=== PATIENT | female | born 1970 ===

== ENCOUNTER 2020-03-12 23:53 | Emergency (ER) | payer MEDICARE, MEDICAID, SELFPAY ==
[2020-03-13 00:13] VITALS: BP 133/71; PULSE 77; RESP 16; TEMP 36.1; O2SAT 98; BMI 31.8
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
[2020-03-13] MEDS: Ibuprofen 600 MG TABLET PO (02:06)
== END 2020-03-13 02:10 | disposition home or self-care (01) ==
LOC: HO.ED 03-13 02:02
PROVIDERS: Emergency Provider Internal Medicine
DX: Z04.1 Encounter for examination and observation following transport accident (principal); M25.562 Pain in left knee; M25.561 Pain in right knee
CPT/HCPCS: 99283

== ENCOUNTER 2020-12-23 09:35 | Outpatient (REF) | payer MEDICARE, MEDICAID, SELFPAY | END 2020-12-23 09:36 | disposition home or self-care (01) | LOC: HO.LAB 09:35 | PROVIDERS: Visit Provider Internal Medicine | DX: Z13.89 Encounter for screening for other disorder (principal) ==

== ENCOUNTER 2021-09-12 08:26 | Emergency (ER) | payer MEDICARE, MEDICAID, SELFPAY ==
[2021-09-12 08:31] VITALS: PULSE 55; RESP 17; TEMP 36.6; O2SAT 98; BMI 34.0
--- NOTE | 2021-09-12 09:06 | ED.GENADULT ---
HPI - General Adult General Chief complaint: Extremity Injury, Lower Stated complaint: cant walk pain in legs Time Seen by Provider: 09/12/21 09:05 Source: patient Mode of arrival: ambulatory Limitations: no limitations History of Present Illness HPI narrative: Patient is a 51 year old female presenting to the emergency department today with bilateral leg pain. Patient states that she is bilateral leg pain that radiates down her back. Patient states that she has flares of this on and off and has not been evaluated for it. Patient denies any dizziness, lightheadedness, abdominal pain, nausea, vomiting, fever, chills, blurry vision, double vision, loss of vision, chest pain, difficulty breathing, shortness of breath, night sweats, pain with urination, increased urinary frequency, increased urinary urgency, blood in her urine or stool, syncope or a near syncopal episode, recent trauma or falls, bowel incontinence, bladder incontinence, bowel retention, bladder retention, or any other complaints at this time. Onset (ago): week(s) (1) Location: left, right and lower extremity Severity: mild Severity scale (1-10): 2 Quality: sharp Pain Consistency: intermittent Relieving factors: none Exacerbating factors: none Associated symptoms: denies other symptoms Treatments prior to arrival: none Related Data Previous Rx's Medication Instructions Recorded ibuprofen 600 mg tablet 600 mg PO Q6H PRN pain #20 tabs 03/13/20 cyclobenzaprine 10 mg tablet 10 mg PO TID PRN muscle spasm 7 09/12/21 days #21 tabs Allergies Allergy/AdvReac Type Severity Reaction Status Date / Time Sulfa (Sulfonamide Allergy Severe SWELLING Unverified 12/07/19 16:19 Antibiotics) acetaminophen [Percocet] Allergy Unknown vomiting Verified 02/13/19 00:00 oxycodone [Percocet] Allergy Unknown vomiting Verified 02/13/19 00:00 lisinopril AdvReac Unknown Verified 02/13/19 00:00 Pt states she is allergic to Allergy Unknown Uncoded 02/13/19 00:00 P From PERCOCET AdvReac Intermediate VOMITING Uncoded 12/07/19 16:19 baldo inhibitors AdvReac Unknown Uncoded 02/13/19 00:00 Review of Systems Constitutional: Constitutional: Reports no additional constitutional complaints, Denies chills, Denies fever(s) and Denies night sweats Eyes: Eyes: Reports no additional eye complaints, Denies blurry vision, Denies change in vision, Denies diplopia, Denies eye discharge, Denies loss of vision and Denies eye pain ENT: Denies dizziness Cardiovascular: Cardiovascular: Reports no additional cardiovascular complaints, Denies chest pain, Denies lightheadedness, Denies Loss of Consciousness and Denies dyspnea Respiratory: Respiratory: Reports no additional respiratory complaints and Denies dyspnea Gastrointestinal: Gastrointestinal: Reports no additional gastrointestinal complaints, Denies abdominal pain, Denies melena, Denies hematochezia, Denies change in bowel habits and Denies change in stool character Genitourinary: Genitourinary: Denies hematuria, Denies urinary frequency, Denies dysuria, Denies urinary incontinence, Denies urinary hesitancy and Denies urinary urgency Musculoskeletal: Musculoskeletal: Reports no additional musculoskeletal complaints, Denies numbness and Denies tingling Comments: bilateral leg pain Neurologic: Denies dizziness, Denies loss of vision, Denies numbness and Denies tingling Psychiatric: Psychiatric: Reports no additional psychiatric complaints Endocrine: Endocrine: Reports no additional endocrine complaints Hematologic/Lymphatic: Hematologic/Lymphatic: Reports no additional hematologic/lymphatic complaints Allergic/Immunologic: Allergic/Immunologic: Reports no additional allergic/immunologic complaints PMFSH Past Medical History Attestation statement: The following information was validated with the patient. Source: old records reviewed Medical History Anemia Asthma Brain tumor Hypertension Social History Social History Advance Directives: No Advance Directives Information Provided: Yes Physical Exam ED Vital Signs: Vital Signs - 24 hr 09/12/21 08:31 Temperature 98 F Pulse Rate 55 Respiratory Rate 17 Pulse Oximetry 98 Oxygen Delivery Method Room Air BMI result Body Mass Index 34.0 Const General: cooperative, no acute distress, alert and awake Nutritional Appearance: well nourished Orientation/consciousness: patient oriented x3 Limitations: no limitations HENMT Head: Yes normal to inspection and Yes atraumatic Ears: hearing grossly normal bilaterally and external ears normal General nose exam: Normal external nose present, no nasal discharge noted and no epistaxis Face and sinus: Yes normal facial exam, No abrasion and No laceration Mouth: Normal oral and palatal mucosa present, no drooling and no muffled voice Eyes General: appearance normal, both eyes and all related structures Periorbital: periorbital findings normal Eyelids: Yes eyelids normal Conjunctivae: conjunctivae normal Pupils: Equal, round and reactive pupils present EOM: EOMs intact bilaterally Neck Neck: Yes normal visual inspection, Yes full ROM and Yes no lymphadenopathy Chest Chest palpation & inspection: normal inspection of the chest Resp Effort & Inspection: normal respiratory effort and able to speak in complete sentences Auscultation: clear to auscultation bilaterally Cardio Rate: regular rate Rhythm: regular rhythm GI Inspection: Yes normal to inspection Neuro General: patient oriented x3 and moves all extremities Cranial nerves: Yes Equal, round and reactive pupils present Cognition (Neuro): normal cognition Motor exam (neuro): 5/5 motor strength present throughout Sensory Exam: Normal double simultaneous stimulation for sensation Coordination: [id number] test normal Extrem General: Yes normal to inspection, Yes full ROM and Yes capillary refill normal Psych Appearance: grossly normal Mental Status: mental status grossly normal Affect: normal affect Attitude: cooperative Thought process: Normal thought process present Thought content: Normal thought content present Insight: Good insight present (Psych) Medical Decision Making MDM Narrative Medical decision making narrative: Patient is a 51 year old female presenting to the emergency department today with bilateral leg pain. Patient's physical exam was unremarkable. I explained my physical exam findings to the patient. I answered all questions asked by the patient. Patient received PO Flexeril which she stated helped her pain significantly. I stressed the importance of the patient taking her medication as prescribed. I stressed the importance of the patient following up with her primary care provider. I stressed the importance of the patient returning to the emergency department immediately if her symptoms were to worsen or if she were to develop any dizziness, shortness of breath, difficulty breathing, chest pain, blurry vision, loss of vision, nausea, vomiting, abdominal pain, fever, chills, back pain, or any other complaints. Patient verbalized agreement and understanding with this treatment plan and discharge. Differential Diagnosis Differential Diagnosis: sciatica Medical Records Medical records reviewed: Yes I reviewed the patient's medical records. Discharge Plan Discharge Clinical Impression: Sciatica Patient Disposition: Home, Self-Care Instructions: Sciatica (ED) Additional Instructions: Follow up with your primary care provider and an orthopedic provider. Return to the emergency department immediately if your symptoms worsen or if you develop any dizziness, shortness of breath, difficulty breathing, chest pain, blurry vision, loss of vision, nausea, vomiting, abdominal pain, fever, chills, back pain, or any other complaints. Prescriptions: New cyclobenzaprine 10 mg tablet 10 mg PO TID PRN (Reason: muscle spasm) 7 Days Qty: 21 0RF No Action ibuprofen 600 mg tablet 600 mg PO Q6H PRN (Reason: pain) Qty: 20 0RF Referrals: [facility] – [place] [facility] [Provider Group] Gilberto Gaines III, MD [Primary Care Provider] - Interventions: ED Discharge Assessment Last Done: 09/12/21 09:31 Discharge Date/Time: 09/12/21 09:32 Print Language: Icelandic
[2021-09-12] MEDS: Cyclobenzaprine HCl 5 MG TABLET PO (09:28)
== END 2021-09-12 09:32 | disposition home or self-care (01) ==
PROVIDERS: Emergency Provider Emergency Medicine Emergency Medical Services; PCP Internal Medicine
DX: M54.41 Lumbago with sciatica, right side (principal); M54.42 Lumbago with sciatica, left side
CPT/HCPCS: 99283

== ENCOUNTER 2022-02-10 07:24 | Emergency (ER) | payer MEDICARE, MEDICAID, SELFPAY ==
--- NOTE | ~2022-02-10 | US_ITS ---
EXAMINATION: US ABDOMEN COMPLETE CLINICAL INFORMATION: Left flank pain. COMPARISON: 01/16/2016 abdominal ultrasound. TECHNIQUE: Real-time imaging of the abdominal viscera. FINDINGS: PANCREAS: Visualized portions unremarkable. ABDOMINAL AORTA: Visualized portions unremarkable. INFERIOR VENA CAVA: Visualized portions unremarkable. LIVER: Diffuse increased echotexture without focal abnormality. GALLBLADDER: Unremarkable. COMMON BILE DUCT: Normal in caliber measuring 0.6 cm in diameter. RIGHT KIDNEY: 10.7 cm. Interpolar anechoic cyst measures 2.0 cm. Interpolar calculus measures 0.3 cm. No hydronephrosis. Color Doppler showed no abnormal vascular flow. LEFT KIDNEY: 10.2 cm. 2 lower pole calculi measure 0.3 cm. No hydronephrosis. SPLEEN: 9.6 cm. Unremarkable. FREE FLUID: None. US/US abdomen complete IMPRESSION: 1. Hepatic steatosis. 2. Interpolar right renal cyst demonstrates benign features, not requiring follow-up. Nonobstructing intrarenal calculi bilaterally.
[2022-02-10 07:30] VITALS: BP 154/70; PULSE 55; RESP 16; TEMP 36.9; O2SAT 100; BMI 35.2
[2022-02-10 07:48] VITALS: BP 144/76; PULSE 52; RESP 20; TEMP 36.7; O2SAT 97
--- NOTE | 2022-02-10 07:49 | PC.NURSE ---
PT reports frequent, burning urination. Denies N/V. Urine collected and sent to lab.
[2022-02-10 07:56] LABS: Appearance Urine Cloudy; Color Urine Yellow; Glucose Urine UA Negative (Negative); Leukocyte Esterase Urine Large (3+) (Negative); Nitrite Urine Negative (Negative); PH 6.5 (5.0-9.0); UMIC TRIGGER UACC YES; Urine Blood Large (3+) (Negative); Urine Ketones Negative (Negative); Urine Protein 30 (1+) mg/dL (Neg-Trace)
[2022-02-10 08:02] LABS: Bacteria Urine Trace (None Seen); Hyaline Casts Urine 0-2 /LPF (0-2); RBC Urine >20 /HPF (0-2); UACC Culture Trigger YES; WBC Urine >50 /HPF (0-5)
[2022-02-10] MEDS: 0.9 % Sodium Chloride 1,000 ML 999 ML IV ×2 (08:11→09:08)
[2022-02-10 08:16] LABS: MANUAL DIFF FLAG NO
[2022-02-10 08:18] LABS: Basophils Percent Auto 1.2 % (0-2); Eosinophils Absolute Auto 0.4 X10*3/uL (0.0-0.4); Eosinophils Percent Auto 11.7 % (0-4); Hematocrit 33.7 % (37.0-47.0); Hemoglobin 10.6 g/dl (12.0-16.0); Imm Gran Abs Auto 0.01 X10*3/uL (0.00-0.03); Imm Gran Pct Auto 0.3 % (0.0-0.4); Lymphocytes Absolute Auto 0.8 X10*3/uL (1.2-4.9); Lymphocytes Percent Auto 24.9 % (20-40); Mean Corpuscular HGB Conc 31.5 g/dl (31.0-35.0); Mean Corpuscular Hemoglobin 27.3 pg (27.0-33.0); Mean Corpuscular Volume 86.9 fL (80.0-98.0); Mean Platelet Volume 10.6 fL (9.4-12.3); Monocytes Absolute Auto 0.3 X10*3/uL (0.1-1.2); Monocytes Percent Auto 9.3 % (2-11); Neutrophils Absolute Auto 1.8 x10*3/uL (2.0-8.3); Neutrophils Percent Auto 52.6 % (45-73); Platelet Count 304 X10*3/uL (160-400); Red Blood Count 3.88 X10*6/uL (4.20-5.50); Red Cell Distribution Width 12.9 % (11.0-16.0); White Blood Count 3.3 X10*3/uL (4.8-10.8)
--- NOTE | 2022-02-10 08:27 | ED.FEMALEGU ---
HPI - Female Genitourinary General Chief complaint: Urogenital-Female Stated complaint: Pain when urinating/Back pain Time Seen by Provider: 02/10/22 07:52 Source: patient and family Mode of arrival: ambulatory Limitations: no limitations History of Present Illness HPI Narrative: 52-year-old female came in for evaluation of right flank pain. Right flank pain started since yesterday, pain is associated with dysuria, frequency urination, no blood in the urine, no fever, no chills, no nausea, no vomiting, no diarrhea. Sexually active with 1 partner no risk for STDs. No vaginal discharge or abnormal bleeding. Related Data Previous Rx's Medication Instructions Recorded ibuprofen 600 mg tablet 600 mg PO Q6H PRN pain #20 tabs 03/13/20 cyclobenzaprine 10 mg tablet 10 mg PO TID PRN muscle spasm 7 09/12/21 days #21 tabs levofloxacin 750 mg tablet 750 mg PO DAILY #10 tabs 02/10/22 phenazopyridine 200 mg tablet 200 mg PO TID 6 doses #6 tabs 02/10/22 (Pyridium) Allergies Allergy/AdvReac Type Severity Reaction Status Date / Time Sulfa (Sulfonamide Allergy Severe SWELLING Unverified 12/07/19 16:19 Antibiotics) acetaminophen [Percocet] Allergy Unknown vomiting Verified 02/13/19 00:00 oxycodone [Percocet] Allergy Unknown vomiting Verified 02/13/19 00:00 lisinopril AdvReac Unknown Verified 02/13/19 00:00 Pt states she is allergic to Allergy Unknown Uncoded 02/13/19 00:00 P From PERCOCET AdvReac Intermediate VOMITING Uncoded 12/07/19 16:19 baldo inhibitors AdvReac Unknown Uncoded 02/13/19 00:00 Review of Systems Review of Systems: All other systems are reviewed and are negative Constitutional: Reports as per HPI and Reports no additional constitutional complaints Eyes: Reports as per HPI and Reports no additional eye complaints Reports system reviewed and no additional complaints, except as documented Cardiovascular: Reports as per HPI and Reports no additional cardiovascular complaints Respiratory: Reports as per HPI and Reports no additional respiratory complaints Gastrointestinal: Reports as per HPI and Reports no additional gastrointestinal complaints Genitourinary: Reports no additional female genitourinary complaints Musculoskeletal: Reports no additional musculoskeletal complaints Skin/Breast: Reports system reviewed and no additional complaints, except as docu Psychiatric: Reports no additional psychiatric complaints Endocrine: Reports no additional endocrine complaints Hematologic/Lymphatic: Reports no additional hematologic/lymphatic complaints Allergic/Immunologic: Reports no additional allergic/immunologic complaints Reports system reviewed and no additional complaints, except as documented and Reports Abnormal speech present [facility] Past Medical History Medical History Anemia Asthma Brain tumor Hypertension Social History Social History Advance Directives: No Advance Directives Information Provided: Yes Physical Exam Vital Signs: Vital Signs: Last Vital Signs Temp 98.1 F 02/10/22 07:48 Pulse 52 02/10/22 07:48 Resp 20 02/10/22 07:48 BP 144/76 H 02/10/22 07:48 Pulse Ox 97 02/10/22 07:48 O2 Del Method 02/10/22 07:48 BMI result Body Mass Index 35.2 Vital signs have been reviewed as appeared to be correct. Blood pressure normal. Heart rate normal. Respiration rate normal. Temperature normal. Oxygen saturation normal. Appearance: Alert. Oriented X3. No acute distress. Head: Normal external exam. Normocephalic. Atraumatic. No Waters signs noted. No raccoon eyes noted Eyes: PERRLA. EOMI. Conjunctiva and sclera normal. Eyelids normal. ENT: TM's Normal. Pharynx normal. Uvula midline. Moist mucous membranes. No trismus noted. No drooling noted. No muffled voice noted. Neck: Normal inspection. Neck supple. FROM. No adenopathy. Thyroid Normal. No meningeal signs. No neck mass noted. CVS: Normal heart rate and rhythm. Heart sound normal. No murmurs noted. Pulses normal throughout. Respiratory: No respiratory distress. Painless inspiration. Breath sounds normal. No wheezes/rales/rhonchi noted. Chest nontender. No accessory muscle usage noted or decreased air movement noted. Abdomen: Soft and nontender. Bowel sounds normal in all 4 quadrants. No distention noted. No organomegaly noted. No visible injury noted. Back: R CVA tenderness. Full range of motion noted. Skin: Skin warm and dry. Normal skin color. Normal skin turgor. No rashes/lesions/lacerations noted. Extremities: No lower extremity edema. Extremities exhibit normal range of motion. Extremities nontender. Neuro: Oriented X 3. Cranial nerve exam: II-XII are grossly intact No motor deficit. No sensory deficit. Reflexes normal. Course Course Course Narrative: 52-year-old female with urinary symptoms and right flank pain likely secondary to pyelonephritis, patient received IV hydration and ceftriaxone patient already reported some improvements will discharge the patient on levofloxacin/Pyridium and encouraged to drink p.o. hydration. Medications Administered Discontinued Medications Generic Name Dose Route Start Last Admin Trade Name Freq PRN Reason Stop Dose Admin Sodium Chloride 1,000 mls @ 999 mls/hr 02/10/22 07:59 02/10/22 10:00 Ns IV 02/10/22 08:59 Infused .Q1H1M ONE Infusion Sodium Chloride 1,000 mls @ 999 mls/hr 02/10/22 08:26 02/10/22 09:08 Ns IV 02/10/22 09:26 999 mls/hr .Q1H1M ONE Administration Ceftriaxone Sodium 1 gm/ 50 mls @ 100 mls/hr 02/10/22 08:26 02/10/22 10:05 Sodium Chloride IV 02/10/22 08:55 Infused ONCE ONE Infusion MDM - Female Genitourinary Medical Records Attestation: I reviewed the patient's medical records. Lab Data Attestation: I reviewed the patient's lab results. Result diagrams: 02/10/22 08:11 02/10/22 08:11 Labs: Lab Results 02/10/22 02/10/22 02/10/22 Range/Units 07:45 08:11 08:11 WBC 3.3 L (4.8-10.8) X10*3/uL RBC 3.88 L (4.20-5.50) X10*6/uL Hgb 10.6 L (12.0-16.0) g/dl Hct 33.7 L (37.0-47.0) % MCV 86.9 (80.0-98.0) fL MCH 27.3 (27.0-33.0) pg MCHC 31.5 (31.0-35.0) g/dl RDW 12.9 (11.0-16.0) % Plt Count 304 (160-400) X10*3/uL MPV 10.6 (9.4-12.3) fL Immature Gran % (Auto) 0.3 (0.0-0.4) % Neut % (Auto) 52.6 (45-73) % Lymph % (Auto) 24.9 (20-40) % [place] % (Auto) 9.3 (2-11) % Eos % (Auto) 11.7 H (0-4) % Baso % (Auto) 1.2 (0-2) % Lymph # (Auto) 0.8 L (1.2-4.9) X10*3/uL [place] # (Auto) 0.3 (0.1-1.2) X10*3/uL Eos # (Auto) 0.4 (0.0-0.4) X10*3/uL Baso # (Auto) 0.0 (0.0-0.2) X10*3/uL Abs Immat Gran (auto) 0.01 (0.00-0.03) X10*3/uL Absolute Neuts (auto) 1.8 L (2.0-8.3) x10*3/uL Absolute Nucleated RBC 0.000 (0.0-0.012) X10*3/uL Nucleated RBC % (auto) 0.0 (0.0-0.2) /100WBC Sodium 140 (135-145) mmol/L Potassium 4.2 (3.3-5.1) mmol/L Chloride 106 (96-108) mmol/L Carbon Dioxide 27 (22-29) mmol/L Anion Gap 11 L (12-20) BUN 21 H (9-16) mg/dL Creatinine 0.82 (0.5-1.4) mg/dL Estim Creat Clear Calc 85.5 Estimated GFR > 60 Random Glucose 104 (60-115) mg/dL Lactic Acid (0.5-2.0) mmol/L Calcium 9.7 (8.4-10.2) mg/dL Total Bilirubin 0.5 (0.0-1.0) mg/dL Direct Bilirubin < 0.2 (0.0-0.5) mg/dL AST 18 (5-31) U/L ALT 13 (0-31) U/L Alkaline Phosphatase 97 (39-117) U/L Total Protein 6.8 (6.5-8.0) g/dL Albumin 4.2 (3.5-5.0) g/dL Lipase 14 (8-78) U/L Urine Color Yellow Urine Appearance Cloudy Urine pH 6.5 (5.0-9.0) Ur Specific [place] 1.020 (1.005-1.025) Urine Protein 30 (1+) H (Neg-Trace) mg/dL Urine Glucose (UA) Negative (Negative) mg/dL Urine Ketones Negative (Negative) mg/dL Urine Blood Large (3+) H (Negative) Urine Nitrite Negative (Negative) Ur Leukocyte Esterase Large (3+) H (Negative) Urine RBC >20 H (0-2) /HPF Urine WBC >50 H (0-5) /HPF Ur Squamous Epith Cells 3-5 (0-2) /HPF Urine Bacteria Trace (None Seen) Hyaline Casts 0-2 (0-2) /LPF 02/10/22 Range/Units 09:09 WBC (4.8-10.8) X10*3/uL RBC (4.20-5.50) X10*6/uL Hgb (12.0-16.0) g/dl Hct (37.0-47.0) % MCV (80.0-98.0) fL MCH (27.0-33.0) pg MCHC (31.0-35.0) g/dl RDW (11.0-16.0) % Plt Count (160-400) X10*3/uL MPV (9.4-12.3) fL Immature Gran % (Auto) (0.0-0.4) % Neut % (Auto) (45-73) % Lymph % (Auto) (20-40) % [place] % (Auto) (2-11) % Eos % (Auto) (0-4) % Baso % (Auto) (0-2) % Lymph # (Auto) (1.2-4.9) X10*3/uL [place] # (Auto) (0.1-1.2) X10*3/uL Eos # (Auto) (0.0-0.4) X10*3/uL Baso # (Auto) (0.0-0.2) X10*3/uL Abs Immat Gran (auto) (0.00-0.03) X10*3/uL Absolute Neuts (auto) (2.0-8.3) x10*3/uL Absolute Nucleated RBC (0.0-0.012) X10*3/uL Nucleated RBC % (auto) (0.0-0.2) /100WBC Sodium (135-145) mmol/L Potassium (3.3-5.1) mmol/L Chloride (96-108) mmol/L Carbon Dioxide (22-29) mmol/L Anion Gap (12-20) BUN (9-16) mg/dL Creatinine (0.5-1.4) mg/dL Estim Creat Clear Calc Estimated GFR Random Glucose (60-115) mg/dL Lactic Acid 0.8 (0.5-2.0) mmol/L Calcium (8.4-10.2) mg/dL Total Bilirubin (0.0-1.0) mg/dL Direct Bilirubin (0.0-0.5) mg/dL AST (5-31) U/L ALT (0-31) U/L Alkaline Phosphatase (39-117) U/L Total Protein (6.5-8.0) g/dL Albumin (3.5-5.0) g/dL Lipase (8-78) U/L Urine Color Urine Appearance Urine pH (5.0-9.0) Ur Specific [place] (1.005-1.025) Urine Protein (Neg-Trace) mg/dL Urine Glucose (UA) (Negative) mg/dL Urine Ketones (Negative) mg/dL Urine Blood (Negative) Urine Nitrite (Negative) Ur Leukocyte Esterase (Negative) Urine RBC (0-2) /HPF Urine WBC (0-5) /HPF Ur Squamous Epith Cells (0-2) /HPF Urine Bacteria (None Seen) Hyaline Casts (0-2) /LPF Imaging Data Abdominal ultrasound: Attestation: I personally reviewed and interpreted this imaging study as follows: Radiologist's impression: 1. Hepatic steatosis. 2. Interpolar right renal cyst demonstrates benign features, not requiring follow-up. Nonobstructing intrarenal calculi bilaterally. Discharge Plan Discharge Clinical Impression: Urinary tract infection, Pyelonephritis Patient Disposition: Home, Self-Care Instructions: Kidney Infection (ED) Prescriptions: New levofloxacin 750 mg tablet 750 mg PO DAILY Qty: 10 0RF phenazopyridine [Pyridium] 200 mg tablet 200 mg PO TID Qty: 6 0RF No Action ibuprofen 600 mg tablet 600 mg PO Q6H PRN (Reason: pain) Qty: 20 0RF cyclobenzaprine 10 mg tablet 10 mg PO TID PRN (Reason: muscle spasm) 7 Days Qty: 21 0RF Referrals: Gilberto Gaines III, MD [Primary Care Provider] -
[2022-02-10 08:53] LABS: Alanine Aminotransferase 13 U/L (0-31); Albumin Level 4.2 g/dL (3.5-5.0); Alkaline Phosphatase 97 U/L (39-117); Anion Gap 11 (12-20); Aspartate Amino Transferase 18 U/L (5-31); Bilirubin Direct < 0.2 mg/dL (0.0-0.5); Bilirubin Total 0.5 mg/dL (0.0-1.0); Blood Urea Nitrogen 21 mg/dL (9-16); Calcium 9.7 mg/dL (8.4-10.2); Carbon Dioxide 27 mmol/L (22-29); Chloride 106 mmol/L (96-108); Creatinine Clr Calc Pharmacy 85.5; Estimated Glomerular Filt Rate > 60; Glucose Random 104 mg/dL (60-115); Lipase 14 U/L (8-78); Potassium 4.2 mmol/L (3.3-5.1); Sodium 140 mmol/L (135-145); Total Protein 6.8 g/dL (6.5-8.0)
[2022-02-10] MEDS: cefTRIAXone sodium 1 GM in 0.9 % Sodium Chloride 50 ML IV (09:08)
[2022-02-10 09:29] LABS: Lactic Acid 0.8 mmol/L (0.5-2.0)
[2022-02-10 10:26] VITALS: BP 159/64; PULSE 51; RESP 16; TEMP 36.7; O2SAT 99
== END 2022-02-10 11:16 | disposition home or self-care (01) ==
PROVIDERS: Emergency Provider Emergency Medicine; PCP Internal Medicine
DX: N39.0 Urinary tract infection, site not specified (principal); R30.0 Dysuria; N12 Tubulo-interstitial nephritis, not specified as acute or chronic; M54.50 Low back pain, unspecified; R35.0 Frequency of micturition; Z79.899 Other long term (current) drug therapy
CPT/HCPCS: 36415; 76700; 80048; 80076; 81001; 81003; 83605; 83690; 85025; 87040; 87086; 87088; 87186; 96361; 96374; 99284; J0696

== ENCOUNTER → 2022-03-27 10:42 | Outpatient (BNVA) | payer MEDICARE, MEDICAID, SELFPAY | PROVIDERS: PCP Internal Medicine; Visit Provider Physician Assistant Surgical | DX: E66.9 Obesity, unspecified (principal); Z90.3 Acquired absence of stomach [part of]; Z68.34 Body mass index [BMI] 34.0-34.9, adult | CPT/HCPCS: 99212 ==

== ENCOUNTER 2022-04-27 08:26 | Outpatient (REF) | payer MEDICARE, MEDICAID, SELFPAY ==
[2022-04-27 08:40] LABS: MANUAL DIFF FLAG NO
[2022-04-27 09:30] LABS: Basophils Absolute Auto 0.1 X10*3/uL (0.0-0.2); Basophils Percent Auto 1.3 % (0-2); Eosinophils Absolute Auto 0.4 X10*3/uL (0.0-0.4); Eosinophils Percent Auto 11.1 % (0-4); Hematocrit 35.9 % (37.0-47.0); Hemoglobin 11.1 g/dl (12.0-16.0); Lymphocytes Percent Auto 26.3 % (20-40); Mean Corpuscular HGB Conc 30.9 g/dl (31.0-35.0); Mean Corpuscular Hemoglobin 26.6 pg (27.0-33.0); Mean Corpuscular Volume 86.1 fL (80.0-98.0); Mean Platelet Volume 10.9 fL (9.4-12.3); Monocytes Absolute Auto 0.3 X10*3/uL (0.1-1.2); Monocytes Percent Auto 7.4 % (2-11); Neutrophils Percent Auto 53.9 % (45-73); Platelet Count 304 X10*3/uL (160-400); Red Blood Count 4.17 X10*6/uL (4.20-5.50); Red Cell Distribution Width 13.2 % (11.0-16.0); White Blood Count 3.8 X10*3/uL (4.8-10.8)
[2022-04-27 09:36] LABS: Estimated Average Glucose 100 mg/dL; Hemoglobin A1c % 5.1 %
[2022-04-27 10:02] LABS: Alanine Aminotransferase 17 U/L (0-31); Albumin Level 4.5 g/dL (3.5-5.0); Alkaline Phosphatase 120 U/L (39-117); Anion Gap 14 (12-20); Aspartate Amino Transferase 17 U/L (5-31); Bilirubin Total 0.6 mg/dL (0.0-1.0); Blood Urea Nitrogen 16 mg/dL (9-16); C Reactive Protein 0.63 mg/dL (< or = 0.50); Calcium 9.8 mg/dL (8.4-10.2); Carbon Dioxide 27 mmol/L (22-29); Chloride 105 mmol/L (96-108); Cholesterol 226 mg/dL; Estimated Glomerular Filt Rate > 60; Glucose Random 105 mg/dL (60-115); HDL Cholesterol 47 mg/dL; Iron 55 mcg/dL (30-160); LDL Cholesterol Calculated 159 mg/dl; Percent Iron Saturation 18 % (15-50); Potassium 4.4 mmol/L (3.3-5.1); Sodium 142 mmol/L (135-145); Total Iron Binding Capacity 306 mcg/dL (228-428); Triglycerides 101 mg/dL; Unsaturated Iron Binding 251 ug/dL
[2022-04-27 10:33] LABS: Ferritin 48 ng/mL (10-250); Insulin 16 uU/mL (2-29); TSH reflex Free T4 2.36 uIU/mL (0.32-4.0); Vitamin B12 318 pg/mL (200-900); Vitamin D 25-OH Total 15.9 ng/mL (>30)
[2022-04-28 15:08] LABS: PTHI 83 pg/mL (16-77)
[2022-04-30 16:58] LABS: Zinc 66 mcg/dL (60-130)
[2022-04-30 23:19] LABS: Vitamin A 44 mcg/dL (38-98)
[2022-05-03 05:38] LABS: Vitamin B1 10 nmol/L (8-30)
== END 2022-04-27 08:27 | disposition home or self-care (01) ==
LOC: HO.LAB 08:26
PROVIDERS: PCP Internal Medicine; Visit Provider Physician Assistant Surgical
DX: K91.2 Postsurgical malabsorption, not elsewhere classified (principal); Z90.3 Acquired absence of stomach [part of]
CPT/HCPCS: 36415; 80053; 80061; 82306; 82607; 82728; 82746; 83036; 83525; 83540; 83970; 84425; 84443; 84590; 84630; 85025; 86140

== ENCOUNTER 2022-05-14 11:45 | Emergency (ER) | payer MEDICARE, MEDICAID, SELFPAY ==
--- NOTE | ~2022-05-14 | US_ITS ---
EXAMINATION: US ABDOMEN LIMITED CLINICAL INFORMATION: Right upper quadrant pain with abnormal LFTs. COMPARISON: Ultrasound 02/10/2022, CT abdomen pelvis 06/22/2018 TECHNIQUE: Real-time imaging of the right upper quadrant abdominal viscera. FINDINGS: PANCREAS: The pancreas appears unremarkable, without masses or ductal dilatation, with the exception of the tail which is obscured by bowel gas. LIVER: The liver is normal in size. The liver contour is normal. Parenchymal echogenicity is normal. No focal hepatic lesion. There is no intrahepatic biliary duct dilatation seen. GALLBLADDER: The gallbladder is physiologically distended without evidence of stones, sludge, polyps, wall thickening or pericholecystic fluid. COMMON BILE DUCT: The common bile duct is dilated at 0.8 cm in diameter. On the prior ultrasound as well as CT scan this measured 0.6 cm. RIGHT KIDNEY: A benign 1.9 cm Bosniak class I renal cyst is present which needs no additional imaging or follow-up. No hydronephrosis. No renal calculi or focal parenchymal lesions. The kidney measures 10.0 cm in maximum dimension. FREE FLUID: None. US/US abdomen limited IMPRESSION: There is mild dilatation of common bile duct at 8 mm compared with 6 mm seen previously. No gallstones or any other abnormality seen.
--- NOTE | 2022-05-14 13:06 | ED_ITS ---
HPI - General Adult General Chief complaint: Recheck/Abnormal Lab/Rx <Louise Quiñonez CNP - Last Filed: 05/14/22 13:09> Stated complaint: sent by Dr. néstor li, in pain. <Louise Quiñonez CNP - Last Filed: 05/14/22 13:09> Time Seen by Provider: 05/14/22 18:09 <Louise Quiñonez CNP - Last Filed: 05/14/22 13:09> Source: patient <PATRICIA Xiao - Last Filed: 05/14/22 18:26> Mode of arrival: ambulatory <PATRICIA Xiao - Last Filed: 05/14/22 18:26> Limitations: no limitations <PATRICIA Xiao - Last Filed: 05/14/22 18:26> History of Present Illness HPI narrative: 52-year-old female history of obesity presents with intermittent right upper quadrant pain for a while she had an episode of sharp pain today which has since resolved. Patient tells me that she had abnormal laboratory studies by [facility], they were concerned that she had an enlarged liver, they told her she might have cirrhosis or hepatitis C. Patient got scared and they advised her to come in to the emergency department for further intervention. They did not provide her with a list of abnormal labs. She tells me that she has been having intermittent pain to right upper quadrant for a while now however today she did have a sharp pain associated with nausea, pain subsided patient feels well eating and drinking without difficulty. Denies fevers, chills, chest pain, shortness of breath, changes in skin color, headache, vision changes, dizziness, weakness, diarrhea, changes in urination. <PATRICIA Serra - Last Filed: 05/14/22 18:26> Related Data Home medications: Previous Rx's Medication Instructions Recorded ibuprofen 600 mg tablet 600 mg PO Q6H PRN pain #20 tabs 03/13/20 cyclobenzaprine 10 mg tablet 10 mg PO TID PRN muscle spasm 7 09/12/21 days #21 tabs levofloxacin 750 mg tablet 750 mg PO DAILY #10 tabs 02/10/22 phenazopyridine 200 mg tablet 200 mg PO TID 6 doses #6 tabs 02/10/22 (Pyridium) cholecalciferol (vitamin D3) 125 125 mcg PO DAILY #90 caps 05/04/22 mcg (5,000 unit) capsule <Louise Quiñonez CNP - Last Filed: 05/14/22 13:09> Allergies/adverse reactions: Allergies Allergy/AdvReac Type Severity Reaction Status Date / Time Sulfa (Sulfonamide Allergy Severe SWELLING Verified 03/27/22 10:53 Antibiotics) acetaminophen [Percocet] Allergy Unknown vomiting Verified 03/27/22 10:53 oxycodone [Percocet] Allergy Unknown vomiting Verified 03/27/22 10:53 lisinopril AdvReac Unknown Unknown Verified 03/27/22 10:53 Pt states she is allergic to Allergy Unknown Nausea Uncoded 03/27/22 10:53 P From PERCOCET AdvReac Intermediate VOMITING Uncoded 12/07/19 16:19 baldo inhibitors AdvReac Unknown unknown Uncoded 03/27/22 10:53 <Louise Quiñonez CNP - Last Filed: 05/14/22 13:09> Review of Systems Review of Systems: Constitutional : No Weight loss, No Fever, No Chills, No Fatigue, No Malaise ENT/Mouth : No sore throat, No Rhinorrhea Eyes: No Eye Pain, No Swelling, No Redness Cardiovascular : No Chest Pain, No SOB, No Dyspnea on Exertion, No Orthopnea, No Edema, No Palpitations Respiratory : No Cough, No Sputum, No Wheezing Gastrointestinal : No Nausea, No Vomiting, No Diarrhea, No Constipation, No abdominal Pain, No Hematochezia, No Melena Genitourinary : No Dysuria, No Urinary Frequency, No Hematuria, Musculoskeletal : No joint pain, No Myalgias, No Joint Swelling Skin : No Skin Lesions, No rash Neuro : No Weakness, No Numbness, No Dizziness, No Headache Psych : No Anxiety/Panic, No Depression All other systems reviewed and are negative <PATRICIA Xiao Last Fi led: 05/14/22 18:26> Yes all other systems are reviewed and are negative <PATRICIA Xiao Last Filed: 05/14/22 18:26> [facility], LAT[facility] Past Medical History Attestation statement: The following information was validated with the patient. <PATRICIA Xiao - Last Filed: 05/14/22 18:26> Source: old records reviewed and nursing notes reviewed <PATRICIA Xiao - Last Filed: 05/14/22 18:26> Medical History: Medical History Anemia Asthma Brain tumor Hypertension <Louise Quiñonez CNP - Last Filed: 05/14/22 13:09> Surgical History: Surgical History Hx of hysterectomy Hx of tonsillectomy <Louies Quiñonez CNP - Last Filed: 05/14/22 13:09> Social History Social History: Social History Alcohol intake: never Patient Tobacco Use Status: Never used Tobacco Advance Directives: No <Louise Quiñonez CNP - Last Filed: 05/14/22 13:09> Physical Exam ED Vital Signs: Vital Signs - 24 hr 05/14/22 13:07 Temperature 98 F Pulse Rate 63 Respiratory Rate 16 Blood Pressure 151/82 H Pulse Oximetry 99 Oxygen Delivery Method Room Air BMI result Body Mass Index 33.8 <Louise Quiñonez CNP - Last Filed: 05/14/22 13:09> Vital Signs - 24 hr 05/14/22 13:07 Temperature 98 F Pulse Rate 63 Respiratory Rate 16 Blood Pressure 151/82 H Pulse Oximetry 99 Oxygen Delivery Method Room Air BMI result Body Mass Index 33.8 Vital signs stable <PATRICIA Xiao - Last Filed: 05/14/22 18:26> Appearance: Alert.? Oriented X3.? No acute distress.? Head: Normocephalic, atraumatic, no step-offs or deformities Eyes: Pupils equal, round and reactive to light.? ENT: Pharynx normal.? Neck: Normal inspection.? Neck supple.? CVS: Normal heart rate and rhythm.? Pulses normal.? Respiratory: No respiratory distress.? Breath sounds normal.? Abdomen: Soft and nontender.? Negative Mosher's, Rovsing, obturator, psoas, McBurney's point. Normoactive bowel sounds. Skin: Skin warm and dry.? Normal skin color.? Normal skin turgor.? Extremities: No lower extremity edema.? No calf ttp. 5/5 strength to bilateral upper and lower extremities Neuro: Oriented X 3.? No motor deficit.? No sensory deficit. CN 2-12 intact <PATRICIA Xiao - Last Filed: 05/14/22 18:26> Course Course Course Narrative: This is an RME: Additional HPI, ROS, PE not included below will be deferred to primary provider. Patient is a 52-year-old female who presents to emergency department by advisement from her primary care doctor, she reports that she had labs obtained through [place], inflammation of liver , c/o RUQ ABD pain x 2 days, nausea without vomiting. Denies history of similar issues in the past. PE: RUQ tenderness upon exam Plan: labs, urinalysis, RUQ US <Louise Quiñonez CNP - Last Filed: 05/14/22 13:09> Reevaluation(s) Reevaluation #1: CBC appears to be within normal limits. Chemistry with no acute finding requiring intervention. Normal transaminases, alk phos and bilirubin. There is mild dilation of common bile duct to 8 mm compared with 6 mm seen previously. No gallstones or any other abnormalities. I do not suspect acute cholecystitis. Patient will be discharged home with GI follow-up. Advised to return with new or worsening symptoms. Educated patient on diagnosis and treatment plan, answered all question, patient verbalizes understanding. At this time patient will be discharged home, advised to return with new or worsening symptoms. Educated on worrisome signs and symptoms and when to return. At this time I feel comfortable discharge home. <PATRICIA Xiao - Last Filed: 05/14/22 18:26> Time: 18:25 <PATRICIA Xiao - Last Filed: 05/14/22 18:26> Medical Decision Making Medical Decision Making MDM Narrative: 1819 52-year-old female presents for evaluation of abnormal labs per [facility] [place]. They told her she had a fatty liver. Has been having intermittent abdominal pain for a while however had 1 episode of sharp abdominal pain to right upper quadrant today. History and physical examination likely musculoskeletal in nature. I do not suspect acute cholecystitis, cholangitis, pancreatitis, appendicitis, diverticulitis. Patient well appearing, nontoxic stable vital signs. Plan at this time basic labs, ultrasound, urine. <PATRICIA Xiao - Last Filed: 05/14/22 18:26> Differential Diagnosis Differential Diagnoses: The differential diagnosis associated with the presentation includes <PATRICIA Xiao - Last Filed: 05/14/22 18:26> History and physical examination likely musculoskeletal in nature. I do not suspect acute cholecystitis, cholangitis, pancreatitis, appendicitis, diverticulitis. Patient well appearing, nontoxic stable vital signs. <PATRICIA Xiao - Last Filed: 05/14/22 18:26> Admission/Observation Consideration of admission/observation: Escalation of care including admission/observation considered <PATRICIA Xiao - Last Filed: 05/14/22 18:26> Lab Data MDM Lab Attestation statement: I reviewed the patient's lab results. <PATRICIA Xiao - Last Filed: 05/14/22 18:26> Result Diagrams: 05/14/22 13:15 05/14/22 13:15 <Louise Quiñonez CNP - Last Filed: 05/14/22 13:09> Labs: Lab Results 05/14/22 05/14/22 Range/Units 13:15 13:15 WBC 5.1 (4.8-10.8) X10*3/uL RBC 4.20 (4.20-5.50) X10*6/uL Hgb 11.3 L (12.0-16.0) g/dl Hct 35.8 L (37.0-47.0) % MCV 85.2 (80.0-98.0) fL MCH 26.9 L (27.0-33.0) pg MCHC 31.6 (31.0-35.0) g/dl RDW 13.0 (11.0-16.0) % Plt Count 334 (160-400) X10*3/uL MPV 10.2 (9.4-12.3) fL Immature Gran % (Auto) 0.4 (0.0-0.4) % Neut % (Auto) 53.8 (45-73) % Lymph % (Auto) 27.0 (20-40) % [place] % (Auto) 7.3 (2-11) % Eos % (Auto) 10.7 H (0-4) % Baso % (Auto) 0.8 (0-2) % Lymph # (Auto) 1.4 (1.2-4.9) X10*3/uL [place] # (Auto) 0.4 (0.1-1.2) X10*3/uL Eos # (Auto) 0.5 H (0.0-0.4) X10*3/uL Baso # (Auto) 0.0 (0.0-0.2) X10*3/uL Abs Immat Gran (auto) 0.02 (0.00-0.03) X10*3/uL Absolute Neuts (auto) 2.7 (2.0-8.3) x10*3/uL Absolute Nucleated RBC 0.000 (0.0-0.012) X10*3/uL Nucleated RBC % (auto) 0.0 (0.0-0.2) /100WBC Sodium 143 (135-145) mmol/L Potassium 4.0 (3.3-5.1) mmol/L Chloride 107 (96-108) mmol/L Carbon Dioxide 29 (22-29) mmol/L Anion Gap 11 L (12-20) BUN 18 H (9-16) mg/dL Creatinine 0.87 (0.5-1.4) mg/dL Estim Creat Clear Calc 78.9 Estimated GFR > 60 Random Glucose 113 (60-115) mg/dL Calcium 9.7 (8.4-10.2) mg/dL Total Bilirubin 0.5 (0.0-1.0) mg/dL AST 22 (5-31) U/L ALT 19 (0-31) U/L Alkaline Phosphatase 115 (39-117) U/L Total Protein 7.2 (6.5-8.0) g/dL Albumin 4.4 (3.5-5.0) g/dL Lipase 15 (8-78) U/L <Louise Quiñonez, RUBEN - Last Filed: 05/14/22 13:09> Lab Results 05/14/22 05/14/22 Range/Units 13:15 13:15 WBC 5.1 (4.8-10.8) X10*3/uL RBC 4.20 (4.20-5.50) X10*6/uL Hgb 11.3 L (12.0-16.0) g/dl Hct 35.8 L (37.0-47.0) % MCV 85.2 (80.0-98.0) fL MCH 26.9 L (27.0-33.0) pg MCHC 31.6 (31.0-35.0) g/dl RDW 13.0 (11.0-16.0) % Plt Count 334 (160-400) X10*3/uL MPV 10.2 (9.4-12.3) fL Immature Gran % (Auto) 0.4 (0.0-0.4) % Neut % (Auto) 53.8 (45-73) % Lymph % (Auto) 27.0 (20-40) % Cla[place]orne % (Auto) 7.3 (2-11) % Eos % (Auto) 10.7 H (0-4) % Baso % (Auto) 0.8 (0-2) % Lymph # (Auto) 1.4 (1.2-4.9) X10*3/uL [place] # (Auto) 0.4 (0.1-1.2) X10*3/uL Eos # (Auto) 0.5 H (0.0-0.4) X10*3/uL Baso # (Auto) 0.0 (0.0-0.2) X10*3/uL Abs Immat Gran (auto) 0.02 (0.00-0.03) X10*3/uL Absolute Neuts (auto) 2.7 (2.0-8.3) x10*3/uL Absolute Nucleated RBC 0.000 (0.0-0.012) X10*3/uL Nucleated RBC % (auto) 0.0 (0.0-0.2) /100WBC Sodium 143 (135-145) mmol/L Potassium 4.0 (3.3-5.1) mmol/L Chloride 107 (96-108) mmol/L Carbon Dioxide 29 (22-29) mmol/L Anion Gap 11 L (12-20) BUN 18 H (9-16) mg/dL Creatinine 0.87 (0.5-1.4) mg/dL Estim Creat Clear Calc 78.9 Estimated GFR > 60 Random Glucose 113 (60-115) mg/dL Calcium 9.7 (8.4-10.2) mg/dL Total Bilirubin 0.5 (0.0-1.0) mg/dL AST 22 (5-31) U/L ALT 19 (0-31) U/L Alkaline Phosphatase 115 (39-117) U/L Total Protein 7.2 (6.5-8.0) g/dL Albumin 4.4 (3.5-5.0) g/dL Lipase 15 (8-78) U/L <PATRICIA Xiao - Last Filed: 05/14/22 18:26> Independent Interpretation I performed an independent interpretation of an: Ultrasound ( US/US abdomen limited IMPRESSION: There is mild dilatation of common bile duct at 8 mm compared with 6 mm seen previously. No gallstones or any other abnormality seen. ) <PATRICIA Xiao - Last Filed: 05/14/22 18:26> Radiology Impression Discussion of test interpretation with radiology: I have reviewed the radiologist's reading. <PATRICIA Xiao - Last Filed: 05/14/22 18:26> Core Measures AMI core measures followed: Yes <PATRICIA Xiao - Last Filed: 05/14/22 18:26> Measure exclusions: not indicated <PATRICIA Xiao - Last Filed: 05/14/22 18:26> Discharge Plan Discharge Clinical Impression: Intermittent right upper quadrant abdominal pain <Louise Quiñonez CNP - Last Filed: 05/14/22 13:09> Patient Disposition: Home, Self-Care <Louise Quiñonez CNP - Last Filed: 05/14/22 13:09> Instructions: Abdominal Pain (ED) <Louise Quiñonez CNP - Last Filed: 05/14/22 13:09> Additional Instructions: Take your medications as prescribed. If you were prescribed antibiotics today, it is important that you take your medication to their entirety, do not skip any doses, do not finish them early. Follow-up with your primary care provider this week. Follow-up with gastroenterology. Return to the emergency department with new or worsening symptoms. Such as fevers, chills, chest pain, shortness of breath, nausea, vomiting, dizziness, headache, vision changes, lethargy In case of emergency call 911 US/US abdomen limited IMPRESSION: There is mild dilatation of common bile duct at 8 mm compared with 6 mm seen previously. No gallstones or any other abnormality seen. ? <Louise Quiñonez CNP - Last Filed: 05/14/22 13:09> Prescriptions: No Action cholecalciferol (vitamin D3) 125 mcg (5,000 unit) capsule 125 mcg PO DAILY Qty: 90 3RF ibuprofen 600 mg tablet 600 mg PO Q6H PRN (Reason: pain) Qty: 20 0RF levofloxacin 750 mg tablet 750 mg PO DAILY Qty: 10 0RF phenazopyridine [Pyridium] 200 mg tablet 200 mg PO TID Qty: 6 0RF cyclobenzaprine 10 mg tablet 10 mg PO TID PRN (Reason: muscle spasm) 7 Days Qty: 21 0RF <Louise Quiñonez CNP - Last Filed: 05/14/22 13:09> Referrals: [facility] [Provider Group] - 1 week Gilberto Gaines III, MD [Primary Care Provider] - 2 days <Louise Quiñonez CNP - Last Filed: 05/14/22 13:09> Stand Alone Forms: Work/School Release <Louise Quiñonez CNP - Last Filed: 05/14/22 13:09> Interventions: ED Discharge Assessment Last Done: 05/14/22 18:23 <Louise Quiñonez CNP - Last Filed: 05/14/22 13:09>
[2022-05-14 13:07] VITALS: BP 151/82; PULSE 63; RESP 16; TEMP 36.6; O2SAT 99; BMI 33.8
[2022-05-14 13:21] LABS: MANUAL DIFF FLAG NO
[2022-05-14 13:24] LABS: Basophils Percent Auto 0.8 % (0-2); Eosinophils Absolute Auto 0.5 X10*3/uL (0.0-0.4); Eosinophils Percent Auto 10.7 % (0-4); Hematocrit 35.8 % (37.0-47.0); Hemoglobin 11.3 g/dl (12.0-16.0); Imm Gran Abs Auto 0.02 X10*3/uL (0.00-0.03); Imm Gran Pct Auto 0.4 % (0.0-0.4); Lymphocytes Absolute Auto 1.4 X10*3/uL (1.2-4.9); Mean Corpuscular HGB Conc 31.6 g/dl (31.0-35.0); Mean Corpuscular Hemoglobin 26.9 pg (27.0-33.0); Mean Corpuscular Volume 85.2 fL (80.0-98.0); Mean Platelet Volume 10.2 fL (9.4-12.3); Monocytes Absolute Auto 0.4 X10*3/uL (0.1-1.2); Monocytes Percent Auto 7.3 % (2-11); Neutrophils Absolute Auto 2.7 x10*3/uL (2.0-8.3); Neutrophils Percent Auto 53.8 % (45-73); Platelet Count 334 X10*3/uL (160-400); White Blood Count 5.1 X10*3/uL (4.8-10.8)
[2022-05-14 13:44] LABS: Alanine Aminotransferase 19 U/L (0-31); Albumin Level 4.4 g/dL (3.5-5.0); Alkaline Phosphatase 115 U/L (39-117); Anion Gap 11 (12-20); Aspartate Amino Transferase 22 U/L (5-31); Bilirubin Total 0.5 mg/dL (0.0-1.0); Blood Urea Nitrogen 18 mg/dL (9-16); Calcium 9.7 mg/dL (8.4-10.2); Carbon Dioxide 29 mmol/L (22-29); Chloride 107 mmol/L (96-108); Creatinine Clr Calc Pharmacy 78.9; Estimated Glomerular Filt Rate > 60; Glucose Random 113 mg/dL (60-115); Lipase 15 U/L (8-78); Sodium 143 mmol/L (135-145); Total Protein 7.2 g/dL (6.5-8.0)
--- NOTE | 2022-05-14 18:15 | PC.NURSE ---
Patient primarily Czech speaking can communicate and understand Ukrainian reports RLQ abd pain and elevated liver enzymes. Patient denies blood in urine or stool, no recent trauma. AOx 4 ABD soft non tender no guarding noted. Provider at bedside awaiting orders will CTM
== END 2022-05-14 18:28 | disposition home or self-care (01) ==
PROVIDERS: Nurse Practitioner Family; Emergency Provider Emergency Medicine Emergency Medical Services; PCP Internal Medicine
DX: R10.11 Right upper quadrant pain (principal); I10 Essential (primary) hypertension; Z79.899 Other long term (current) drug therapy
CPT/HCPCS: 36415; 76705; 80053; 83690; 85025; 99282; 99284

== ENCOUNTER → 2022-05-15 10:17 | Outpatient (BNVA) | payer MEDICARE, MEDICAID, SELFPAY | PROVIDERS: PCP Internal Medicine; Referring Provider Internal Medicine; Visit Provider Physician Assistant Surgical | DX: E66.9 Obesity, unspecified (principal); Z68.34 Body mass index [BMI] 34.0-34.9, adult; Z98.84 Bariatric surgery status; Z90.3 Acquired absence of stomach [part of] | CPT/HCPCS: 99212 ==

== ENCOUNTER → 2022-06-04 08:18 | Outpatient (BNVA) | payer MEDICARE, MEDICAID, SELFPAY | PROVIDERS: PCP Internal Medicine; Visit Provider Nurse Practitioner Family | DX: R51.9 Headache, unspecified (principal); D35.2 Benign neoplasm of pituitary gland; G47.9 Sleep disorder, unspecified | CPT/HCPCS: 99202 ==

== ENCOUNTER 2022-09-04 17:02 | Emergency (ER) | payer MEDICARE, MEDICAID, SELFPAY ==
--- NOTE | ~2022-09-04 | XR_ITS ---
EXAMINATION: XR CHEST CLINICAL INFORMATION: Chest pain. COMPARISON: 08/06/2017 chest radiographs TECHNIQUE: 2 views of the chest were obtained. FINDINGS: No significant abnormality is noted involving the heart, lungs, mediastinum, bony thorax or soft tissues. XR/XR chest 2V IMPRESSION: No acute cardiopulmonary process.
--- NOTE | 2022-09-04 17:14 | ECG_ITS ---
Test Reason : CHHEST PAIN Blood Pressure : / mmHG Vent. Rate : 083 BPM Atrial Rate : 083 BPM P-R Int : 156 ms QRS Dur : 088 ms QT Int : 382 ms P-R-T Axes : 053 002 034 degrees QTc Int : 448 ms Normal sinus rhythm Minimal voltage criteria for LVH, may be normal variant ( R in aVL ) Inferior infarct , age undetermined Cannot rule out Anterior infarct , age undetermined Abnormal ECG When compared with ECG of 13-FEB-2019 13:05, Vent. rate has increased BY 32 BPM Referred By: Marybel Crews Electronically Signed By:KERA DE LOS SANTOS MD
--- NOTE | 2022-09-04 17:15 | ED.CHESTPAIN ---
HPI - Chest Pain General Chief Complaint: General Medical Stated Complaint: Fatigue/Chest pressure Time Seen by Provider: 09/04/22 18:18 Source: patient and RN notes reviewed Mode of arrival: ambulatory Limitations: no limitations History of Present Illness HPI narrative: This is a 52-year-old female, with a past medical history of pituitary tumor, presenting to the emergency department for evaluation of diffuse body aches, nausea, epigastric pain, subjective fevers and headache since this morning. She also admits to having some dysuria and urinary frequency over the last 2 days. She states that she has some chest tightness which has been constant since this morning, but reports that this is extremely mild and believes that it is just her body aches that are causing her to have some chest tightness. She endorses a ?scratchy throat?. She denies any changes in her vision, ear pain, difficulty swallowing, palpitations, shortness of breath, cough. She also admits to having some nausea, denies any vomiting, diarrhea, or constipation. No other complaints or concerns at this time. MD complaint: chest pain Onset (ago): hour(s) Timing of current episode: constant Prior episodes: No Pain radiation: none Severity: mild Quality: tightness Relieving factors: nothing Exacerbating factors: nothing Associated symptoms: nausea Treatment prior to arrival: none Risk Factors Coronary artery disease risk factors: none Thoracic aortic dissection risk factors: none Related Data On Oral Contraceptives: No Home Medications Medication Instructions Recorded Confirmed amlodipine 10 mg tablet 10 mg PO DAILY 06/04/22 06/04/22 cyanocobalamin (vitamin B-12) 500 500 mcg PO DAILY 06/04/22 06/04/22 mcg tablet (Vitamin B-12) ergocalciferol (vitamin D2) 1,250 1,250 mcg PO QWEEK 06/04/22 06/04/22 mcg (50,000 unit) capsule ferrous sulfate 325 mg (65 mg 325 mg PO BID 06/04/22 06/04/22 iron) tablet methotrexate sodium 2.5 mg tablet 15 mg PO QWEEK 06/04/22 06/04/22 spironolactone 25 mg tablet 25 mg PO DAILY 06/04/22 06/04/22 Previous Rx's Medication Instructions Recorded cholecalciferol (vitamin D3) 125 125 mcg PO DAILY #90 caps 05/04/22 mcg (5,000 unit) capsule baclofen 10 mg tablet 10 mg PO BEDTIME PRN muscle spasm 06/04/22 30 days #30 tabs magnesium oxide 400 mg (241.3 mg 400 mg PO BEDTIME 30 days #30 tabs 06/04/22 magnesium) tablet riboflavin (vitamin B2) 400 mg 400 mg PO DAILY 30 days #30 tabs 06/04/22 tablet sumatriptan succinate 100 mg tablet 50 - 100 mg PO .COMPLEX PRN 06/04/22 migraine headache 30 days #12 tabs cefuroxime axetil 250 mg tablet 250 mg PO BID #10 tabs 09/04/22 ondansetron 4 mg disintegrating 4 mg PO Q8-12H PRN nausea and 09/04/22 tablet vomiting #10 tabs Allergies Allergy/AdvReac Type Severity Reaction Status Date / Time Sulfa (Sulfonamide Allergy Severe SWELLING Verified 06/04/22 08:34 Antibiotics) acetaminophen [Percocet] Allergy Unknown vomiting Verified 06/04/22 08:34 morphine Allergy Unknown Unknown Verified 06/04/22 08:34 oxycodone [Percocet] Allergy Unknown vomiting Verified 06/04/22 08:34 lisinopril AdvReac Unknown Unknown Verified 06/04/22 08:34 Pt states she is allergic to Allergy Unknown Nausea Uncoded 06/04/22 08:34 P From PERCOCET AdvReac Intermediate VOMITING Uncoded 06/04/22 08:34 baldo inhibitors AdvReac Unknown unknown Uncoded 06/04/22 08:34 Review of Systems Review of Systems: Constitutional: No Weight loss, No Fever, No Chills, No Night Sweats, No Fatigue, +Malaise ENT/Mouth: No Hearing loss, No Ear Pain, No Nasal Congestion, No Sinus Pain, No Hoarseness, No sore throat, No Rhinorrhea, No Swallowing Difficulty Eyes: No Eye Pain, No Swelling, No Redness, No Foreign Body, No Discharge, No Vision Changes Cardiovascular: + Chest Pain, No SOB, No Dyspnea on Exertion, No Orthopnea, No Edema, No Palpitations Respiratory: No Cough, No Sputum, No Wheezing, No Smoke Exposure, No Dyspnea Gastrointestinal: No Nausea, No Vomiting, No Diarrhea, No Constipation, No Abdominal pain, No Hematochezia, No Melena Genitourinary: No irregular bleeding, No Dysuria, No Urinary Frequency, No Hematuria, No Urinary Incontinence/retention, No Urgency, No Flank Pain, No Urinary Flow Changes, No Hesitancy Musculoskeletal: No joint pain, No Myalgias, No Joint Swelling Skin: No Skin Lesions, No rash Neuro: No Weakness, No Numbness, No Paresthesias, No Loss of Consciousness, No Dizziness, + Headache Psych: No Anxiety/Panic, No Depression, No SI/HI/AH/VH, No Social Issues, Heme/Lymph: No Bruising, No Bleeding,No Lymphadenopathy Endocrine: No Polyuria, No Polydipsia, No Temperature Intolerance Yes all other systems are reviewed and are negative Constitutional: Constitutional: Reports as per HPI [facility] Past Medical History Medical History Anemia Asthma Brain tumor Hypertension Osteoporosis Surgical History History of sleeve gastrectomy Hx of hysterectomy Hx of tonsillectomy Family History Family History Mother Hypertension Asthma CAD (coronary artery disease) Osteoporosis Father Hypertension CAD (coronary artery disease) Sister Hypertension Lupus Brother Hypertension Maternal Grandmother Breast cancer Paternal Grandmother Breast cancer Social History Social History Alcohol intake: never Patient Tobacco Use Status: Never used Tobacco Advance Directives: No Advance Directives Information Provided: No Physical Exam Vital Signs: Vital Signs: Last Vital Signs Temp 97.9 F 09/04/22 17:16 Pulse 96 09/04/22 17:16 Resp 18 09/04/22 17:16 BP 166/97 H 09/04/22 17:16 Pulse Ox 96 09/04/22 17:16 O2 Del Method Room Air 09/04/22 17:16 BMI result Body Mass Index 34.7 Const: General: cooperative, comfortable and no acute distress Orientation/consciousness: patient oriented x3 Limitations: no limitations HEENT: Head: Yes normal to inspection, Yes normocephalic and Yes atraumatic Ears: hearing grossly normal bilaterally and TM's normal bilaterally General nose exam: Normal external nose present Face and sinus: Yes normal facial exam and Yes sinuses nontender Mouth: Normal oral and palatal mucosa present, oropharynx normal and moist mucous membranes Teeth and gingiva: dentition normal Throat: Yes posterior oropharynx normal Eyes: General: appearance normal, both eyes and all related structures Eyelids: Yes eyelids normal Conjunctivae: conjunctivae normal Sclerae: sclerae normal Pupils: Equal, round and reactive pupils present EOM: EOMs intact bilaterally Neck: Neck: Yes normal visual inspection, Yes full ROM and Yes no lymphadenopathy Lymphatic: no lymphadenopathy noted Chest: Chest palpation & inspection: normal inspection of the chest Resp: Effort & Inspection: normal respiratory effort and able to speak in complete sentences Auscultation: clear to auscultation bilaterally, no crackles, no rales, no rhonchi and no wheezes Cardio: Rate: regular rate Rhythm: regular rhythm Heart sounds: S1 normal heart sound present and S2 normal heart sound present GI: Other: Abdomen is soft, with mild tenderness in the epigastrium. Negative Mosher sign. Normoactive bowel sounds. Inspection: Yes normal to inspection Skin: General skin exam: no rashes or lesions noted Trauma: no lacerations or abrasions Wounds: no wounds Neuro: General: patient oriented x3 and moves all extremities Cranial nerves: Yes Equal, round and reactive pupils present Extrem: General: Yes normal to inspection Right upper extremity: normal to inspection Left upper extremity: normal to inspection Right lower extremity: normal to inspection Left lower extremity: normal to inspection Course Course Course Narrative: This is a rapid medical exam. deferred additional HPI, ROS, PE to primary provider. 52 yo female with history of pituitary tumor here with headache, chest pain, body aches, fever max temp 100F since 2am. Will check labs, EKG, CXR, viral testing. BP mildly hypertensive otherwise normal Reevaluation(s) Reevaluation #1: Patient feeling slightly better after being medicated with Zofran. Patient tested negative for COVID, RSV, flu. Lab work is reassuring, no leukocytosis, negative troponin. Patient has had ongoing chest tightness since this morning at 2:00AM, does not warrant repeat. Urine shows small leuk esterases, however does not appear to be a great sample. Patient reports that she has significant dysuria given symptoms, slightly suspicious urine I will treat with an antibiotic. Patient also requesting nausea medication. Advised patient that patient's symptoms likely due to a virus, educated to get plenty of rest and drink plenty of fluids. Given red flag warning signs of when to return. Patient understands and agrees with plan. Patient stable for discharge. Time: 20:12 Medications Administered Discontinued Medications Generic Name Dose Route Start Last Admin Trade Name Suha PRN Reason Stop Dose Admin Ondansetron HCl 4 mg 09/04/22 18:43 09/04/22 18:46 Ondansetron Odt 4 Mg Tab.Franca LUONG 09/04/22 18:44 4 mg ONCE ONE Administration Medical Decision Making Medical Decision Making [facility] Narrative: 52-year-old female presenting to the emergency department for evaluation of acute onset of body aches, nausea, headaches and subjective fever since 2:00 a.m. this morning. On examination, patient is mildly hypertensive at 166/97 otherwise all other vital signs within normal limits. Chest x-ray was ordered no acute findings. Viral swabs collected. Patient also reporting some urinary urgency. Plan: Labs, EKG, UA, chest x-ray Differential Diagnosis Differential Diagnoses: The differential diagnosis associated with the presentation includes Viral syndrome, pneumonia, upper respiratory infection, sinusitis, ACS-less likely Admission/Observation Consideration of admission/observation: Escalation of care including admission/observation considered Lab Data [facility] Lab Attestation statement: I reviewed the patient's lab results. 09/04/22 17:30 09/04/22 17:30 Labs: Lab Results 09/04/22 09/04/22 09/04/22 Range/Units 17:30 17:30 17:30 WBC 5.1 (4.8-10.8) X10*3/uL RBC 4.34 (4.20-5.50) X10*6/uL Hgb 11.7 L (12.0-16.0) g/dl Hct 36.8 L (37.0-47.0) % MCV 84.8 (80.0-98.0) fL MCH 27.0 (27.0-33.0) pg MCHC 31.8 (31.0-35.0) g/dl RDW 13.2 (11.0-16.0) % Plt Count 302 (160-400) X10*3/uL MPV 10.5 (9.4-12.3) fL Immature Gran % (Auto) 0.4 (0.0-0.4) % Neut % (Auto) 74.3 H (45-73) % Lymph % (Auto) 15.4 L (20-40) % [place] % (Auto) 8.9 (2-11) % Eos % (Auto) 0.4 (0-4) % Baso % (Auto) 0.6 (0-2) % Lymph # (Auto) 0.8 L (1.2-4.9) X10*3/uL [place] # (Auto) 0.5 (0.1-1.2) X10*3/uL Eos # (Auto) 0.0 (0.0-0.4) X10*3/uL Baso # (Auto) 0.0 (0.0-0.2) X10*3/uL Abs Immat Gran (auto) 0.02 (0.00-0.03) X10*3/uL Absolute Neuts (auto) 3.8 (2.0-8.3) x10*3/uL Absolute Nucleated RBC 0.000 (0.0-0.012) X10*3/uL Nucleated RBC % (auto) 0.0 (0.0-0.2) /100WBC Sodium 139 (135-145) mmol/L Potassium 3.5 (3.3-5.1) mmol/L Chloride 103 (96-108) mmol/L Carbon Dioxide 24 (22-29) mmol/L Anion Gap 16 (12-20) BUN 14 (9-16) mg/dL Creatinine 0.96 (0.5-1.4) mg/dL Estim Creat Clear Calc 72.5 Estimated GFR > 60 Random Glucose 123 H (60-115) mg/dL Calcium 10.2 (8.4-10.2) mg/dL Total Bilirubin 0.9 (0.0-1.0) mg/dL Direct Bilirubin 0.3 (0.0-0.5) mg/dL AST 17 (5-31) U/L ALT 13 (0-31) U/L Alkaline Phosphatase 113 (39-117) U/L Troponin I High Sens < 2.7 (<3.5-17.0) ng/L Total Protein 8.0 (6.5-8.0) g/dL Albumin 4.6 (3.5-5.0) g/dL Urine Color Urine Appearance Urine pH (5.0-9.0) Ur Specific [place] (1.005-1.025) Urine Protein (Neg-Trace) mg/dL Urine Glucose (UA) (Negative) mg/dL Urine Ketones (Negative) mg/dL Urine Blood (Negative) Urine Nitrite (Negative) Ur Leukocyte Esterase (Negative) Urine RBC (0-2) /HPF Urine WBC (0-5) /HPF Ur Squamous Epith Cells (0-2) /HPF Urine Bacteria (None Seen) Hyaline Casts (0-2) /LPF Influenza Type A (PCR) (Negative) Influenza Type B (PCR) (Negative) RSV RNA Qual (PCR) (Negative) SARS-CoV-2 RNA (RT-PCR) (Negative) 09/04/22 09/04/22 Range/Units 17:30 18:52 WBC (4.8-10.8) X10*3/uL RBC (4.20-5.50) X10*6/uL Hgb (12.0-16.0) g/dl Hct (37.0-47.0) % MCV (80.0-98.0) fL MCH (27.0-33.0) pg MCHC (31.0-35.0) g/dl RDW (11.0-16.0) % Plt Count (160-400) X10*3/uL MPV (9.4-12.3) fL Immature Gran % (Auto) (0.0-0.4) % Neut % (Auto) (45-73) % Lymph % (Auto) (20-40) % [place] % (Auto) (2-11) % Eos % (Auto) (0-4) % Baso % (Auto) (0-2) % Lymph # (Auto) (1.2-4.9) X10*3/uL [place] # (Auto) (0.1-1.2) X10*3/uL Eos # (Auto) (0.0-0.4) X10*3/uL Baso # (Auto) (0.0-0.2) X10*3/uL Abs Immat Gran (auto) (0.00-0.03) X10*3/uL Absolute Neuts (auto) (2.0-8.3) x10*3/uL Absolute Nucleated RBC (0.0-0.012) X10*3/uL Nucleated RBC % (auto) (0.0-0.2) /100WBC Sodium (135-145) mmol/L Potassium (3.3-5.1) mmol/L Chloride (96-108) mmol/L Carbon Dioxide (22-29) mmol/L Anion Gap (12-20) BUN (9-16) mg/dL Creatinine (0.5-1.4) mg/dL Estim Creat Clear Calc Estimated GFR Random Glucose (60-115) mg/dL Calcium (8.4-10.2) mg/dL Total Bilirubin (0.0-1.0) mg/dL Direct Bilirubin (0.0-0.5) mg/dL AST (5-31) U/L ALT (0-31) U/L Alkaline Phosphatase (39-117) U/L Troponin I High Sens (<3.5-17.0) ng/L Total Protein (6.5-8.0) g/dL Albumin (3.5-5.0) g/dL Urine Color Dark Yellow Urine Appearance Cloudy Urine pH 5.5 (5.0-9.0) Ur Specific [place] 1.025 (1.005-1.025) Urine Protein 100 (2+) H (Neg-Trace) mg/dL Urine Glucose (UA) Negative (Negative) mg/dL Urine Ketones Trace (Negative) mg/dL Urine Blood Negative (Negative) Urine Nitrite Negative (Negative) Ur Leukocyte Esterase Small (1+) H (Negative) Urine RBC 0-2 (0-2) /HPF Urine WBC 11-20 H (0-5) /HPF Ur Squamous Epith Cells 6-10 (0-2) /HPF Urine Bacteria Trace (None Seen) Hyaline Casts 11-20 (0-2) /LPF Influenza Type A (PCR) NEGATIVE (Negative) Influenza Type B (PCR) NEGATIVE (Negative) RSV RNA Qual (PCR) NEGATIVE (Negative) SARS-CoV-2 RNA (RT-PCR) NEGATIVE (Negative) Independent Interpretation I performed an independent interpretation of an: Rhythm Strip and Plain X-Ray Interpretation: EKG normal sinus rhythm with a ventricular rate of 83 beats per minute, RI interval 156, QTC 448, no ST elevation or depression. Chest x-ray no acute consolidation seen, I agree with the radiology report. Radiology Impression Discussion of test interpretation with radiology: I have reviewed the radiologist's reading. Radiologist Impression: EXAMINATION: XR CHEST CLINICAL INFORMATION: Chest pain. COMPARISON: 08/06/2017 chest radiographs TECHNIQUE: 2 views of the chest were obtained. FINDINGS: No significant abnormality is noted involving the heart, lungs, mediastinum, bony thorax or soft tissues. XR/XR chest 2V IMPRESSION: No acute cardiopulmonary process. Dictated By: Jaime Toro MD Independent Historian Clinical information obtained from an independent historian. History obtained from or confirmed by: Spouse External Record Review External record reviewed: Inpatient record, Office record, Outpatient record, Prior outpatient labs, Prior outpatient radiology, Primary care record and Outside ED record Discharge Plan Discharge Clinical Impression: Acute viral syndrome, Urinary tract infection Patient Disposition: Home, Self-Care Instructions: Urinary Tract Infection in Women (ED), Viral Syndrome (ED) Additional Instructions: You tested negative for COVID, influenza, and RSV today. Your chest x-ray did not show a pneumonia. Her symptoms are likely due to a virus. Your urine was slightly suspicious for urinary tract infection given you having symptoms I will treat with an antibiotic. Please complete the full course even if your feeling better. Drink plenty of fluids and get plenty of rest. If any new or worsening symptoms occur, including chest pain, shortness and breath, abdominal pain unable to tolerate liquids or foods please return for re-evaluation. Prescriptions: New cefuroxime axetil 250 mg tablet 250 mg PO BID Qty: 10 0RF ondansetron 4 mg tablet,disintegrating 4 mg PO Q8-12H PRN (Reason: nausea and vomiting) Qty: 10 0RF No Action cholecalciferol (vitamin D3) 125 mcg (5,000 unit) capsule 125 mcg PO DAILY Qty: 90 3RF ergocalciferol (vitamin D2) 1,250 mcg (50,000 unit) capsule 1,250 mcg PO QWEEK spironolactone 25 mg tablet 25 mg PO DAILY cyanocobalamin (vitamin B-12) [Vitamin B-12] 500 mcg tablet 500 mcg PO DAILY amlodipine 10 mg tablet 10 mg PO DAILY methotrexate sodium 2.5 mg tablet 15 mg PO QWEEK ferrous sulfate 325 mg (65 mg iron) tablet 325 mg PO BID sumatriptan succinate 100 mg tablet 50 - 100 mg PO .COMPLEX PRN (Reason: migraine headache) 30 Days Qty: 12 6RF Rx Instructions: 50 - 100 mg orally at onset of headache, may repeat in 2 hrs PRN; max 2 tabs per day or 4 tabs/week (may take with Ibuprofen) riboflavin (vitamin B2) 400 mg tablet 400 mg PO DAILY 30 Days Qty: 30 6RF magnesium oxide 400 mg (241.3 mg magnesium) tablet 400 mg PO BEDTIME 30 Days Qty: 30 6RF Rx Instructions: may hold for loose stools baclofen 10 mg tablet 10 mg PO BEDTIME PRN (Reason: muscle spasm) 30 Days Qty: 30 3RF
[2022-09-04 17:16] VITALS: BP 166/97; PULSE 96; RESP 18; TEMP 36.6; O2SAT 96; BMI 34.7
[2022-09-04 17:36] LABS: MANUAL DIFF FLAG NO
[2022-09-04 17:47] LABS: Basophils Percent Auto 0.6 % (0-2); Eosinophils Percent Auto 0.4 % (0-4); Hematocrit 36.8 % (37.0-47.0); Hemoglobin 11.7 g/dl (12.0-16.0); Imm Gran Abs Auto 0.02 X10*3/uL (0.00-0.03); Imm Gran Pct Auto 0.4 % (0.0-0.4); Lymphocytes Absolute Auto 0.8 X10*3/uL (1.2-4.9); Lymphocytes Percent Auto 15.4 % (20-40); Mean Corpuscular HGB Conc 31.8 g/dl (31.0-35.0); Mean Corpuscular Volume 84.8 fL (80.0-98.0); Mean Platelet Volume 10.5 fL (9.4-12.3); Monocytes Absolute Auto 0.5 X10*3/uL (0.1-1.2); Monocytes Percent Auto 8.9 % (2-11); Neutrophils Absolute Auto 3.8 x10*3/uL (2.0-8.3); Neutrophils Percent Auto 74.3 % (45-73); Platelet Count 302 X10*3/uL (160-400); Red Blood Count 4.34 X10*6/uL (4.20-5.50); Red Cell Distribution Width 13.2 % (11.0-16.0); White Blood Count 5.1 X10*3/uL (4.8-10.8)
[2022-09-04 17:54] LABS: Alanine Aminotransferase 13 U/L (0-31); Albumin Level 4.6 g/dL (3.5-5.0); Alkaline Phosphatase 113 U/L (39-117); Anion Gap 16 (12-20); Aspartate Amino Transferase 17 U/L (5-31); Bilirubin Direct 0.3 mg/dL (0.0-0.5); Bilirubin Total 0.9 mg/dL (0.0-1.0); Blood Urea Nitrogen 14 mg/dL (9-16); Calcium 10.2 mg/dL (8.4-10.2); Carbon Dioxide 24 mmol/L (22-29); Chloride 103 mmol/L (96-108); Creatinine Clr Calc Pharmacy 72.5; Estimated Glomerular Filt Rate > 60; Glucose Random 123 mg/dL (60-115); Potassium 3.5 mmol/L (3.3-5.1); Sodium 139 mmol/L (135-145)
[2022-09-04 18:08] LABS: Troponin-I High Sensitivity < 2.7 ng/L (<3.5-17.0)
[2022-09-04 18:39] LABS: Influenza A PCR NEGATIVE (Negative); Influenza B PCR NEGATIVE (Negative); Resp Syncy Virus RNA Qual PCR NEGATIVE (Negative); SARS COV2 PCR INHOUSE NEGATIVE (Negative)
[2022-09-04] MEDS: Ondansetron ODT 4 MG TAB.RAPDIS TRANSLINGU (18:46)
[2022-09-04 18:59] LABS: Appearance Urine Cloudy; Color Urine Dark Yellow; Glucose Urine UA Negative (Negative); Leukocyte Esterase Urine Small (1+) (Negative); Nitrite Urine Negative (Negative); PH 5.5 (5.0-9.0); Specific Gravity - Urine 1.025 (1.005-1.025); UMIC TRIGGER UACC YES; Urine Blood Negative (Negative); Urine Ketones Trace mg/dL (Negative); Urine Protein 100 (2+) mg/dL (Neg-Trace)
[2022-09-04 19:07] LABS: Bacteria Urine Trace (None Seen); RBC Urine 0-2 /HPF (0-2); UACC Culture Trigger YES
[2022-09-04 20:32] VITALS: BP 149/79; PULSE 57; RESP 16; TEMP 37.1; O2SAT 95
--- NOTE | 2022-09-04 20:36 | PC.NURSE ---
this rn assumed care of pt @ 1900. pt at bedside. pt calm and cooperative. pt ambulatory at discharge. vss. skin pwd. pt provided with discharge packet. pt verbalized understanding of discharge plan
== END 2022-09-04 20:38 | disposition home or self-care (01) ==
PROVIDERS: Nurse Practitioner Family; Physician Assistant Medical; Emergency Provider Student in an Organized Health Care Education/Training Program; PCP Internal Medicine
DX: B34.9 Viral infection, unspecified (principal); R07.89 Other chest pain; N39.0 Urinary tract infection, site not specified; Z20.822 Contact with and (suspected) exposure to COVID-19; Z20.828 Contact with and (suspected) exposure to other viral communicable diseases; Z79.899 Other long term (current) drug therapy
CPT/HCPCS: 0241U; 71046; 80048; 80076; 81001; 81003; 84484; 85025; 87086; 93005; 99283; 99284

== ENCOUNTER 2023-01-21 09:22 | Outpatient (AMB) | payer MEDICARE, MEDICAID, SELFPAY ==
--- NOTE | 2023-01-21 09:31 | MHC.OFFVISWM ---
Intake VS Expanded 01/21/23 09:37 BP 174/82 H Blood Pressure Location Rt radial Blood Pressure Position Sitting Pulse 55 Pulse Source Pulse Oximeter Temp 97.3 F Temperature Source Temporal Artery Scan Pulse Oximetry 100 Oxygen Delivery Method Room Air Height 5 ft 3 in Weight 195 lb BMI 34.5 Body Fat % 35.9 Body Fat Mass 69.8 Fat Free Mass 125.0 Visceral Fat Rating 9.0 Body Water % 45.6 Body Water Mass 88.8 Muscle Mass/Score 118.6 Basal Metabolic Rate/Score 1,695 Intake Visit Reasons: (OV) PO LSG 06/03/16 Allergies Sulfa (Sulfonamide Antibiotics) Allergy (Severe, Verified 01/21/23 09:35) SWELLING acetaminophen [Percocet] Allergy (Unknown, Verified 01/21/23 09:35) vomiting morphine Allergy (Unknown, Verified 01/21/23 09:35) Unknown oxycodone [Percocet] Allergy (Unknown, Verified 01/21/23 09:35) vomiting lisinopril Adverse Reaction (Unknown, Verified 01/21/23 09:35) Unknown Pt states she is allergic to P Allergy (Unknown, Uncoded 06/04/22 08:34) Nausea From PERCOCET Adverse Reaction (Intermediate, Uncoded 06/04/22 08:34) VOMITING baldo inhibitors Adverse Reaction (Unknown, Uncoded 06/04/22 08:34) unknown Medication List - Last Reconciled 01/21/23 by PATRICIA Posada amlodipine 10 mg PO DAILY cholecalciferol (vitamin D3) 125 mcg PO DAILY cyanocobalamin (vitamin B-12) (Vitamin B-12) 500 mcg PO DAILY ergocalciferol (vitamin D2) 1,250 mcg PO QWEEK ferrous sulfate 325 mg PO BID magnesium oxide 400 mg PO BEDTIME 30 days ondansetron 4 mg PO Q8-12H PRN riboflavin (vitamin B2) 400 mg PO DAILY 30 days spironolactone 25 mg PO DAILY sumatriptan succinate 50 - 100 mg orally at onset of headache, may repeat in 2 hrs PRN; max 2 tabs per day or 4 tabs/week (may take with Ibuprofen) 30 days HPI HPI Comments History of Present Illness Details This?is a?52?yo female who is s/p LSG 06/03/2016. Presents for 6 year 7 month post op visit. Weight at last visit on 05/15/2022 was 192.6 pounds with a BMI of 34.1, weight today is 195 pounds, representing a 2.4 pound weight gain with a BMI today of 34.5.? No complaints of nausea, emesis, abdominal pain or reflux, or constipation. Pt did not take blood pressure meds this morning. Had a stress echo recently which was abnormal, showed a prior infarct- was sent to [facility] in [place] but does not want to go there, wants to go here. Has been having some chest pain. Present meal plan includes: 9am Premier shake then coffee (stop sugar) or mix together, or cafe latte flavored shake 12pm finnish yogurt +/- fruit 4pm dinner 4oz protein, 2-4oz veg, can have up to 2oz carb if had only 2oz veg 7pm if wants coffee have with half shake, or protein bar, or another yogurt All meals last 20 - 30 minutes and does not drink and eat at the same time. Exercise routine includes: hasn't been exercising [facility] Medical History Anemia Asthma Brain tumor Hypertension Osteoporosis Surgical History History of sleeve gastrectomy Hx of hysterectomy Hx of tonsillectomy Family History Mother Hypertension Asthma CAD (coronary artery disease) Osteoporosis Father Hypertension CAD (coronary artery disease) Sister Hypertension Lupus Brother Hypertension Maternal Grandmother Breast cancer Paternal Grandmother Breast cancer Social History Alcohol intake: never Patient Tobacco Use Status: Never used Tobacco Physical Exam Vital Signs: Last Vital Signs Temp 97.3 F 01/21/23 09:37 Pulse 55 01/21/23 09:37 BP 174/82 H 01/21/23 09:37 Pulse Ox 100 01/21/23 09:37 Oxygen Delivery Method Room Air 01/21/23 09:37 BMI result Body Mass Index 34.5 Assessment & Plan Assessment & Plan (1) Obesity: Code(s): E66.9 - Obesity, unspecified (2) Status post sleeve gastrectomy: Code(s): Z90.3 - Acquired absence of stomach [part of] Plan breakfast- Celebrate Rebuimarilyn danielleke (20g) with 8oz 1% milk Lunch- [place] yogurt with some berries, or protein bar Dinner- 6 forks protein, 6 forks veg, can have a few forks of healthy carb like rice if she wants. Encouraged resuming exercise, will place referral to cardiology per pt request. Reviewed recent labs- mild anemia, continue iron supplement. Will be due for vitamin labs in spring. RTC in May for annual. Texted plan to pt and encouraged her to reach out between appts with any questions. Patient is obese and is not considered stable at this time. I spent a total of 30 minutes reviewing/updating records, examining the patient and counseling the patient on weight management as detailed above. Orders: Referrals Cardiology Referral R93.1 - Abnormal findings on diagnostic imaging of heart and coronary circulation Medications: Refilled ondansetron 4 mg PO Q8-12H PRN 20 tabs 1RF nausea and vomiting Coding Level of Care Code Est Pt Level 4 (36994) Diagnoses Obesity E66.9 Status post sleeve gastrectomy Z90.3
[2023-01-21 09:37] VITALS: BP 174/82; PULSE 55; TEMP 36.3; O2SAT 100; BMI 34.5
== END 2023-01-21 10:14 | disposition home or self-care (01) ==
PROVIDERS: PCP Internal Medicine; Visit Provider Physician Assistant Surgical
DX: E66.9 Obesity, unspecified (principal); Z68.34 Body mass index [BMI] 34.0-34.9, adult; Z90.3 Acquired absence of stomach [part of]; Z98.84 Bariatric surgery status
CPT/HCPCS: 99214

== ENCOUNTER → 2023-01-21 09:22 | Outpatient (BNVA) | payer MEDICARE, MEDICAID, SELFPAY | PROVIDERS: PCP Internal Medicine; Visit Provider Physician Assistant Surgical | DX: E66.9 Obesity, unspecified (principal); Z90.3 Acquired absence of stomach [part of]; Z68.34 Body mass index [BMI] 34.0-34.9, adult | CPT/HCPCS: 99212 ==

== ENCOUNTER 2023-01-29 09:25 | Outpatient (AMB) | payer MEDICARE, MEDICAID, SELFPAY ==
--- NOTE | 2023-01-29 09:27 | A.OFFVIS_ITS ---
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 Accompanied by: Self / Same As Patient Allergies Sulfa (Sulfonamide Antibiotics) Allergy (Severe, Verified 01/29/23 09:30) SWELLING acetaminophen [Percocet] Allergy (Unknown, Verified 01/29/23:30) vomiting morphine Allergy (Unknown, Verified 01/29/23:30) Unknown oxycodone [Percocet] Allergy (Unknown, Verified 01/29/23:30) vomiting lisinopril Adverse Reaction (Unknown, Verified 01/29/23) Unknown Pt states she is allergic to P Allergy (Unknown, Uncoded 01/29/23:30) Nausea From PERCOCET Adverse Reaction (Intermediate, Uncoded 01/29/23:30) VOMITING baldo inhibitors Adverse Reaction (Unknown, Uncoded 01/29/23:30) unknown Medication List - Last Reconciled 01/29/23 by Santos Pruett MD amlodipine 10 mg PO DAILY cholecalciferol (vitamin D3) 125 mcg PO DAILY cyanocobalamin (vitamin B-12) (Vitamin B-12) 500 mcg PO DAILY ergocalciferol (vitamin D2) 1,250 mcg PO QWEEK ferrous sulfate 325 mg PO BID magnesium oxide 400 mg PO BEDTIME 30 days ondansetron 4 mg PO Q8-12H PRN riboflavin (vitamin B2) 400 mg PO DAILY 30 days sumatriptan succinate 50 - 100 mg orally at onset of headache, may repeat in 2 hrs PRN; max 2 tabs per day or 4 tabs/week (may take with Ibuprofen) HPI HPI Comments History of Present Illness Details Courtney is here for consultation regarding a recent abnormal stress echocardiogram. She is a patient of [facility] but would like to switch. She has a history of hypertension, obesity status post gastric bypass surgery, asthma and inflammatory arthritis. It seems that she has been reporting chest pains which led to a dobutamine stress echocardiogram showing inferior findings. Patient states she gets sensation of squeezing the chest randomly. Can happen with or without exertion. Can happen when she is just sitting and doing nothing. However, there is no history of any prior coronary disease or myocardial infarction or cardiomyopathy. She seems to have poorly controlled hypertension. [facility] Medical History Anemia Asthma Brain tumor Hypertension Osteoporosis Surgical History History of sleeve gastrectomy Hx of hysterectomy Hx of tonsillectomy Family History Mother Hypertension Asthma CAD (coronary artery disease) Osteoporosis Father Hypertension CAD (coronary artery disease) Sister Hypertension Lupus Brother Hypertension Maternal Grandmother Breast cancer Paternal Grandmother Breast cancer Social History Alcohol intake: never Patient Tobacco Use Status: Never used Tobacco Review of Systems Const All systems reviewed & are unremarkable except as noted in HPI and below Reports as per HPI and Reports no additional complaints Eyes Reports as per HPI and Denies no additional complaints ENT Denies no additional complaints and Reports as per HPI Card Reports as per HPI, Reports no additional complaints, Denies acrocyanosis, Denies chest pain, Denies leg edema, Denies lightheadedness, Denies palpitations and Denies dyspnea Resp Reports as per HPI, Denies no additional complaints and Denies dyspnea GI Reports as per HPI and Denies no additional complaints Reports as per HPI Musc Reports no additional complaints and Reports as per HPI Skin/Breast Reports system reviewed and no additional complaints, except as documented Neuro Reports no additional complaints and Reports as per HPI Psych Reports no additional complaints and Reports as per HPI Endo Reports no additional complaints, Reports as per HPI and Denies palpitations Saúl/Lymph Reports no additional complaints and Reports as per HPI Aller/Immun Reports no additional complaints and Reports as per HPI Physical Exam Vital Signs: Last Vital Signs Pulse 60 01/29/23 09:28 BP 160/84 H 01/29/23 09:28 BMI result Body Mass Index 35.1 Const General: comfortable and no acute distress Orientation/consciousness: patient oriented x3 HEENT Other: Unremarkable Head: Yes normal to inspection Neck Neck: Yes normal visual inspection Chest Chest palpation & inspection: normal inspection of the chest Resp Auscultation: clear to auscultation bilaterally Cardio Palpation: normal PMI Heart sounds: S1 normal heart sound present, S2 normal heart sound present, no gallops, no murmurs and no rubs GI Palpation (GI): Soft to palpation Back/Spine/Pelvis Other: unremarkable Skin General skin exam: no rashes or lesions noted Neuro General: patient oriented x3 Extrem General: Yes normal to inspection Psych Mental Status: mental status grossly normal Assessment & Plan Assessment & Plan (1) Atherosclerotic cardiovascular disease: Code(s): I25.10 - Atherosclerotic heart disease of [place] coronary artery without angina pectoris (2) Abnormal stress test: Code(s): R94.39 - Abnormal result of other cardiovascular function study (3) Uncontrolled hypertension: Code(s): I10 - Essential (primary) hypertension Plan Dobutamine stress echo from [facility] was reviewed. In the resting part, there was apparently basal inferoseptal/inferior hypokinesis. In the stress portion, there was persistent hypokinesis and felt to be infarct. Based on her many risk factors, she is certainly at risk for obstructive CAD. Considering the fact she also has some intermittent squeezing chest pains, will arrange a diagnostic catheterization. Start low-dose aspirin, beta-blockers and long-acting nitrates. Sublingual nitroglycerin as needed. Avoid sumatriptan. For hypertension, listed to be on amlodipine 10 mg, losartan 100 mg and spironolactone 20 mg in prior cardiology notes but she is only on amlodipine in our list. Addition of above medication- beta blockers and nitrates should help. Further changes in due course. We will get a full transthoracic echocardiogram to evaluate baseline cardiac function in better detail, as the study we have is only a stress echocardiogram. 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 Orders: Orders CA echo transthoracic complete Today I25.10 - Atherosclerotic heart disease of [place] coronary artery without angina pectoris Complete Blood Count no Diff Today I25.10 - Atherosclerotic heart disease of [place] coronary artery without angina pectoris Cardiac Cath LT Diagnostic Today I25.10 - Atherosclerotic heart disease of [place] coronary artery without angina pectoris Basic Metabolic Panel Today I25.10 - Atherosclerotic heart disease of [place] coronary artery without angina pectoris Prothrombin Time INR Today I25.10 - Atherosclerotic heart disease of [place] coronary artery without angina pectoris Medications: New aspirin (Enteric Coated Aspirin) 81 mg PO DAILY 90 tabs 3RF I25.10 - Atherosclerotic heart disease of [place] coronary artery without angina pectoris carvedilol (Coreg) must administer with a meal/food 3.125 mg PO BID 90 days 180 tabs 3RF I25.10 - Atherosclerotic heart disease of [place] coronary artery without angina pectoris nitroglycerin do not exceed 3 doses per episode 0.4 mg sublingual Q5M PRN 30 tabs 5RF chest pain R07.2 - Precordial pain isosorbide mononitrate ER 30 mg PO DAILY 90 tabs 3RF I25.10 - Atherosclerotic heart disease of [place] coronary artery without angina pectoris Changed From sumatriptan succinate (0.5 - 1 x 100 mg) 50 - 100 mg orally at onset of headache, may repeat in 2 hrs PRN; max 2 tabs per day or 4 tabs/week (may take with Ibuprofen) 30 days 12 tabs 6RF migraine headache To sumatriptan succinate 50 - 100 mg orally at onset of headache, may repeat in 2 hrs PRN; max 2 tabs per day or 4 tabs/week (may take with Ibuprofen) migraine headache Coding Level of Care Code New Pt Level 4 (36591) Diagnoses Atherosclerotic cardiovascular disease I25.10 Abnormal stress test R94.39 Uncontrolled hypertension I10
[2023-01-29 09:28] VITALS: BP 160/84; PULSE 60; BMI 35.1
== END 2023-01-29 10:33 | disposition home or self-care (01) ==
PROVIDERS: PCP Internal Medicine; Visit Provider Internal Medicine
DX: I25.10 Atherosclerotic heart disease of native coronary artery without angina pectoris (principal); R94.39 Abnormal result of other cardiovascular function study; I10 Essential (primary) hypertension
CPT/HCPCS: 93306; 99204

== ENCOUNTER → 2023-01-29 09:25 | Outpatient (BNVA) | payer MEDICARE, MEDICAID, SELFPAY | PROVIDERS: PCP Internal Medicine; Visit Provider Internal Medicine ==

== ENCOUNTER → 2023-01-29 14:43 | Outpatient (REF) | payer MEDICARE, MEDICAID, SELFPAY ==
--- NOTE | 2023-01-29 14:46 | CA_ITS ---
Transthoracic Echocardiogram Patient (Last, First, Middle): Courtney Nice, Gender: Female Date of : 1970 Age: 52 Procedure Date: 01/29/2023 Procedure Type: Transthoracic Echocardiogram Location: OP Height: 160.02 cm Weight: 88.91 kg BSA: 1.92 m2 Heart Rate: bpm BP: 150 / 90 mmHg Qa Analyst: TO Referring MD: Santos Pruett MD Civil Defense Director: Hakeem Partida MD Symptoms: I25.10 - Atherosclerotic heart disease of [place] coronary artery without... Study Quality: Adequate w contrast ECG Rhythm: Sinus Conclusions: - 1. Normal LV ejection fraction 65-70% with mild LVH with impaired relaxation filling pattern 2. Cardiac valvular Dopplers within normal limits 3. Mildly dilated ascending aorta 3.7 cm 4. No pericardial effusion Findings Procedure Information Contrast agent, definity, is being given per protocol without apparent complications. Left Ventricle Normal left ventricular size and systolic function. There is mildly increased left ventricular wall thickness. The visually estimated ejection fraction is between 65-70%. Spectral Doppler is indicative of an impaired relaxation filling pattern. E/E prime ratio is between 8 and 15 consistent with indeterminate filling pressures. Wall Motion Rest Echo Findings The basal inferior and basal inferoseptal segments are hypokinetic. All other scored wall segments showed normal motion. Right Ventricle Normal right ventricular cavity size and systolic function. Atria The left atrium is mildly dilated. There is no evidence of interatrial shunt. The right atrium is normal in size. Aortic Valve Normal aortic valve structure and function. There is no aortic valve stenosis. There is no aortic valve regurgitation. Mitral Valve There is mild anterior and posterior mitral leaflet thickening. There is trace mitral valve regurgitation. There is no mitral valve stenosis. Pulmonic Valve The pulmonic valve is likely normal. There is trace to mild pulmonic valve regurgitation. Tricuspid Valve Normal tricuspid valve structure. Tricuspid regurgitation envelope is inadequate for calculation of right ventricular systolic pressure. Normal right atrial pressure. Great Vessels The pulmonary artery was not well visualized. There is mild dilatation of the ascending aorta measuring 3.70 cm. Venous The inferior vena cava is normal in size and collapses greater than 50% with inspiration. Pericardium/Pleural There is no evidence of pericardial effusion. Measurements 2D Linear Measurements IVSd: 1.37 0.6-0.9/0.6-1.0 cm LVIDd: 4.76 3.9-5.3/4.2-5.9 cm LVIDd Index: 2.48 2.4-3.2/2.2-3.1 cm/m2 LVIDs: 2.91 2.0-3.6 cm LVPWd: 0.86 0.7-1.1 cm LA Diam: 3.30 2.7-3.8/3.0-4.0 cm LAIDs Index: 1.72 1.5-2.3 cm/m2 LV Mass: 242.27 67-162/88-224 g LV Mass Index: 126.18 43-95/49-115 g/m2 LVOT Diam: 2.00 3.0+(-)1.3 cm 2D Systolic Function EF 4C: 65.50 >55% EF 2C: 66.50 >55% EF BiP: 66.60 >55% Mitral Valve MV Pk E: 0.71 MV PK A: 0.62 MV Decel Time: 243.00 E/A: 1.10 E'Lateral: 8.38 E'Medial: 5.77 E/E' Med: 12.30 E/E' Lat: 8.40 PHT: 71.00 MVA PHT: 3.10 Decel [place]: 2.90 Aortic Valve AoV Pk Mat: 1.62 AoV Mn Mat: 1.15 AoV VTI: 0.42 AoV Pk Grad: 10.00 Aov Mn Grad: 6.00 TERRI Cont.VTI: 2.13 LVOT LVOT Pk Mat: 1.04 LVOT Mn Mat: 0.67 LVOT VTI: 0.28 LVOT Pk Grad: 4.00 LVOT Mn Grad: 2.00 LVOT Diam: 2.00 LVOT Area: 3.14 Diastolic Function MV Pk E: 0.71 MV Pk A: 0.62 E/A: 1.10 E'Medial: 5.77 E/E' Med: 12.30 E' Laterial: 8.38 E/E' Lat: 8.40 Right Ventricle TAPSE (mm): 23.50 TVS' Mat: 10.40 Great Vessels Aorta Sinus of Valsalva: 3.42 2.0-3.[address] [place]: 2.75 1.7-3.4 cm Ao Asc: 3.70 2.1-3.4 cm Updated in Other Vendor System with Status of Final Hakeem Partida MD electronically signed on 01/29/2023 5:14:23 PM with status of Final
== END ==
LOC: HO.CARD 14:43
PROVIDERS: PCP Internal Medicine; Visit Provider Internal Medicine
DX: I25.10 Atherosclerotic heart disease of native coronary artery without angina pectoris (principal)
CPT/HCPCS: 93306; 99202; Q9957

== ENCOUNTER 2023-02-10 09:43 | Outpatient (REF) | payer MEDICARE, MEDICAID, SELFPAY ==
[2023-02-10 10:33] LABS: INTERNATIONAL NORM RATIO 0.9 (0.9-1.1); Prothrombin Time 11.5 SEC (11.1-13.3)
[2023-02-10 10:36] LABS: Hematocrit 36.4 % (37.0-47.0); Hemoglobin 11.4 g/dl (12.0-16.0); Mean Corpuscular HGB Conc 31.3 g/dl (31.0-35.0); Mean Corpuscular Volume 86.1 fL (80.0-98.0); Mean Platelet Volume 10.7 fL (9.4-12.3); Platelet Count 365 X10*3/uL (160-400); Red Blood Count 4.23 X10*6/uL (4.20-5.50); Red Cell Distribution Width 12.8 % (11.0-16.0); White Blood Count 3.4 X10*3/uL (4.8-10.8)
[2023-02-10 11:12] LABS: Anion Gap 12 (12-20); Blood Urea Nitrogen 14 mg/dL (9-16); Calcium 9.8 mg/dL (8.4-10.2); Carbon Dioxide 29 mmol/L (22-29); Chloride 106 mmol/L (96-108); Estimated Glomerular Filt Rate > 60; Glucose Random 91 mg/dL (60-115); Potassium 4.3 mmol/L (3.3-5.1); Sodium 143 mmol/L (135-145)
== END 2023-02-10 09:44 | disposition home or self-care (01) ==
LOC: HO.LAB 09:43
PROVIDERS: PCP Internal Medicine; Visit Provider Internal Medicine
DX: I25.10 Atherosclerotic heart disease of native coronary artery without angina pectoris (principal)
CPT/HCPCS: 36415; 80048; 85027; 85610

== ENCOUNTER → 2023-03-09 23:59 | Outpatient (BNV) | payer MEDICARE, MEDICAID, SELFPAY | PROVIDERS: PCP Internal Medicine; Visit Provider Internal Medicine Cardiovascular Disease | DX: I20.89 Other forms of angina pectoris (principal); R93.1 Abnormal findings on diagnostic imaging of heart and coronary circulation; R07.9 Chest pain, unspecified | CPT/HCPCS: 93458; 99152 ==

== ENCOUNTER 2023-03-30 14:15 | Outpatient (AMB) | payer MEDICARE, MEDICAID, SELFPAY ==
[2023-03-30 14:22] VITALS: BP 134/80; PULSE 97; BMI 34.4
--- NOTE | 2023-03-30 14:22 | A.OFFVIS_ITS ---
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 Accompanied by: Family/Other Allergies Sulfa (Sulfonamide Antibiotics) Allergy (Severe, Verified 03/30/23 14:23) SWELLING acetaminophen [Percocet] Allergy (Unknown, Verified 03/30/23 14:23) vomiting morphine Allergy (Unknown, Verified 03/30/23 14:23) Unknown oxycodone [Percocet] Allergy (Unknown, Verified 03/30/23 14:23) vomiting lisinopril Adverse Reaction (Unknown, Verified 03/30/23 14:23) Unknown Pt states she is allergic to P Allergy (Unknown, Uncoded 03/30/23 14:23) Nausea From PERCOCET Adverse Reaction (Intermediate, Uncoded 03/30/23 14:23) VOMITING baldo inhibitors Adverse Reaction (Unknown, Uncoded 03/30/23 14:23) unknown Medication List - Last Reconciled 03/30/23 by Santos Pruett MD amlodipine 10 mg PO DAILY aspirin (Enteric Coated Aspirin) 81 mg PO DAILY carvedilol (Coreg) 3.125 mg PO BID 90 days cholecalciferol (vitamin D3) 125 mcg PO DAILY cyanocobalamin (vitamin B-12) (Vitamin B-12) 500 mcg PO DAILY ergocalciferol (vitamin D2) 1,250 mcg PO QWEEK ferrous sulfate 325 mg PO BID isosorbide mononitrate ER 30 mg PO DAILY magnesium oxide 400 mg PO BEDTIME 30 days nitroglycerin 0.4 mg sublingual Q5M PRN ondansetron 4 mg PO Q8-12H PRN riboflavin (vitamin B2) 400 mg PO DAILY 30 days sumatriptan succinate 50 - 100 mg orally at onset of headache, may repeat in 2 hrs PRN; max 2 tabs per day or 4 tabs/week (may take with Ibuprofen) HPI HPI Comments History of Present Illness Details Courtney returns for follow-up. Recently seen in consultation regarding abnormal stress echocardiogram. She is a patient of [facility] but would like to switch. She has a history of hypertension, obesity status post gastric bypass surgery, asthma and inflammatory arthritis. It seems that she has been reporting chest pains which led to a dobutamine stress echo cardiogram showing inferior findings. Patient states she gets sensation of squeezing the chest randomly. Can happen with or without exertion. Can happen when she is just sitting and doing nothing. However, there is no history of any prior coronary disease or myocardial infarction or cardiomyopathy. She seems to have poorly controlled hypertension. Since last seen, she underwent a diagnostic catheterization but no interventions performed. In the last few weeks, she states she has not had any chest pain or in fact any new cardiac symptoms. [facility] Medical History Anemia Asthma Brain tumor Hypertension Osteoporosis Surgical History History of sleeve gastrectomy Hx of hysterectomy Hx of tonsillectomy Family History Mother Hypertension Asthma CAD (coronary artery disease) Osteoporosis Father Hypertension CAD (coronary artery disease) Sister Hypertension Lupus Brother Hypertension Maternal Grandmother Breast cancer Paternal Grandmother Breast cancer Social History Alcohol intake: never Patient Tobacco Use Status: Never used Tobacco Review of Systems Const Denies weakness ENT Denies dizziness Card Denies chest pain, Denies chest pain with activity, Denies syncope, Denies rapid heart rate, Denies pedal edema, Denies edema, Denies leg edema, Denies lightheadedness, Denies palpitations, Denies dyspnea, Denies dyspnea on exertion and Denies orthopnea Resp Denies cough, Denies dyspnea and Denies dyspnea on exertion GI Denies hematochezia and Denies change in stool character Musc Denies abnormal gait, Denies muscle cramps, Denies muscle weakness, Denies numbness, Denies radiating pain into limb and Denies tingling Neuro Denies abnormal gait, Denies dizziness, Denies syncope, Denies numbness, Denies tingling and Denies weakness Endo Denies palpitations Physical Exam Vital Signs: Last Vital Signs Pulse 97 03/30/23 14:22 BP 134/80 03/30/23 14:22 BMI result Body Mass Index 34.4 Const General: comfortable and no acute distress Orientation/consciousness: patient oriented x3 HEENT Other: Unremarkable Head: Yes normal to inspection Neck Neck: Yes normal visual inspection Chest Chest palpation & inspection: normal inspection of the chest Resp Auscultation: clear to auscultation bilaterally Cardio Palpation: normal PMI Heart sounds: S1 normal heart sound present, S2 normal heart sound present, no gallops, Murmur heart sound present systolic II/ and at the right sternal border and no rubs GI Palpation (GI): Soft to palpation Back/Spine/Pelvis Other: unremarkable Skin General skin exam: no rashes or lesions noted Neuro General: patient oriented x3 Extrem General: Yes normal to inspection Psych Mental Status: mental status grossly normal Assessment & Plan Assessment & Plan (1) Atherosclerotic cardiovascular disease: Code(s): I25.10 - Atherosclerotic heart disease of [place] coronary artery without angina pectoris (2) Uncontrolled hypertension: Code(s): I10 - Essential (primary) hypertension Plan Cardiac studies reviewed. Dobutamine stress echo from [facility] was reviewed. In the resting part, there was apparently basal inferoseptal/inferior hypokinesis. In the stress portion, there was persistent hypokinesis and felt to be infarct. Echocardiogram at [place] shows normal LVEF at 65-70%. Basal inferior/basal inferoseptal hypokinesis. Otherwise unremarkable. In the cardiac catheterization, ostial OM1-small diameter vessel with 50% stenosis; mild diffuse disease in the AV groove circumflex but again small vessel. Minimal irregularities in RCA. Left main LAD normal. Overall, she has got [id number] CAD. Could have had a prior nontransmural infarct in the inferior wall leading to wall motion abnormalities. Aggressive risk factor modification. If able to lose weight, that will help a lot. Blood pressure seems to have improved since last time. Listed to be on amlodipine, carvedilol, isosorbide mononitrate. Not clear about losartan as it was in her prior cardiology notes. Anyway, not making changes today. With regard to lipids, not on statins. She can start Crestor 20 mg daily and we can check lipids in a few months. Discussed with significant other. Medications: New rosuvastatin (Crestor) 20 mg PO DAILY 90 tabs 3RF Coding Level of Care Code Est Pt Level 4 (36161) Diagnoses Atherosclerotic cardiovascular disease I25.10 Uncontrolled hypertension I10
== END 2023-03-30 15:46 | disposition home or self-care (01) ==
PROVIDERS: PCP Internal Medicine; Visit Provider Internal Medicine
DX: I25.10 Atherosclerotic heart disease of native coronary artery without angina pectoris (principal); I10 Essential (primary) hypertension
CPT/HCPCS: 99214

== ENCOUNTER → 2023-03-30 14:15 | Outpatient (BNVA) | payer MEDICARE, MEDICAID, SELFPAY | PROVIDERS: PCP Internal Medicine; Visit Provider Internal Medicine | DX: I25.10 Atherosclerotic heart disease of native coronary artery without angina pectoris (principal); I10 Essential (primary) hypertension | CPT/HCPCS: 99212 ==

== ENCOUNTER 2023-06-17 09:41 | Outpatient (REF) | payer MEDICARE, MEDICAID, SELFPAY ==
[2023-06-17 10:45] LABS: MANUAL DIFF FLAG NO
[2023-06-17 11:04] LABS: Basophils Percent Auto 1.2 % (0-2); Eosinophils Absolute Auto 0.3 X10*3/uL (0.0-0.4); Eosinophils Percent Auto 9.4 % (0-4); Hematocrit 35.5 % (37.0-47.0); Hemoglobin 11.4 g/dl (12.0-16.0); Lymphocytes Absolute Auto 0.8 X10*3/uL (1.2-4.9); Lymphocytes Percent Auto 24.3 % (20-40); Mean Corpuscular HGB Conc 32.1 g/dl (31.0-35.0); Mean Corpuscular Hemoglobin 27.4 pg (27.0-33.0); Mean Corpuscular Volume 85.3 fL (80.0-98.0); Mean Platelet Volume 10.2 fL (9.4-12.3); Monocytes Absolute Auto 0.3 X10*3/uL (0.1-1.2); Monocytes Percent Auto 9.1 % (2-11); Neutrophils Absolute Auto 1.9 x10*3/uL (2.0-8.3); Platelet Count 315 X10*3/uL (160-400); Red Blood Count 4.16 X10*6/uL (4.20-5.50); Red Cell Distribution Width 12.6 % (11.0-16.0); White Blood Count 3.4 X10*3/uL (4.8-10.8)
[2023-06-17 11:31] LABS: Estimated Average Glucose 105 mg/dL; Hemoglobin A1c % 5.3 % (<6.0)
[2023-06-17 12:03] LABS: Alanine Aminotransferase 15 U/L (0-31); Albumin Level 4.5 g/dL (3.5-5.0); Alkaline Phosphatase 125 U/L (39-117); Anion Gap 15 (12-20); Aspartate Amino Transferase 19 U/L (5-31); Bilirubin Total 0.5 mg/dL (0.0-1.0); Blood Urea Nitrogen 14 mg/dL (9-16); C Reactive Protein 0.95 mg/dL (< or = 0.50); Carbon Dioxide 28 mmol/L (22-29); Chloride 103 mmol/L (96-108); Cholesterol 159 mg/dL (<200); Estimated Glomerular Filt Rate > 60; Glucose Random 99 mg/dL (60-115); HDL Cholesterol 50 mg/dL (>40); Iron 53 mcg/dL (30-160); LDL Cholesterol Calculated 92 mg/dL (<100); Percent Iron Saturation 17 % (15-50); Potassium 4.3 mmol/L (3.3-5.1); Sodium 142 mmol/L (135-145); Total Iron Binding Capacity 308 mcg/dL (228-428); Total Protein 7.7 g/dL (6.5-8.0); Triglycerides 86 mg/dL (<150); Unsaturated Iron Binding 255 ug/dL
[2023-06-17 12:08] LABS: Ferritin 67 ng/mL (10-250); Insulin 11 uU/mL (2-29); TSH reflex Free T4 1.56 uIU/mL (0.32-4.0); Vitamin D 25-OH Total 16.3 ng/mL (>30)
[2023-06-17 12:28] LABS: Folate 11.9 ng/mL (> or = 4.0); Vitamin B12 512 pg/mL (200-900)
[2023-06-20 12:53] LABS: Zinc 73 mcg/dL (60-130)
[2023-06-23 05:49] LABS: Vitamin A 35 mcg/dL (38-98)
[2023-06-24 06:29] LABS: Vitamin B1 9 nmol/L (8-30)
== END 2023-06-17 09:42 | disposition home or self-care (01) ==
LOC: HO.LAB 09:41
PROVIDERS: PCP Internal Medicine; Visit Provider Physician Assistant Surgical
DX: E66.9 Obesity, unspecified (principal); R93.1 Abnormal findings on diagnostic imaging of heart and coronary circulation; Z90.3 Acquired absence of stomach [part of]
CPT/HCPCS: 36415; 80053; 80061; 82306; 82607; 82728; 82746; 83036; 83525; 83540; 84425; 84443; 84590; 84630; 85025; 86140; 99212

== ENCOUNTER 2023-06-17 09:41 | Outpatient (AMB) | payer MEDICARE, MEDICAID, SELFPAY ==
--- NOTE | 2023-06-17 09:43 | MHC.OFFVISWM ---
Intake VS Expanded 06/17/23 09:52 BP 165/82 H Blood Pressure Location Rt brachial Blood Pressure Position Sitting Pulse 55 Pulse Source Pulse Oximeter Temp 96.8 F Temperature Source Temporal Artery Scan Pulse Oximetry 98 Oxygen Delivery Method Room Air Height 5 ft 3 in Weight 191 lb 9.6 oz BMI 33.9 Body Fat % 35.4 Body Fat Mass 68.0 Fat Free Mass 123.6 Visceral Fat Rating 9.0 Body Water % 45.9 Body Water Mass 88.0 Muscle Mass/Score 117.6 Basal Metabolic Rate/Score 1,674 Intake Visit Reasons: (OV) PO LSG 06/03/16 Allergies Sulfa (Sulfonamide Antibiotics) Allergy (Severe, Verified 06/17/23 09:47) SWELLING acetaminophen [Percocet] Allergy (Unknown, Verified 06/17/23 09:47) vomiting morphine Allergy (Unknown, Verified 06/17/23 09:47) Unknown oxycodone [Percocet] Allergy (Unknown, Verified 06/17/23 09:47) vomiting lisinopril Adverse Reaction (Unknown, Verified 06/17/23 09:47) Unknown Pt states she is allergic to P Allergy (Unknown, Uncoded 03/30/23 14:23) Nausea From PERCOCET Adverse Reaction (Intermediate, Uncoded 03/30/23 14:23) VOMITING baldo inhibitors Adverse Reaction (Unknown, Uncoded 03/30/23 14:23) unknown Medication List - Last Reconciled 06/17/23 by PATRICIA Posada amlodipine 10 mg PO DAILY aspirin (Enteric Coated Aspirin) 81 mg PO DAILY carvedilol (Coreg) 3.125 mg PO BID 90 days cholecalciferol (vitamin D3) 125 mcg PO DAILY cyanocobalamin (vitamin B-12) (Vitamin B-12) 500 mcg PO DAILY ergocalciferol (vitamin D2) 1,250 mcg PO QWEEK ferrous sulfate 325 mg PO BID isosorbide mononitrate ER 30 mg PO DAILY magnesium oxide 400 mg PO BEDTIME 30 days nitroglycerin 0.4 mg sublingual Q5M PRN ondansetron 4 mg PO Q8-12H PRN riboflavin (vitamin B2) 400 mg PO DAILY 30 days rosuvastatin (Crestor) 20 mg PO DAILY sumatriptan succinate 50 - 100 mg orally at onset of headache, may repeat in 2 hrs PRN; max 2 tabs per day or 4 tabs/week (may take with Ibuprofen) HPI HPI Comments History of Present Illness Details This?is a?53?yo female who is s/p LSG 06/03/2016. Presents for 7 year post op visit. Weight at last visit on 01/21/2023 was 195 pounds with a BMI of 34.5, weight today is 191.6 pounds, representing a 3.4 pound weight loss with a BMI today of 33.9.? No complaints of nausea, emesis, abdominal pain or reflux, or constipation. Has been followed by cardiology, started on a statin. No episodes of chest pain. Did not take BP med yet this AM, usually takes at 1pm. Does not think she has been taking isosorbide prescribed by cardiology. Present meal plan includes: breakfast- Celebrate Rebuild shake (20g) with 8oz 1% milk Lunch- Syriac yogurt with some berries, or protein bar Dinner- 6 forks protein, 6 forks veg, can have a few forks of healthy carb like rice if she wants. has not been doing the shakes Exercise routine includes: nothing formal [facility] Medical History Anemia Asthma Brain tumor Hypertension Osteoporosis Surgical History History of sleeve gastrectomy Hx of hysterectomy Hx of tonsillectomy Family History Mother Hypertension Asthma CAD (coronary artery disease) Osteoporosis Father Hypertension CAD (coronary artery disease) Sister Hypertension Lupus Brother Hypertension Maternal Grandmother Breast cancer Paternal Grandmother Breast cancer Social History Alcohol intake: never Patient Tobacco Use Status: Never used Tobacco Physical Exam Vital Signs: Last Vital Signs Temp 96.8 F 06/17/23 09:52 Pulse 55 06/17/23 09:52 BP 165/82 H 06/17/23 09:52 Pulse Ox 98 06/17/23 09:52 Oxygen Delivery Method Room Air 06/17/23 09:52 BMI result Body Mass Index 33.9 Assessment & Plan Assessment & Plan (1) Obesity: Code(s): E66.9 - Obesity, unspecified (2) Status post sleeve gastrectomy: Code(s): Z90.3 - Acquired absence of stomach [part of] Plan Labs ordered. Pain mgmt referral placed per pt request for back pain and spinal stenosis seen on MRI through [facility]. Discussed the importance of adequate protein intake to facilitate weight loss; discussed importance of weight loss in helping decrease cardiac risk as well. Pt should be taking protein shake and bar every day in addition to evening meal of protein/veg Resume isosorbide. Letter to [facility] provided per pt request. RTC 6 months. Patient is obese and is not considered stable at this time. I spent a total of 30 minutes reviewing/updating records, examining the patient and counseling the patient on weight management as detailed above. Orders: Orders Insulin Today Z90.3 - Acquired absence of stomach [part of] Hemoglobin A1c Today Z90.3 - Acquired absence of stomach [part of] Complete Blood Count Auto Diff Today Z90.3 - Acquired absence of stomach [part of] Lipid Panel Today Z90.3 - Acquired absence of stomach [part of] Zinc Today Z90.3 - Acquired absence of stomach [part of] C Reactive Protein Today Z90.3 - Acquired absence of stomach [part of] Vitamin A Today Z90.3 - Acquired absence of stomach [part of] Ferritin Today Z90.3 - Acquired absence of stomach [part of] IRON PROFILE Today Z90.3 - Acquired absence of stomach [part of] Comprehensive Met. Panel Today Z90.3 - Acquired absence of stomach [part of] Vitamin B12 and Folate Today Z90.3 - Acquired absence of stomach [part of] Vitamin B1 Today Z90.3 - Acquired absence of stomach [part of] TSH reflex Free T4 Today Z90.3 - Acquired absence of stomach [part of] Vitamin D 25-OH Total Today Z90.3 - Acquired absence of stomach [part of] Referrals Pain Management Referral M54.9 - Dorsalgia, unspecified Coding Level of Care Code Est Pt Level 4 (97832) Diagnoses Obesity E66.9 Status post sleeve gastrectomy Z90.3
[2023-06-17 09:52] VITALS: BP 165/82; PULSE 55; TEMP 36; O2SAT 98; BMI 33.9
== END 2023-06-17 10:26 | disposition home or self-care (01) ==
PROVIDERS: PCP Internal Medicine; Visit Provider Physician Assistant Surgical
DX: E66.9 Obesity, unspecified (principal); Z68.33 Body mass index [BMI] 33.0-33.9, adult; Z90.3 Acquired absence of stomach [part of]; Z98.84 Bariatric surgery status
CPT/HCPCS: 99214

== ENCOUNTER 2023-07-29 08:49 | Outpatient (AMB) | payer MEDICARE, MEDICAID, SELFPAY ==
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
[2023-07-29 08:54] VITALS: BP 140/70; PULSE 78; O2SAT 98; BMI 34.0
== END 2023-07-29 09:15 | disposition home or self-care (01) ==
PROVIDERS: PCP Internal Medicine; Visit Provider Nurse Practitioner Family
DX: M47.816 Spondylosis without myelopathy or radiculopathy, lumbar region (principal); M53.3 Sacrococcygeal disorders, not elsewhere classified; M54.16 Radiculopathy, lumbar region; M62.830 Muscle spasm of back; M25.561 Pain in right knee; M25.562 Pain in left knee
CPT/HCPCS: 99204; 99214

== ENCOUNTER → 2023-07-29 08:49 | Outpatient (BNVA) | payer MEDICARE, MEDICAID, SELFPAY | PROVIDERS: PCP Internal Medicine; Visit Provider Nurse Practitioner Family | DX: M47.816 Spondylosis without myelopathy or radiculopathy, lumbar region (principal); M53.3 Sacrococcygeal disorders, not elsewhere classified; M54.16 Radiculopathy, lumbar region; M62.830 Muscle spasm of back; M25.561 Pain in right knee; M25.562 Pain in left knee | CPT/HCPCS: 99202 ==

== ENCOUNTER 2023-08-04 11:39 | Outpatient (AMB) | payer MEDICARE, MEDICAID, SELFPAY ==
--- NOTE | 2023-08-04 11:34 | A.OFFVIS_ITS ---
Intake Visit Reasons: (TELEPHONE) PO LSG 06/03/16 Allergies Sulfa (Sulfonamide Antibiotics) Allergy (Severe, Verified 07/29/23 08:53) SWELLING acetaminophen [Percocet] Allergy (Unknown, Verified 07/29/23 08:53) vomiting morphine Allergy (Unknown, Verified 07/29/23 08:53) Unknown oxycodone [Percocet] Allergy (Unknown, Verified 07/29/23 08:53) vomiting lisinopril Adverse Reaction (Unknown, Verified 07/29/23 08:53) Unknown Pt states she is allergic to P Allergy (Unknown, Uncoded 03/30/23 14:23) Nausea From PERCOCET Adverse Reaction (Intermediate, Uncoded 03/30/23 14:23) VOMITING baldo inhibitors Adverse Reaction (Unknown, Uncoded 03/30/23 14:23) unknown Medication List - Last Reconciled 08/04/23 by PATRICIA Posada amlodipine 10 mg PO DAILY aspirin (Enteric Coated Aspirin) 81 mg PO DAILY carvedilol (Coreg) 3.125 mg PO BID 90 days cholecalciferol (vitamin D3) 125 mcg PO DAILY cholecalciferol (vitamin D3) 125 mcg PO DAILY cyanocobalamin (vitamin B-12) (Vitamin B-12) 500 mcg PO DAILY cyclobenzaprine 10 mg PO BEDTIME PRN 30 days ergocalciferol (vitamin D2) 1,250 mcg PO QWEEK ferrous sulfate 325 mg PO BID isosorbide mononitrate ER 30 mg PO DAILY lidocaine 5% leave on most painful area for up to 12 hrs topical losartan 100 mg PO DAILY magnesium oxide 400 mg PO BEDTIME 30 days nitroglycerin 0.4 mg sublingual Q5M PRN ondansetron 4 mg PO Q8-12H PRN riboflavin (vitamin B2) 400 mg PO DAILY 30 days rosuvastatin (Crestor) 20 mg PO DAILY sumatriptan succinate 50 - 100 mg orally at onset of headache, may repeat in 2 hrs PRN; max 2 tabs per day or 4 tabs/week (may take with Ibuprofen) vitamin A palmitate 10,000 units PO DAILY HPI Comments Details: This?is a?53?yo female who is s/p LSG 06/03/2016. Pt was unaware of scheduled visit today and had planned on next appt 6 months from May visit which is what my last note had said. No new issues since last visit. She requests lab results. [facility] Medical History Osteoporosis Hypertension Anemia Brain tumor Asthma Surgical History History of sleeve gastrectomy Hx of hysterectomy Hx of tonsillectomy Family History Mother Hypertension Asthma CAD (coronary artery disease) Osteoporosis Father Hypertension CAD (coronary artery disease) Sister Hypertension Lupus Brother Hypertension Maternal Grandmother Breast cancer Paternal Grandmother Breast cancer Social History Alcohol intake: never Patient Tobacco Use Status: Never used Tobacco Telehealth Telehealth Telehealth Platform: Telephone Location of provider rendering services: other Location of patient: address on file Patient Identification confirmed using: Name, : Yes Telehealth method: voice only Patient verbally consented to treatment: Yes Patient verbally consented to billing insurance company: Yes Patient informed of any privacy concerns related to visit: Yes Minutes spent on Phone/Video with Pt.: 10 Assessment & Plan Assessment & Plan (1) Obesity: Code(s): E66.9 - Obesity, unspecified Category: Medical (2) Status post sleeve gastrectomy: Code(s): Z90.3 - Acquired absence of stomach [part of] Category: Surgical Plan Lab results reviewed. Pt was previously sent Rx for vit A and D- she is now taking. H/H are same as last results in Jan- pt receives iron Rx from PCP so she will call their office to discuss. RTC in Nov, 6 months from last visit. Patient is obese and is not considered stable at this time. I spent a total of 15 minutes reviewing/updating records, examining the patient and counseling the patient on weight management as detailed above.
== END 2023-08-04 11:51 | disposition home or self-care (01) ==
LOC: HO.HBS 11:39
PROVIDERS: PCP Internal Medicine; Visit Provider Physician Assistant Surgical
DX: E66.9 Obesity, unspecified (principal); Z68.33 Body mass index [BMI] 33.0-33.9, adult; Z90.3 Acquired absence of stomach [part of]; Z98.84 Bariatric surgery status
CPT/HCPCS: 99441

== ENCOUNTER → 2023-08-04 11:39 | Outpatient (BNVA) | payer MEDICARE, MEDICAID, SELFPAY | PROVIDERS: PCP Internal Medicine; Visit Provider Physician Assistant Surgical ==

== ENCOUNTER 2023-09-28 09:50 | Outpatient (REF) | payer MEDICARE, MEDICAID, SELFPAY ==
--- NOTE | ~2023-09-28 | XR_ITS ---
EXAMINATION: X-RAY BILATERAL KNEES X-RAY LUMBAR SPINE X-RAY SACROILIAC JOINTS CLINICAL INFORMATION: Spondylosis without myelopathy or radiculopathy, sacrococcygeal disorders, right knee pain. TECHNIQUE: 3 views of each knee. 7 views of the lumbar spine. 4 views of bilateral sacroiliac joints. COMPARISON: CT abdomen and pelvis of 06/22/2018. FINDINGS: Lumbar spine: Dextroscoliosis of the lumbar spine. Multiple surgical clips in the upper abdomen and left lower quadrant. Degenerative changes in the bilateral sacroiliac joints. Facet arthritis in the [id number] lumbar spine. Moderate spondylosis with loss of disc space height at L4-L5 and L5-S1. Minimal grade 1 anterolisthesis of L4 on L5 with extension and flexion. Bilateral sacroiliac joints: Moderate degenerative changes in the bilateral sacroiliac joints with hypertrophic change and joint space narrowing. Right knee: Moderate joint effusion. Severe degenerative changes in the patellofemoral joint with loss of the joint space, subchondral sclerosis and hypertrophic change. Moderate narrowing of the medial compartment with prominent medial marginal osteophytes. Small lateral marginal osteophytes. Ossific/calcific focus overlying the proximal tibia may represent a bone island. Left knee: Large joint effusion. Moderate degenerative changes in the patellofemoral and lateral compartments with joint space narrowing and hypertrophic change. Tiny medial marginal osteophytes. XR/XR knee LT 3V IMPRESSION: 1. Moderate degenerative changes bilateral sacroiliac joints. 2. Moderate degenerative changes bilateral knees, most severe in the right patellofemoral joint. 3. Large left and moderate right knee joint effusions. 4. Moderate spondylosis with loss of disc space height at L4-L5 and L5-S1.
--- NOTE | ~2023-09-28 | XR_ITS ---
EXAMINATION: X-RAY BILATERAL KNEES X-RAY LUMBAR SPINE X-RAY SACROILIAC JOINTS CLINICAL INFORMATION: Spondylosis without myelopathy or radiculopathy, sacrococcygeal disorders, right knee pain. TECHNIQUE: 3 views of each knee. 7 views of the lumbar spine. 4 views of bilateral sacroiliac joints. COMPARISON: CT abdomen and pelvis of 06/22/2018. FINDINGS: Lumbar spine: Dextroscoliosis of the lumbar spine. Multiple surgical clips in the upper abdomen and left lower quadrant. Degenerative changes in the bilateral sacroiliac joints. Facet arthritis in the [id number] lumbar spine. Moderate spondylosis with loss of disc space height at L4-L5 and L5-S1. Minimal grade 1 anterolisthesis of L4 on L5 with extension and flexion. Bilateral sacroiliac joints: Moderate degenerative changes in the bilateral sacroiliac joints with hypertrophic change and joint space narrowing. Right knee: Moderate joint effusion. Severe degenerative changes in the patellofemoral joint with loss of the joint space, subchondral sclerosis and hypertrophic change. Moderate narrowing of the medial compartment with prominent medial marginal osteophytes. Small lateral marginal osteophytes. Ossific/calcific focus overlying the proximal tibia may represent a bone island. Left knee: Large joint effusion. Moderate degenerative changes in the patellofemoral and lateral compartments with joint space narrowing and hypertrophic change. Tiny medial marginal osteophytes. XR/XR knee RT 3V IMPRESSION: 1. Moderate degenerative changes bilateral sacroiliac joints. 2. Moderate degenerative changes bilateral knees, most severe in the right patellofemoral joint. 3. Large left and moderate right knee joint effusions. 4. Moderate spondylosis with loss of disc space height at L4-L5 and L5-S1.
--- NOTE | ~2023-09-28 | XR_ITS ---
EXAMINATION: X-RAY BILATERAL KNEES X-RAY LUMBAR SPINE X-RAY SACROILIAC JOINTS CLINICAL INFORMATION: Spondylosis without myelopathy or radiculopathy, sacrococcygeal disorders, right knee pain. TECHNIQUE: 3 views of each knee. 7 views of the lumbar spine. 4 views of bilateral sacroiliac joints. COMPARISON: CT abdomen and pelvis of 06/22/2018. FINDINGS: Lumbar spine: Dextroscoliosis of the lumbar spine. Multiple surgical clips in the upper abdomen and left lower quadrant. Degenerative changes in the bilateral sacroiliac joints. Facet arthritis in the [id number] lumbar spine. Moderate spondylosis with loss of disc space height at L4-L5 and L5-S1. Minimal grade 1 anterolisthesis of L4 on L5 with extension and flexion. Bilateral sacroiliac joints: Moderate degenerative changes in the bilateral sacroiliac joints with hypertrophic change and joint space narrowing. Right knee: Moderate joint effusion. Severe degenerative changes in the patellofemoral joint with loss of the joint space, subchondral sclerosis and hypertrophic change. Moderate narrowing of the medial compartment with prominent medial marginal osteophytes. Small lateral marginal osteophytes. Ossific/calcific focus overlying the proximal tibia may represent a bone island. Left knee: Large joint effusion. Moderate degenerative changes in the patellofemoral and lateral compartments with joint space narrowing and hypertrophic change. Tiny medial marginal osteophytes. XR/XR lumbar spine 6V w bending IMPRESSION: 1. Moderate degenerative changes bilateral sacroiliac joints. 2. Moderate degenerative changes bilateral knees, most severe in the right patellofemoral joint. 3. Large left and moderate right knee joint effusions. 4. Moderate spondylosis with loss of disc space height at L4-L5 and L5-S1.
--- NOTE | ~2023-09-28 | XR_ITS ---
EXAMINATION: X-RAY BILATERAL KNEES X-RAY LUMBAR SPINE X-RAY SACROILIAC JOINTS CLINICAL INFORMATION: Spondylosis without myelopathy or radiculopathy, sacrococcygeal disorders, right knee pain. TECHNIQUE: 3 views of each knee. 7 views of the lumbar spine. 4 views of bilateral sacroiliac joints. COMPARISON: CT abdomen and pelvis of 06/22/2018. FINDINGS: Lumbar spine: Dextroscoliosis of the lumbar spine. Multiple surgical clips in the upper abdomen and left lower quadrant. Degenerative changes in the bilateral sacroiliac joints. Facet arthritis in the [id number] lumbar spine. Moderate spondylosis with loss of disc space height at L4-L5 and L5-S1. Minimal grade 1 anterolisthesis of L4 on L5 with extension and flexion. Bilateral sacroiliac joints: Moderate degenerative changes in the bilateral sacroiliac joints with hypertrophic change and joint space narrowing. Right knee: Moderate joint effusion. Severe degenerative changes in the patellofemoral joint with loss of the joint space, subchondral sclerosis and hypertrophic change. Moderate narrowing of the medial compartment with prominent medial marginal osteophytes. Small lateral marginal osteophytes. Ossific/calcific focus overlying the proximal tibia may represent a bone island. Left knee: Large joint effusion. Moderate degenerative changes in the patellofemoral and lateral compartments with joint space narrowing and hypertrophic change. Tiny medial marginal osteophytes. XR/XR sacroiliac joint min 3V IMPRESSION: 1. Moderate degenerative changes bilateral sacroiliac joints. 2. Moderate degenerative changes bilateral knees, most severe in the right patellofemoral joint. 3. Large left and moderate right knee joint effusions. 4. Moderate spondylosis with loss of disc space height at L4-L5 and L5-S1.
== END 2023-09-28 09:51 | disposition home or self-care (01) ==
LOC: HO.XRAY 09:50
PROVIDERS: PCP Internal Medicine; Visit Provider Nurse Practitioner Family
DX: M47.816 Spondylosis without myelopathy or radiculopathy, lumbar region (principal); M53.3 Sacrococcygeal disorders, not elsewhere classified; M54.16 Radiculopathy, lumbar region; M25.561 Pain in right knee; M25.562 Pain in left knee
CPT/HCPCS: 72114; 72202; 73562

== ENCOUNTER 2023-09-30 10:23 | Outpatient (AMB) | payer MEDICARE, MEDICAID, SELFPAY ==
--- NOTE | 2023-09-30 10:59 | A.OFFVIS_ITS ---
Vital Signs 09/30/23 11:01 Height 5 ft 3 in Weight 188 lb 4.396 oz BMI 33.3 BP 136/76 Blood Pressure Location Lt brachial Position Sitting Pulse 46 L Intake Visit Reasons: 6 month follow up Corporate Accounting Manager Required: Yes Corporate Accounting Manager Services: Corporate Accounting Manager Present Corporate Accounting Manager Name: Frankie Accompanied by: Spouse Allergies Sulfa (Sulfonamide Antibiotics) Allergy (Severe, Verified 07/29/23 08:53) SWELLING acetaminophen [Percocet] Allergy (Unknown, Verified 07/29/23 08:53) vomiting morphine Allergy (Unknown, Verified 07/29/23 08:53) Unknown oxycodone [Percocet] Allergy (Unknown, Verified 07/29/23 08:53) vomiting lisinopril Adverse Reaction (Unknown, Verified 07/29/23 08:53) Unknown Pt states she is allergic to P Allergy (Unknown, Uncoded 03/30/23 14:23) Nausea From PERCOCET Adverse Reaction (Intermediate, Uncoded 03/30/23 14:23) VOMITING baldo inhibitors Adverse Reaction (Unknown, Uncoded 03/30/23 14:23) unknown Medication List - Last Reconciled 09/30/23 by Santos Pruett MD amlodipine 10 mg PO DAILY aspirin (Enteric Coated Aspirin) 81 mg PO DAILY carvedilol (Coreg) 3.125 mg PO BID 90 days cholecalciferol (vitamin D3) 125 mcg PO DAILY cyanocobalamin (vitamin B-12) (Vitamin B-12) 500 mcg PO DAILY cyclobenzaprine 10 mg PO BEDTIME PRN 30 days ergocalciferol (vitamin D2) 1,250 mcg PO QWEEK ferrous sulfate 325 mg PO BID isosorbide mononitrate ER 30 mg PO DAILY lidocaine 5% leave on most painful area for up to 12 hrs topical losartan 100 mg PO DAILY magnesium oxide 400 mg PO BEDTIME 30 days nitroglycerin 0.4 mg sublingual Q5M PRN ondansetron 4 mg PO Q8-12H PRN riboflavin (vitamin B2) 400 mg PO DAILY 30 days rosuvastatin (Crestor) 20 mg PO DAILY sumatriptan succinate 50 - 100 mg orally at onset of headache, may repeat in 2 hrs PRN; max 2 tabs per day or 4 tabs/week (may take with Ibuprofen) vitamin A palmitate 10,000 units PO DAILY HPI Comments Details: Courtney returns for follow-up. Recently seen in consultation regarding abnormal stress echocardiogram. She is a patient of [facility] but would like to switch. She has a history of hypertension, obesity, status post gastric bypass surgery, asthma and inflammatory arthritis. It seems that she has been reporting chest pains which led to a dobutamine stress echocardiogram showing inferior findings. Then underwent a diagnostic catheterization but no interventions performed. Overall, she states she generally doing okay. No no specific cardiac complaints at this time. No further chest pains. [facility] Medical History Osteoporosis Hypertension Anemia Brain tumor Asthma Surgical History History of sleeve gastrectomy Hx of hysterectomy Hx of tonsillectomy Family History Mother Hypertension Asthma CAD (coronary artery disease) Osteoporosis Father Hypertension CAD (coronary artery disease) Sister Hypertension Lupus Brother Hypertension Maternal Grandmother Breast cancer Paternal Grandmother Breast cancer Social History Alcohol intake: never Patient Tobacco Use Status: Never used Tobacco Review of Systems Const Denies chills, Denies fatigue, Denies fever(s), Denies weight gain and Denies weight loss ENT Denies dizziness Card Denies chest pain, Denies leg edema, Denies lightheadedness, Denies palpitations, Denies dyspnea on exertion, Denies orthopnea and Denies other Resp Denies cough and Denies dyspnea on exertion GI Denies hematochezia and Denies change in stool character Musc Denies abnormal gait, Denies muscle weakness, Denies numbness, Denies radiating pain into limb and Denies tingling Neuro Denies abnormal gait, Denies dizziness, Denies numbness and Denies tingling Endo Denies fatigue and Denies palpitations Physical Exam Vital Signs: Last Vital Signs Pulse 46 L 09/30/23 11:01 BP 136/76 09/30/23 11:01 BMI result Body Mass Index 33.3 Const General: comfortable and no acute distress Orientation/consciousness: patient oriented x3 HEENT Other: Unremarkable Head: Yes normal to inspection Neck Neck: Yes normal visual inspection Chest Chest palpation & inspection: normal inspection of the chest Resp Auscultation: clear to auscultation bilaterally Cardio Palpation: normal PMI Heart sounds: S1 normal heart sound present, S2 normal heart sound present, no gallops, Murmur heart sound present systolic II/ and at the right sternal border and no rubs GI Palpation (GI): Soft to palpation Back/Spine/Pelvis Other: unremarkable Skin General skin exam: no rashes or lesions noted Neuro General: patient oriented x3 Extrem General: Yes normal to inspection Psych Mental Status: mental status grossly normal Office Procedures EKG Details: EKG with sinus bradycardia at 46/Min; no significant ST-T changes and otherwise [place]remarkable[place] [id number], Complete Assessment & Plan Assessment & Plan (1) Atherosclerotic cardiovascular disease: Code(s): I25.10 - Atherosclerotic heart disease of [place] coronary artery without angina pectoris Category: Medical (2) Essential hypertension: Code(s): I10 - Essential (primary) hypertension Category: Medical Plan Cardiac studies reviewed. Dobutamine stress echo from [facility] was reviewed. In the resting part, there was apparently basal inferoseptal/inferior hypokinesis. In the stress portion, there was persistent hypokinesis and felt to be infarct. Echocardiogram at [place] shows normal LVEF at 65-70%. Basal inferior/basal inferoseptal hypokinesis. Otherwise unremarkable. In the cardiac catheterization, ostial OM1-small diameter vessel with 50% stenosis; mild diffuse disease in the AV groove circumflex but again small vessel. Minimal irregularities in RCA. Left main LAD normal. Overall, she has got [id number] CAD. Could have had a prior nontransmural infarct in the inferior wall leading to wall motion abnormalities. Overall, stable coronary disease. We will manage accordingly. Weight loss as much able. She has some bradycardia on EKG likely due to Coreg. In the absence of symptoms, continue. Otherwise, remains on long-acting nitrates, amlodipine and losartan. She states home blood pressures are only in the 120s. That seems stable. With regard dyslipidemia, she is on Crestor. May go up on the dose to 40 mg daily as last LDL is still on the higher side at 92 mg/dL. Discussed with significant other. Medications: New rosuvastatin (Crestor) 40 mg PO DAILY 90 tabs 3RF 90 days Discontinued rosuvastatin (Crestor) Discontinued Reason: Doctor's Order 20 mg PO DAILY 90 tabs 3RF Coding Level of Care Code Est Pt Level 4 (62794) Diagnoses Atherosclerotic cardiovascular disease I25.10 Essential hypertension I10 CPT Codes EKG - CPT: 11958-[id number], Complete ([id number])
[2023-09-30 11:01] VITALS: BP 136/76; PULSE 46; BMI 33.3
== END 2023-09-30 11:19 | disposition home or self-care (01) ==
PROVIDERS: PCP Internal Medicine; Visit Provider Internal Medicine
DX: I25.10 Atherosclerotic heart disease of native coronary artery without angina pectoris (principal); I10 Essential (primary) hypertension
CPT/HCPCS: 93010; 99214

== ENCOUNTER → 2023-09-30 10:23 | Outpatient (BNVA) | payer MEDICARE, MEDICAID, SELFPAY | PROVIDERS: PCP Internal Medicine; Visit Provider Internal Medicine | DX: I25.10 Atherosclerotic heart disease of native coronary artery without angina pectoris (principal); I10 Essential (primary) hypertension | CPT/HCPCS: 93005; 99212 ==

== ENCOUNTER 2023-11-18 09:19 | Outpatient (AMB) | payer MEDICARE, MEDICAID, SELFPAY ==
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
[2023-11-18 09:27] VITALS: BP 181/81; PULSE 52; O2SAT 98; BMI 34.7
== END 2023-11-18 09:55 | disposition home or self-care (01) ==
PROVIDERS: PCP Internal Medicine; Visit Provider Nurse Practitioner Family
DX: M81.0 Age-related osteoporosis without current pathological fracture (principal); M51.36 Other intervertebral disc degeneration, lumbar region; M54.50 Low back pain, unspecified; M25.561 Pain in right knee; M25.562 Pain in left knee; M17.0 Bilateral primary osteoarthritis of knee; M47.816 Spondylosis without myelopathy or radiculopathy, lumbar region; M53.3 Sacrococcygeal disorders, not elsewhere classified; M62.830 Muscle spasm of back
CPT/HCPCS: 99214

== ENCOUNTER → 2023-11-18 09:19 | Outpatient (BNVA) | payer MEDICARE, MEDICAID, SELFPAY | PROVIDERS: PCP Internal Medicine; Visit Provider Nurse Practitioner Family | DX: M81.0 Age-related osteoporosis without current pathological fracture (principal); M17.0 Bilateral primary osteoarthritis of knee; G89.29 Other chronic pain; M54.50 Low back pain, unspecified; M51.36 Other intervertebral disc degeneration, lumbar region; M25.561 Pain in right knee; M25.562 Pain in left knee; M47.816 Spondylosis without myelopathy or radiculopathy, lumbar region; M53.3 Sacrococcygeal disorders, not elsewhere classified; M62.830 Muscle spasm of back | CPT/HCPCS: 99212 ==

== ENCOUNTER 2023-11-29 10:40 | Outpatient (AMB) | payer MEDICARE, MEDICAID, SELFPAY ==
--- NOTE | 2023-11-29 11:02 | MHC.OFFVIS ---
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 She has had no previous treatment. Pain is worse with activity. High Pressure Kettle Operator Services: High Pressure Kettle Operator Offered & Declined Allergies Sulfa (Sulfonamide Antibiotics) Allergy (Severe, Verified 11/29/23 11:06) SWELLING acetaminophen [Percocet] Allergy (Unknown, Verified 11/29/23 11:06) vomiting morphine Allergy (Unknown, Verified 11/29/23 11:06) Unknown oxycodone [Percocet] Allergy (Unknown, Verified 11/29/23 11:06) vomiting lisinopril Adverse Reaction (Unknown, Verified 11/29/23 11:06) Unknown Pt states she is allergic to P Allergy (Unknown, Uncoded 11/29/23 11:06) Nausea From PERCOCET Adverse Reaction (Intermediate, Uncoded 11/29/23 11:06) VOMITING baldo inhibitors Adverse Reaction (Unknown, Uncoded 11/29/23 11:06) unknown HPI HPI 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 She states she has had pain for approximately 2 months. She has had intermittent pain over the years but it has gotten worse over the past 2 months. She denies injury. She has occasional left knee pain but it is mild. [facility] Medical History Osteoporosis Hypertension Anemia Brain tumor Asthma Surgical History History of sleeve gastrectomy Hx of hysterectomy Hx of tonsillectomy Family History Mother Hypertension Asthma CAD (coronary artery disease) Osteoporosis Father Hypertension CAD (coronary artery disease) Sister Hypertension Lupus Brother Hypertension Maternal Grandmother Breast cancer Paternal Grandmother Breast cancer Social History Alcohol intake: never Patient Tobacco Use Status: Never used Tobacco Physical Exam Vital Signs: BMI result Body Mass Index 34.2 Extrem Other: Mild gait antalgia Tenderness to palpation medial compartment right knee 0-130 degrees bilaterally. Trace effusion on the right Office Procedures Joint Injection/Aspiration Joint Injection/Aspiration Details: Injected 1 mL of Decadron and 3 mL 1% lidocaine and 3 mL of 0.25% Marcaine. Site was prepped using aseptic technique. Patient tolerated the procedure well. Primary Site: right knee Approach Used: anterolateral Coding - Large joint Procedure code (CPT) selection complete Results Reviewed Results Reviewed: I personally reviewed relevant radiographs. There is bilateral severe knee osteoarthritis involving the anterior compartment bilaterally and the medial compartment on the right in the lateral compartment on the left. Assessment & Plan Assessment & Plan (1) Bilateral primary osteoarthritis of knee: Code(s): M17.0 - Bilateral primary osteoarthritis of knee Category: Medical Plan: This is a 53-year-old woman with painful right knee osteoarthritis. She has been doing okay for years until last couple months when she has had moderate increase in pain. I injected her right knee. She can follow up in 3 months for repeat injection if she would like. Coding Level of Care Code New Pt Level 3 (87663) Diagnoses Bilateral primary osteoarthritis of knee M17.0 CPT Codes Coding - Large joint: 86665 - Large joint ([id number])
[2023-11-29 11:06] VITALS: BMI 34.2
== END 2023-11-29 13:43 | disposition home or self-care (01) ==
PROVIDERS: PCP Internal Medicine; Visit Provider Orthopaedic Surgery
DX: M17.0 Bilateral primary osteoarthritis of knee (principal)
CPT/HCPCS: 20610; 99203

== ENCOUNTER → 2023-11-29 10:40 | Outpatient (BNVA) | payer MEDICARE, MEDICAID, SELFPAY | PROVIDERS: PCP Internal Medicine; Visit Provider Orthopaedic Surgery | DX: M17.0 Bilateral primary osteoarthritis of knee (principal) | CPT/HCPCS: 20610; 99202; J0665; J1100 ==

== ENCOUNTER 2023-12-15 08:01 | Emergency (ER) | payer MEDICARE, MEDICAID, SELFPAY ==
[2023-12-15 08:08] VITALS: BP 148/77; PULSE 81; RESP 15; TEMP 36.6; O2SAT 98; BMI 33.1
--- NOTE | 2023-12-15 09:21 | ED.GENADULT ---
HPI - General Adult General Chief complaint: Extremity Injury, Lower Stated complaint: leg pain Time Seen by Provider: 12/15/23 09:16 Source: patient, family (patient's daughter) and windows server engineer (patient requested to use her daughter to interpret for her. Explained the right to an official [facility] windows server engineer and patient declined, adamant to use daughter.) Mode of arrival: ambulatory Limitations: language barrier (patient requested to use her daughter to interpret for her. Explained the right to an official [facility] windows server engineer and patient declined, adamant to use daughter.) History of Present Illness ED Provider: Keisha Luna PA-C HPI narrative: Patient is a 53 year old assigned female at with a history of bilateral OA of the knees presenting to the emergency department today with pain in bilateral knees. Patient states that she has issues with her knees all the time and follows with our orthopedic group but this morning she woke up with worse pain. Patient denies any dizziness, lightheadedness, abdominal pain, nausea, vomiting, fever, chills, blurry vision, double vision, loss of vision, chest pain, difficulty breathing, shortness of breath, back pain, night sweats, pain with urination, increased urinary frequency, increased urinary urgency, blood in her urine or stool, syncope or a near syncopal episode, recent trauma or falls, bowel incontinence, bladder incontinence, or any other complaints at this time. Relieving factors: none Exacerbating factors: none Associated symptoms: denies other symptoms Treatments prior to arrival: none Related Data Home Medications ?Medication ?Instructions ?Recorded ?Confirmed cyanocobalamin (vitamin B-12) 500 500 mcg PO DAILY 06/04/22 09/30/23 mcg tablet (Vitamin B-12) ergocalciferol (vitamin D2) 1,250 1,250 mcg PO QWEEK 06/04/22 09/30/23 mcg (50,000 unit) capsule ferrous sulfate 325 mg (65 mg 325 mg PO BID 06/04/22 09/30/23 iron) tablet sumatriptan succinate 100 mg tablet 50 - 100 mg PO .COMPLEX PRN 01/29/23 09/30/23 migraine headache losartan 100 mg tablet 100 mg PO DAILY 07/29/23 09/30/23 Previous Rx's ?Medication ?Instructions ?Recorded magnesium oxide 400 mg (241.3 mg 400 mg PO BEDTIME 30 days #30 tabs 06/04/22 magnesium) tablet riboflavin (vitamin B2) 400 mg 400 mg PO DAILY 30 days #30 tabs 06/04/22 tablet ondansetron 4 mg disintegrating 4 mg PO Q8-12H PRN nausea and 01/21/23 tablet vomiting #20 tabs aspirin 81 mg tablet,delayed 81 mg PO DAILY #90 tabs 01/29/23 release (Enteric Coated Aspirin) isosorbide mononitrate 30 mg 30 mg PO DAILY #90 tabs 01/29/23 tablet,extended release 24 hr nitroglycerin 0.4 mg sublingual 0.4 mg sublingual Q5M PRN chest 01/29/23 tablet pain #30 tabs cholecalciferol (vitamin D3) 125 125 mcg PO DAILY #90 caps 07/15/23 mcg (5,000 unit) capsule vitamin A palmitate 3,000 mcg 10,000 unit PO DAILY #90 caps 07/15/23 (10,000 unit) capsule amlodipine 10 mg tablet 10 mg PO DAILY #90 tabs 08/05/23 rosuvastatin 40 mg tablet (Crestor) 40 mg PO DAILY 90 days #90 tabs 09/30/23 cyclobenzaprine 10 mg tablet 10 mg PO BEDTIME PRN muscle spasm 11/18/23 30 days #30 tabs diclofenac sodium 1 % topical gel 4 g topical QID pain #100 grams 11/18/23 (Arthritis Pain (diclofenac)) lidocaine 5 % topical patch See Rx Instructions topical 11/18/23 .COMPLEX pain #30 ea carvedilol 3.125 mg tablet (Coreg) 3.125 mg PO BID 90 days #180 tabs 12/06/23 Allergies Allergy/AdvReac Type Severity Reaction Status Date / Time Sulfa (Sulfonamide Allergy Severe SWELLING Verified 12/15/23 08:09 Antibiotics) acetaminophen [Percocet] Allergy Unknown vomiting Verified 12/15/23 08:09 morphine Allergy Unknown Unknown Verified 12/15/23 08:09 oxycodone [Percocet] Allergy Unknown vomiting Verified 12/15/23 08:09 lisinopril AdvReac Unknown Unknown Verified 12/15/23 08:09 Pt states she is allergic to Allergy Unknown Nausea Uncoded 12/15/23 08:09 P From PERCOCET AdvReac Intermediate VOMITING Uncoded 12/15/23 08:09 baldo inhibitors AdvReac Unknown unknown Uncoded 12/15/23 08:09 Review of Systems Constitutional: Constitutional: Reports no additional constitutional complaints, Denies chills, Denies fever(s) and Denies night sweats Eyes: Eyes: Reports no additional eye complaints, Denies blurry vision, Denies change in vision, Denies diplopia, Denies eye discharge, Denies loss of vision and Denies eye pain ENT: Denies dizziness Cardiovascular: Cardiovascular: Reports no additional cardiovascular complaints, Denies chest pain, Denies lightheadedness, Denies Loss of Consciousness and Denies dyspnea Respiratory: Respiratory: Reports no additional respiratory complaints and Denies dyspnea Gastrointestinal: Gastrointestinal: Reports no additional gastrointestinal complaints, Denies abdominal pain, Denies melena, Denies hematochezia, Denies change in bowel habits and Denies change in stool character Genitourinary: Genitourinary: Denies hematuria, Denies urinary frequency, Denies dysuria, Denies urinary incontinence, Denies urinary hesitancy and Denies urinary urgency Musculoskeletal: Musculoskeletal: Reports no additional musculoskeletal complaints, Denies numbness and Denies tingling Comments: bilateral knee pain Neurologic: Denies dizziness, Denies loss of vision, Denies numbness and Denies tingling Psychiatric: Psychiatric: Reports no additional psychiatric complaints Endocrine: Endocrine: Reports no additional endocrine complaints Hematologic/Lymphatic: Hematologic/Lymphatic: Reports no additional hematologic/lymphatic complaints Allergic/Immunologic: Allergic/Immunologic: Reports no additional allergic/immunologic complaints [facility] Past Medical History Attestation statement: The following information was validated with the patient. Source: old records reviewed and nursing notes reviewed Medical History Osteoporosis Hypertension Anemia Brain tumor Asthma Surgical History History of sleeve gastrectomy Hx of hysterectomy Hx of tonsillectomy Family History Family History Mother Hypertension Asthma CAD (coronary artery disease) Osteoporosis Father Hypertension CAD (coronary artery disease) Sister Hypertension Lupus Brother Hypertension Maternal Grandmother Breast cancer Paternal Grandmother Breast cancer Social History Social History Alcohol intake: never Patient Tobacco Use Status: Never used Tobacco Advance Directives: No Advance Directives Information Provided: No Do you have a plan to hurt others: No Plan Physical Exam ED Vital Signs: Vital Signs - 24 hr 12/15/23 08:08 12/15/23 09:57 Temperature 98 F 98 F Pulse Rate 81 81 Respiratory Rate 15 15 Blood Pressure 148/77 H 148/77 H Pulse Oximetry 98 98 Oxygen Delivery Method Room Air Room Air BMI result Body Mass Index 33.1 Const General: cooperative, no acute distress, alert and awake Nutritional Appearance: well nourished Orientation/consciousness: patient oriented x3 Limitations: no limitations HENMT Head: Yes normal to inspection and Yes atraumatic Ears: hearing grossly normal bilaterally and external ears normal General nose exam: Normal external nose present, no nasal discharge noted and no epistaxis Face and sinus: Yes normal facial exam, No abrasion and No laceration Mouth: Normal oral and palatal mucosa present, no drooling and no muffled voice Eyes General: appearance normal, both eyes and all related structures Periorbital: periorbital findings normal Eyelids: Yes eyelids normal Conjunctivae: conjunctivae normal Pupils: Equal, round and reactive pupils present EOM: EOMs intact bilaterally Neck Neck: Yes normal visual inspection, Yes full ROM and Yes no lymphadenopathy Chest Chest palpation & inspection: normal inspection of the chest Resp Effort & Inspection: normal respiratory effort and able to speak in complete sentences GI Inspection: Yes normal to inspection Neuro General: patient oriented x3 and moves all extremities Cranial nerves: Yes Equal, round and reactive pupils present Cognition (Neuro): normal cognition Extrem Other: bilateral knee pain General: Yes normal to inspection, Yes full ROM and Yes capillary refill normal Psych Appearance: grossly normal Mental Status: mental status grossly normal Affect: normal affect Attitude: cooperative Thought process: Normal thought process present Thought content: Normal thought content present Insight: Good insight present (Psych) Medications Administered Discontinued Medications Generic Name Dose Route Start Last Admin Trade Name Freq PRN Reason Stop Dose Admin Ketorolac Tromethamine 15 mg 12/15/23 09:27 12/15/23 09:50 Ketorolac Tromethamine 15 Mg/Ml Vial IM 12/15/23 09:28 15 mg ONCE ONE Administration Methylprednisolone Sodium Succinate 60 mg 12/15/23 09:27 12/15/23 09:50 Methylprednisolone Sod Succ 125 Mg/2 Ml Vial IM 12/15/23 09:28 60 mg ONCE ONE Administration Medical Decision Making Medical Decision Making MDM Narrative: Patient is a 53 year old assigned female at with a history of OA in the knees presenting to the emergency department today with bilateral knee pain. Patient's physical exam was unremarkable. I explained my physical exam findings to the patient and the patient's daughter. I answered all questions asked by the patient and the patient's daughter. I stressed the importance of the patient taking her medication as directed (either prescribed or as the over the counter packaging recommends). I stressed the importance of the patient following up with her primary care provider and an orthopedic provider. I stressed the importance of the patient returning to the emergency department immediately if her symptoms were to worsen or if she were to develop any dizziness, shortness of breath, difficulty breathing, chest pain, blurry vision, loss of vision, nausea, vomiting, abdominal pain, fever, chills, back pain, or any other complaints. Patient and the patient's daughter verbalized agreement and understanding with this treatment plan and discharge. Differential Diagnosis Differential Diagnoses: The differential diagnosis associated with the presentation includes Acute on chronic bilateral knee pain Bilateral knee OA Admission/Observation Consideration of admission/observation: Escalation of care including admission/observation considered Patient would have been admitted to the hospital had her clinical presentation warranted hospital admission. Tests considered The following testing was considered but not selected: I considered obtaining an x-ray of the bilateral knees however, the patient's current clinical presentation did not warrant this. I discussed this with the patient and her daughter who verbalized understanding and agreement. Discharge Plan Discharge Clinical Impression: Arthritis of knee Patient Disposition: Home, Self-Care Instructions: Osteoarthritis (DC) Additional Instructions: Follow up with your primary care provider and an orthopedic provider. Return to the emergency department immediately if your symptoms worsen or if you develop any dizziness, shortness of breath, difficulty breathing, chest pain, blurry vision, loss of vision, nausea, vomiting, abdominal pain, fever, chills, back pain, or any other complaints. Truman un seguimiento con mcgovern m?dico de cabecera y un traumat?logo. Acuda inmediatamente al servicio de urgencias si kerwin s?ntomas empeoran o si presenta mareos, falta de aliento, dificultad para respirar, dolor tor?cico, visi?n borrosa, p?rdida de visi?n, n?useas, v?mitos, dolor abdominal, fiebre, escalofr?os, dolor de espalda o cualquier otra molestia. Prescriptions: No Action vitamin A palmitate 3,000 mcg (10,000 unit) capsule 10,000 unit PO DAILY Qty: 90 3RF cholecalciferol (vitamin D3) 125 mcg (5,000 unit) capsule 125 mcg PO DAILY Qty: 90 3RF amlodipine 10 mg tablet 10 mg PO DAILY Qty: 90 1RF carvedilol [Coreg] 3.125 mg tablet 3.125 mg PO BID 90 Days Qty: 180 3RF Rx Instructions: must administer with a meal/food ergocalciferol (vitamin D2) 1,250 mcg (50,000 unit) capsule 1,250 mcg PO QWEEK cyanocobalamin (vitamin B-12) [Vitamin B-12] 500 mcg tablet 500 mcg PO DAILY ferrous sulfate 325 mg (65 mg iron) tablet 325 mg PO BID riboflavin (vitamin B2) 400 mg tablet 400 mg PO DAILY 30 Days Qty: 30 6RF magnesium oxide 400 mg (241.3 mg magnesium) tablet 400 mg PO BEDTIME 30 Days Qty: 30 6RF Rx Instructions: may hold for loose stools rosuvastatin [Crestor] 40 mg tablet 40 mg PO DAILY 90 Days Qty: 90 3RF lidocaine 5 % adhesive patch,medicated See Rx Instructions topical .COMPLEX Qty: 30 3RF Rx Instructions: leave on most painful area for up to 12 hrs topical cyclobenzaprine 10 mg tablet 10 mg PO BEDTIME PRN (Reason: muscle spasm) 30 Days Qty: 30 0RF diclofenac sodium [Arthritis Pain (diclofenac)] 1 % gel 4 g topical QID Qty: 100 4RF Rx Instructions: apply to single knee, ankle, foot; for foot includes sole/toes/top of foot ondansetron 4 mg tablet,disintegrating 4 mg PO Q8-12H PRN (Reason: nausea and vomiting) Qty: 20 1RF sumatriptan succinate 100 mg tablet 50 - 100 mg PO .COMPLEX PRN (Reason: migraine headache) Rx Instructions: 50 - 100 mg orally at onset of headache, may repeat in 2 hrs PRN; max 2 tabs per day or 4 tabs/week (may take with Ibuprofen) aspirin [Enteric Coated Aspirin] 81 mg tablet,delayed release (DR/EC) 81 mg PO DAILY Qty: 90 3RF nitroglycerin 0.4 mg tablet, sublingual 0.4 mg sublingual Q5M PRN (Reason: chest pain) Qty: 30 5RF Rx Instructions: do not exceed 3 doses per episode isosorbide mononitrate 30 mg tablet extended release 24 hr 30 mg PO DAILY Qty: 90 3RF losartan 100 mg tablet 100 mg PO DAILY Referrals: [facility] Family Medicine [Provider Group] (Call to establish and follow up with a primary care provider. If you already have a primary care provider, please follow up with them.) [facility], [place] [Provider Group] (Call to establish and follow up with a primary care provider. If you already have a primary care provider, please follow up with them.) [facility] [Provider Group] (Call to establish and follow up with a primary care provider. If you already have a primary care provider, please follow up with them.) Interventions: ED Discharge Assessment Last Done: 12/15/23 09:57 Discharge Date/Time: 12/15/23 09:57 Print Language: Japanese
[2023-12-15] MEDS: methylPREDNISolone Sod Succ 125 MG/2 ML VIAL 60 MG IM (09:50)
[2023-12-15] MEDS: Ketorolac Tromethamine 15 MG/ML VIAL IM (09:50)
[2023-12-15 09:57] VITALS: BP 148/77; PULSE 81; RESP 15; TEMP 36.6; O2SAT 98
== END 2023-12-15 09:57 | disposition home or self-care (01) ==
PROVIDERS: Emergency Provider Student in an Organized Health Care Education/Training Program
DX: M17.0 Bilateral primary osteoarthritis of knee (principal); M25.562 Pain in left knee; M25.561 Pain in right knee; I10 Essential (primary) hypertension; J45.909 Unspecified asthma, uncomplicated; Z90.3 Acquired absence of stomach [part of]; Z79.82 Long term (current) use of aspirin; Z79.899 Other long term (current) drug therapy
CPT/HCPCS: 96372; 99283; 99284; J1885; J2919

== ENCOUNTER 2023-12-16 10:22 | Outpatient (REF) | payer MEDICARE, MEDICAID, SELFPAY ==
--- NOTE | ~2023-12-16 | MM_ITS ---
EXAMINATION: BONE DENSITOMETRY CLINICAL INDICATION: Age-related osteoporosis without current pathological fracture. COMPARISON: This is the patient's baseline examination. TECHNIQUE: Using a [employer] DXA System (software version: 13.1) manufactured by [employer], dual-energy x-ray absorptiometry was performed of the lumbar spine and left hip. The images are of good technical quality. Summary results are attached. FINDINGS: LEFT FEMUR, NECK: BMD 1.126 g/cm2, Z-score 1.2, T-score 0.6, normal. LEFT FEMUR, TOTAL: BMD 1.125 g/cm2, Z-score 1.1, T-score 0.9, normal. AP SPINE L1-L2 (excluding L3 and L4): The data of L1-L4 has been changed to exclude the L3 and L4 vertebral bodies, because significant degenerative change at these levels may cause overestimation of lumbar spine density. BMD 1.196 g/cm2, Z-score 0.3, T-score 0.3, normal. IDENTIFIED RISK FACTORS: Menopause, osteoporosis. HISTORY OF FRACTURE: None listed. MEDICATIONS: Calcium supplements or multivitamin, vitamin D. MM/XR DEXA axial skeleton IMPRESSION: 1. DIAGNOSIS: Normal bone density based on the lowest T-score value of 0.3 in the lumbar spine applying World Health Organization criteria. 2. 10-YEAR FRACTURE RISK PREDICTION, FRAX: According to the guidelines, FRAX calculation should only be performed on patients in the osteopenia bone density category. Therefore, FRAX was not performed on this patient. 3. Treatment Recommendations: NOF guidelines recommend consideration for treatment in postmenopausal women and men age 50 and older presenting with the following: -A hip or vertebral (clinical or morphometric) fracture. -T-score less than or equal to -2.5 at the femoral neck or spine after appropriate evaluation to exclude secondary causes. -Low bone mass at the hip or spine and a 10-year fracture probability by FRAX of greater than or equal to 3% for hip fracture or greater than or equal to 20% for major osteoporotic fracture based on the [place] adapted WHO algorithm. 4. Other Recommendations: All treatment decisions require clinical judgment and consideration of individual patient factors, including patient preferences, comorbidities, previous drug use, risk factors not captured in the FRAX model (e.g. frailty, falls, vitamin D deficiency, increased bone turnover, interval significant decline in bone density) and possible under or overestimation of fracture risk by FRAX. FUTURE SCAN RECOMMENDATION: People with diagnosed cases of osteoporosis or at high risk for fracture should have regular bone mineral density tests. For patients eligible for Medicare, routine testing is allowed once every 2 years. The testing frequency can be increased to one year for patients who have rapidly progressing disease, those who are receiving or discontinuing medical therapy to restore bone mass, or have additional risk factors. Electronically signed by: Radha Osman MD 12/22/2023 04:47 PM EDT
== END 2023-12-16 10:23 | disposition home or self-care (01) ==
LOC: HO.MAMMO 10:22
PROVIDERS: PCP Internal Medicine; Visit Provider Nurse Practitioner Family
DX: M81.0 Age-related osteoporosis without current pathological fracture (principal)
CPT/HCPCS: 77080

== ENCOUNTER 2024-02-08 06:12 | Outpatient (REF) | payer MEDICARE, MEDICAID, SELFPAY | END 2024-02-08 06:13 | disposition home or self-care (01) | LOC: CF 06:12 | PROVIDERS: Visit Provider Anesthesiology | DX: M53.3 Sacrococcygeal disorders, not elsewhere classified (principal) | CPT/HCPCS: 27096; J2003; J2795; Q9967 ==

== ENCOUNTER 2024-02-08 09:17 | Outpatient (AMB) | payer MEDICARE, MEDICAID, SELFPAY ==
--- NOTE | 2024-02-08 09:31 | A.OFFVIS_ITS ---
Vital Signs 02/08/24 10:05 02/08/24 10:06 02/08/24 10:07 Height 5 ft 3 in 5 ft 3 in Weight 187 lb 187 lb BMI 33.1 33.1 BP 134/74 150/82 H 136/75 Blood Pressure Location Lt brachial Lt brachial Lt brachial Position Sitting Sitting Sitting Respiration 14 14 Pulse 60 60 Pulse Source Pulse Oximeter Pulse Oximeter Pulse Oximetry (%) 100 100 Oxygen Delivery Method Room Air Room Air Comment pre-op post-op Intake Visit Reasons: BILATERAL DIAGNOSTIC SIJ INJECTIONS Medical Accountant Required: Yes Medical Accountant Services: Medical Accountant Present Medical Accountant Name: Moreno Luque [id number] Allergies Sulfa (Sulfonamide Antibiotics) Allergy (Severe, Verified 02/08/24 10:07) SWELLING acetaminophen [Percocet] Allergy (Unknown, Verified 02/08/24 10:07) vomiting morphine Allergy (Unknown, Verified 02/08/24 10:07) Unknown oxycodone [Percocet] Allergy (Unknown, Verified 02/08/24 10:07) vomiting lisinopril Adverse Reaction (Unknown, Verified 02/08/24 10:07) Unknown Pt states she is allergic to P Allergy (Unknown, Uncoded 12/15/23 08:09) Nausea From PERCOCET Adverse Reaction (Intermediate, Uncoded 12/15/23 08:09) VOMITING baldo inhibitors Adverse Reaction (Unknown, Uncoded 12/15/23 08:09) unknown [facility] Medical History Osteoporosis Hypertension Anemia Brain tumor Asthma Surgical History History of sleeve gastrectomy Hx of hysterectomy Hx of tonsillectomy Family History Mother Hypertension Asthma CAD (coronary artery disease) Osteoporosis Father Hypertension CAD (coronary artery disease) Sister Hypertension Lupus Brother Hypertension Maternal Grandmother Breast cancer Paternal Grandmother Breast cancer Social History Alcohol intake: never Patient Tobacco Use Status: Never used Tobacco Physical Exam Vital Signs: Last Vital Signs Pulse 60 02/08/24 10:06 Resp 14 02/08/24 10:06 BP 136/75 02/08/24 10:07 Pulse Ox 100 02/08/24 10:06 Oxygen Delivery Method Room Air 02/08/24 10:06 BMI result Body Mass Index 33.1 Assessment & Plan Assessment & Plan (1) Sacroiliac joint pain: Code(s): M53.3 - Sacrococcygeal disorders, not elsewhere classified Category: Medical Plan Bilateral diagnostic sacroiliac joint injection Informed consent was explained thoroughly to the patient.? All questions about benefits and risks for the procedure were answered. Patient came to the operating room and was positioned prone on the operating table with the pillow under the abdomen. The lower back and buttocks of the patient were prepped with ChloraPrep prepped and draped with sterile utility towels.? Sterilely draped C-arm was brought over the operating field and sq picture of patient's pelvis was demonstrated on the screen.? For the right joint tilting C-arm contralateral to the site of the joint the most posterior portion of the joints was superimposed with anterior silhouette of the joint.? Skin was injected in the projection of the joint slightly medial to the location of the joint with 25 gauge 1/2 inch needle using local lidocaine 2% . After that 22 gauge 3 and 1/2 inch needle was driven to the right joint in tunnel vision fashion.? When needle entered the joint capsule injection of the contrast was performed demonstrating intra-articular and minimally periarticular spread of the contrast.? After that 4 cc. of ropivacaine 0.5% was injected in the joint. After that procedure was repeated on the left side in mirroring fashion. Same dose of ropivacaine was injected into the joint. Upon completion of the injections the needle was removed and Band-Aid was applied.? Upon completion of the injection patient was taken outside of the operating room to the recovery room where recovered uneventfully Orders: Orders FL guidance in treatment room Today M53.3 - Sacrococcygeal disorders, not elsewhere classified Coding Level of Care Code Procedure Only Diagnoses Sacroiliac joint pain M53.3
[2024-02-08 10:05] VITALS: BP 134/74; PULSE 60; RESP 14; O2SAT 100; BMI 33.1
[2024-02-08 10:06] VITALS: BP 150/82; PULSE 60; RESP 14; O2SAT 100; BMI 33.1
[2024-02-08 10:07] VITALS: BP 136/75
== END 2024-02-08 10:09 | disposition home or self-care (01) ==
LOC: HO.PMCPRC 09:17
PROVIDERS: Visit Provider Anesthesiology
DX: M53.3 Sacrococcygeal disorders, not elsewhere classified (principal)
CPT/HCPCS: 27096

== ENCOUNTER 2024-02-14 09:42 | Outpatient (AMB) | payer MEDICARE, MEDICAID, SELFPAY ==
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
[2024-02-14 09:51] VITALS: BP 168/79; PULSE 50; O2SAT 97; BMI 33.1
== END 2024-02-14 10:06 | disposition home or self-care (01) ==
PROVIDERS: Visit Provider Nurse Practitioner Family
DX: M54.50 Low back pain, unspecified (principal); M47.816 Spondylosis without myelopathy or radiculopathy, lumbar region; M53.3 Sacrococcygeal disorders, not elsewhere classified; M62.830 Muscle spasm of back
CPT/HCPCS: 99213; G2211

== ENCOUNTER → 2024-02-14 09:42 | Outpatient (BNVA) | payer MEDICARE, MEDICAID, SELFPAY | PROVIDERS: Visit Provider Nurse Practitioner Family | DX: M53.3 Sacrococcygeal disorders, not elsewhere classified (principal); M54.50 Low back pain, unspecified; M47.816 Spondylosis without myelopathy or radiculopathy, lumbar region; M81.0 Age-related osteoporosis without current pathological fracture; M62.830 Muscle spasm of back | CPT/HCPCS: 99212 ==

== ENCOUNTER 2024-02-23 08:15 | Outpatient (AMB) | payer MEDICARE, MEDICAID, SELFPAY ==
--- NOTE | 2024-02-23 08:22 | A.OFFVIS_ITS ---
Vital Signs 02/23/24 08:23 Height 5 ft 3 in Weight 184 lb 4.903 oz BMI 32.6 BP 130/72 Blood Pressure Location Lt brachial Position Sitting Pulse 53 Pulse Source Pulse Oximeter Intake Visit Reasons: 6mth f/up Landscaping And Groundskeeping Laborer Required: No Landscaping And Groundskeeping Laborer Services: Landscaping And Groundskeeping Laborer Offered & Declined Landscaping And Groundskeeping Laborer Name: joon/Mini/sri lankan Accompanied by: Significant Other Allergies Sulfa (Sulfonamide Antibiotics) Allergy (Severe, Verified 02/14/24 09:52) SWELLING acetaminophen [Percocet] Allergy (Unknown, Verified 02/14/24 09:52) vomiting morphine Allergy (Unknown, Verified 02/14/24 09:52) Unknown oxycodone [Percocet] Allergy (Unknown, Verified 02/14/24 09:52) vomiting lisinopril Adverse Reaction (Unknown, Verified 02/14/24 09:52) Unknown Pt states she is allergic to P Allergy (Unknown, Uncoded 12/15/23 08:09) Nausea From PERCOCET Adverse Reaction (Intermediate, Uncoded 12/15/23 08:09) VOMITING baldo inhibitors Adverse Reaction (Unknown, Uncoded 12/15/23 08:09) unknown Medication List - Last Reconciled 02/23/24 by Santos Pruett MD amlodipine 10 mg PO DAILY aspirin (Enteric Coated Aspirin) 81 mg PO DAILY carvedilol (Coreg) 3.125 mg PO BID 90 days cholecalciferol (vitamin D3) 125 mcg PO DAILY cyanocobalamin (vitamin B-12) (Vitamin B-12) 500 mcg PO DAILY cyclobenzaprine 10 mg PO BEDTIME PRN 30 days diclofenac sodium 1% (Arthritis Pain (diclofenac)) 4 grams topical QID ergocalciferol (vitamin D2) 1,250 mcg PO QWEEK ferrous sulfate 325 mg PO BID isosorbide mononitrate ER 30 mg PO DAILY lidocaine 5% leave on most painful area for up to 12 hrs topical losartan 100 mg PO DAILY nitroglycerin 0.4 mg sublingual Q5M PRN ondansetron 4 mg PO Q8-12H PRN riboflavin (vitamin B2) 400 mg PO DAILY 30 days rosuvastatin (Crestor) 40 mg PO DAILY 90 days vitamin A palmitate 10,000 units PO DAILY HPI Comments Details: Courtney returns for follow-up regarding coronary artery disease. She is a patient of [facility] but has switched to our care. She has a history of hypertension, obesity, status post gastric bypass surgery, asthma and inflammatory arthritis. It seems that she has been reporting chest pains which led to a dobutamine stress echocardiogram showing inferior findings. Then unde rwent a diagnostic catheterization but no interventions performed. Since last seen, she states she feels good. Absolutely no cardiac complaints. [facility] Medical History (Updated 02/14/24 @ 10:20 by RICKEY Tovar) Osteoporosis Hypertension Anemia Brain tumor Asthma Surgical History History of sleeve gastrectomy Hx of hysterectomy Hx of tonsillectomy Family History Mother Hypertension Asthma CAD (coronary artery disease) Osteoporosis Father Hypertension CAD (coronary artery disease) Sister Hypertension Lupus Brother Hypertension Maternal Grandmother Breast cancer Paternal Grandmother Breast cancer Social History Alcohol intake: never Patient Tobacco Use Status: Never used Tobacco Review of Systems Const Denies chills, Denies fatigue, Denies fever(s), Denies frequent falls, Denies weakness, Denies weight gain and Denies weight loss ENT Denies dizziness Card Denies chest pain, Denies leg edema, Denies lightheadedness, Denies palpitations, Denies dyspnea and Denies dyspnea on exertion Resp Denies cough, Denies dyspnea and Denies dyspnea on exertion GI Denies hematochezia Musc Denies abnormal gait, Denies muscle weakness, Denies numbness, Denies radiating pain into limb and Denies tingling Neuro Denies abnormal gait, Denies dizziness, Denies frequent falls, Denies numbness, Denies tingling and Denies weakness Endo Denies fatigue and Denies palpitations Physical Exam Vital Signs: Last Vital Signs Pulse 53 02/23/24 08:23 BP 130/72 02/23/24 08:23 BMI result Body Mass Index 32.6 Const General: comfortable and no acute distress Orientation/consciousness: patient oriented x3 HEENT Other: Unremarkable Head: Yes normal to inspection Neck Neck: Yes normal visual inspection Chest Chest palpation & inspection: normal inspection of the chest Resp Auscultation: clear to auscultation bilaterally Cardio Palpation: normal PMI Heart sounds: S1 normal heart sound present, S2 normal heart sound present, no gallops, no murmurs and no rubs GI Palpation (GI): Soft to palpation Back/Spine/Pelvis Other: unremarkable Skin General skin exam: no rashes or lesions noted Neuro General: patient oriented x3 Extrem General: Yes normal to inspection Psych Mental Status: mental status grossly normal Assessment & Plan Assessment & Plan (1) Atherosclerotic cardiovascular disease: Code(s): I25.10 - Atherosclerotic heart disease of [place] coronary artery without angina pectoris Category: Medical (2) Essential hypertension: Code(s): I10 - Essential (primary) hypertension Category: Medical Plan Cardiac studies reviewed. Dobutamine stress echo from [facility] reviewed. In the resting part, there was apparently basal inferoseptal/inferior hypokinesis. In the stress portion, there was persistent hypokinesis and felt to be infarct. Echocardiogram at [facility] shows normal LVEF at 65-70%. Basal inferior/basal inferoseptal hypokinesis. Otherwise unremarkable. In the cardiac catheterization, ostial OM1-small diameter vessel with 50% stenosis; mild diffuse disease in the AV groove circumflex but again small vessel. Minimal irregularities in RCA. Left main LAD normal. In summary, she has got erdo-to-fkidkbyi stable CAD and free of any angina. Could have had a prior nontransmural infarct in the inferior wall leading to wall motion abnormalities. Weight loss as much able. She has some bradycardia on EKG likely due to Coreg. In the absence of symptoms, continue. Otherwise, remains on long-acting nitrates, amlodipine and losartan. She states home blood pressures are only in the 120s. With regard dyslipidemia, she is on Crestor. Per patient portal labs, LDL is 108 mg/dL. We will get the formal report from PCP. Add Zetia. Discussed with significant other. Medications: New ezetimibe (Zetia) 10 mg PO DAILY 90 tabs 3RF Coding Level of Care Code Est Pt Level 4 (55356) Diagnoses Atherosclerotic cardiovascular disease I25.10 Essential hypertension I10
[2024-02-23 08:23] VITALS: BP 130/72; PULSE 53; BMI 32.6
== END 2024-02-23 08:37 | disposition home or self-care (01) ==
PROVIDERS: PCP Internal Medicine; Visit Provider Internal Medicine
DX: I25.10 Atherosclerotic heart disease of native coronary artery without angina pectoris (principal); I10 Essential (primary) hypertension
CPT/HCPCS: 99214

== ENCOUNTER → 2024-02-23 08:15 | Outpatient (BNVA) | payer MEDICARE, MEDICAID, SELFPAY | PROVIDERS: PCP Internal Medicine; Visit Provider Internal Medicine | DX: I25.10 Atherosclerotic heart disease of native coronary artery without angina pectoris (principal); I10 Essential (primary) hypertension | CPT/HCPCS: 99212 ==

== ENCOUNTER 2024-05-02 06:31 | Outpatient (REF) | payer MEDICARE, MEDICAID, SELFPAY ==
--- NOTE | ~2024-05-02 | FL_ITS ---
EXAMINATION: FL GUIDANCE ONLY HISTORY: M53.3 - Sacrococcygeal disorders, not elsewhere classified COMPARISON: None available. TECHNIQUE: Fluoroscopy time: 0.2 minutes. Cumulative Dose: 3.45 mGy. DAP: 0.0599 mGym2 Images: 3. FINDINGS: Fluoroscopic spot films demonstrate needles and contrast in the regions of the bilateral sacroiliac joints. FL/FL guidance in treatment room IMPRESSION: Fluoroscopy during procedure. Please see procedure report for additional information. Electronically signed by: Josue Farias MD 05/02/2024 02:49 PM [facility]
--- OUTSIDE RECORDS SUMMARY | 2024-05-02 06:34 | XMS_ITS | Encounter Summary ---
Author Organization [facility], Address [address] [place] [address] Phone Care Team Providers Care Human Resources Talent Manager Name Role Phone Lilliana Thrasher APRN Primary Care Provider [phone] Encounter Details Date Type Department Care Team (Late st Contact Info) Description 04/24/2024 Orders Only [facility], [address] [place] [phone] Rahat Anderson PA Hypertension; Hypokalemia; Chronic kidney disease, stage 2 (mild) Social History Tobacco Use Types Packs/Day Years Used Date Smoking Tobacco: Never Smokeless Tobacco: Never Alcohol Use Standard Drinks/Week Comments Not Currently 0 (1 standard drink = 0.6 oz pur e alcohol) Comments Unknown Sex and Gender Information Value Date Recorded Sex Assigned at Female 05/07/2023 8:29 PM EST Legal Sex Female 3:47 PM EST Gender Identity Female 05/07/2023 8:29 PM EST Sexual Orientation Not on file documented as of this encounter Plan of Treatment Not on file documented as of this encounter Visit Diagnoses Diagnosis Hypertension Hypokalemia Chronic kidney disease, stage 2 (mild) documented in this encounter Care Teams Human Resources Talent Manager Relationship Specialty Start Date End Date Lilliana Thrasher APRN [address] [place] [address] PCP - General Internal Medicine 01/28/23 documented as of this encounter
--- OUTSIDE RECORDS SUMMARY | 2024-05-02 06:34 | XMS_ITS | Encounter Summary ---
Author Organization [facility], Address [address] [place] [address] Phone Care Team Providers Care Tipping Machine Operator Name Role Phone Lilliana Thrasher APRN Primary Care Provider [phone] Encounter Details Date Type Department Care Team (Late st Contact Info) Description 01/29/2023 Documentation Only [facility], [address] [place] [phone] Lilliana Thrasher APRN [address] [place] [phone] Social History Tobacco Use Types Packs/Day Years Used Date Smoking Tobacco: Never Assessed Comments Unknown Sex and Gender Information Value Date Recorded Sex Assigned at Female 05/07/2023 8:29 PM EST Legal Sex Female 3:47 PM EST Gender Identity Female 05/07/2023 8:29 PM EST Sexual Orientation Not on file documented as of this encounter Plan of Treatment Not on file documented as of this encounter Visit Diagnoses Not on filedocumented in this encounter Care Teams Tipping Machine Operator Relationship Specialty Start Date End Date Lilliana Thrasher APRN [address], [place] PCP - General Internal Medicine 01/28/23 documented as of this encounter
--- OUTSIDE RECORDS SUMMARY | 2024-05-02 06:34 | XMS_ITS | Referral Summary ---
Author Organization [facility] Address [address] [place] [address] Care Team Providers Care Agronomy Professor Name Role Phone Adams Markshyla Primary Care Provider Unavailabl e Allergies Active Allergy Reactions Criticality Noted Date Comments Bairon Inhibitors Cough 06/30/2018 No reaction documented. Morphine Chest pain,Nausea An d Vomiting 06/30/2018 Oxycodone Nausea And Vomiting 08/19/2018 Sulfa (Sulfonamide Antibiotics) Swelling High 02/26/2012 Medications albuterol (PROAIR HFA,VENTOLIN HFA) 90 mcg inhaler 3 Active amitriptyline (ELAVIL) 10 mg tablet Take 1 tablet by mouth at bed time. 3 Active amLODIPine (NORVASC) 10 mg tablet Take 1 tablet by mouth once a day. 3 Active baclofen (LIORESAL) 10 mg tablet 3 Active cyanocobalamin (VITAMIN B12) 500 mcg tablet Take 1 tablet by mouth once a day. 2 Active cyclobenzaprine (FLEXERIL) 10 mg tablet SMARTSI Tablet(s) By Mouth 3 Times Daily PRN 2 Active diclofenac (VOLTAREN) 1% gel SMARTSI Applicator Topical Twice Daily PRN 2 Active ergocalciferol (VITAMIN D2) 1,250 mcg (50,000 unit) capsule Take 1 capsule by mouth per week. 2 Active ferrous sulfate 325 mg (65 mg iron) tablet Take 1 tablet by mouth 2 times a day. 3 Active losartan (COZAAR) 100 mg tablet SMARTSI Tablet(s) By Mouth Daily 2 Active magnesium oxide (MAG-OX) 400 mg (241.3 mg mag) tablet SMARTSI Tablet(s) By Mouth Every Night 3 Active spironolactone (ALDACTONE) 25 mg tablet Take 1 tablet by mouth once a day. 3 Active SUMAtriptan (IMITREX) 100 mg tablet 3 Active Active Problems No known active problems Social History Tobacco Use Types Packs/Day Years Used Date Smoking Tobacco: Never Passive Smoke Exposure: Never Smokeless Tobacco: Never Tobacco Cessation:Counseling Given: Not Answered Alcohol Use Standard Drinks/Week Comments Not Currently 0 (1 standard drink = 0.6 oz pur e alcohol) Comments Unknown Sex and Gender Information Value Date Recorded Sex Assigned at Not on file Legal Sex Female 12:02 PM EDT Gender Identity Not on file Sexual Orientation Not on file Last Filed Vital Signs Vital Sign Reading Time Taken Comments Blood Pressure - - Pulse - - Temperature - - Respiratory Rate - - Oxygen Saturation - - Inhaled Oxygen Concentration - - Weight 90.7 kg (200 lb) 08/27/2022 1:31 PM EDT Height - - Body Mass Index - - Plan of Treatment Not on file Insurance [facility] Care Teams Agronomy Professor Relationship Specialty Start Date End Date Deirdre Lamas LAMBERT PCP - General 06/12/22
--- OUTSIDE RECORDS SUMMARY | 2024-05-02 06:34 | XMS_ITS | Encounter Summary ---
Author Organization [facility], Address [address] [place] [address] Phone Care Team Providers Care Hydraulic Bull Riveter Operator Name Role Phone Lilliana Thrasher APRN Primary Care Provider [phone] Encounter Details Date Type Department Care Team (Late st Contact Info) Description 01/29/2023 Documentation Only [facility], [address] [place] [phone] Lilliana Thrasher APRN [address] [place] [phone] Social History Tobacco Use Types Packs/Day Years [...] on filedocumented in this encounter Care Teams Hydraulic Bull Riveter Operator Relationship Specialty Start Date End Date Lilliana Thrasher APRN [address] [place], [place] PCP - General Internal Medicine 01/28/23 documented as of this encounter
--- OUTSIDE RECORDS SUMMARY | 2024-05-02 06:34 | XMS_ITS | Clinical Summary ---
Author Organization [facility], Address [address] [place] [address] [place] [address] Phone Care Team Providers Care Dog Behaviorist Name Role Phone Lilliana Thrasher APRN Primary Care Provider Allergies Active Allergy Reactions Criticality Noted Date Comments Bairon Inhibitors Other (see comments) 06/29/2018 Cough Oxycodone Nausea And Vomiting 08/19/2018 Sulfa Antibiotics Swelling High 02/26/2012 Medications losartan (COZAAR) 100 MG tablet Take 100 mg by mouth 1 (one) time each day in the evening 3 Active amLODIPine (NORVASC) 10 MG tablet Take 10 mg by mouth 1 (one) time each day 3 Active carvedilol (COREG) 3.125 MG tablet TAKE 1 TABLET BY MOUTH TWICE A DAY WITH FOOD FOR 90 DAYS 3 Active nitroglycerin (NITROSTAT) 0.4 MG SL tablet TAKE 1 TAB SUBLINGUALLY EVERY 5 MINUTES NEEDED FOR CHEST PAIN DO NOT EXCEED 3 DOSES PER EPISODE 3 Active ondansetron ODT (ZOFRAN-ODT) 4 MG dispersible tablet TAKE 1 TABLET ORALLY EVERY 8 TO 12 HOURS NEEDED FOR NAUSEA AND VOMITING 3 Active isosorbide mononitrate (IMDUR) 30 MG 24 hr tablet Take 30 mg by mouth 1 (one) time each day 3 Active Aspirin Low Dose 81 MG EC tablet Take 81 mg by mouth 1 (one) time each day 3 Active trimethoprim (TRIMPEX) 100 MG tablet Take 100 mg by mouth 1 (one) time each day Active spironolactone (ALDACTONE) 25 MG tablet Take 25 mg by mouth 1 (one) time each day Active ferrous sulfate 325 (65 Fe) MG EC tablet Take 325 mg by mouth in the morning and 325 mg in the evening. Do not crush, chew, or split.. Active rosuvastatin (CRESTOR) 20 MG tablet Take 20 mg by mouth 1 (one) time each day 4 Active Active Problems Problem Noted Date Diagnosed Date Chronic kidney disease, stage 2 (mild) 3 Hypokalemia 03/06/2023 Hypertension 03/05/2023 Encounters Date Type Department Care Team Description 04/24/2024 Orders Only [facility] [address] [place] [address] Rahat Anderson PA Hypertension; Hypokalemia; Chronic kidney disease, stage 2 (mild) from Last 3 Months Family History Medical History Relation Comments Hypertension Brother Coronary artery disease Father Hypertension Father Rheum arthritis Father Cancer Maternal Grandmother Coronary artery disease Mother Hypertension Mother Rheum arthritis Mother Cancer Paternal Grandmother Lupus Sister Relation Status Comments Brother Father Maternal Grandmother Mother Paternal Grandmother Sister Social History Tobacco Use Types Packs/Day Years Used Date Smoking Tobacco: Never Smokeless Tobacco: Never Tobacco Cessation:Counseling Given: Not Answered Alcohol Use Standard Drinks/Week Comments Not Currently 0 (1 standard drink = 0.6 oz pur e alcohol) Comments Unknown Sex and Gender Information Value Date Recorded Sex Assigned at Female 05/07/2023 8:29 PM EST Legal Sex Female 3:47 PM EST Gender Identity Female 05/07/2023 8:29 PM EST Sexual Orientation Not on file Last Filed Vital Signs Vital Sign Reading Time Taken Comments Blood Pressure 124/80 05/12/2023 2:12 PM EST Pulse - - Temperature - - Respiratory Rate - - Oxygen Saturation - - Inhaled Oxygen Concentration - - Weight 88.3 kg (194 lb 9.6 oz) 05/12/2023 2:12 P M EST Height - - Body Mass Index - - Plan of Treatment Health Maintenance Due Date Last Done Comments Breast Cancer Screening 1970 Hepatitis B Vaccine (1 of 3 - 19+ 3-dose series) 1989 Colorectal Cancer Screening: Annual FOBT 2019 Colorectal Cancer Screening: Colonoscopy 2019 Colorectal Cancer Screening: Sigmoidoscopy 2019 Pneumococcal Vaccine: Pediat rics (0 to 5 Years) and At-Risk Patients (6 to 64 Years) (2 of 2 - PPSV23 or PCV20) 06/28/2020 05/03/2020 Influenza Vaccine (#1) 2023 , 02/18/2022, 01/18/2020, Additional history exists Insurance MEDICAID [place] MEDICARE Care Teams Dog Behaviorist Relationship Specialty Start Date End Date Lilliana Thrasher APRN [address] [place] [address] PCP - General Internal Medicine 01/28/23
--- OUTSIDE RECORDS SUMMARY | 2024-05-02 06:34 | XMS_ITS | Clinical Summary ---
Author Organization [facility] [address] [place] [address] [place] [phone] Phone Care Team Providers Care Certified Medical Coding Specialist Name Role Phone Gilberto Gaines MD Primary Care Provider [phone] Allergies Active Allergy Reactions Criticality Noted Date Comments Bairon Inhibitors Cough 06/30/2018 Lisinopril 06/30/2018 No reaction documented. Morphine Nausea And Vomiting 06/30/2018 Other Reaction(s): Chest tightness Oxycodone Nausea And Vomiting 08/19/2018 Sulfa (Sulfonamide Antibiotics) Swelling 02/26/2012 Medications cyclobenzaprine (FLEXERIL) 10 mg tablet TAKE 1 TABLET BY MOUTH EVERY DAY AT BEDTIME NEEDED FOR MUSCLE SPASMS FOR 30 DAYS 11/18/19 24 Active diclofenac (VOLTAREN) 1 % topical gel APPLY 4 G TOPICALLY 4 TIMES DAILY FOR PAIN TO SINGLE KNEE,ANKLE,FOOT INCLUDES SOLE/TOES/TOP OF FOOT 11/18/19 24 Active lidocaine (LIDODERM) 5 % patch Place 1 Patch onto the skin every 24 hours. Apply for no more than 12 hours in any 24 hour period. Active estradioL (ESTRACE) 0.01 % (0.1 mg/gram) vaginal cream Insert into the vagina 2 (two) times a week. Apply a pea-sized amount of cream with your finger into the vagina daily two times a week at night. 11/10/19 24 Active losartan (COZAAR) 100 mg tablet Take 1 tablet (100 mg total) by mouth 1 (one) time each day. 08/17/19 24 Active cyanocobalamin (VITAMIN B-12) 500 mcg tablet Take 1 tablet (500 mcg total) by mouth 1 (one) time each day. 08/17/19 24 Active rosuvastatin (CRESTOR) 20 mg tablet Take 1 tablet (20 mg total) by mouth 1 (one) time each day. 03/30/19 24 Active nitroglycerin (NITROSTAT) 0.4 mg SL tablet TAKE 1 TAB SUBLINGUALLY EVERY 5 MINUTES NEEDED FOR CHEST PAIN DO NOT EXCEED 3 DOSES PER EPISODE 04/28/19 24 Active docusate sodium (COLACE) 100 mg capsule Take 1 capsule (100 mg total) by mouth 2 (two) times a day. 04/13/19 24 Active cholecalciferol (VITAMIN D-3) 50 mcg (2,000 unit) capsule Take 1 capsule (2,000 Units total) by mouth 1 (one) time each day. 05/31/19 24 Active aspirin 81 mg EC tablet Take 1 tablet (81 mg total) by mouth 1 (one) time each day. 01/30/20 Active carvediloL (COREG) 3.125 mg tablet TAKE 1 TABLET BY MOUTH TWICE A DAY WITH FOOD FOR 90 DAYS 01/30/20 Active isosorbide mononitrate (IMDUR) 30 mg 24 hr tablet Take 1 tablet (30 mg total) by mouth 1 (one) time each day. 01/30/20 Active ondansetron ODT (ZOFRAN-ODT) 4 mg disintegrating tablet TAKE 1 TABLET ORALLY EVERY 8 TO 12 HOURS NEEDED FOR NAUSEA AND VOMITING 01/22/20 Active hydrocortisone 2.5 % cream Apply to affected area bid 02/13/20 23 Active albuterol sulfate (ProAir RespiClick) 90 mcg/actuation aerosol powdr breath activated Inhale 1 Puff into the lungs every 6 hours as needed (wheezing). 06/10/19 23 Active ferrous sulfate 325 mg (65 mg elemental iron) tablet Take 1 tablet (325 mg total) by mouth 2 (two) times a day. 05/28/19 23 Active amitriptyline (ELAVIL) 10 mg tablet Take 1 tablet (10 mg total) by mouth at bedtime. 30 each 2 02/21/20 24 025 Active amLODIPine (NORVASC) 10 mg tablet Take 1 tablet (10 mg total) by mouth 1 (one) time each day. 30 each 2 02/21/20 24 025 Active Active Problems Problem Noted Date Diagnosed Date Obesity (BMI 30.0-34.9) 01/05/2024 CAD (coronary artery disease) 05/31/2023 Overview (01/05/2024): [id number] on cardiac cath - per Dr. Pruett Retinopathy 06/24/2022 Bradycardia 05/30/2020 Primary osteoarthritis of both knees 11/16/2019 Allergic rhinitis 06/30/2018 Vitamin D deficiency 06/30/2018 Benign tumor of pituitary gland 06/30/2018 Overview (01/05/2024): Dr. Christensen EMMANUEL (obstructive sleep apnea) 06/30/2018 Overview (01/05/2024): Has not needed CPAP since significant weight loss s/p gastric bypass. Migraine 06/30/2018 Undifferentiated inflammatory arthritis 07/01/19 19 Overview (01/05/2024): Follows with arthritis treatment center. Asthma 06/30/2018 Essential hypertension, benign 02/26/2012 Overview (01/05/2024): Last Assessment & Plan: Referred back to PCP for improved control. Iron deficiency anemia 02/26/2012 Aortic regurgitation 02/26/2012 Overview (01/05/2024): Seen for chest pain. 07/2010 echo: normal left ventricular systolic function w/ EF 60-65% trace aortic regurgitation. 06/2010 stress test neg for ischemia. Resolved Problems Problem Noted Date Diagnosed Date Resolved Date Obesity (BMI 30.0-34.9) 05/31/202312/20 Encounters Date Type Department Care Team Description 02/21/2024 2:30 PM EST Office Visit Adult Medicine [address] [phone] Gilberto Gaines MD Essential hypertension, benign (Primary Dx); Hypercholesterolemia; Encounter for long-term (current) use of medications; Chronic coronary microvascular dysfunction from Last 3 Months Immunizations Name Administration Dates Next Due Influenza Quadravalent, MDCK , 0.5ml, preservative free (Flucelvax) 6mo and older 05/31/2023,02/18/2022,01/18/2020 Influenza trivalent, 0.5mL, preservative free (Fluarix; FluLaval; Fluzone) ages 6mo and older (Afluria) 3 years and older 01/08/2017,03/04/2016,02/08/2012,2010,12/28/2008 Pneumococcal conjugate 13 va lent (Prevnar 13, PCV13) 2mo and older 05/03/2020 Td Tetanus diptheria (Tdvax) 7yo and older 05/31/2023,08/02/2001 Tdap Tetanus diptheria acell ular pertussis (Boostrix; Adacel) 7yo and older 06/21/2012 Surgical History Surgery Date Site/Laterality Comments GASTRIC BYPASS 06/03/2016 PROCEDURE: MS GASTRIC RSTCV W/BYP W/SM INT RCNSTJ LIMIT ABSRPJ; COMMENT: jorge; Dr. Chamberlain HYSTERECTOMY 05/2013 PROCEDURE: HISTORICAL HYSTERECTOMY; COMMENT: done for pre-cancer of cervix still has ovaries. TUBAL LIGATION 1995 Bilateral PROCEDURE: HISTORICAL TUBAL LIGATION TONSILLECTOMY PROCEDURE: HISTORICAL TONSILLECTOMY; COMMENT: age 14 Medical History Medical History Date Comments Essential hypertension, benign 02/26/2012 D X:Essential hypertension, benign Iron deficiency anemia, unspecified 02/26/2012 DX:Iron deficiency anemia, unspecified EMMANUEL (obstructive sleep apnea) 06/30/2018 DX :EMMANUEL (obstructive sleep apnea); COMMENT: Has not needed CPAP since significant weight loss s/p gastric bypass. Aortic regurgitation 02/26/2012 DX:Aortic r egurgitation; COMMENT: Seen for chest pain. 07/2010 echo: normal left ventricular systolic function w/ EF 60-65% trace aortic regurgitation. 06/2010 stress test neg for ischemia. Migraine 06/30/2018 DX:Migraine Asthma 06/30/2018 DX:Asthma Benign tumor of pituitary gl and (CMS/HCC) 06/30/2018 DX:Benign tumor of pituitary gland (HCC); COMMENT: Dr. Christensen Allergic rhinitis 06/30/2018 DX:Allergic rh initis Vitamin D deficiency 06/30/2018 DX:Vitamin D deficiency History of bariatric surgery 06/30/2018 DX: History of bariatric surgery Arthritis 06/30/2018 DX:Arthritis; CO MMENT: Mild, wrists bilaterally. Left upper quadrant pain DX:Left upper quadrant pain Common bile duct dilation DX:Com mon bile duct dilation Straining with stools DX:Straini ng with stools Family History Medical History Relation Name Comments Hypertension Brother x 3 Coronary artery disease Father HTN Breast cancer Maternal Grandmother unilat eral; ?age Coronary artery disease Mother T2DM , asthma, CAD Stroke Paternal Grandfather Hypertension Sister x 3 Lupus Ovarian cancer Neg Hx Uterine cancer Neg Hx Relation Name Status Comments Brother x 3 Alive Father Alive Maternal Grandfather Maternal Grandmother Mother Alive Paternal Grandfather Paternal Grandmother Sister x 3 Alive Social History Tobacco Use Types Packs/Day Years Used Date Smoking Tobacco: Never Smokeless Tobacco: Never Tobacco Cessation:Counseling Given: Not Answered Alcohol Use Standard Drinks/Week Comments No 0 (1 standard drink = 0.6 oz pur e alcohol) Comments No Sex and Gender Information Value Date Recorded Sex Assigned at Not on file Legal Sex Female 3:34 PM EST Gender Identity Not on file Sexual Orientation Not on file Obstetrics History Last Filed Vital Signs Vital Sign Reading Time Taken Comments Blood Pressure 122/63 02/21/2024 2:12 PM EST Pulse 53 02/21/2024 2:12 PM EST Temperature 35.7 ??C (96.3 ??F) 02/21/2024 2:12 PM ES T Respiratory Rate 14 02/21/2024 2:12 PM EST Oxygen Saturation - - Inhaled Oxygen Concentration - - Weight 85.3 kg (188 lb) 02/21/2024 2:12 PM EST Height 160 cm (5' 3 ) 02/21/2024 2:12 PM EST Body Mass Index 33.3 02/21/2024 2:12 PM EST Plan of Treatment Upcoming Encounters Date Type Department Care Team (Late st Contact Info) Description 11/23/2024 1:30 PM EDT Appointment Radiology Department [address] [phone] Health Maintenance Due Date Last Done Comments Hepatitis B Vaccines (1 of 3 - 19+ 3-dose series) 1989 Zoster Vaccines (1 of 2) 02/02/2020 Pneumococcal Vaccine: Pediatrics (0 to 5 Years) and At-Risk Patients (6 to 64 Years) (2 of 2 - PPSV23 or PCV20) 06/28/2020 05/03/2020 HIV Screening 02/28/2022 Medicare Annual Wellness Visit 02/28/2022 Social Influencers of Health Screening 02/28/2022 COVID-19 Vaccine ( - season) 2023 Influenza Vaccine (#1) 2023 4, 02/18/2022, 01/18/2020, Additional history exists Depression Screening 05/30/2024 05/31/2023 Hypertension/CHF/CAD Annual BMP Blood Test 02/20/2025 02/21/2024, 09/07/2023, 09/07/2023 Breast Cancer Screening 11/16/2025 11/17/19 24, 11/17/2023, 07/15/2021, Additional history exists Cervical Cancer Screening: HPV 07/14/2026 07/14/2021 Cholesterol Screening (Lipid Panel) 02/20/2029 02/21/2024, 09/07/2023, 09/07/2023 Colorectal Cancer Screening: Colonoscopy 11/18/2032 11/18/2022 DTaP,Tdap,and Td Vaccines (4 - Td or Tdap) 05/30/2033 05/31/2023, 06/21/2012, 08/02/2001 Hepatitis C Screening Completed 11/22/2020 HIB Vaccines Aged Out No longer eligi ble based on patient's age to complete this topic HPV Vaccines Aged Out No longer eligi ble based on patient's age to complete this topic Hepatitis A Vaccines Aged Out No long er eligible based on patient's age to complete this topic IPV Vaccines Aged Out No longer eligi ble based on patient's age to complete this topic MMR Vaccines Aged Out No longer eligi ble based on patient's age to complete this topic Meningococcal ACWY Vaccine Aged Out N o longer eligible based on patient's age to complete this topic RSV Immunization Patients Under 20 months Aged Out No longer eligible based on patient's age to complete this topic Varicella Vaccines Aged Out No longer eligible based on patient's age to complete this topic Procedures Procedure Name Priority Date/Time Associated Diagnosis Comments LIPID PANEL WITH REFLEX TO DIRECT LDL Routine 02/21/2024 2:34 PM EST Hypercholesterolemi a COMPREHENSIVE METABOLIC PANEL Routine 02/21/2024 2:34 PM EST Essential hypertension, benign Encounter for long-term (current) use of medications SCREENING MAMMOGRAPHY BI 2-VIEW BREAST INC CAD Routine 11/17/2023 1:44 PM EDT Encounter for screening mammogram for malignant neoplasm of breast DEPRESSION SCREENING Routine 05/31/2023 HM COLONOSCOPY Routine 11/18/2022 HM HPV Routine 07/14/2021 HEPATITIS C SCREENING Routine 11/22/2020 from Last 3 Months or Most Recently Relevant to Health Maintenance Results * (ABNORMAL) Lipid panel with reflex to direct LDL (02/21/2024 2:34 PM EST) Cholesterol 208(H) 0 - 200 mg/dL LAB CHEMISTRY METHOD 02/21/2024 4:[address] [facility] Triglycerides 279(H) 0 - 150 mg/dL LAB CHEMISTRY METHOD 02/21/2024 4:[address] [facility] HDL 44 >=40 mg/dL LAB CHEMISTRY METHOD 02/21/2024 4:[address] [facility] LDL Calculated 108(H) 0 - 100 mg/dL LAB CHEMISTRY METHOD 02/21/2024 4:[address] [facility] VLDL Cholesterol Ancelmo 55.8 mg/dL LAB CHEMISTRY METHOD 02/21/2024 4:[address] [facility] Non HDL Chol. (LDL+VLDL) 164(H) <145 mg/dL LAB CHEMISTRY METHOD 02/21/2024 4:[address] [facility] Chol/HDL Ratio 4.7(H) 0.0 - 4.4 LAB CHEMISTRY METHOD 02/21/2024 4:[address] [facility] Blood Venous blood specimen / Unknown Venipuncture / Unknown 02/21/2024 2:34 PM EST 02/21/2024 2:34 PM EST us Gilberto Gaines MD LAB BLOOD ORDERABLES Final Resu lt [facility] [address] [place] [address], * (ABNORMAL) Comprehensive metabolic panel (02/21/2024 2:34 PM EST) Sodium 143 133 - 145 mmol/L LAB CHEMISTRY METHOD 02/21/2024 4:[address] [facility] Potassium 4.0 3.5 - 5.5 mmol/L LAB CHEMISTRY METHOD 02/21/2024 4:[address] [facility] Chloride 109 96 - 110 mmol/L LAB CHEMISTRY METHOD 02/21/2024 4:[address] [facility] CO2 27 21 - 32 mmol/L LAB CHEMISTRY METHOD 02/21/2024 4:[address] [facility] Anion Gap 7 3 - 11 LAB CHEMISTRY METHOD 02/21/2024 4:[address] [facility] Glucose 103(H) 70 - 100 mg/dL LAB CHEMISTRY METHOD 02/21/2024 4:[address] [facility] BUN 18 5 - 25 mg/dL LAB CHEMISTRY METHOD 02/21/2024 4:[address] [facility] Creatinine 0.99 0.50 - 1.10 mg/dL LAB CHEMISTRY METHOD 02/21/2024 4:[address] [facility] eGFR 68 >=60 mL/min/1. 73m2 LAB CHEMISTRY METHOD 02/21/2024 4:[address] [facility] Comment:Calculation based on the??Chronic Kidney Disease Epidemiology Collaboration (CKD-EPI) equation refit??without adjustment for race. BUN/Creatinine Ratio 18.2 LAB CHEMISTRY METHOD 02/21/2024 4:[address] [facility] Calcium 9.6 8.5 - 10.5 mg/dL LAB CHEMISTRY METHOD 02/21/2024 4:[address] [facility] AST (SGOT) 20 10 - 42 unit/L LAB CHEMISTRY METHOD 02/21/2024 4:[address] [facility] ALT (SGPT) 18 10 - 60 unit/L LAB CHEMISTRY METHOD 02/21/2024 4:[address] [facility] Alkaline Phosphatase 110 42 - 121 unit/L LAB CHEMISTRY METHOD 02/21/2024 4:[address] [facility] Total Protein 6.8 6.0 - 8.0 g/dL LAB CHEMISTRY METHOD 02/21/2024 4:[address] [facility] Albumin 3.9 3.2 - 5.0 g/dL LAB CHEMISTRY METHOD 02/21/2024 4:[address] [facility] Total Bilirubin 0.3 0.0 - 1.4 mg/dL LAB CHEMISTRY METHOD 02/21/2024 4:[address] [facility] Blood Venous blood specimen / Unknown Venipuncture / Unknown 02/21/2024 2:34 PM EST 02/21/2024 2:34 PM EST us Gilberto Gaines MD LAB BLOOD ORDERABLES Final Resu lt [facility] [address] [place] [address], * SCREENING MAMMOGRAPHY BI 2-VIEW BREAST INC CAD (11/17/2023 1:44 PM EDT) Anatomical Region Laterality Modality Radiographic Tea ging 06/01/2023 10:1 2 AM EDT Narrative 11/18/2023 4:10 PM EDT This is a summary report. The complete report is available in the patient's medical record. If you cannot access the medical record, please contact the sending organization for a detailed fax or copy. Exam: Screening mammogram Findings: Digital bilateral full-field screening mammography is performed with tomosynthesis and interpreted with the aid of computer-aided detection. ??Comparison is made with 07/15/2021 and as far back as 01/12/2019. Breast parenchyma is composed of scattered fibroglandular densities. ??No new suspicious mass, architectural distortion, or suspicious calcifications. Impression: No mammographic evidence of malignancy. BI-RADS 1 - negative Procedure Note Erica Donovan MD - 01/05/2024 This is a summary report. The complete report is available in thepatient's medical record. If you cannot access the medical record, pleasecontact the sending organization for a detailed fax or copy. Exam: Screening mammogram Findings: Digital bilateral full-field screening mammography is performedwith tomosynthesis and interpreted with the aid of computer-aideddetection. Comparison is made with 07/15/2021 and as far back as1. Breast parenchyma is composed of scattered fibroglandular densities. Nonew suspicious mass, architectural distortion, or suspiciouscalcifications. Impression: No mammographic evidence of malignancy. BI-RADS 1 - negative Result [facility] Kenya Aguero CNM IMG XR PROCEDURES Final Result * Depression Screening (05/31/2023) [facility] Depression Screening abstracted Result [facility] HEALTH MAINTENANCE Final Result * Colonoscopy (11/18/2022) [facility] Colonoscopy no interpretation , abstracted Anatomical Region Laterality Modality Other Result [facility] HEALTH MAINTENANCE Final Result * Cervical Cancer Screening: HPV (07/14/2021) [facility] Cervical Cancer Screening: HPV negative, abstracted Result [facility] HEALTH MAINTENANCE Final Result * Hepatitis C Screening (11/22/2020) [facility] Hepatitis C Screening abstracted Result [facility] HEALTH MAINTENANCE Final Result from Last 3 Months or Most Recently Relevant to Health Maintenance Insurance MEDICARE MEDICAID - [place] Care Teams Certified Medical Coding Specialist Relationship Specialty Start Date End Date Gilberto Gaines MD [address] [place] [phone] PCP - General Internal Medicine 10/06/19
--- OUTSIDE RECORDS SUMMARY | 2024-05-02 06:34 | XMS_ITS | Clinical Summary ---
Author Organization [facility] Address [address] [place] [address] Care Team Providers Care Gold Stamper Name Role Phone AdamsLaceyjuan carlosshyla Primary Care Provider Unavailabl e Allergies Active [...] Health Maintenance Due Date Last Done Comments Cervical Cancer Screening 1970 Cologuard 1970 Colon Cancer Screening 1970 Colonoscopy 1970 FOBT / Fit Test 1970 HIV Screening 1970 HPV and Pap Smear 1970 Hepatitis C Screening 1970 Pap Smear 1970 Sigmoidoscopy 1970 Hepatitis B Vaccines (1 of 3 - 19+ 3-dose series) 1989 Mammogram 2010 Zoster Vaccines (1 of 2) 02/02/2020 Pneumococcal Vaccine: Pediat christopher (0-5 Years) and At-Risk Patients (6-64 Years) (2 of 2 - PPSV23 or PCV20) 06/28/2020 05/03/2020 DTaP,Tdap,and Td Vaccines (2 - Td or Tdap) 06/21/2022 06/21/2012 COVID-19 Vaccine ( - 2023-2 5 season) 2023 Influenza Vaccine (#1) 2023 2, 01/18/2020, 01/08/2017, Additional history exists Alcohol/Substance Use Screening 03/22/2024 Depression Screening and Follow-Up 03/22/2024 Social Drivers of Health Deloris ual Screening 03/22/2024 RSV Vaccine (60+ years old a nd patients) (1 - 1-dose 75+ series) 2045 Insurance [facility] MEDICARE Care Teams Gold Stamper Relationship Specialty Start Date End Date Deirdre Lamas LAMBERT PCP - General 06/12/22
== END 2024-05-02 06:32 | disposition home or self-care (01) ==
LOC: CF 06:31
PROVIDERS: Visit Provider Anesthesiology
DX: M53.3 Sacrococcygeal disorders, not elsewhere classified (principal)
CPT/HCPCS: 27096; J2003; J2795; J3301; Q9967

== ENCOUNTER 2024-05-02 14:04 | Outpatient (AMB) | payer MEDICARE, MEDICAID, SELFPAY ==
--- NOTE | 2024-05-02 14:09 | MHC.OFFVIS ---
Vital Signs 05/02/24 14:14 05/02/24 14:37 BP 170/93 H 185/89 H Blood Pressure Location Rt brachial Lt brachial Position Sitting Sitting Pulse 56 55 Pulse Source Pulse Oximeter Pulse Oximeter Pulse Oximetry (%) 98 100 Oxygen Delivery Method Room Air Room Air Comment Pre-op Post-op Intake Visit Reasons: BILATERAL THERAPEUTIC SIJ INJECTIONS Allergies Sulfa (Sulfonamide Antibiotics) Allergy (Severe, Verified 02/14/24 09:52) SWELLING acetaminophen [Percocet] Allergy (Unknown, Verified 02/14/24 09:52) vomiting morphine Allergy (Unknown, Verified 02/14/24 09:52) Unknown oxycodone [Percocet] Allergy (Unknown, Verified 02/14/24 09:52) vomiting lisinopril Adverse Reaction (Unknown, Verified 02/14/24 09:52) Unknown Pt states she is allergic to P Allergy (Unknown, Uncoded 12/15/23 08:09) Nausea From PERCOCET Adverse Reaction (Intermediate, Uncoded 12/15/23 08:09) VOMITING baldo inhibitors Adverse Reaction (Unknown, Uncoded 12/15/23 08:09) unknown [facility] Medical History (Updated 05/03/24 @ 08:31 by Ezequiel Rogers MD) Osteoporosis Hypertension Anemia Brain tumor Asthma Surgical History History of sleeve gastrectomy Hx of hysterectomy Hx of tonsillectomy Family History Mother Hypertension Asthma CAD (coronary artery disease) Osteoporosis Father Hypertension CAD (coronary artery disease) Sister Hypertension Lupus Brother Hypertension Maternal Grandmother Breast cancer Paternal Grandmother Breast cancer Social History Alcohol intake: never Patient Tobacco Use Status: Never used Tobacco Physical Exam Vital Signs: Last Vital Signs Pulse 55 05/02/24 14:37 BP 185/89 H 05/02/24 14:37 Pulse Ox 100 05/02/24 14:37 Oxygen Delivery Method Room Air 05/02/24 14:37 Assessment & Plan Assessment & Plan (1) Sacroiliac joint dysfunction of both sides: Code(s): M53.3 - Sacrococcygeal disorders, not elsewhere classified Category: Medical Plan Bilateral sacroiliac joint injection diagnostic. Informed consent was thoroughly explained to the patient before the procedure.? The patient came to the operating room.?She was positioned prone on operating table with a pillow under her abdomen.? Time-out was performed delineating correct site and side of the procedure, nature of the injection, name and date of of the patient. The lower back and upper buttocks of the patient was prepped with ChloraPrep and draped with sterile utility towels.? C-arm was brought over the operating field and picture of right sacroiliac joint was demonstrated on the screen. Tilting machine contralateral left 20 degrees from the midline the anterior portion of the silhouette of the joint was superimposed on posterior portion of the silhouette of the joint. The skin was anesthetized with mixture of ropivacaine 0.5% and lidocaine 2% one-to-one slightly medial to the silhouette of the sacroiliac joint. 22 gauge 3-1/2 inch spinal needle was inserted through the skin wheal and advanced to the sacroiliac joint. When tip of the needle entered the sacroiliac joint injection of the contrast performed delineating arthrogram. After that 4 cc of ropivacaine was injected into the joint. After that the procedure was repeated on the left joint in the mirroring fashion. Upon completion of the injection needle was removed and sterile bandades were applied Patient tolerated the procedure well. Orders: Orders FL guidance in treatment room 05/02/24 M53.3 - Sacrococcygeal disorders, not elsewhere classified Coding Level of Care Code Procedure Only Diagnoses Sacroiliac joint dysfunction of both sides M53.3
[2024-05-02 14:14] VITALS: BP 170/93; PULSE 56; O2SAT 98
[2024-05-02 14:37] VITALS: BP 185/89; PULSE 55; O2SAT 100
--- OUTSIDE RECORDS SUMMARY | 2024-05-02 15:04 | XMS_ITS | Encounter Summary ---
Author Organization [facility], Address [address] [place] [address] Phone Care Team Providers Care Supervisor Public Health Nursing Name Role Phone Lilliana Thrasher APRN Primary Care Provider [phone] Encounter Details Date Type Department Care Team (Late st Contact Info) Description 01/29/2023 Documentation Only [facility], [address] [place] [phone] Lilliana Thrasher APRN [address] [place] [phone] Social History Tobacco Use Types Packs/Day Years [...] on filedocumented in this encounter Care Teams Supervisor Public Health Nursing Relationship Specialty Start Date End Date Lilliana Thrasher APRN [address] [place], [place] PCP - General Internal Medicine 01/28/23 documented as of this encounter
--- OUTSIDE RECORDS SUMMARY | 2024-05-02 15:04 | XMS_ITS | Clinical Summary ---
Author Organization [facility], Address [address] [place] [address] [place] [address] Phone Care Team Providers Care [place] Supervisor Name Role Phone Lilliana Thrasher APRN Primary [...] Only [facility] [address] [place] [address] Rahat Anderson PA Hypertension; Hypokalemia; Chronic kidney [...] exists Insurance MEDICAID [place] MEDICARE Care Teams [place] Supervisor Relationship Specialty Start Date End Date Lilliana Thrasher APRN [address] [place] [address] PCP - General Internal Medicine 01/28/23
--- OUTSIDE RECORDS SUMMARY | 2024-05-02 15:04 | XMS_ITS | Encounter Summary ---
Author Organization [facility], Address [address] [place] [address] Phone Care Team Providers Care Gas Appliance Installer Name Role Phone Lilliana Thrasher APRN Primary Care Provider [phone] Encounter Details Date Type Department Care Team (Late st Contact Info) Description 01/29/2023 Documentation Only [facility], [address] [place] [phone] Lilliana Thrasher APRN [address] [place] [phone] Social History Tobacco Use Types Packs/Day Years [...] on filedocumented in this encounter Care Teams Gas Appliance Installer Relationship Specialty Start Date End Date Lilliana Thrasher APRN [address] [place], [place] PCP - General Internal Medicine 01/28/23 documented as of this encounter
--- OUTSIDE RECORDS SUMMARY | 2024-05-02 15:04 | XMS_ITS | Clinical Summary ---
Author Organization [facility] Address [address] [place] [address] Care Team Providers Care Vascular Ultrasound Technician Name Role Phone AdamsLaceyjuan carlosshyla Primary Care [...] (1 - 1-dose 75+ series) 2045 Insurance [facility] MEDICARE Care Teams Vascular Ultrasound Technician Relationship Specialty Start Date End Date Deirdre Lamas LAMBERT PCP - General 06/12/22
--- OUTSIDE RECORDS SUMMARY | 2024-05-02 15:04 | XMS_ITS | Clinical Summary ---
Author Organization [facility] [address] [place] [address] [place] [phone] Phone Care Team Providers Care Manager Document Name Role Phone Gilberto Gaines MD Primary Care Provider [phone] Allergies Active Allergy Reactions Criticality Noted Date [...] CAD (coronary artery disease) 05/31/2023 Overview (01/05/2024): [id number]-[id number] on cardiac cath - per Dr. Pruett [...] 2:30 PM EST Office Visit Adult Medicine [address] [phone] Gilberto Gaines MD Essential hypertension, benign (Primary [...] Date Site/Laterality Comments GASTRIC BYPASS 06/03/2016 PROCEDURE: DE GASTRIC RSTCV W/BYP W/SM INT RCNSTJ LIMIT [...] 11/23/2024 1:30 PM EDT Appointment Radiology Department [address] [phone] Health Maintenance Due Date Last Done Comments Hepatitis B Vaccines (1 of 3 - 19+ 3-dose series) 1989 Zoster Vaccines (1 of 2) 02/02/2020 Pneumococcal Vaccine: 50+ Years (2 of 2 - PPSV23) 06/28/2020 05/03/2020 Pneumococcal Vaccine: Pediatrics (0 to 5 Years) and At-Risk Patients (6 to 64 Years) (2 of 2 - PPSV23) 06/28/2020 05/03/2020 HIV Screening 02/28/2022 Medicare Annual Wellness Visit 02/28/2022 Social Influencers of Health Screening 02/28/2022 COVID-19 Vaccine ( season) 2023 Influenza Vaccine (#1) 2023 , 02/18/2022, 01/18/2020, Additional history exists Depression Screening [...] patient's age to complete this topic Meningococcal B Vacine Aged Out No lo nger eligible based on patient's age to complete [...] neoplasm of breast DEPRESSION SCREENING Routine 05/31/2023 COLONOSCOPY Routine 11/18/2022 HPV Routine 07/14/2021 HEPATITIS C SCREENING Routine 11/22/2020 from Last 3 Months or Most Recently Relevant to Health Maintenance Results * (ABNORMAL) Lipid panel with reflex to direct LDL (02/21/2024 2:34 PM EST) Cholesterol 208(H) 0 - 200 mg/dL LAB CHEMISTRY METHOD 02/21/2024 4:[address] [facility] Triglycerides 279(H) 0 - 150 mg/dL LAB CHEMISTRY METHOD 02/21/2024 4:[address] [facility] HDL 44 >=40 mg/dL LAB CHEMISTRY METHOD 02/21/2024 4:[address] [facility] LDL Calculated 108(H) 0 - 100 mg/dL LAB CHEMISTRY METHOD 02/21/2024 4:[address] [facility] VLDL Cholesterol Ancelmo 55.8 mg/dL LAB CHEMISTRY METHOD 02/21/2024 4:[address] [facility] Non HDL Chol. (LDL+VLDL) 164(H) <145 mg/dL LAB CHEMISTRY METHOD 02/21/2024 4:[address] [facility] Chol/HDL Ratio 4.7(H) 0.0 - 4.4 LAB CHEMISTRY METHOD 02/21/2024 4:[address] [facility] Blood Venous blood specimen / Unknown Venipuncture / Unknown 02/21/2024 2:34 PM EST 02/21/2024 2:34 PM EST us Gilberto Gaines MD LAB BLOOD ORDERABLES Final Resu lt [facility] [address] [place] [address], [place] [phone] * (ABNORMAL) Comprehensive metabolic panel (02/21/2024 2:34 PM EST) Sodium 143 133 - 145 mmol/L LAB CHEMISTRY METHOD 02/21/2024 4:[address] [facility] Potassium 4.0 3.5 - 5.5 mmol/L LAB CHEMISTRY METHOD 02/21/2024 4:[address] [facility] Chloride 109 96 - 110 mmol/L LAB CHEMISTRY METHOD 02/21/2024 4:[address] [facility] CO2 27 21 - 32 mmol/L LAB CHEMISTRY METHOD 02/21/2024 4:[address] [facility] Anion Gap 7 3 - 11 LAB CHEMISTRY METHOD 02/21/2024 4:[address] [facility] Glucose 103(H) 70 - 100 mg/dL LAB CHEMISTRY METHOD 02/21/2024 4:[address] [facility] BUN 18 5 - 25 mg/dL LAB CHEMISTRY METHOD 02/21/2024 4:[address] [facility] Creatinine 0.99 0.50 - 1.10 mg/dL LAB CHEMISTRY METHOD 02/21/2024 4:[address] [facility] eGFR 68 >=60 mL/min/1. 73m2 LAB CHEMISTRY METHOD 02/21/2024 4:[address] [facility] Comment:Calculation based on the??Chronic Kidney Disease Epidemiology Collaboration (CKD-EPI) equation refit??without adjustment for race. BUN/Creatinine Ratio 18.2 LAB CHEMISTRY METHOD 02/21/2024 4:[address] [facility] Calcium 9.6 8.5 - 10.5 mg/dL LAB CHEMISTRY METHOD 02/21/2024 4:[address] [facility] AST (SGOT) 20 10 - 42 unit/L LAB CHEMISTRY METHOD 02/21/2024 4:[address] [facility] ALT (SGPT) 18 10 - 60 unit/L LAB CHEMISTRY METHOD 02/21/2024 4:[address] [facility] Alkaline Phosphatase 110 42 - 121 unit/L LAB CHEMISTRY METHOD 02/21/2024 4:[address] [facility] Total Protein 6.8 6.0 - 8.0 g/dL LAB CHEMISTRY METHOD 02/21/2024 4:[address] [facility] Albumin 3.9 3.2 - 5.0 g/dL LAB CHEMISTRY METHOD 02/21/2024 4:[address] [facility] Total Bilirubin 0.3 0.0 - 1.4 mg/dL LAB CHEMISTRY METHOD 02/21/2024 4:[address] [facility] Blood Venous blood specimen / Unknown Venipuncture / Unknown 02/21/2024 2:34 PM EST 02/21/2024 2:34 PM EST us Gilberto Gaines MD LAB BLOOD ORDERABLES Final Resu lt [facility] [address] [place] [address], * SCREENING MAMMOGRAPHY BI 2-VIEW BREAST INC [...] evidence of malignancy. BI-RADS 1 - negative Kenya Aguero CNM IMG XR PROCEDURES Final Result * Depression Screening (05/31/2023) Pathologist [facility] Depression Screening abstracted [facility] Provider HEALTH MAINTENANCE Final Result * Colonoscopy (11/18/2022) Pathologist [facility] Colonoscopy no interpretation , abstracted Anatomical Region Laterality Modality Other [facility] Provider HEALTH MAINTENANCE Final Result * Cervical Cancer Screening: HPV (07/14/2021) Pathologist [facility] Cervical Cancer Screening: HPV negative, abstracted [facility] Provider HEALTH MAINTENANCE Final Result * Hepatitis C Screening (11/22/2020) Pathologist [facility] Hepatitis C Screening abstracted us Historical Provider HEALTH MAINTENANCE Final Result from Last 3 Months or Most Recently Relevant to Health Maintenance Insurance MEDICARE MEDICAID - [place] Care Teams Manager Document Relationship Specialty Start Date End Date Gilberto Gaines MD [address] [place] [address] PCP - General Internal Medicine 10/06/19
--- OUTSIDE RECORDS SUMMARY | 2024-05-02 15:04 | XMS_ITS | Encounter Summary ---
Author Organization [facility], Address [address] [place] [address] Phone Care Team Providers Care Insurance Application Investigator Name Role Phone Lilliana Thrasher APRN Primary Care Provider [phone] Encounter Details Date Type Department Care Team (Late st Contact Info) Description 04/24/2024 Orders Only [facility], [address] [place] [phone] Rahat Anderson PA Hypertension; Hypokalemia; Chronic kidney [...] (mild) documented in this encounter Care Teams Insurance Application Investigator Relationship Specialty Start Date End Date Lilliana Thrasher APRN [address] [place] [address] PCP - General Internal Medicine 01/28/23 documented as of this encounter
--- OUTSIDE RECORDS SUMMARY | 2024-05-02 15:04 | XMS_ITS | Referral Summary ---
Author Organization [facility] Address [address] [place] [address] Care Team Providers Care Melon Packer Name Role Phone Adams Markshyla Primary Care [...] Plan of Treatment Not on file Insurance [facility] MEDIC[employer] Care Teams Melon Packer Relationship Specialty Start Date End Date Deirdre Lamas LAMBERT PCP - General 06/12/22
== END 2024-05-02 14:37 | disposition home or self-care (01) ==
LOC: HO.PMCPRC 14:04
PROVIDERS: PCP Internal Medicine; Visit Provider Anesthesiology
DX: M53.3 Sacrococcygeal disorders, not elsewhere classified (principal)
CPT/HCPCS: 27096

== ENCOUNTER 2024-05-15 09:44 | Outpatient (AMB) | payer MEDICARE, MEDICAID, SELFPAY ==
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
[2024-05-15 09:51] VITALS: BP 192/90; BP 195/87; PULSE 54; PULSE 55; O2SAT 97; BMI 34.7
--- OUTSIDE RECORDS SUMMARY | 2024-05-15 10:39 | XMS_ITS | Clinical Summary ---
Author Organization [facility] Address [address] [place] [address] Care Team Providers Care Tape Folding Machine Operator Name Role Phone AdamsLaceyjuan carlosshyla Primary Care [...] (1 of 2) 02/02/2020 Pneumococcal Vaccine: 50+ Ye ars (2 of 2 - PPSV23) 06/28/2020 05/03/2020 DTaP,Tdap,and Td Vaccines (2 - Td or Tdap) 06/21/2022 06/21/2012 COVID-19 Vaccine (1 - 2023-2 5 season) 2023 Influenza Vaccine (#1) 2023 2, 01/18/2020, 01/08/2017, Additional history exists Alcohol/Substance Use Screening 03/22/2024 Depression Screening and Follow-Up 03/22/2024 Social Drivers of Health Deloris ual Screening 03/22/2024 RSV Vaccine (60+ years old a nd patients) (1 - 1-dose 75+ series) 2045 Insurance [facility] MEDICARE Care Teams Tape Folding Machine Operator Relationship Specialty Start Date End Date Deirdre Lamas LAMBERT PCP - General 06/12/22
--- OUTSIDE RECORDS SUMMARY | 2024-05-15 10:39 | XMS_ITS | Referral Summary ---
Author Organization [facility] Address [address] [place] [address] Care Team Providers Care Serging Machine Operator Name Role Phone AdamsLaceyjuan carlosshyla [...] Plan of Treatment Not on file Insurance [facility] MEDICARE Care Teams Serging Machine Operator Relationship Specialty Start Date End Date Deirdre Lamas LAMBERT PCP - General 06/12/22
--- OUTSIDE RECORDS SUMMARY | 2024-05-15 10:39 | XMS_ITS | Encounter Summary ---
Author Organization [facility], Address [address] [place] [address] Phone Care Team Providers Care Fabric Worker Name Role Phone Lilliana Thrasher APRN Primary Care Provider [phone] Encounter Details Date Type Department Care Team (Late st Contact Info) Description 01/29/2023 Documentation Only [facility], [address] [place] [id number] Lilliana Thrasher APRN [address] [place] [phone] Social History Tobacco Use Types Packs/Day Years [...] on filedocumented in this encounter Care Teams Fabric Worker Relationship Specialty Start Date End Date Lilliana Thrasher APRN [address] [place], [place] PCP - General Internal Medicine 01/28/23 documented as of this encounter
--- OUTSIDE RECORDS SUMMARY | 2024-05-15 10:39 | XMS_ITS | Encounter Summary ---
Author Organization [facility] Address [address] [place] [address] Care Team Providers Care Children Teacher Name Role Phone Gilberto Gaines MD Primary Care Provider [phone] Tod Rodriguez MD Unavailable [phone] Marcelle Almendarez Unavailable Unavailable Encounter Details Date Type Department Care Team Description 11/13/2020 Orders Only Adult Medicine [address] [phone] Gilberto Gaines MD [address] [place] [address] [phone] Social History Tobacco Use Types Packs/Day Years Used Date Smoking Tobacco: Never Smokeless Tobacco: Never Alcohol Use Standard Drinks/Week Comments No 0 (1 standard drink = 0.6 oz pur e alcohol) Sex Assigned at Date Recorded Not on file Job Start Date Occupation Industry Not on file Not on file Not on file documented as of this encounter Plan of Treatment Not on file documented as of this encounter Visit Diagnoses Not on filedocumented in this encounter Care Teams Children Teacher Relationship Specialty Start Date End Date Gilberto Gaines MD [address] [place] [address] PCP - General Internal Medicine 10/06/19 Tod Rodriguez MD [address] [place] [address] [place] [address] Desk Editor Cardiovascular Disease 05/31/20 Marcelle Almendarez PA [address] [place] [address] Dr [address] [place] [address] Specialist Cardiology 11/13/20 documented as of this encounter
--- OUTSIDE RECORDS SUMMARY | 2024-05-15 10:40 | XMS_ITS | Encounter Summary ---
Author Organization [facility] Address [address] [place] [address] Care Team Providers Care Supervisor Briar Shop Name Role Phone David Marcial MD Primary Care Provider Un available Gilberto Gaines MD Primary Care Provider [phone] Tod Rodriguez MD Unavailable [phone] Marcelle Almendarez Unavailable Unavailable Reason for Referral * Non SHANE (Routine) - Closed Specialty Diagnoses / Procedures Referred By Contac t Referred To Contact Oncology/Hematology Procedures REFERRAL TO ONCOLOGY/HEMATOLOGY (IN NETWORK) David Marcial MD [address] [place] [address] Onc/[place] [address] [place] [address] Referral ID Status Reason Start Date Expiration Date Visits Re quested Visits Authorized [id number] Closed 08/25/2018 08/25/2019 1 1 Encounter Details Date Type Department Care Team Description 08/25/2018 Orders Only Adult Medicine [address] [address] David Marcial MD Social History Tobacco Use Types Packs/Day Years [...] filedocumented in this encounter Care Teams Supervisor Briar Shop Relationship Specialty Start Date End Date David Marcial MD PCP - General Internal Medicine 03/08/18 Gilberto Gaines MD [address] [place] [address] PCP - General Internal Medicine 10/06/19 Tod Rodriguez MD [address] [place] [address] [place] [address] Jewel Stripper Cardiovascular Disease 05/31/20 Marcelle Almendarez PA [address] [place] [address] [place] [address] Specialist Cardiology 11/13/20 documented as of this encounter
--- OUTSIDE RECORDS SUMMARY | 2024-05-15 10:40 | XMS_ITS | Encounter Summary ---
Author Organization [facility] Address [address] [place] [address] Care Team Providers Care Price Accuracy Supervisor Name Role Phone Gilberto Gaines MD Primary Care Provider [phone] Tod Rodriguez MD Unavailable [phone] Marcelle Almendarez Unavailable Unavailable Encounter Details Date Type Department Care Team Description 03/13/2020 Hospital Medical Records [address] [place] [address] [facility] Social History Tobacco Use Types Packs/Day Years Used Date Smoking Tobacco: Never Passive Smoke Exposure: Never Smokeless Tobacco: Never Alcohol Use Standard Drinks/Week Comments No 0 (1 standard drink = 0.6 oz pur e alcohol) Education Answer Date Recorded What is the highest level of school you have completed or the highest degree you have received? 11th grade 05/31/2023 Sex Assigned at Date Recorded Not on file Job Start Date Occupation Industry Not on file Not on file Not on file documented as of this encounter Plan of Treatment Not on file documented as of this encounter Visit Diagnoses Not on filedocumented in this encounter Care Teams Price Accuracy Supervisor Relationship Specialty Start Date End Date Gilberto Gaines MD [address] [place] [address] PCP - General Internal Medicine 10/06/19 Tod Rodriguez MD [address] [place] [address] [place] [address] Administrative Support Technician Cardiovascular Disease 05/31/20 Marcelle Almendarez PA [address] [place] [address] Dr Diane [address] [place] [address] Specialist Cardiology 11/13/20 documented as of this encounter
--- OUTSIDE RECORDS SUMMARY | 2024-05-15 10:40 | XMS_ITS | Encounter Summary ---
Author Organization [facility] Address [address] [place] [address] Care Team Providers Care Metal Rolling Mill Operator Name Role Phone Gilberto Gaines MD Primary Care Provider [phone] Tod Rodriguez MD Unavailable [phone] Marcelle Almendarez Unavailable Unavailable Reason for Visit * Reason Onset Date Comments immunizations 04/12/2020 Encounter Details Date Type Department Care Team Description 04/12/2020 Telephone Adult Medicine [address] [phone] Gilberto Gaines MD [address] [place] [address] [phone] immunizations Social History Tobacco Use Types Packs/Day Years Used Date Smoking Tobacco: Never Smokeless Tobacco: Never Alcohol Use Standard Drinks/Week Comments No 0 (1 standard drink = 0.6 oz pur e alcohol) Sex Assigned at Date Recorded Not on file Job Start Date Occupation Industry Not on file Not on file Not on file COVID-19 Exposure Response Date Recorded In the last month, have you been in contact with someone who was confirmed or suspected to have Coronavirus / COVID-19? Unable to assess 03/19/2020 7:14 AM EST documented as of this encounter Miscellaneous Notes * Telephone Encounter - Era Gamez M.A. - 04/23/2020 4:27 PM EST 2nd attempt left voicemail we need updated NORY to fax information * Telephone Encounter - Era Gamez M.A. - 04/12/2020 2:03 PM EST Contacted Candy Starch Mold Printer Ivelisse we will need an updated NORY in order to fax immunization list * Telephone Encounter - Laine Alcaraz - 04/12/2020 1:03 PM EST What is the name of the person authorizing the release of the patients immunizations? Ivelisse from [employer] Relationship to patient: Candy Starch Mold Printer Will the immunizations be Faxed to Ivelisse at fax # [phone] If the immunizations are to be faxed what is the name of the school? [employer] What is the school fax #? documented in this encounter Plan of Treatment Not on file documented as of this encounter Visit Diagnoses Not on filedocumented in this encounter Care Teams Metal Rolling Mill Operator Relationship Specialty Start Date End Date Gilberto Gaines MD [address] [place] [address] PCP - General Internal Medicine 10/06/19 Tod Rodriguez MD [address] [place] [address] [place] [address] Farm Management Agent Cardiovascular Disease 05/31/20 Marcelle Almendarez PA [address] [place] [address] [place] [address] Specialist Cardiology 11/13/20 documented as of this encounter
--- OUTSIDE RECORDS SUMMARY | 2024-05-15 10:40 | XMS_ITS | Encounter Summary ---
Author Organization [facility] Address [address] [place] [address] Care Team Providers Care Clin Nurse Name Role Phone Gilberto Gaines MD Primary Care Provider [phone] Tod Rodriguez MD Unavailable [phone] Marcelle Almendarez Unavailable Unavailable Encounter Details Date Type Department Care Team Description 11/29/2023 Tennis Ball Cover Cementer Report Medical Records [address] [place] [address] Feng Clark MD Social History Tobacco Use Types Packs/Day [...] on filedocumented in this encounter Care Teams Clin Nurse Relationship Specialty Start Date End Date Gilberto Gaines MD [address] [place] [address] [phone] PCP - General Internal Medicine 10/06/19 Tod Rodriguez MD [address] [place] [address] [place] [address] Outside Sales Cardiovascular Disease 05/31/20 Marcelle Almendarez PA [address] [place] [address] Dr [address] [place] [address] Specialist Cardiology 11/13/20 documented as of this encounter
--- OUTSIDE RECORDS SUMMARY | 2024-05-15 10:40 | XMS_ITS | Encounter Summary ---
Author Organization [facility] Address [address] [place] [address] Care Team Providers Care Pick Up Man Name Role Phone Gilberto Gaines MD Primary Care Provider [phone] Tod Rodriguez MD Unavailable [phone] Marcelle Almendarez Unavailable Unavailable Reason for Visit * Reason Onset Date Comments Medication 11/04/2022 Encounter Details Date Type Department Care Team Description 11/04/2022 Refill Gastroenterology - [address] [place] [phone] Yeimy Bell MD [address] [place] [address] Medication Social History Tobacco Use Types Packs/Day Years [...] Exposure Response Date Recorded In the last 10 days, have yo u been in contact with someone who was confirmed or suspected to have Coronavirus/COVID-19? No / Unsure 10/07/2022 2:58 PM EDT documented as of this encounter Plan of Treatment Not on file documented as of this encounter Visit Diagnoses Not on filedocumented in this encounter Care Teams Pick Up Man Relationship Specialty Start Date End Date Gilberto Gaines MD [address] [place] [address] PCP - General Internal Medicine 10/06/19 Tod Rodriguez MD [address] [facility] [place] [address] Revit Drafter Cardiovascular Disease 05/31/20 Marcelle Almendarez PA [address] [facility] [place] [address] Specialist Cardiology 11/13/20 documented as of this encounter
--- OUTSIDE RECORDS SUMMARY | 2024-05-15 10:40 | XMS_ITS | Encounter Summary ---
Author Organization [facility] Address [address] [place] [address] Care Team Providers Care Development And Housing Director Name Role Phone Gilberto Gaines MD Primary Care Provider [phone] Tod Rodriguez MD Unavailable [phone] Marcelle Almendarez Unavailable Unavailable Encounter Details Date Type Department Care Team Description 06/17/2023 Manufacturing Supervisor Report Medical Records [address] [place] [address] Isis Abdi, PACareyC Social History Tobacco Use Types Packs/Day Years [...] on filedocumented in this encounter Care Teams Development And Housing Director Relationship Specialty Start Date End Date Gilberto Gaines MD [address] [place] [address] [phone] PCP - General Internal Medicine 10/06/19 Tod Rodriguez MD [address] [place] [address] [facility] [place] [address] Learning And Development Coordinator Cardiovascular Disease 05/31/20 Marcelle Almendarez PA [address] [place] [address] Dr [address] [place] [address] Specialist Cardiology 11/13/20 documented as of this encounter
--- OUTSIDE RECORDS SUMMARY | 2024-05-15 10:40 | XMS_ITS | Encounter Summary ---
Author Organization [facility] Address [address] [place] [address] Care Team Providers Care Asic Verification Engineer Name Role Phone David Marcial MD Primary Care Provider Un available Gilberto Gaines MD Primary Care Provider [phone] Tod Rodriguez MD Unavailable [phone] Marcelle Almendarez Unavailable Unavailable Encounter Details Date Type Department Care Team Description 02/13/2019 Old Medical Records Medical Records [address] [place] [address] Abstract, Provider Social History Tobacco Use Types Packs/Day Years [...] on filedocumented in this encounter Care Teams Asic Verification Engineer Relationship Specialty Start Date End Date David Marcial MD PCP - General Internal Medicine 03/08/18 Gilberto Gaines MD [address] [place] [address] PCP - General Internal Medicine 10/06/19 Tod Rodriguez MD [address] [place] [address] [place] [address] Ball Machine Operator Cardiovascular Disease 05/31/20 Marcelle Almendarez PA [address] [place] [address] [place] [address] Specialist Cardiology 11/13/20 documented as of this encounter
--- OUTSIDE RECORDS SUMMARY | 2024-05-15 10:40 | XMS_ITS | Clinical Summary ---
Author Organization [facility], Address [address] [place] [address] [place] [address] Phone Care Team Providers Care Exchange Clerk Name Role Phone Lilliana Thrasher APRN Primary [...] Only [facility] [address] [place] [address] Rahat Anderson PA Hypertension; Hypokalemia; Chronic kidney [...] exists Insurance MEDICAID [place] MEDICARE Care Teams Exchange Clerk Relationship Specialty Start Date End Date Lilliana Thrasher APRN [address] [place] [address] PCP - General Internal Medicine 01/28/23
--- OUTSIDE RECORDS SUMMARY | 2024-05-15 10:40 | XMS_ITS | Encounter Summary ---
Author Organization [facility] Address [address] [place] [address] Care Team Providers Care Correction Officer Supervisor Name Role Phone Gilberto Gaines MD Primary Care Provider Tod Rodriguez MD Unavailable Marcelle Almendarez Unavailable Unavailable Reason for Referral * (Routine) - Authorized/Booked Specialty Diagnoses / Procedures Referred By Contac t Referred To Contact Cardiology Diagnoses Abnormal stress echocardiogram Procedures REFERRAL TO CARDIOLOGY Lulu Cabrales PA-C [address] [place] [address] Cardio Pvc/Stfd [address] [facility] [address] [place] [address] Referral ID Status Reason Start Date Expiration Date V isits Requested Visits Authorized [id number] Authorized/B ooked 01/11/2023 1 1 Encounter Details Date Type Department Care Team Description 01/11/2023 Orders Only Adult Medicine [address] [address] Lulu Cabrales PA-C [address] [place] [address] Abnormal stress echocardiogram (Primary Dx) Social History Tobacco Use Types Packs/Day Years [...] suspected to have Coronavirus/COVID-19? No / Unsure 12/29/2022 8:06 AM EDT documented as of this encounter Plan of Treatment Not on file documented as of this encounter Visit Diagnoses Diagnosis Abnormal stress echocardiogram- Primary Other nonspecific abnormal cardiovascular system function study documented in this encounter Care Teams Correction Officer Supervisor Relationship Specialty Start Date End Date Gilberto Gaines MD [address] [place] [address] PCP - General Internal Medicine 10/06/19 Tod Rodriguez MD [address] [place] [address] [place] [address] Local Bulk Driver Cardiovascular Disease 05/31/20 Marcelle Almendarez PA [address] [place] [address] [place] [address] Specialist Cardiology 11/13/20 documented as of this encounter
--- OUTSIDE RECORDS SUMMARY | 2024-05-15 10:40 | XMS_ITS | Encounter Summary ---
Author Organization [facility] Address [address] [place] [address] Care Team Providers Care Territory Outside Sales Manager Name Role Phone Gilberto Gaines MD Primary Care Provider [phone] Tod Rodriguez MD Unavailable [phone] Marcelle Almendarez Unavailable Unavailable Reason for Visit * Reason Onset Date Comments Medication 03/11/2022 Encounter Details Date Type Department Care Team Description 03/11/2022 Refill Gastroenterology - [address] [place] [address] Nallely Altamirano MD Medication Social History Tobacco Use Types Packs/Day [...] suspected to have Coronavirus/COVID-19? No / Unsure 03/03/2022 8:22 AM EST documented as of this encounter Plan of Treatment Not on file documented as of this encounter Visit Diagnoses Not on filedocumented in this encounter Care Teams Territory Outside Sales Manager Relationship Specialty Start Date End Date Gilberto Gaines MD [address] [place] [phone] PCP - General Internal Medicine 10/06/19 Tod Rodriguez MD [address] [place] [address] [place] [address] Credit Risk Management Director Cardiovascular Disease 05/31/20 Marcelle Almendarez PA [address] [place] [address] [place] [address] Specialist Cardiology 11/13/20 documented as of this encounter
--- OUTSIDE RECORDS SUMMARY | 2024-05-15 10:40 | XMS_ITS | Encounter Summary ---
Author Organization [facility] Address [address] [place] [address] Care Team Providers Care Film Projector Operator Name Role Phone Gilberto Gaines MD Primary Care Provider [phone] Tod Rodriguez MD Unavailable [phone] Marcelle Almendarez Unavailable Unavailable Encounter Details Date Type Department Care Team Description 05/07/2020 SCAN Medical Records [address] [place] [address] Abstract, Provider Social History Tobacco Use Types [...] or suspected to have Coronavirus / COVID-19? No / Unsure 05/03/2020 1:28 PM EST documented as of this encounter Plan of Treatment Not on file documented as of this encounter Visit Diagnoses Not on filedocumented in this encounter Care Teams Film Projector Operator Relationship Specialty Start Date End Date Gilberto Gaines MD [address] [place] [address] [phone] PCP - General Internal Medicine 10/06/19 Tod Rodriguez MD [address] [place] [address] [facility] [place] [address] Drill Press Set Up Operator Cardiovascular Disease 05/31/20 Marcelle Almendarez PA [address] [place] [address] [place] [address] Specialist Cardiology 11/13/20 documented as of this encounter
--- OUTSIDE RECORDS SUMMARY | 2024-05-15 10:40 | XMS_ITS | Clinical Summary ---
Author Organization [facility] [address] [place] [address] [place] [phone] Phone Care Team Providers Care Aircraft Inspection Record Clerk Name Role Phone Gilberto Gaines MD Primary Care Provider [phone] Allergies Active Allergy Reactions Criticality Noted Date [...] CAD (coronary artery disease) 05/31/2023 Overview (01/05/2024): [id number]-[id number] on cardiac cath - per Dr. Pruett [...] 2:30 PM EST Office Visit Adult Medicine [address] [phone] Gilberto Gaines MD Essential hypertension, benign (Primary [...] Date Site/Laterality Comments GASTRIC BYPASS 06/03/2016 PROCEDURE: KS GASTRIC RSTCV W/BYP W/SM INT RCNSTJ LIMIT [...] 11/23/2024 1:30 PM EDT Appointment Radiology Department [address] [phone] Health Maintenance Due Date Last Done Comments [...] mg/dL LAB CHEMISTRY METHOD 02/21/2024 4:53 PM [facility] Triglycerides 279(H) 0 - 150 mg/dL LAB CHEMISTRY METHOD 02/21/2024 4:53 PM [facility] HDL 44 >=40 mg/dL LAB CHEMISTRY METHOD 02/21/2024 4:53 PM [facility] LDL Calculated 108(H) 0 - 100 mg/dL LAB CHEMISTRY METHOD 02/21/2024 4:53 PM [facility] VLDL Cholesterol Ancelmo 55.8 mg/dL LAB CHEMISTRY METHOD 02/21/2024 4:53 PM [facility] Non HDL Chol. (LDL+VLDL) 164(H) <145 mg/dL LAB CHEMISTRY METHOD 02/21/2024 4:53 PM [facility] Chol/HDL Ratio 4.7(H) 0.0 - 4.4 LAB CHEMISTRY METHOD 02/21/2024 4:53 PM [facility] Blood Venous blood specimen / Unknown Venipuncture / Unknown 02/21/2024 2:34 PM EST 02/21/2024 2:34 PM EST us Gilberto Gaines MD LAB BLOOD ORDERABLES Final Resu lt [facility] [address] [place] [address], [place] [phone] * (ABNORMAL) Comprehensive metabolic panel (02/21/2024 2:34 PM EST) Sodium 143 133 - 145 mmol/L LAB CHEMISTRY METHOD 02/21/2024 4:53 PM [facility] Potassium 4.0 3.5 - 5.5 mmol/L LAB CHEMISTRY METHOD 02/21/2024 4:53 PM [facility] Chloride 109 96 - 110 mmol/L LAB CHEMISTRY METHOD 02/21/2024 4:53 PM [facility] CO2 27 21 - 32 mmol/L LAB CHEMISTRY METHOD 02/21/2024 4:53 PM [facility] Anion Gap 7 3 - 11 LAB CHEMISTRY METHOD 02/21/2024 4:53 PM [facility] Glucose 103(H) 70 - 100 mg/dL LAB CHEMISTRY METHOD 02/21/2024 4:53 PM [facility] BUN 18 5 - 25 mg/dL LAB CHEMISTRY METHOD 02/21/2024 4:53 PM [facility] Creatinine 0.99 0.50 - 1.10 mg/dL LAB CHEMISTRY METHOD 02/21/2024 4:53 PM [facility] eGFR 68 >=60 mL/min/1. 73m2 LAB CHEMISTRY METHOD 02/21/2024 4:53 PM [facility] Comment:Calculation based on the??Chronic Kidney Disease Epidemiology Collaboration (CKD-EPI) equation refit??without adjustment for race. BUN/Creatinine Ratio 18.2 LAB CHEMISTRY METHOD 02/21/2024 4:53 PM [facility] Calcium 9.6 8.5 - 10.5 mg/dL LAB CHEMISTRY METHOD 02/21/2024 4:53 PM [facility] AST (SGOT) 20 10 - 42 unit/L LAB CHEMISTRY METHOD 02/21/2024 4:53 PM [facility] ALT (SGPT) 18 10 - 60 unit/L LAB CHEMISTRY METHOD 02/21/2024 4:53 PM [facility] Alkaline Phosphatase 110 42 - 121 unit/L LAB CHEMISTRY METHOD 02/21/2024 4:53 PM [facility] Total Protein 6.8 6.0 - 8.0 g/dL LAB CHEMISTRY METHOD 02/21/2024 4:53 PM [facility] Albumin 3.9 3.2 - 5.0 g/dL LAB CHEMISTRY METHOD 02/21/2024 4:53 PM [facility] Total Bilirubin 0.3 0.0 - 1.4 mg/dL LAB CHEMISTRY METHOD 02/21/2024 4:53 PM [facility] Blood Venous blood specimen / Unknown Venipuncture / Unknown 02/21/2024 2:34 PM EST 02/21/2024 2:34 PM EST us Gilberto Gaines MD LAB BLOOD ORDERABLES Final Resu lt [facility] [address] [place] [address], * SCREENING MAMMOGRAPHY BI 2-VIEW BREAST INC [...] Final Result * Depression Screening (05/31/2023) [facility] Depression Screening abstracted [facility] Provider HEALTH MAINTENANCE Final Result * Colonoscopy (11/18/2022) Pathologist [facility] Colonoscopy no interpretation , abstracted Anatomical Region Laterality Modality Other [facility] Provider HEALTH MAINTENANCE Final Result * Cervical Cancer Screening: HPV (07/14/2021) [facility]ologist [facility] Cervical Cancer Screening: HPV negative, abstracted [facility] Provider HEALTH MAINTENANCE Final Result * Hepatitis C Screening (11/22/2020) Pathologist [facility] Hepatitis C Screening abstracted us Historical Provider HEALTH MAINTENANCE Final Result from Last 3 Months or Most Recently Relevant to Health Maintenance Insurance MEDICARE MEDICAID - [place] Care Teams Aircraft Inspection Record Clerk Relationship Specialty Start Date End Date Gilberto Gaines MD [address] [place] [address] PCP - General Internal Medicine 10/06/19
--- OUTSIDE RECORDS SUMMARY | 2024-05-15 10:40 | XMS_ITS | Encounter Summary ---
Author Organization [facility], Address [address] [place] [address] Phone Care Team Providers Care Edge Bonder Name Role Phone Lilliana Thrasher APRN Primary Care Provider [phone] Encounter Details Date Type Department Care Team (Late st Contact Info) Description 04/24/2024 Orders Only [facility], [address] [place] [phone] Rahat Anderson PA Hypertension; Hypokalemia; Chronic kidney [...] (mild) documented in this encounter Care Teams Edge Bonder Relationship Specialty Start Date End Date Lilliana Thrasher APRN [address] [place] [address] PCP - General Internal Medicine 01/28/23 documented as of this encounter
--- OUTSIDE RECORDS SUMMARY | 2024-05-15 10:40 | XMS_ITS | Encounter Summary ---
Author Organization [facility] Address [address] [place] [address] Care Team Providers Care College Or University Faculty Member Name Role Phone Gilberto Gaines MD Primary Care Provider [phone] Tod Rodriguez MD Unavailable [phone] Marcelle Almendarez Unavailable Unavailable Reason for Visit * Reason Onset Date Comments Medication 03/05/2022 Encounter Details Date Type Department Care Team Description 03/05/2022 Refill Gastroenterology - [address] [place] [address] Nallely Altamirano MD Medication Social [...] on filedocumented in this encounter Care Teams College Or University Faculty Member Relationship Specialty Start Date End Date Gilberto Gaines MD [address] [place] [address] [phone] PCP - General Internal Medicine 10/06/19 Tod Rodriguez MD [address] [place] [address] [place] [address] Document Processor Cardiovascular Disease 05/31/20 Marcelle Almendarez PA [address] [place] [address] [place] [address] Specialist Cardiology 11/13/20 documented as of this encounter
--- OUTSIDE RECORDS SUMMARY | 2024-05-15 10:40 | XMS_ITS | Encounter Summary ---
Author Organization [facility] Address [address] [place] [address] Care Team Providers Care Optical Brightener Maker Helper Name Role Phone Gilberto Gaines MD Primary Care Provider [phone] Tod Rodriguez MD Unavailable [phone] Marcelle Almendarez Unavailable Unavailable Reason for Visit * Reason Onset Date Comments Medication 09/17/2021 Encounter Details Date Type Department Care Team Description 09/17/2021 Refill Gastroenterology - [address] [place] [address] Nallely Altamirano MD Medication Social [...] suspected to have Coronavirus/COVID-19? No / Unsure 09/05/2021 1:37 PM EDT documented as of this encounter Plan of Treatment Not on file documented as of this encounter Visit Diagnoses Not on filedocumented in this encounter Care Teams Optical Brightener Maker Helper Relationship Specialty Start Date End Date Gilberto Gaines MD [address] [place] [address] [phone] PCP - General Internal Medicine 10/06/19 Tod Rodriguez MD [address] [place] [address] Dr Benedicto [address] [place] [phone] Health Care Marketing Manager Cardiovascular Disease 05/31/20 Marcelle Almendarez PA [address] [facility] [place] [address] Specialist Cardiology 11/13/20 documented as of this encounter
--- OUTSIDE RECORDS SUMMARY | 2024-05-15 10:40 | XMS_ITS | Encounter Summary ---
Author Organization [facility] Address [address] [place] [address] Care Team Providers Care Refractory Products Supervisor Name Role Phone Gilberto Gaines MD Primary Care Provider [phone] Tod Rodriguez MD Unavailable [phone] Marcelle Almendarez Unavailable Unavailable Encounter Details Date Type Department Care Team Description 10/20/2023 Orders Only Medical Records [address] [place] [address] Ricarda Medley NP Social History Tobacco Use Types Packs/Day Years [...] on file documented as of this encounter Procedures Procedure Name Priority Date/Time Associated Diagnosis Comments OUTSIDE PLAIN FILM Routine 09/28/2023 documented in this encounter Results * OUTSIDE PLAIN FILM (09/28/2023) Ricarda Medley NP RADIOLOGY documented in this encounter Visit Diagnoses Not on filedocumented in this encounter Care Teams Refractory Products Supervisor Relationship Specialty Start Date End Date Gilberto Gaines MD [address] [place] [address] [phone] PCP - General Internal Medicine 10/06/19 Tod Rodriguez MD [address] [place] [address] Teenage Program Director Cardiovascular Disease 05/31/20 Marcelle Almendarez PA [address] [place] [address] Specialist Cardiology 11/13/20 documented as of this encounter
--- OUTSIDE RECORDS SUMMARY | 2024-05-15 10:40 | XMS_ITS | Encounter Summary ---
Author Organization [facility] Address [address] [place] [address] Care Team Providers Care Motion Picture Film Examiner Name Role Phone Gilberto Gaines MD Primary Care Provider Tod Rodriguez MD Unavailable [phone] Marcelle Almendarez Unavailable Unavailable Reason for Referral * Radiology Services (Routine) - Closed Specialty Diagnoses / Procedures Referred By Howard mosquera Referred To Contact Radiology Diagnoses Pituitary tumor Procedures MRI OF BRAIN WITH AND WITHOUT CONTRAST Devin Poon MD [address] [place] [address] Mri/[address] [address] Referral ID Status Reason Start Date Expiration Date Visits Re quested Visits Authorized [id number] Closed 05/26/2022 05/26/2023 1 1 Encounter Details Date Type Department Care Team Description 05/26/2022 Orders Only Endocrinology - [address] [address] Devin Poon MD [address] [place] [address] Pituitary tumor (Primary Dx) Social History Tobacco Use Types [...] suspected to have Coronavirus/COVID-19? No / Unsure 05/13/2022 8:49 AM EST documented as of this encounter Plan of Treatment Not on file documented as of this encounter Results * MRI OF BRAIN WITH AND WITHOUT CONTRAST (06/01/2022 9:52 AM EDT) 06/02/2022 2:00 PM EDT Narrative [facility] OTHER EXTERNAL - 06/02/2022 2:12 PM EDT MRI of the head and thumb pituitary fossa without and with intravenous contrast. History pituitary mass. ??Headaches. Examination was performed on 1.5 Rosenda magnet without administration of intravenous contrast followed by postcontrast study after administration of 20 mL of the Dotarem. ??Comparison with prior studies, latest from 09/05/2021. ??Again noted is some mixed signal intensity mass in the left paramedian aspect of the pituitary gland which on today's study measures 1.2 x 1.1 x 1.3 cm. ??Mass has some cystic increased T2 and low T1 component and heterogeneous enhancement. ?? There is deviation of the pituitary stalk to the right. ??Mass abuts the superior and medial lancaster of the cavernous portion of the left internal carotid artery optic chiasm is not compressed. There is no evidence of midline shift, extra or intra-axial blood fluid collections. ??There is no visible masses, mass effect, focal areas of restricted diffusion and abnormal enhancement in the brain and cerebellum. ??Again noted are a few foci of increased FLAIR and T2 signal in the periventricular and deep white matter of both cerebral hemispheres. ??More prominent areas are adjacent to the frontal horns of the lateral ventricles. ??It did not change significantly since previous examination. ??Ventricular system is symmetric and normal in size. ??4th ventricle and basal cisterns are midline and patent. ??There is mild mucosal thickening in the maxillary sinuses it was air cells and thumb frontal sinuses inferiorly. ??Mastoid processes are aerated. CONCLUSIONS: Slight interval decrease in size of the complex mass with cystic component and heterogeneous enhancement in the left aspect of the pituitary gland. ??Deviation of the pituitary stalk to the right. ??Effacement of the cavernous portions of the left internal carotid artery. Stable nonspecific white matter signal abnormalities as detailed. ??Mild mucosal abnormalities in the paranasal sinuses. Procedure Note Ene Dale MD - 06/02/2022 MRI of the head and thumb pituitary fossa without and with intravenouscontrast. History pituitary mass. Headaches. Examination was performed on 1.5 Rosenda magnet without administration ofintravenous contrast followed by postcontrast study after administration of 20 mL of theDotarem. Comparison with prior studies, latest from 09/05/2021. Again noted is some mixed signalintensity mass in the left paramedian aspect of the pituitary gland which on today's studymeasures 1.2 x 1.1 x 1.3 cm. Mass has some cystic increased T2 and low T1 component andheterogeneous enhancement. There is deviation of the pituitary stalk to the right. Mass abuts thesuperior and medial lancaster of the cavernous portion of the left internal carotid artery opticchiasm is not compressed. There is no evidence of midline shift, extra or intra-axial blood fluidcollections. There is no visible masses, mass effect, focal areas of restricted diffusion andabnormal enhancement in the brain and cerebellum. Again noted are a few foci of increased FLAIRand T2 signal in the periventricular and deep white matter of both cerebral hemispheres. Moreprominent areas are adjacent to the frontal horns of the lateral ventricles. It did notchange significantly since previous examination. Ventricular system is symmetric and normal insize. 4th ventricle and basal cisterns are midline and patent. There is mild mucosal thickeningin the maxillary sinuses it was air cells and thumb frontal sinuses inferiorly. Mastoidprocesses are aerated. CONCLUSIONS: Slight interval decrease in size of the complex mass withcystic component and heterogeneous enhancement in the left aspect of the pituitary gland.Deviation of the pituitary stalk to the right. Effacement of the cavernous portions of theleft internal carotid artery. Stable nonspecific white matter signal abnormalities as detailed. Mildmucosal abnormalities in the paranasal sinuses. Devin Poon MD MRI [facility] EXTER[facility] documented in this encounter Visit Diagnoses Diagnosis Pituitary tumor- Primary Neoplasm of unspecified nature of endocrine glands and other parts of nervous system Pituitary tumor Neoplasm of unspecified nature of endocrine glands and other parts of nervous system documented in this encounter Care Teams Motion Picture Film Examiner Relationship Specialty Start Date End Date Gilberto Gaines MD [address] [place] [id number] PCP - General Internal Medicine 10/06/19 Tod Rodriguez MD [address] [place] [address] [place] [address] Cut And Print Machine Operator Cardiovascular Disease 05/31/20 Marcelle Almendarez PA [address] [place] [address] [place] [address] Specialist Cardiology 11/13/20 documented as of this encounter
--- OUTSIDE RECORDS SUMMARY | 2024-05-15 10:40 | XMS_ITS | Encounter Summary ---
Author Organization [facility], Address [address] [place] [address] Phone Care Team Providers Care Splitter Hand Name Role Phone Lilliana Thrasher APRN Primary Care Provider [phone] Encounter Details Date Type Department Care Team (Late st Contact Info) Description 01/29/2023 Documentation Only [facility], [address] [place] [phone] Lilliana Thrasher APRN [address] [place] [phone] Social History Tobacco Use Types Packs/Day Years [...] on filedocumented in this encounter Care Teams Splitter Hand Relationship Specialty Start Date End Date Lilliana Thrasher APRN [address] [place], [place] PCP - General Internal Medicine 01/28/23 documented as of this encounter
--- OUTSIDE RECORDS SUMMARY | 2024-05-15 10:40 | XMS_ITS | Encounter Summary ---
Author Organization [facility] Address [address] [place] [address] Care Team Providers Care Substance Abuse Counselor Name Role Phone Gilberto Gaines MD Primary Care Provider Tod Rodriguez MD Unavailable [phone] Marcelle Almendarez Unavailable Unavailable Reason for Visit * Reason Onset Date Comments Medication 06/04/2020 Encounter Details Date Type Department Care Team Description 06/04/2020 Refill Gastroenterology - [address] [place] [address] Yeimy Bell MD [address] [place] [address] [phone] Medication Social History Tobacco Use Types Packs/Day [...] on filedocumented in this encounter Care Teams Substance Abuse Counselor Relationship Specialty Start Date End Date Gilberto Gaines MD [address] [place] [address] [phone] PCP - General Internal Medicine 10/06/19 Tod Rodriguez MD Medical [place] [address] Brenner [place], [place] [phone] Neonatal Intensive Care Unit Nurse Cardiovascular Disease 3/12/21 Macrelle Almendarez PA [address] [place] [address] Dr Diane [address] [place] [address] Specialist Cardiology 11/13/20 documented as of this encounter
--- OUTSIDE RECORDS SUMMARY | 2024-05-15 10:40 | XMS_ITS | Encounter Summary ---
Author Organization [facility] Address [address] [place] [address] Care Team Providers Care Instructional Technology Specialist Name Role Phone David Marcial MD Primary Care Provider Un available Gilberto Gaines MD Primary Care Provider [phone] Tod Rodriguez MD Unavailable [phone] Marcelle Almendarez Unavailable Unavailable Encounter Details Date Type Department Care Team Description 01/27/2019 Release of Information Medical Records [address] [place] [address] Abstract, Provider Social History Tobacco Use Types [...] on filedocumented in this encounter Care Teams Instructional Technology Specialist Relationship Specialty Start Date End Date David Marcial MD PCP - General Internal Medicine 03/08/18 Gilberto Gaines MD [address] [place] [address] [phone] PCP - General Internal Medicine 10/06/19 Tod Rodriguez MD [address] [place] [address] [place] [address] Accounting Manager Cpa Cardiovascular Disease 05/31/20 Marcelle Almendarez PA [address] [place] [address] [place] [address] Specialist Cardiology 11/13/20 documented as of this encounter
--- OUTSIDE RECORDS SUMMARY | 2024-05-15 10:40 | XMS_ITS | Encounter Summary ---
Author Organization [facility] Address [address] [place] [address] Care Team Providers Care Kitchen Worker Name Role Phone Gilberto Gaines MD Primary Care Provider [phone] Tod Rodriguez MD Unavailable [phone] Marcelle Almendarez Unavailable Unavailable Encounter Details Date Type Department Care Team Description 10/14/2021 Orders Only Medical Records [address] [place] [address] Isis Thomas PA Social History Tobacco Use Types Packs/Day Years [...] Name Priority Date/Time Associated Diagnosis Comments OUTSIDE SLEEP STUDY Routine 09/08/2021 documented in this encounter Results * OUTSIDE SLEEP STUDY (09/08/2021) Isis GOMEZ PULMONOLOGY documented in this encounter Visit Diagnoses Not on filedocumented in this encounter Care Teams Kitchen Worker Relationship Specialty Start Date End Date Gilberto Gaines MD [address] [place] [address] PCP - General Internal Medicine 10/06/19 Tod Rodriguez MD [address] [place] [address] Dr [address] [place], [place] [phone] Switchboard Installer Cardiovascular Disease 05/31/20 Marcelle Almendarez PA [address] [place] [address] Dr Diane [address] [place] [address] Specialist Cardiology 11/13/20 documented as of this encounter
--- OUTSIDE RECORDS SUMMARY | 2024-05-15 10:40 | XMS_ITS | Encounter Summary ---
Author Organization [facility] Address [address] [place] [address] Care Team Providers Care Sales And Marketing Analyst Name Role Phone Gilberto Gaines MD Primary Care Provider [phone] Tod Rodriguez MD Unavailable [phone] Marcelle Almendarez Unavailable Unavailable Encounter Details Date Type Department Care Team Description 01/29/2023 Lean Six Sigma Black Belt Report Medical Records [address] [place] [address] Santos Pruett MD Social History Tobacco Use Types Packs/Day [...] on filedocumented in this encounter Care Teams Sales And Marketing Analyst Relationship Specialty Start Date End Date Gilberto Gaines MD [address] [place] [address] PCP - General Internal Medicine 10/06/19 Tod Rodriguez MD [address] [place] [address] Dr [address] [place], [place] [phone] Internist Medical Doctor Md Cardiovascular Disease 05/31/20 Marcelle Almendarez PA [address] [place] [address] [place] [address] Specialist Cardiology 11/13/20 documented as of this encounter
--- OUTSIDE RECORDS SUMMARY | 2024-05-15 10:40 | XMS_ITS | Encounter Summary ---
Author Organization [facility] Address [address] [place] [address] Care Team Providers Care Boom Supervisor Name Role Phone Gilberto Gaines MD Primary Care Provider [phone] Tod Rodriguez MD Unavailable [phone] Marcelle Almendarez Unavailable Unavailable Encounter Details Date Type Department Care Team Description 09/30/2023 Railroad Supervisor Of Engines Report Medical Records [address] [place] [address] Santos Pruett MD Social History Tobacco Use [...] on filedocumented in this encounter Care Teams Boom Supervisor Relationship Specialty Start Date End Date Gilberto Gaines MD [address] [place] [address] [phone] PCP - General Internal Medicine 10/06/19 Tod Rodriguez MD [address] [place] [address] [place] [address] Contact Lens Curve Grinder Cardiovascular Disease 05/31/20 Marcelle Almendarez PA [address] [place] [address] [place] [address] Specialist Cardiology 11/13/20 documented as of this encounter
--- OUTSIDE RECORDS SUMMARY | 2024-05-15 10:40 | XMS_ITS | Encounter Summary ---
Author Organization [facility] Address [address] [place] [address] Care Team Providers Care Buffing Turner And Counter Name Role Phone Gilberto Gaines MD Primary Care Provider [phone] Tod Rodriguez MD Unavailable [phone] Marcelle Almendarez Unavailable Unavailable Encounter Details Date Type Department Care Team Description 09/07/2022 Blanket Maker Report Medical Records [address] [place] [address] Td Reed Np Social History Tobacco Use Types Packs/Day Years [...] on filedocumented in this encounter Care Teams Buffing Turner And Counter Relationship Specialty Start Date End Date Gilberto Gaines MD [address] [place] [address] PCP - General Internal Medicine 10/06/19 Tod Rodriguez MD [address] [place] [address] [place] [phone] Medical Communication Specialist Cardiovascular Disease 05/31/20 Marcelle Almendarez PA [address] [place] [address] [place] [address] Specialist Cardiology 11/13/20 documented as of this encounter
--- OUTSIDE RECORDS SUMMARY | 2024-05-15 10:40 | XMS_ITS | Encounter Summary ---
Author Organization [facility] Address [address] [place] [address] Care Team Providers Care Fur Blender Name Role Phone Gilberto Gaines MD Primary Care Provider [phone] Tod Rodriguez MD Unavailable Marcelle Almendarez Unavailable Unavailable Reason for Visit * Reason Onset Date Comments Testing 11/19/2022 Encounter Details Date Type Department Care Team Description 11/19/2022 Telephone Cardio PVCA Diag Testing 101 [address] [facility] [address] [place] [address] Lulu Cabrales PA-C [address] [place] [address] Testing Social History Tobacco Use Types Packs/Day Years [...] suspected to have Coronavirus/COVID-19? No / Unsure 11/20/2022 2:49 PM EDT documented as of this encounter Miscellaneous Notes * Telephone Encounter - Kamilla Mak PA-C - 11/25/2022 10:05 AM EDT Our office called and spoke to patient directly. She states she has knee pain and dizziness when ambulating even though she was able to walk for nearly 8 min on a STEC 2 years ago. Since she has asthma should proceed with dobutamine STEC as ordered. We will schedule. Thanks * Telephone Encounter - Lulu Cabrales PA-C - 11/19/2022 3:32 PM EDT Patient indicated she was unable to ambulate on treadmill; please advise. Lulu Cabrales PA-C * Telephone Encounter - Naomi Stratton - 11/19/2022 2:42 PM EDT [facility] the order for your patient to have a Dobutamine Stress Echo, however one of our APPs has reviewed the order and recommends a Stress Echo. If you agree, please place a new order for a Regular Stress Echo [CPT 56683]. Thank you! documented in this encounter Plan of Treatment Not on file documented as of this encounter Visit Diagnoses Not on filedocumented in this encounter Care Teams Fur Blender Relationship Specialty Start Date End Date Gilberto Gaines MD [address] [place] [id number] PCP - General Internal Medicine 10/06/19 Tod Rodriguez MD [address] [place] [address] [place] [address] Human Factors Advisor Lead Cardiovascular Disease 05/31/20 Marcelle Almendarez PA [address] [place] [address] [place] [address] Specialist Cardiology 11/13/20 documented as of this encounter
--- OUTSIDE RECORDS SUMMARY | 2024-05-15 10:40 | XMS_ITS | Encounter Summary ---
Author Organization [facility] Address [address] [place] [address] Care Team Providers Care Catering Attendant Name Role Phone David Marcial MD Primary Care Provider Un available Gilberto Gaines MD Primary Care Provider [phone] Tod Rodriguez MD Unavailable [phone] Marcelle Almendarez Unavailable Unavailable Encounter Details Date Type Department Care Team Description 08/23/2018 Release of Information Medical Records [address] [place] [id number] Abstract, Provider Social History Tobacco Use Types [...] on filedocumented in this encounter Care Teams Catering Attendant Relationship Specialty Start Date End Date David Marcial MD PCP - General Internal Medicine 03/08/18 Gilberto Gaines MD [address] [place] [address] [id number] PCP - General Internal Medicine 10/06/19 Tod Rodriguez MD [address] [place] [address] [place] [address] Patient Ombudsperson Cardiovascular Disease 05/31/20 Marcelle Almendarez PA [address] [place] [address] [place] [address] Specialist Cardiology 11/13/20 documented as of this encounter
== END 2024-05-15 10:05 | disposition home or self-care (01) ==
PROVIDERS: PCP Internal Medicine; Visit Provider Nurse Practitioner Family
DX: M54.50 Low back pain, unspecified (principal); M47.816 Spondylosis without myelopathy or radiculopathy, lumbar region; M53.3 Sacrococcygeal disorders, not elsewhere classified
CPT/HCPCS: 99213; G2211

== ENCOUNTER → 2024-05-15 09:44 | Outpatient (BNVA) | payer MEDICARE, MEDICAID, SELFPAY | PROVIDERS: PCP Internal Medicine; Visit Provider Nurse Practitioner Family | DX: M54.50 Low back pain, unspecified (principal); M47.816 Spondylosis without myelopathy or radiculopathy, lumbar region; M53.3 Sacrococcygeal disorders, not elsewhere classified | CPT/HCPCS: 99212 ==

== ENCOUNTER 2024-07-18 08:22 | Emergency (ER) | payer MEDICARE, MEDICAID, SELFPAY ==
--- NOTE | ~2024-07-18 | XR_ITS ---
EXAMINATION: XR SHOULDER, LEFT CLINICAL INFORMATION: pain with movement COMPARISON: None available. TECHNIQUE: AP external rotation, Grashey, scapular Y, and axillary views of the left shoulder. FINDINGS: Normal bone mineralization. No fracture, dislocation, or suspicious bone lesion. Normal alignment. The glenohumeral joint is normal. The AC joint demonstrates mild to moderate spurring both superiorly and inferiorly. There is a type II acromion. No undersurface spurring. The subacromial space is preserved. Remainder of the soft tissue and bony structures appear normal. XR/XR shoulder LT min 2V IMPRESSION: 1. No acute bony abnormalities. 2. Normal-appearing glenohumeral joint. 3. Mild to moderate spurring of the AC joint. Electronically signed by: Abdelrahman Rodrigues MD 07/18/2024 08:48 AM EDT
[2024-07-18 08:24] VITALS: BP 153/67; PULSE 58; RESP 20; TEMP 36.3; O2SAT 99; BMI 31.6
--- NOTE | 2024-07-18 09:02 | ED_ITS ---
HPI - General Adult General Chief complaint: Extremity Problem Stated complaint: Pain L shoulder/arm Time Seen by Provider: 07/18/24 09:01 Source: patient, family (patient's family member at the bed side) and locks tender (patient declined an [facility] medical transcription and requested her family member at the bed side translate for her. ) Mode of arrival: ambulatory Limitations: language barrier (patient declined an [facility] medical transcription and requested her family member at the bed side translate for her. ) History of Present Illness ED Provider: Keisha Luna PA-C HPI narrative: Patient is a 54 year old assigned female at with a history of HTN, osteoporosis, and DDD presenting to the emergency department today with left shoulder pain. Patient states that over the last week she has had left shoulder pain that is worse with movement. Patient denies any dizziness, lightheadedness, abdominal pain, nausea, vomiting, fever, chills, blurry vision, double vision, loss of vision, chest pain, difficulty breathing, shortness of breath, back pain, night sweats, pain with urination, increased urinary frequency, increased urinary urgency, blood in her urine or stool, syncope or a near syncopal episode, recent trauma or falls, bowel incontinence, bladder incontinence, or any other complaints at this time. Onset (ago): week(s) (1) Location: left and upper extremity Relieving factors: none Exacerbating factors: movement Associated symptoms: denies other symptoms Treatments prior to arrival: none Related Data Home Medications ?Medication ?Instructions ?Recorded ?Confirmed cyanocobalamin (vitamin B-12) 500 500 mcg PO DAILY 06/04/22 02/23/24 mcg tablet (Vitamin B-12) ergocalciferol (vitamin D2) 1,250 1,250 mcg PO QWEEK 06/04/22 02/23/24 mcg (50,000 unit) capsule ferrous sulfate 325 mg (65 mg 325 mg PO BID 06/04/22 02/23/24 iron) tablet losartan 100 mg tablet 100 mg PO DAILY 07/29/23 02/23/24 Previous Rx's ?Medication ?Instructions ?Recorded riboflavin (vitamin B2) 400 mg 400 mg PO DAILY 30 days #30 tabs 06/04/22 tablet ondansetron 4 mg disintegrating 4 mg PO Q8-12H PRN nausea and 01/21/23 tablet vomiting #20 tabs isosorbide mononitrate 30 mg 30 mg PO DAILY #90 tabs 01/29/23 tablet,extended release 24 hr nitroglycerin 0.4 mg sublingual 0.4 mg sublingual Q5M PRN chest 01/29/23 tablet pain #30 tabs cholecalciferol (vitamin D3) 125 125 mcg PO DAILY #90 caps 07/15/23 mcg (5,000 unit) capsule vitamin A palmitate 3,000 mcg 10,000 unit PO DAILY #90 caps 07/15/23 (10,000 unit) capsule amlodipine 10 mg tablet 10 mg PO DAILY #90 tabs 08/05/23 rosuvastatin 40 mg tablet (Crestor) 40 mg PO DAILY 90 days #90 tabs 09/30/23 cyclobenzaprine 10 mg tablet 10 mg PO BEDTIME PRN muscle spasm 11/18/23 30 days #30 tabs diclofenac sodium 1 % topical gel 4 g topical QID pain #100 grams 11/18/23 (Arthritis Pain (diclofenac)) lidocaine 5 % topical patch See Rx Instructions topical 11/18/23 .COMPLEX pain #30 ea carvedilol 3.125 mg tablet (Coreg) 3.125 mg PO BID 90 days #180 tabs 12/06/23 ezetimibe 10 mg tablet (Zetia) 10 mg PO DAILY #90 tabs 02/23/24 aspirin 81 mg tablet,delayed 81 mg PO DAILY #90 tabs 06/12/24 release prednisone 20 mg tablet 20 mg PO DAILY 7 days #7 tabs 07/18/24 Allergies Allergy/AdvReac Type Severity Reaction Status Date / Time Sulfa (Sulfonamide Allergy Severe SWELLING Verified 07/18/24 08:26 Antibiotics) acetaminophen [Percocet] Allergy Unknown vomiting Verified 07/18/24 08:26 morphine Allergy Unknown Unknown Verified 07/18/24 08:26 oxycodone [Percocet] Allergy Unknown vomiting Verified 07/18/24 08:26 lisinopril AdvReac Unknown Unknown Verified 07/18/24 08:26 Pt states she is allergic to Allergy Unknown Nausea Uncoded 07/18/24 08:26 P From PERCOCET AdvReac Intermediate VOMITING Uncoded 07/18/24 08:26 baldo inhibitors AdvReac Unknown unknown Uncoded 07/18/24 08:26 Review of Systems Constitutional: Constitutional: Reports no additional constitutional complaints, Denies chills, Denies fever(s) and Denies night sweats Eyes: Eyes: Reports no additional eye complaints, Denies blurry vision, Denies change in vision, Denies diplopia, Denies eye discharge, Denies loss of vision and Denies eye pain ENT: Denies dizziness Cardiovascular: Cardiovascular: Reports no additional cardiovascular complaints, Denies chest pain, Denies lightheadedness, Denies Loss of Consciousness and Denies dyspnea Respiratory: Respiratory: Reports no additional respiratory complaints and Denies dyspnea Gastrointestinal: Gastrointestinal: Reports no additional gastrointestinal complaints, Denies abdominal pain, Denies melena, Denies hematochezia, Denies change in bowel habits and Denies change in stool character Genitourinary: Genitourinary: Denies hematuria, Denies urinary frequency, Denies dysuria, Denies urinary incontinence, Denies urinary hesitancy and Denies urinary urgency Musculoskeletal: Musculoskeletal: Reports no additional musculoskeletal complaints, Denies numbness and Denies tingling Comments: left shoulder pain Neurologic: Denies dizziness, Denies loss of vision, Denies numbness and Denies tingling Psychiatric: Psychiatric: Reports no additional psychiatric complaints Endocrine: Endocrine: Reports no additional endocrine complaints Hematologic/Lymphatic: Hematologic/Lymphatic: Reports no additional hematologic/lymphatic complaints Allergic/Immunologic: Allergic/Immunologic: Reports no additional allergic/immunologic complaints PMFSH Past Medical History Attestation statement: The following information was validated with the patient. Source: old records reviewed and nursing notes reviewed Medical History Osteoporosis Hypertension Anemia Brain tumor Asthma Surgical History History of sleeve gastrectomy Hx of hysterectomy Hx of tonsillectomy Family History Family History Mother Hypertension Asthma CAD (coronary artery disease) Osteoporosis Father Hypertension CAD (coronary artery disease) Sister Hypertension Lupus Brother Hypertension Maternal Grandmother Breast cancer Paternal Grandmother Breast cancer Social History Social History Alcohol intake: never Patient Tobacco Use Status: Never used Tobacco Advance Directives: No Advance Directives Information Provided: Yes Do you have a plan to hurt others: No Plan Physical Exam ED Vital Signs: Vital Signs - 24 hr 07/18/24 08:24 07/18/24 09:38 Temperature 97.3 F 0 F L Pulse Rate 58 54 Respiratory Rate 20 14 Blood Pressure 153/67 H 137/74 Pulse Oximetry 99 100 Oxygen Delivery Method Room Air Room Air BMI result Body Mass Index 31.6 Const General: cooperative, no acute distress, alert and awake Nutritional Appearance: well nourished Orientation/consciousness: patient oriented x3 Limitations: no limitations HENMT Head: Yes normal to inspection and Yes atraumatic Ears: hearing grossly normal bilaterally and external ears normal General nose exam: Normal external nose present, no nasal discharge noted and no epistaxis Face and sinus: Yes normal facial exam, No abrasion and No laceration Mouth: Normal oral and palatal mucosa present, no drooling and no muffled voice Eyes General: appearance normal, both eyes and all related structures Periorbital: periorbital findings normal Eyelids: Yes eyelids normal Conjunctivae: conjunctivae normal Pupils: Equal, round and reactive pupils present EOM: EOMs intact bilaterally Neck Neck: Yes normal visual inspection, Yes full ROM and Yes no lymphadenopathy Chest Chest palpation & inspection: normal inspection of the chest Resp Effort & Inspection: normal respiratory effort and able to speak in complete sentences GI Inspection: Yes normal to inspection Neuro General: patient oriented x3, moves all extremities and CN's II-XI intact bilaterally Cranial nerves: Yes Equal, round and reactive pupils present Cognition (Neuro): normal cognition Extrem Other: limited ROM of the left shoulder secondary to pain General: Yes normal to inspection and Yes capillary refill normal Psych Appearance: grossly normal Mental Status: mental status grossly normal Affect: normal affect Attitude: cooperative Thought process: Normal thought process present Thought content: Normal thought content present Insight: Good insight present (Psych) Medical Decision Making Medical Decision Making MDM Narrative: Patient is a 54 year old assigned female at with a history of HTN, osteoporosis, and DDD presenting to the emergency department today with left shoulder pain. Patient's physical exam was as noted in the physical exam portion of this note. Patient's left shoulder x-ray showed no acute process but did show evidence of spurring. I explained my physical exam findings as well as all test results to the patient and the patient's family member. I answered all questions asked by the patient and the patient's family member. I stressed the importance of the patient taking her medication as directed (either prescribed or as the over the counter packaging recommends). I stressed the importance of the patient following up with her primary care provider and an orthopedic provider. I stressed the importance of the patient returning to the emergency department immediately if her symptoms were to worsen or if she were to develop any dizziness, shortness of breath, difficulty breathing, chest pain, blurry vision, loss of vision, nausea, vomiting, abdominal pain, fever, chills, back p ain, or any other complaints. Patient verbalized agreement and understanding with this treatment plan and discharge. Differential Diagnosis Differential Diagnoses: The differential diagnosis associated with the presentation includes Osteoarthritis Shoulder pain Rotator cuff injury Admission/Observation Consideration of admission/observation: Escalation of care including admission/observation considered Patient would have been admitted to the hospital had her work up had any findings where hospital admission was appropriate and her clinical presentation warranted hospital admission. Independent Interpretation I performed an independent interpretation of an: Plain X-Ray Interpretation: My interpretation is in agreement with the radiologist's impression of this imaging study. EXAMINATION: XR SHOULDER, LEFT CLINICAL INFORMATION: pain with movement COMPARISON: None available. TECHNIQUE: AP external rotation, Grashey, scapular Y, and axillary views of the left shoulder. FINDINGS: Normal bone mineralization. No fracture, dislocation, or suspicious bone lesion. Normal alignment. The glenohumeral joint is normal. The AC joint demonstrates mild to moderate spurring both superiorly and inferiorly. There is a type II acromion. No undersurface spurring. The subacromial space is preserved. Remainder of the soft tissue and bony structures appear normal. XR/XR shoulder LT min 2V IMPRESSION: 1. No acute bony abnormalities. 2. Normal-appearing glenohumeral joint. 3. Mild to moderate spurring of the AC joint. Electronically signed by: Abdelrahman Rodrigues MD 07/18/2024 08:48 AM EDT Dictated By: Abdelrahman Rodrigues MD Signed By: Electronically signed by Abdelrahman Rodrigues MD 07/18/24 0848 Radiology Impression Discussion of test interpretation with radiology: I have reviewed the radiologist's reading. Discharge Plan Discharge Clinical Impression: Acute arthritis, Acute shoulder pain Patient Disposition: Home, Self-Care Instructions: Osteoarthritis (DC), Shoulder Pain (ED) Additional Instructions: Follow up with your primary care provider and an data capture specialist. Return to the emergency department immediately if your symptoms worsen or if you develop any dizziness, shortness of breath, difficulty breathing, chest pain, blurry vision, loss of vision, nausea, vomiting, abdominal pain, fever, chills, back pain, or any other complaints. Truman un seguimiento con wilburn m?dico de atenci?n primaria y un especialista en ortopedia. Acuda inmediatamente al servicio de urgencias si kerwin s?ntomas empeoran o si presenta mareos, falta de aliento, dificultad para respirar, dolor tor?cico, visi?n borrosa, p?rdida de visi?n, n?useas, v?mitos, dolor abdominal, fiebre, escalofr?os, dolor de espalda o cualquier otra molestia. Please see the information below about our Patient Portal. If you are not yet enrolled in the [facility] Patient Portal, you will receive an enrollment email invitation following your visit to any [facility] setting. You may also self-enroll in the Patient Portal by visiting our website: [email or web address] The following information is required to access the Patient Portal: - Your [facility] Medical Record Number - Your personal home email address (must match what is in your electronic medical record, Registration staff can assist with this) - Name - Date of Capabilities of the Patient Portal: - Message some providers - View upcoming appointments - Access your health summary, medical history, and visit history - View current conditions and allergies - View procedure and lab results - View your medications, including guidelines, side effects, and precautions - Complete pre-appointment questionnaires requested by your provider - Ready summary reports of your office visits and procedures To access the Patient Portal Mobile Jovanni, follow these directions: - Search [employer] in the Jovanni Store or Google [employer] Store - Download the Jovanni - Search for [facility] - Enter your login/password Portal del paciente Si usted no esta inscrito en el portal de pacientes de [facility], recibira óscar invitacion de inscripcion despues de wilburn visita al [facility] o al [facility] via correo electronico. Tambien puede inscribirse voluntariamente en el portal de pacientes visitando nuestra pagina web: [email or web address] La siguiente informacion sera requerida para acceder al portal: - Wilburn jenna de historia medica de [facility] - Wilburn direccion de correo electronico personal - Nombre - Fecha de nacimiento Capacidades: Las siguientes capacidades estan disponibles en el portal de pacientes: - Enviar mensajes a algunos doctores - Verificar proximas citas - Acceso a wilburn historial de cristhian, registro medico e historial de visitas - Adriel las condiciones actuales y alergias adriel procedimientos y resultados del laboratorio - Adriel kerwin medicamentos, incluyendo las pautas - Efectos secundarios y precauciones - Completar o llenar formularios / cuestionarios de - Citas solicitadas por wilburn doctor - Leer los resumenes de reportes medicos de kerwin visitas y procedimientos Tempe acceder a la aplicacion movil: - Busque [employer] en la Jovanni Store o [employer] Store - Descargue la aplicacion - Busque [facility] - Ingrese wilburn nombre de usuario / Contrasena Prescriptions: New prednisone 20 mg tablet 20 mg PO DAILY 7 Days Qty: 7 0RF No Action vitamin A palmitate 3,000 mcg (10,000 unit) capsule 10,000 unit PO DAILY Qty: 90 3RF cholecalciferol (vitamin D3) 125 mcg (5,000 unit) capsule 125 mcg PO DAILY Qty: 90 3RF amlodipine 10 mg tablet 10 mg PO DAILY Qty: 90 1RF carvedilol [Coreg] 3.125 mg tablet 3.125 mg PO BID 90 Days Qty: 180 3RF Rx Instructions: must administer with a meal/food aspirin 81 mg tablet,delayed release (DR/EC) 81 mg PO DAILY Qty: 90 3RF ergocalciferol (vitamin D2) 1,250 mcg (50,000 unit) capsule 1,250 mcg PO QWEEK cyanocobalamin (vitamin B-12) [Vitamin B-12] 500 mcg tablet 500 mcg PO DAILY ferrous sulfate 325 mg (65 mg iron) tablet 325 mg PO BID riboflavin (vitamin B2) 400 mg tablet 400 mg PO DAILY 30 Days Qty: 30 6RF rosuvastatin [Crestor] 40 mg tablet 40 mg PO DAILY 90 Days Qty: 90 3RF lidocaine 5 % adhesive patch,medicated See Rx Instructions topical .COMPLEX Qty: 30 3RF Rx Instructions: leave on most painful area for up to 12 hrs topical cyclobenzaprine 10 mg tablet 10 mg PO BEDTIME PRN (Reason: muscle spasm) 30 Days Qty: 30 0RF diclofenac sodium [Arthritis Pain (diclofenac)] 1 % gel 4 g topical QID Qty: 100 4RF Rx Instructions: apply to single knee, ankle, foot; for foot includes sole/toes/top of foot ondansetron 4 mg tablet,disintegrating 4 mg PO Q8-12H PRN (Reason: nausea and vomiting) Qty: 20 1RF nitroglycerin 0.4 mg tablet, sublingual 0.4 mg sublingual Q5M PRN (Reason: chest pain) Qty: 30 5RF Rx Instructions: do not exceed 3 doses per episode isosorbide mononitrate 30 mg tablet extended release 24 hr 30 mg PO DAILY Qty: 90 3RF losartan 100 mg tablet 100 mg PO DAILY ezetimibe [Zetia] 10 mg tablet 10 mg PO DAILY Qty: 90 3RF Referrals: [facility] Orthopedic Surgeons [Provider Group] (Call to establish and follow up with an orthopedic provider. Llame para establecer y seguir con un proveedor de ortopedia.) Gilberto Gaines III, MD [Primary Care Provider] - Interventions: ED Discharge Assessment Last Done: 07/18/24 09:38 Discharge Date/Time: 07/18/24 09:39 Print Language: Greek
[2024-07-18 09:38] VITALS: BP 137/74; PULSE 54; RESP 14; TEMP -17.7; TEMP 0; O2SAT 100
--- OUTSIDE RECORDS SUMMARY | 2024-07-18 10:00 | XMS_ITS | Encounter Summary ---
Author Organization [facility] Address [address] [place] [address] Care Team Providers Care Mechanical Technologist Name Role Phone Gilberto Gaines MD Primary Care Provider Tod Rodriguez MD Unavailable [phone] Marcelle Almendarez Unavailable Unavailable Encounter Details Date Type Department Care Team Description 12/28/2023 Orders Only Medical Records [address] [place] [id number] Ricarda Medley NP Social History Tobacco Use [...] Name Priority Date/Time Associated Diagnosis Comments OUTSIDE BONE DENSITY Routine 12/16/2023 documented in this encounter Results * OUTSIDE BONE DENSITY (12/16/2023) Ricarda Medley NP RADIOLOGY documented in this encounter Visit Diagnoses Not on filedocumented in this encounter Care Teams Mechanical Technologist Relationship Specialty Start Date End Date Gilberto Gaines MD [address] [place] [address] [phone] PCP - General Internal Medicine 10/06/19 Tod Rodriguez MD [address] [place] [address] Other Sales Support Worker Cardiovascular Disease 05/31/20 Marcelle Almendarez PA [address] [place] [address] Specialist Cardiology 11/13/20 documented as of this encounter
--- OUTSIDE RECORDS SUMMARY | 2024-07-18 10:00 | XMS_ITS | Encounter Summary ---
Author Organization [facility], Address [address] [place] [address] Phone Care Team Providers Care Program Engineer Name Role Phone Lilliana Thrasher APRN Primary Care Provider [phone] Encounter Details Date Type Department Care Team (Late st Contact Info) Description 01/29/2023 Documentation Only [facility], [address] [place] [address] Lilliana Thrasher APRN [address] [place] [phone] Social History Tobacco Use Types Packs/Day Years [...] on filedocumented in this encounter Care Teams Program Engineer Relationship Specialty Start Date End Date Lilliana Thrasher APRN [address] [place], [place] PCP - General Internal Medicine 01/28/23 documented as of this encounter
--- OUTSIDE RECORDS SUMMARY | 2024-07-18 10:00 | XMS_ITS | Encounter Summary ---
Author Organization [facility] Address [address] [place] [address] Care Team Providers Care Mica Inspector Name Role Phone Gilberto Gaines MD Primary Care Provider [phone] Tod Rodriguez MD Unavailable [phone] Marcelle Almendarez Unavailable Unavailable Encounter Details Date Type Department Care Team Description 11/13/2020 Orders Only Adult Medicine [address] [phone] Gilberto Gaines MD [address] [place] [address] [phone] Social History Tobacco Use Types Packs/Day Years [...] on filedocumented in this encounter Care Teams Mica Inspector Relationship Specialty Start Date End Date Gilberto Gaines MD [address] [place] [id number] PCP - General Internal Medicine 10/06/19 Tod Rodriguez MD [address] [place] [address] [place] [address] Siphon Operator Cardiovascular Disease 05/31/20 Marcelle Almendarez PA [address] [place] [address] Dr [address] [place] [phone] Specialist Cardiology 11/13/20 documented as of this encounter
--- OUTSIDE RECORDS SUMMARY | 2024-07-18 10:00 | XMS_ITS | Encounter Summary ---
Author Organization [facility] Address [address] [place] [address] Care Team Providers Care Manager Production Name Role Phone Gilberto Gaines MD Primary Care Provider [phone] Tod Rodriguez MD Unavailable [phone] Marcelle Almendarez Unavailable Unavailable Encounter Details Date Type Department Care Team Description 03/13/2020 Hospital Medical Records [address] [place] [address] [facility] Social History Tobacco Use Types Packs/Day [...] on filedocumented in this encounter Care Teams Manager Production Relationship Specialty Start Date End Date Gilberto Gaines MD [address] [place] [address] PCP - General Internal Medicine 10/06/19 Tod Rodriguez MD [address] [place] [address] [place] [address] Commuter Train Operator Cardiovascular Disease 05/31/20 Marcelle Almendarez PA [address] [place] [address] Dr Diane [address] [place] [address] Specialist Cardiology 11/13/20 documented as of this encounter
--- OUTSIDE RECORDS SUMMARY | 2024-07-18 10:00 | XMS_ITS | Clinical Summary ---
Author Organization [facility], Address [address] [place] [address] [place] [address] Phone Care Team Providers Care Paperhanger Name Role Phone Lilliana Thrasher APRN Primary [...] Only [facility] [address] [place] [address] Rahat Anderson PA Hypertension; Hypokalemia; Chronic kidney [...] Colorectal Cancer Screening: Sigmoidoscopy 2019 Pneumococcal Vaccine: 50+ Ye ars (2 of 2 - PPSV23) 06/28/2020 05/03/2020 Influenza Vaccine (Season Ended) 2024 05/31/2023, 02/18/2022, 01/18/2020, Additional history exists Pneumococcal Vaccine: Peds ( 0 to 5 Years) and At-Risk Patients (6 to 49 Years) Discontinued 05/03/2020 Insurance Medicaid [place] Medicare Care Teams Paperhanger Relationship Specialty Start Date End Date Lilliana Thrasher APRN [address] [place] [phone] PCP - General Internal Medicine 01/28/23
--- OUTSIDE RECORDS SUMMARY | 2024-07-18 10:00 | XMS_ITS | Encounter Summary ---
Author Organization [facility] Address [address] [place] [address] Care Team Providers Care Wafer Fabricator Name Role Phone Gilberto Gaines MD Primary Care Provider Tod Rodriguez MD Unavailable [phone] Marcelle Almendarez Unavailable Unavailable Reason for Visit * Reason Onset Date Comments hospital follow up 05/27/2022 Encounter Details Date Type Department Care Team Description 05/27/2022 Telephone Adult Medicine [address] [phone] Gilberto Gaines MD [address] [place] [address] [phone] hospital follow up Social History Tobacco Use Types Packs/Day Years [...] encounter Miscellaneous Notes * Telephone Encounter - Lawanda Clayton - 05/29/2022 1:08 PM EST Spoke with patient scheuled appt 05/13/22 @ 9am with Amberly Centeno. * Telephone Encounter - Lawanda Clayton - 05/27/2022 12:33 PM EST Voice mail message for patient to return my call. * Telephone Encounter - Mikey Delong M.A. - 05/27/2022 9:53 AM EST Pt needs ER follow up booked * Telephone Encounter - Shireen Vilchis - 05/27/2022 9:41 AM EST Hospital follow up appointment needed Hospital patient was treated at: [facility] Was this only an ER visit or was the patient admitted to the hospital? ER visit only Date of visit if ER visit only: 05/13/22 If patient was admitted what was the date of discharge? N/A Reason/diagnosis for visit or stay: Blood and liver issues When was the patient told to follow up? KESHAV Was visit or stay related to an injury? NO If yes, what was the date of injury (DOI)? N/A If yes, was the injury due to N/A documented in this encounter Plan of Treatment Not on file documented as of this encounter Visit Diagnoses Not on filedocumented in this encounter Care Teams Wafer Fabricator Relationship Specialty Start Date End Date Gilberto Gaines MD [address] [place] [address] PCP - General Internal Medicine 10/06/19 Tod Rodriguez MD [address] [place] [address] [place] [address] Concrete Crusher Loader Operator Cardiovascular Disease 05/31/20 Marcelle Almendarez PA [address] [place] [address] [place] [address] Specialist Cardiology 11/13/20 documented as of this encounter
--- OUTSIDE RECORDS SUMMARY | 2024-07-18 10:00 | XMS_ITS | Encounter Summary ---
Author Organization [facility] Address [address] [place] [address] Care Team Providers Care Take Down Sorter Name Role Phone Gilberto Gaines MD Primary Care Provider [phone] Tod Rodriguez MD Unavailable [phone] Marcelle Almendarez Unavailable Unavailable Encounter Details Date Type Department Care Team Description 11/03/2019 Release of Information Medical Records [address] [place] [address] Abstract, Provider Social History Tobacco Use Types [...] on filedocumented in this encounter Care Teams Take Down Sorter Relationship Specialty Start Date End Date Gilberto Gaines MD [address] [place] [address] PCP - General Internal Medicine 10/06/19 Tod Rodriguez MD [facility] [place] [address] Lead Miner Blasting Cardiovascular Disease 05/31/20 Marcelle Almendarez PA [address] [place] [address] [place] [address] Specialist Cardiology 11/13/20 documented as of this encounter
--- OUTSIDE RECORDS SUMMARY | 2024-07-18 10:00 | XMS_ITS | Clinical Summary ---
Author Organization [facility] Address [address] [place] [address] Care Team Providers Care Drug Enforcement Administration Agent Name Role Phone AdamsLaceyjuan carlosshyla Primary Care [...] Screening 1970 Pap Smear 1970 Sigmoidoscopy 1970 Medicare AWV 1971 Hepatitis B Vaccines (1 of 3 - 19+ 3-dose series) 1989 Mammogram 2010 Zoster Vaccines (1 of 2) 02/02/2020 Pneumococcal Vaccine: 50+ Ye ars (2 of 2 - PPSV23) 06/28/2020 05/03/2020 DTaP,Tdap,and Td Vaccines (2 - Td or Tdap) 06/21/2022 06/21/2012 COVID-19 Vaccine (1 - 2023-2 5 season) 2023 Alcohol/Substance Use Screening 03/22/2024 Depression Screening and Follow-Up 03/22/2024 Social Drivers of Health Deloris ual Screening 03/22/2024 Influenza Vaccine (Season Ended) 2024 02/18/2022, 01/18/2020, 01/08/2017, Additional history exists RSV Vaccine (60+ years old a nd patients) (1 - 1-dose 75+ series) 2045 Insurance [facility] MEDICARE Care Teams Drug Enforcement Administration Agent Relationship Specialty Start Date End Date Deirdre Lamas [place] PCP - General 06/12/22
--- OUTSIDE RECORDS SUMMARY | 2024-07-18 10:00 | XMS_ITS | Encounter Summary ---
Author Organization [facility], Address [address] [place] [address] Phone Care Team Providers Care Economic Specialist Name Role Phone Lilliana Thrasher APRN Primary Care Provider [phone] Encounter Details Date Type Department Care Team (Late st Contact Info) Description 04/24/2024 Orders Only [facility], [address] [place] [phone] Rahat Anderson PA Hypertension; Hypokalemia; Chronic kidney [...] (mild) documented in this encounter Care Teams Economic Specialist Relationship Specialty Start Date End Date Lilliana Thrasher APRN [address] [place] [address] PCP - General Internal Medicine 01/28/23 documented as of this encounter
--- OUTSIDE RECORDS SUMMARY | 2024-07-18 10:00 | XMS_ITS | Encounter Summary ---
Author Organization [facility], Address [address] [place] [address] Phone Care Team Providers Care Sales Lead Name Role Phone Lilliana Thrasher APRN Primary Care Provider [phone] Encounter Details Date Type Department Care Team (Late st Contact Info) Description 01/29/2023 Documentation Only [facility], [address] [place] [address] Lilliana Thrasher APRN [address] [place] [phone] Social History Tobacco Use Types Packs/Day Years [...] filedocumented in this encounter Care Teams Sales Lead Relationship Specialty Start Date End Date Lilliana Thrasher APRN [address] [place], [place] PCP - General Internal Medicine 01/28/23 documented as of this encounter
--- OUTSIDE RECORDS SUMMARY | 2024-07-18 10:00 | XMS_ITS | Encounter Summary ---
Author Organization [facility] Address [address] [place] [address] Care Team Providers Care Foreign Policy Officer Name Role Phone Gilberto Gaines MD Primary Care Provider [phone] Tod Rodriguez MD Unavailable [phone] Marcelle Almendarez Unavailable Unavailable Reason for Visit * Reason Onset Date Comments immunizations 04/12/2020 Encounter Details Date Type Department Care Team Description 04/12/2020 Telephone Adult Medicine [address] [phone] Gilberto Gaines MD [address] [place] [address] [phone] immunizations Social History Tobacco Use Types Packs/Day [...] M.A. - 04/12/2020 2:03 PM EST Contacted Society Reporter Ivelisse we will need an updated NORY in order to fax immunization list * Telephone Encounter - Laine Alcaraz - 04/12/2020 1:03 PM EST What is the name of the person authorizing the release of the patients immunizations? Ivelisse from [employer] Relationship to patient: Society Reporter Will the immunizations be Faxed to Ivelisse at fax # [phone] If the immunizations are to be faxed what is the name of the school? [employer] [facility] [employer] What is the school fax #? documented in this encounter Plan of Treatment Not on file documented as of this encounter Visit Diagnoses Not on filedocumented in this encounter Care Teams Foreign Policy Officer Relationship Specialty Start Date End Date Gilberto Gaines MD [address] [place] [address] PCP - General Internal Medicine 10/06/19 Tod Rodriguez MD [address] [place] [address] [place] [address] Certification Officer Cardiovascular Disease 05/31/20 Marcelle Almendarez PA [address] [place] [address] [place] [address] Specialist Cardiology 11/13/20 documented as of this encounter
--- OUTSIDE RECORDS SUMMARY | 2024-07-18 10:00 | XMS_ITS | Encounter Summary ---
Author Organization [facility] Address [address] [place] [address] Care Team Providers Care Inverted Block Operator Name Role Phone Gilberto Gaines MD Primary Care Provider [phone] Tod Rodriguez MD Unavailable Marcelle Almendarez Unavailable Unavailable Encounter Details Date Type Department Care Team Description 06/11/2022 Telephone Adult Medicine [facility] [address] [place] [address] [phone] Gilberto Gaines MD [address] [place] [address] [phone] Social History Tobacco Use Types Packs/Day Years [...] suspected to have Coronavirus/COVID-19? No / Unsure 06/09/2022 8:59 AM EDT documented as of this encounter Miscellaneous Notes * Telephone Encounter - Nael Villegas L.P.N. - 06/11/2022 12:30 PM EDT Form regestered with the forms department documented in this encounter Plan of Treatment Not on file documented as of this encounter Visit Diagnoses Not on filedocumented in this encounter Care Teams Inverted Block Operator Relationship Specialty Start Date End Date Gilberto Gaines MD [address] [place] [address] PCP - General Internal Medicine 10/06/19 Tod Rodriguez MD [address] [place] [address] [place] [address] Pouncer Cardiovascular Disease 05/31/20 Marcelle Almendarez PA [address] [place] [address] [place] [address] Specialist Cardiology 11/13/20 documented as of this encounter
--- OUTSIDE RECORDS SUMMARY | 2024-07-18 10:00 | XMS_ITS | Referral Summary ---
Author Organization [facility] Address [address] [place] [address] Care Team Providers Care Marketing Database Analyst Name Role Phone AdamsLaceyjuan carlosshyla Primary Care [...] Plan of Treatment Not on file Insurance [facility] MEDICARE Care Teams Marketing Database Analyst Relationship Specialty Start Date End Date Deirdre Lamas LAMBERT PCP - General 06/12/22
--- OUTSIDE RECORDS SUMMARY | 2024-07-18 10:01 | XMS_ITS | Encounter Summary ---
Author Organization [facility] Address [address] [place] [address] Care Team Providers Care Steward/Stewardess Name Role Phone Gilberto Gaines MD Primary Care Provider [phone] Tod Rodriguez MD Unavailable [phone] Marcelle Almendarez Unavailable Unavailable Encounter Details Date Type Department Care Team Description 11/29/2023 Property Man Report Medical Records [address] [place] [address] Feng Clark MD Social History Tobacco Use [...] on filedocumented in this encounter Care Teams Steward/Stewardess Relationship Specialty Start Date End Date Gilberto Gaines MD [address] [place] [address] [phone] PCP - General Internal Medicine 10/06/19 Tod Rodriguez MD [address] [place] [address] [place] [address] Hammerer Tab Cardiovascular Disease 05/31/20 Marcelle Almendarez PA [address] [place] [address] Dr [address] [place] [address] Specialist Cardiology 11/13/20 documented as of this encounter
--- OUTSIDE RECORDS SUMMARY | 2024-07-18 10:01 | XMS_ITS | Encounter Summary ---
Author Organization [facility] Address [address] [place] [address] Care Team Providers Care Die Casting Machine Maintainer Name Role Phone Gilberto Gaines MD Primary Care Provider [phone] Tod Rodriguez MD Unavailable [phone] Marcelle Almendarez Unavailable Unavailable Encounter Details Date Type Department Care Team Description 08/07/2021 Threat Monitoring Analyst Report Medical Records [address] [place] [address] Caesar Hughes MD Social History Tobacco Use Types Packs/Day [...] suspected to have Coronavirus/COVID-19? No / Unsure 07/14/2021 9:54 AM EDT documented as of this encounter Plan of Treatment Not on file documented as of this encounter Visit Diagnoses Not on filedocumented in this encounter Care Teams Die Casting Machine Maintainer Relationship Specialty Start Date End Date Gilberto Gaines MD [address] [place] [address] PCP - General Internal Medicine 10/06/19 Tod Rodriguez MD [address] [place] [address] [place] [address] Frame Nailer Cardiovascular Disease 05/31/20 Marcelle Almendarez PA [address] [place] [address] Dr [address] [place] [address], [place] [address] Specialist Cardiology 11/13/20 documented as of this encounter
--- OUTSIDE RECORDS SUMMARY | 2024-07-18 10:01 | XMS_ITS | Encounter Summary ---
Author Organization [facility] Address [address] [place] [address] Care Team Providers Care Tying In Machine Operator Name Role Phone Gilberto Gaines MD Primary Care Provider [phone] Tod Rodriguez MD Unavailable [phone] Marcelle Almendarez Unavailable Unavailable Reason for Visit * Reason Onset Date Comments REFERRAL 06/08/2023 Encounter Details Date Type Department Care Team Description 06/08/2023 Telephone Adult Medicine [address] [phone] Gilberto Gaines MD [address] [place] [address] [phone] REFERRAL Social History Tobacco Use Types Packs/Day Years [...] on file documented as of this encounter Miscellaneous Notes * Telephone Encounter - Lulu Cabrales PA-C - 06/08/2023 4:50 PM EDT This was not discussed at visit however, she was referred to [facility] rheumatology ([phone]) by PCP in late January. Has she been seen? Lulu Cabrales PA-C * Telephone Encounter - Jayme Felix M.A. - 06/08/2023 4:18 PM EDT Pt sent 2 MyChart msgs today w/the following info: Angel Luis mi nombre es Syed escribo para adriel si mi doctor me puede cory un referido para Pain management, [facility] no soporto el dolor de espalda le doy las david anticipadas y por mcgovern atenci??n muy ehsan y espero q Me ayuden buen d??a Hello my name is syed ecribi un mensaje espero.q me contesten pls [place] Ngozi Quiroz assisted me w/translation. Pt is requesting a referral for pain management. She reports that [facility] pain management was not helpful & would like to be referred elsewhere. Pls advise, was this discussed at recent 05/30 appt w/you? documented in this encounter Plan of Treatment Not on file documented as of this encounter Visit Diagnoses Not on filedocumented in this encounter Care Teams Tying In Machine Operator Relationship Specialty Start Date End Date Gilberto Gaines MD [address] [place] [address] PCP - General Internal Medicine 10/06/19 Tod Rodriguez MD [address] [place] [address] [place] [address] Irrigator Overhead Cardiovascular Disease 05/31/20 Marcelle Almendarez PA [address] [place] [address] [place] [address] Specialist Cardiology 11/13/20 documented as of this encounter
--- OUTSIDE RECORDS SUMMARY | 2024-07-18 10:01 | XMS_ITS | Encounter Summary ---
Author Organization [facility] Address [address] [place] [address] Care Team Providers Care Feather Boner Name Role Phone Gilberto Gaines MD Primary Care Provider Tod Rodriguez MD Unavailable Marcelle Almendarez Unavailable Unavailable Encounter Details Date Type Department Care Team Description 09/30/2022 Telephone Gastroenterology - Page 175 [facility] [address] [place] [phone] Elliott Campos PA-C [address] [address] Social History Tobacco Use Types Packs/Day Years [...] suspected to have Coronavirus/COVID-19? No / Unsure 09/29/2022 2:23 PM EDT documented as of this encounter Miscellaneous Notes * Telephone Encounter - Ivelisse Ewing - 10/01/2022 2:20 PM EDT Received, placed in CoNarrative bin * Telephone Encounter - Iesha Davenport - 09/30/2022 11:13 AM EDT Faxed request to [facility] records. Waiting for records. * Telephone Encounter - Elliott Campos PA-C - 09/30/2022 7:55 AM EDT Patient had been recently seen at [facility] and had an ultrasound done which demonstrated a dilated common bile duct. Please obtain those results so they can be incorporated into patient's chart. Thank you documented in this encounter Plan of Treatment Not on file documented as of this encounter Visit Diagnoses Not on filedocumented in this encounter Care Teams Feather Boner Relationship Specialty Start Date End Date Gilberto Gaines MD [address] [place] [address] PCP - General Internal Medicine 10/06/19 Tod Rodriguez MD [address] [place] [address] [place] [address] Sales Clerk Food Cardiovascular Disease 05/31/20 Marcelle Almendarez PA [address] [place] [address] [place] [address] Specialist Cardiology 11/13/20 documented as of this encounter
--- OUTSIDE RECORDS SUMMARY | 2024-07-18 10:01 | XMS_ITS | Clinical Summary ---
Author Organization [facility] [address] [place] [address] [place] [phone] Phone Care Team Providers Care Measuring Clerk Name Role Phone Gilberto Gaines MD Primary Care Provider [phone] Allergies Active Allergy Reactions Criticality Noted Date [...] mouth 1 (one) time each day. 01/30/20 23 Active carvediloL (COREG) 3.125 mg tablet TAKE 1 TABLET BY MOUTH TWICE A DAY WITH FOOD FOR 90 DAYS 01/30/20 23 Active isosorbide mononitrate (IMDUR) 30 mg 24 hr tablet Take 1 tablet (30 mg total) by mouth 1 (one) time each day. 01/30/20 23 Active ondansetron ODT (ZOFRAN-ODT) 4 mg disintegrating tablet TAKE 1 TABLET ORALLY EVERY 8 TO 12 HOURS NEEDED FOR NAUSEA AND VOMITING 01/22/20 23 Active hydrocortisone 2.5 % cream Apply to [...] at bedtime. 30 each 2 02/21/20 24 Active amLODIPine (NORVASC) 10 mg tablet Take 1 tablet (10 mg total) by mouth 1 (one) time each day. 30 each 2 02/21/20 24 Active Active Problems Problem Noted Date Diagnosed Date Obesity (BMI 30.0-34.9) 01/05/2024 CAD (coronary artery disease) 05/31/2023 Overview (01/05/2024): [id number] on cardiac cath - per Dr. 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 Christensen EMMANUEL (obstructive [...] Encounters Date Type Department Care Team Description 05/25/2024 Telephone Adult Medicine [address] [id number] Gilberto Gaines MD Forms/questionnaires ([facility] PCP Form) from Last 3 Months Immunizations Name Administration [...] Date Site/Laterality Comments GASTRIC BYPASS 06/03/2016 PROCEDURE: [place] GASTRIC RSTCV W/BYP W/SM INT RCNSTJ LIMIT ABSRPJ; COMMENT: sleeve; Dr. Chamberlain HYSTERECTOMY 05/2013 PROCEDURE: HISTORICAL HYSTERECTOMY; [...] DX:Asthma Benign tumor of pituitary gl and (CMS/HCC V24, CMS/HCC V28) 06/30/2018 DX:Benign tumor of pituitar y gland (HCC); COMMENT: Dr. Christensen Allergic rhinitis [...] Care Team (Late st Contact Info) Description 09/08/2024 9:30 AM EDT Office Visit Adult Medicine [address] [address] Anaya Anderson PA [address] [place] [phone] 11/23/2024 1:30 PM EDT Appointment Radiology Department - [address] [place] [address] Health Maintenance Due Date Last Done Comments [...] Screening 02/28/2022 COVID-19 Vaccine ( season) 2023 Depression Screening 05/30/2024 05/31/2023 Influenza Vaccine (Season Ended) 2024 05/31/2023, 02/18/2022, 01/18/2020, Additional history exists Hypertension/CHF/CAD Annual BMP Blood Test 02/20/2025 02/21/2024, [...] age to complete this topic Meningococcal B Vaccine Aged Out No l onger eligible based on patient's age to complete this topic RSV Immunization Patients Under 20 months Aged Out No longer eligible based on patient's age to complete this topic Varicella Vaccines Aged Out No longer eligible based on patient's age to complete this topic Procedures Procedure Name Priority Date/Time Associated Diagnosis Comments COMPREHENSIVE METABOLIC PANEL Routine 02/21/2024 2:34 PM EST Essential hypertension, benign Encounter for long-term (current) use of medications LIPID PANEL WITH REFLEX TO DIRECT LDL Routine 02/21/2024 2:34 PM EST Hypercholesterolemi a SCREENING MAMMOGRAPHY BI 2-VIEW BREAST INC CAD [...] mg/dL LAB CHEMISTRY METHOD 02/21/2024 4:53 PM EST [facility] Triglycerides 279(H) 0 - 150 mg/dL LAB CHEMISTRY METHOD 02/21/2024 4:53 PM EST [facility] HDL 44 >=40 mg/dL LAB CHEMISTRY METHOD 02/21/2024 4:53 PM EST [facility] LDL Calculated 108(H) 0 - 100 mg/dL LAB CHEMISTRY METHOD 02/21/2024 4:53 PM EST [facility] VLDL Cholesterol Ancelmo 55.8 mg/dL LAB CHEMISTRY METHOD 02/21/2024 4:53 PM [facility] Non HDL Chol. (LDL+VLDL) 164(H) <145 mg/dL LAB CHEMISTRY METHOD 02/21/2024 4:53 PM [facility] Chol/HDL Ratio 4.7(H) 0.0 - 4.4 LAB CHEMISTRY METHOD 02/21/2024 4:53 PM [facility] Blood Venous blood specimen / Unknown Venipuncture / Unknown 02/21/2024 2:34 PM EST 02/21/2024 2:34 PM EST us Gilberto Gaines MD LAB BLOOD ORDERABLES Final Resu lt [facility] [address] [place] [address], * (ABNORMAL) Comprehensive metabolic panel (02/21/2024 2:34 PM EST) Sodium 143 133 - 145 mmol/L LAB CHEMISTRY METHOD 02/21/2024 4:53 PM [facility] Potassium 4.0 3.5 - 5.5 mmol/L LAB CHEMISTRY METHOD 02/21/2024 4:53 PM [facility] Chloride 109 96 - 110 mmol/L LAB CHEMISTRY METHOD 02/21/2024 4:53 PM [facility] CO2 27 21 - 32 mmol/L LAB CHEMISTRY METHOD 02/21/2024 4:53 PM [facility] Anion Gap 7 3 - 11 LAB CHEMISTRY METHOD 02/21/2024 4:53 PM [facility] Glucose 103(H) 70 - 100 mg/dL LAB CHEMISTRY METHOD 02/21/2024 4:53 PM [facility] BUN 18 5 - 25 mg/dL LAB CHEMISTRY METHOD 02/21/2024 4:53 PM [facility] Creatinine 0.99 0.50 - 1.10 mg/dL LAB CHEMISTRY METHOD 02/21/2024 4:53 PM [facility] eGFR 68 >=60 mL/min/1. 73m2 LAB CHEMISTRY METHOD 02/21/2024 4:53 PM [facility] Comment:Calculation based on the??Chronic Kidney Disease Epidemiology Collaboration (CKD-EPI) equation refit??without adjustment for race. BUN/Creatinine Ratio 18.2 LAB CHEMISTRY METHOD 02/21/2024 4:53 PM [facility] Calcium 9.6 8.5 - 10.5 mg/dL LAB CHEMISTRY METHOD 02/21/2024 4:53 PM [facility] AST (SGOT) 20 10 - 42 unit/L LAB CHEMISTRY METHOD 02/21/2024 4:53 PM [facility] ALT (SGPT) 18 10 - 60 unit/L LAB CHEMISTRY METHOD 02/21/2024 4:53 PM [facility] Alkaline Phosphatase 110 42 - 121 unit/L LAB CHEMISTRY METHOD 02/21/2024 4:53 PM [facility] Total Protein 6.8 6.0 - 8.0 g/dL LAB CHEMISTRY METHOD 02/21/2024 4:53 PM [facility] Albumin 3.9 3.2 - 5.0 g/dL LAB CHEMISTRY METHOD 02/21/2024 4:53 PM [facility] Total Bilirubin 0.3 0.0 - 1.4 mg/dL LAB CHEMISTRY METHOD 02/21/2024 4:53 PM [facility] Blood Venous blood specimen / Unknown Venipuncture / Unknown 02/21/2024 2:34 PM EST 02/21/2024 2:34 PM EST us Gilberto Gaines MD LAB BLOOD ORDERABLES Final Resu lt [facility] [address] [place] [address], [place] [phone] * SCREENING MAMMOGRAPHY BI 2-VIEW BREAST INC [...] evidence of malignancy. BI-RADS 1 - negative Kneya Aguero CNM IMG XR PROCEDURES Final Result * Depression Screening (05/31/2023) Depression Screening abstracted Historical Provider HEALTH MAINTENANCE Final Result * Colonoscopy (11/18/2022) Colonoscopy no interpretation , abstracted Anatomical Region Laterality Modality Other Historical Provider HEALTH MAINTENANCE Final Result * Cervical Cancer Screening: HPV (07/14/2021) Cervical Cancer Screening: HPV negative, abstracted Historical Provider HEALTH MAINTENANCE Final Result * Hepatitis C Screening (11/22/2020) Pathologist [facility] Hepatitis C Screening abstracted Historical Provider HEALTH MAINTENANCE Final Result from Last 3 Months or Most Recently Relevant to Health Maintenance Insurance MEDICARE MEDICAID - [place] Care Teams Measuring Clerk Relationship Specialty Start Date End Date Gilberto Gaines MD [address] [place] [id number] PCP - General Internal Medicine 10/06/19
--- OUTSIDE RECORDS SUMMARY | 2024-07-18 10:01 | XMS_ITS | Encounter Summary ---
Author Organization [facility] Address [address] [place] [address] Care Team Providers Care Correctional Supervising Cook Name Role Phone Gilberto Gaines MD Primary Care Provider [phone] Tod Rodriguez MD Unavailable [phone] Marcelle Almendarez Unavailable Unavailable Reason for Visit * Reason Onset Date Comments Testing 11/19/2022 Encounter Details Date Type Department Care Team Description 11/19/2022 Telephone Cardio PVCA Diag Testing 101 300 [facility] [address] [place] [phone] Lulu Cabrales PA-C [address] [place] [phone] Testing Social History Tobacco Use Types Packs/Day [...] Naomi Stratton - 11/19/2022 2:[address] [facility] for your patient to have a Dobutamine Stress Echo, however one of our APPs has reviewed the order and recommends a Stress Echo. If you agree, please place a new order for a Regular Stress Echo [CPT 34309]. Thank you! documented in this encounter Plan of Treatment Not on file documented as of this encounter Visit Diagnoses Not on filedocumented in this encounter Care Teams Correctional Supervising Cook Relationship Specialty Start Date End Date Gilberto Gaines MD [address] [place] [phone] PCP - General Internal Medicine 10/06/19 Tod Rodriguez MD [address] [place] [address] [place] [address] Calker Cardiovascular Disease 05/31/20 Marcelle Almendarez PA [address] [place] [address] [place] [address] Specialist Cardiology 11/13/20 documented as of this encounter
--- OUTSIDE RECORDS SUMMARY | 2024-07-18 10:01 | XMS_ITS | Encounter Summary ---
Author Organization [facility] Address [address] [place] [address] Care Team Providers Care Golf Ball Marker Name Role Phone Community, Pcp Primary Care Provider David Gutierrez MD Primary Care Provider Un available Gilberto Gaines MD Primary Care Provider [phone] Tod Rodriguez MD Unavailable [phone] Marcelle Almendarez Unavailable Unavailable Encounter Details Date Type Department Care Team Description 04/21/2013 SCAN Medical Records [address] [place] [address] Adolfo Peterson MD Social History Tobacco Use Types Packs/Day Years Used Date Smoking Tobacco: Never Assessed Sex Assigned at Date Recorded Not on file Job Start Date Occupation Industry Not on file Not on file Not on file documented as of this encounter Plan of Treatment Not on file documented as of this encounter Procedures Procedure Name Priority Date/Time Associated Diagnosis Comments OUTSIDE PLAIN FILM Routine 04/21/2013 documented in this encounter Results * OUTSIDE PLAIN FILM (04/21/2013) Provider Abstract RADIOLOGY documented in this encounter Visit Diagnoses Not on filedocumented in this encounter Care Teams Golf Ball Marker Relationship Specialty Start Date End Date Community, Pcp PCP - General 07/13/07 03/07/18 David Marcial MD PCP - General Internal Medicine 03/08/18 Gilberto Gaines MD [address] [place] [address] [phone] PCP - General Internal Medicine 10/06/19 Tod Rodriguez MD [address] [place] [address] Janitor Helper Cardiovascular Disease 05/31/20 Marcelle Almendarez PA [address] [facility] [place] [address] Specialist Cardiology 11/13/20 documented as of this encounter
--- OUTSIDE RECORDS SUMMARY | 2024-07-18 10:01 | XMS_ITS | Encounter Summary ---
Author Organization [facility] Address [address] [place] [address] Care Team Providers Care Title I Instructional Assistant Name Role Phone Gilberto Gaines MD Primary Care Provider [phone] Tod Rodriguez MD Unavailable [phone] Marcelle Almendarez Unavailable Unavailable Encounter Details Date Type Department Care Team Description 11/18/2022 Orders Only Medical Records [address] [place] [address] Yeimy Bell MD [address] [place], [place] [phone] Social History Tobacco Use Types Packs/Day Years [...] Name Priority Date/Time Associated Diagnosis Comments OUTSIDE COLONOSCOPY Routine 11/18/2022 documented in this encounter Results * OUTSIDE COLONOSCOPY (11/18/2022) Yeimy Bell MD RADIOLOGY documented in this encounter Visit Diagnoses Not on filedocumented in this encounter Care Teams Title I Instructional Assistant Relationship Specialty Start Date End Date Gilberto Gaines MD [address] [place] [address] PCP - General Internal Medicine 10/06/19 Tod Rodriguez MD [address] [place] [address] [place] [address] Ror Engineer Cardiovascular Disease 05/31/20 Marcelle Almendarez PA [address] [place] [address] [place] [address] Specialist Cardiology 11/13/20 documented as of this encounter
--- OUTSIDE RECORDS SUMMARY | 2024-07-18 10:01 | XMS_ITS | Encounter Summary ---
Author Organization [facility] Address [address] [place] [address] Care Team Providers Care Slat Basket Maker Machine Name Role Phone Gilberto Gaines MD Primary Care Provider [phone] Tod Rodriguez MD Unavailable [phone] Marcelle Almendarez Unavailable Unavailable Encounter Details Date Type Department Care Team Description 09/30/2023 Split Leather Mosser Report Medical Records [address] [place] [address] Santos Pruett MD Social History Tobacco Use [...] on filedocumented in this encounter Care Teams Slat Basket Maker Machine Relationship Specialty Start Date End Date Gilberto Gaines MD [address] [place] [address] [phone] PCP - General Internal Medicine 10/06/19 Tod Rodriguez MD [address] [place] [address] [place] [address] Thread Twister Cardiovascular Disease 05/31/20 Marcelle Almendarez PA [address] [place] [address] [place] [address] Specialist Cardiology 11/13/20 documented as of this encounter
--- OUTSIDE RECORDS SUMMARY | 2024-07-18 10:01 | XMS_ITS | Encounter Summary ---
Author Organization [facility] Address [address] [place] [address] Care Team Providers Care Chemical Cell Changer Name Role Phone Gilberto Gaines MD Primary Care Provider [phone] Tod Rodriguez MD Unavailable [phone] Marcelle Almendarez Unavailable Unavailable Reason for Visit * Reason Onset Date Comments Medical Records 05/26/2021 Encounter Details Date Type Department Care Team Description 05/26/2021 Telephone OBGYN - [place] [address] [place] [address] Yasmin Brunner MD [address] [place] [address] [phone] Medical Records Social History Tobacco Use Types Packs/Day Years [...] have Coronavirus / COVID-19? No / Unsure 05/21/2021 8:48 AM EST documented as of this encounter Miscellaneous Notes * Telephone Encounter - Carlita Kwon - 05/26/2021 3:57 PM EST Addi sent to pt - no issues / staff development manager ag - verified home address- documented in this encounter Plan of Treatment Not on file documented as of this encounter Visit Diagnoses Not on filedocumented in this encounter Care Teams Chemical Cell Changer Relationship Specialty Start Date End Date Gilberto Gaines MD [address] [place] [address] PCP - General Internal Medicine 10/06/19 Tod Rodriguez MD [address] [place] [address] [place] [address] Superintendent Local Cardiovascular Disease 05/31/20 Marcelle Almendarez PA [address] [place] [address] [place] [address] Specialist Cardiology 11/13/20 documented as of this encounter
--- OUTSIDE RECORDS SUMMARY | 2024-07-18 10:01 | XMS_ITS | Encounter Summary ---
Author Organization [facility] Address [address] [place] [address] Care Team Providers Care Production Tester Name Role Phone Gilberto Gaines MD Primary Care Provider [phone] Tod Rodriguez MD Unavailable Marcelle Almendarez Unavailable Unavailable Encounter Details Date Type Department Care Team Description 01/21/2023 Talent Scout Report Medical Records [address] [place] [address] Isis Abdi, PACareyC Social History Tobacco Use [...] on filedocumented in this encounter Care Teams Production Tester Relationship Specialty Start Date End Date Gilberto Gaines MD [address] [place] [address] [phone] PCP - General Internal Medicine 10/06/19 Tod Rodriguez MD [address] [place] [address] [place] [address] Screen And Cyclone Repairer Cardiovascular Disease 05/31/20 Marcelle Almendarez PA [address] [place] [address] Dr [address] [place] [address] Specialist Cardiology 11/13/20 documented as of this encounter
--- OUTSIDE RECORDS SUMMARY | 2024-07-18 10:01 | XMS_ITS | Encounter Summary ---
Author Organization [facility] Address [address] [place] [address] Care Team Providers Care Hose Seamer Name Role Phone Gilberto Gaines MD Primary Care Provider [phone] Tod Rodriguez MD Unavailable [phone] Marcelle Almendarez Unavailable Unavailable Encounter Details Date Type Department Care Team Description 11/18/2023 Transit Planning Manager Report Medical Records [address] [place] [address] Ricarda Medley NP Social History Tobacco Use [...] on filedocumented in this encounter Care Teams Hose Seamer Relationship Specialty Start Date End Date Gilberto Gaines MD [address] [place] [phone] PCP - General Internal Medicine 10/06/19 Tod Rodriguez MD [address] [place] [address] [place] [address] Cathodic Protection Technician Cardiovascular Disease 05/31/20 Marcelle Almendarez PA [address] [place] [address] [place] [address] Specialist Cardiology 11/13/20 documented as of this encounter
--- OUTSIDE RECORDS SUMMARY | 2024-07-18 10:01 | XMS_ITS | Encounter Summary ---
Author Organization [facility] Address [address] [place] [address] Care Team Providers Care Dam Operator Name Role Phone David Marcial MD Primary Care Provider Un available Gilberto Gaines MD Primary Care Provider [phone] Tod Rodriguez MD Unavailable [phone] Marcelle Almendarez Unavailable Unavailable Encounter Details Date Type Department Care Team Description 08/23/2018 Release of Information Medical Records [address] [place] [phone] Abstract, Provider Social History Tobacco Use Types [...] on filedocumented in this encounter Care Teams Dam Operator Relationship Specialty Start Date End Date David Marcial MD PCP - General Internal Medicine 03/08/18 Gilberto Gaines MD [address] [place] [address] [phone] PCP - General Internal Medicine 10/06/19 Tod Rodriguez MD [address] [place] [address] [place] [address] Small Products Ii Assembler Cardiovascular Disease 05/31/20 Marcelle Almendarez PA [address] [place] [address] [place] [address] Specialist Cardiology 11/13/20 documented as of this encounter
--- OUTSIDE RECORDS SUMMARY | 2024-07-18 10:01 | XMS_ITS | Encounter Summary ---
Author Organization [facility] Address [address] [place] [address] Care Team Providers Care Senior Packaging Engineer Name Role Phone Gilberto Gaines MD Primary Care Provider [phone] Tod Rodriguez MD Unavailable [phone] Marcelle Almendarez Unavailable Unavailable Encounter Details Date Type Department Care Team Description 10/20/2023 Orders Only Medical Records [address] [place] [address] Ricarda Medley NP Social History Tobacco Use [...] on filedocumented in this encounter Care Teams Senior Packaging Engineer Relationship Specialty Start Date End Date Gilberto Gaines MD [address] [place] [address] [phone] PCP - General Internal Medicine 10/06/19 Tod Rodriguez MD [address] [place] [address] Scratcher Cardiovascular Disease 05/31/20 Marcelle Almendarez PA [address] [facility] [place] [address] Specialist Cardiology 11/13/20 documented as of this encounter
--- OUTSIDE RECORDS SUMMARY | 2024-07-18 10:01 | XMS_ITS | Encounter Summary ---
Author Organization [facility] Address [address] [place] [address] Care Team Providers Care Waste Chopper Name Role Phone Gilberto Gaines MD Primary Care Provider [phone] Tod Rodriguez MD Unavailable [phone] Marcelle Almendarez Unavailable Unavailable Encounter Details Date Type Department Care Team Description 08/04/2023 Milking Machine Technician Report Medical Records [address] [place] [address] Isis Abdi, PACareyC Social History Tobacco Use [...] on filedocumented in this encounter Care Teams Waste Chopper Relationship Specialty Start Date End Date Gilberto Gaines MD [address] [place] [address] [phone] PCP - General Internal Medicine 10/06/19 Tod Rodriguez MD [address] [place] [address] [facility] [place] [address] Poll Clerk Cardiovascular Disease 05/31/20 Marcelle Almendarez PA [address] [place] [address] Dr [address] [place] [address] Specialist Cardiology 11/13/20 documented as of this encounter
--- OUTSIDE RECORDS SUMMARY | 2024-07-18 10:01 | XMS_ITS | Encounter Summary ---
Author Organization [facility] Address [address] [place] [address] Care Team Providers Care Machinist Helper Marine Name Role Phone Gilberto Gaines MD Primary Care Provider [phone] Tod Rodriguez MD Unavailable [phone] Marcelle Almendarez Unavailable Unavailable Encounter Details Date Type Department Care Team Description 01/29/2023 Air Gun Operator Report Medical Records [address] [place] [address] Santos Pruett MD Social History Tobacco Use [...] on filedocumented in this encounter Care Teams Machinist Helper Marine Relationship Specialty Start Date End Date Gilberto Gaines MD [address] [place] [address] PCP - General Internal Medicine 10/06/19 Tod Rodriguez MD [address] [place] [address] Dr Brenner [place], [place] [phone] Sales Manager Cardiovascular Disease 05/31/20 Marcelle Almendarez PA [address] [place] [address] [place] [address] Specialist Cardiology 11/13/20 documented as of this encounter
== END 2024-07-18 09:39 | disposition home or self-care (01) ==
PROVIDERS: Emergency Provider Emergency Medicine; PCP Internal Medicine
DX: M25.512 Pain in left shoulder (principal); M19.012 Primary osteoarthritis, left shoulder
CPT/HCPCS: 73030; 99282; 99283

== ENCOUNTER → 2024-07-18 08:35 | Outpatient (BNV) | payer MEDICARE, MEDICAID, SELFPAY | PROVIDERS: PCP Internal Medicine; Visit Provider Radiology Diagnostic Radiology | DX: M25.712 Osteophyte, left shoulder (principal) | CPT/HCPCS: 73030 ==

== ENCOUNTER 2024-09-06 10:42 | Outpatient (AMB) | payer MEDICAID, SELFPAY ==
--- NOTE | 2024-09-06 11:19 | A.OFFVIS_ITS ---
Vital Signs 09/06/24 11:22 Height 5 ft 3 in Weight 180 lb 12.465 oz BMI 32.0 BP 120/70 Blood Pressure Location Lt brachial Position Sitting Pulse 49 L Pulse Source Monitor Intake Visit Reasons: 6 mth fu Partnership Manager Required: No Partnership Manager Services: Partnership Manager Offered & Declined Partnership Manager Name: autumn/daughter/irish Accompanied by: Daughter Allergies Sulfa (Sulfonamide Antibiotics) Allergy (Severe, Verified 07/18/24 08:26) SWELLING acetaminophen (Percocet) Allergy (Unknown, Verified 07/18/24 08:26) vomiting morphine Allergy (Unknown, Verified 07/18/24 08:26) Unknown oxycodone (Percocet) Allergy (Unknown, Verified 07/18/24 08:26) vomiting lisinopril Adverse Reaction (Unknown, Verified 07/18/24 08:26) Unknown Pt states she is allergic to P Allergy (Unknown, Uncoded 07/18/24 08:26) Nausea From PERCOCET Adverse Reaction (Intermediate, Uncoded 07/18/24 08:26) VOMITING baldo inhibitors Adverse Reaction (Unknown, Uncoded 07/18/24 08:26) unknown Medication List - Last Reconciled 09/06/24 by Santos Pruett MD amlodipine 10 mg PO DAILY aspirin 81 mg PO DAILY carvedilol (Coreg) 3.125 mg PO BID 90 days cholecalciferol (vitamin D3) 125 mcg PO DAILY cyanocobalamin (vitamin B-12) (Vitamin B-12) 500 mcg PO DAILY cyclobenzaprine 10 mg PO BEDTIME PRN 30 days diclofenac sodium 1% (Arthritis Pain (diclofenac)) 4 grams topical QID ergocalciferol (vitamin D2) 1,250 mcg PO QWEEK ezetimibe (Zetia) 10 mg PO DAILY ferrous sulfate 325 mg PO BID isosorbide mononitrate ER 30 mg PO DAILY lidocaine 5% leave on most painful area for up to 12 hrs topical losartan 100 mg PO DAILY nitroglycerin 0.4 mg sublingual Q5M PRN ondansetron 4 mg PO Q8-12H PRN prednisone 20 mg PO DAILY 7 days riboflavin (vitamin B2) 400 mg PO DAILY 30 days rosuvastatin (Crestor) 40 mg PO DAILY 90 days vitamin A palmitate 10,000 units PO DAILY HPI Comments Details: Courtney returns for follow-up regarding coronary artery disease. She was a patient of [facility] but has switched to our care. She has a history of hypertension, obesity, status post gastric bypass surgery, asthma and inflammatory arthritis. It seems that she has been reporting chest pains which led to a dobutamine stress echocardiogram showing inferior findings. Then underwent a diagnostic catheterization but no interventions performed. Overall, she is doing quite well. She does not have any symptoms like angina or shortness of breath or in fact anything cardiac sounding. Getting along fine. [facility] Medical History Osteoporosis Hypertension Anemia Brain tumor Asthma Surgical History History of sleeve gastrectomy Hx of hysterectomy Hx of tonsillectomy Family History Mother Hypertension Asthma CAD (coronary artery disease) Osteoporosis Father Hypertension CAD (coronary artery disease) Sister Hypertension Lupus Brother Hypertension Maternal Grandmother Breast cancer Paternal Grandmother Breast cancer Social History Alcohol intake: never Patient Tobacco Use Status: Never used Tobacco Review of Systems Const Denies chills, Denies fatigue, Denies fever(s), Denies frequent falls, Denies weakness, Denies weight gain and Denies weight loss ENT Denies dizziness Card Denies chest pain, Denies leg edema, Denies lightheadedness, Denies pal pitations, Denies dyspnea and Denies dyspnea on exertion Resp Denies cough, Denies dyspnea and Denies dyspnea on exertion GI Denies hematochezia Musc Denies abnormal gait, Denies muscle weakness, Denies numbness, Denies radiating pain into limb and Denies tingling Neuro Denies abnormal gait, Denies dizziness, Denies frequent falls, Denies numbness, Denies tingling and Denies weakness Endo Denies fatigue and Denies palpitations Physical Exam Vital Signs: Last Vital Signs Pulse 49 L 09/06/24 11:22 BP 120/70 09/06/24 11:22 BMI result Body Mass Index 32.0 Const General: comfortable and no acute distress Orientation/consciousness: patient oriented x3 HEENT Other: Unremarkable Head: Yes normal to inspection Neck Neck: Yes normal visual inspection Chest Chest palpation & inspection: normal inspection of the chest Resp Auscultation: clear to auscultation bilaterally Cardio Palpation: normal PMI Heart sounds: S1 normal heart sound present, S2 normal heart sound present, no gallops, no murmurs and no rubs GI Palpation (GI): Soft to palpation Back/Spine/Pelvis Other: unremarkable Skin General skin exam: no rashes or lesions noted Neuro General: patient oriented x3 Extrem General: Yes normal to inspection Psych Mental Status: mental status grossly normal Office Procedures EKG Details: EKG with sinus bradycardia at 49/Min; no significant ST-T changes; [place] [address]-[id number], Complete Assessment & Plan Assessment & Plan (1) Atherosclerotic cardiovascular disease: Code(s): I25.10 - Atherosclerotic heart disease of lime coronary artery without angina pectoris Category: Medical (2) Essential hypertension: Code(s): I10 - Essential (primary) hypertension Category: Medical Plan Cardiac studies reviewed. Dobutamine stress echo from [facility] reviewed. In the resting part, there was apparently basal inferoseptal/inferior hypokinesis. In the stress portion, there was persistent hypokinesis and felt to be infarct. Echocardiogram at [facility] shows normal LVEF at 65-70%. Basal inferior/basal inferoseptal hypokinesis. Otherwise unremarkable. In the cardiac catheterization, ostial OM1-small diameter vessel with 50% stenosis; mild diffuse disease in the AV groove circumflex but again small vessel. Minimal irregularities in RCA. Left main LAD normal. Essentially, she has got [id number] stable CAD and free of any angina. Could have had a prior nontransmural infarct in the inferior wall leading to wall motion abnormalities. Main recommendation still weight loss. Bradycardia EKGs related to beta-blockers and in the absence of any concerning symptoms, may continue. Otherwise, remains on long-acting nitrates, losartan, amlodipine. With regard to dyslipidemia, on Crestor and Zetia. Check repeat labs. Follow-up in one year. They interim, call with concerns. Discussed with daughter who came for appointment. Discussion Notes I discussed the patient's current bradycardia as being slightly slow but within normal limits, with no immediate intervention needed. For hyperlipidemia, I highlighted the improvement from 2022 to 2023 in lipid levels but emphasized the need for further testing to ensure continued management success. We reviewed the importance of maintaining the current medication regimen to manage conditions effectively. Consent for testing was verbal, with the patient agreeing to proceed and understanding that results would determine further steps. We also discussed logistical aspects concerning how to proceed with ordering lab tests in different health systems. The patient acknowledges understanding and agreement with our plans and the necessity for follow-up if new symptoms develop. Patient was informed and verbally consented to the use of an ambient scribe for clinic note documentation during this visit. Orders: Orders Lipid Panel Today E78.5 - Hyperlipidemia, unspecified, I25.10 - Atherosclerotic heart disease of lime coronary artery without angina pectoris Liver Panel Today I25.10 - Atherosclerotic heart disease of lime coronary artery without angina pectoris Patient Instructions: - Continue taking your current medications as prescribed: Carvedilol, Amlodipine, and Aspirin. - Have a blood test for cholesterol as discussed. - Monitor for any new symptoms and seek care if you experience any worsening. - Plan to follow up in one year unless issues arise sooner. - Contact the health team with any concerns or questions. Coding Level of Care Code Est Pt Level 4 (76031) Complex EM visit Add On G2211 Diagnoses Atherosclerotic cardiovascular disease I25.10 Essential hypertension I10 CPT Codes EKG - CPT: 42350-[id number], Complete ([id number])
[2024-09-06 11:22] VITALS: BP 120/70; PULSE 49; BMI 32.0
--- OUTSIDE RECORDS SUMMARY | 2024-09-06 12:15 | XMS_ITS | Encounter Summary ---
Author Organization [facility], Address [address] [place] [address] Phone Care Team Providers Care Adding Machine Mechanic Name Role Phone Lilliana Thrasher APRN Primary Care Provider [phone] Encounter Details Date Type Department Care Team (Late st Contact Info) Description 01/29/2023 Documentation Only [facility], [address] [place] [id number] Lilliana Thrasher APRN [address] [place] [phone] Social History Tobacco Use Types Packs/Day Years [...] on filedocumented in this encounter Care Teams Adding Machine Mechanic Relationship Specialty Start Date End Date Lilliana Thrasher APRN [address], [place] PCP - General Internal Medicine 01/28/23 documented as of this encounter
== END 2024-09-06 12:43 | disposition home or self-care (01) ==
LOC: HO.HCS 10:42
PROVIDERS: PCP Internal Medicine; Visit Provider Internal Medicine
DX: I25.10 Atherosclerotic heart disease of native coronary artery without angina pectoris (principal); I10 Essential (primary) hypertension
CPT/HCPCS: 93010; 99214

== ENCOUNTER → 2024-09-06 10:42 | Outpatient (BNVA) | payer MEDICAID, SELFPAY | PROVIDERS: PCP Internal Medicine; Visit Provider Internal Medicine | DX: I25.10 Atherosclerotic heart disease of native coronary artery without angina pectoris (principal); I10 Essential (primary) hypertension; E78.5 Hyperlipidemia, unspecified | CPT/HCPCS: 93005; 99212 ==

== ENCOUNTER 2024-09-15 09:00 | Emergency (ER) | payer MEDICAID, SELFPAY ==
[2024-09-15 09:13] VITALS: BP 177/68; PULSE 55; RESP 16; TEMP 36.3; O2SAT 99; BMI 32.1
[2024-09-15 10:01] LABS: MANUAL DIFF FLAG NO
[2024-09-15 10:05] LABS: Basophils Absolute Auto 0.1 X10*3/uL (0.0-0.2); Basophils Percent Auto 2.1 % (0-2); Eosinophils Absolute Auto 0.6 X10*3/uL (0.0-0.4); Eosinophils Percent Auto 16.8 % (0-4); Hematocrit 36.3 % (37.0-47.0); Hemoglobin 11.4 g/dl (12.0-16.0); Imm Gran Abs Auto 0.01 X10*3/uL (0.00-0.03); Imm Gran Pct Auto 0.3 % (0.0-0.4); Lymphocytes Absolute Auto 0.9 X10*3/uL (1.2-4.9); Lymphocytes Percent Auto 26.6 % (20-40); Mean Corpuscular HGB Conc 31.4 g/dl (31.0-35.0); Mean Corpuscular Hemoglobin 27.6 pg (27.0-33.0); Mean Corpuscular Volume 87.9 fL (80.0-98.0); Mean Platelet Volume 10.6 fL (9.4-12.3); Monocytes Absolute Auto 0.3 X10*3/uL (0.1-1.2); Monocytes Percent Auto 8.1 % (2-11); Neutrophils Absolute Auto 1.5 x10*3/uL (2.0-8.3); Neutrophils Percent Auto 46.1 % (45-73); Platelet Count 308 X10*3/uL (160-400); Red Blood Count 4.13 X10*6/uL (4.20-5.50); Red Cell Distribution Width 12.3 % (11.0-16.0); White Blood Count 3.3 X10*3/uL (4.8-10.8)
--- NOTE | 2024-09-15 10:15 | ED_ITS ---
HPI - General Adult General Chief complaint: Headache Stated complaint: head pain from head tumor, headache Time Seen by Provider: 09/15/24 10:15 History of Present Illness ED Provider: Zachary PERRY narrative: The patient is a 54-year-old woman who says that she woke up this morning with pain on the right side of the back of her neck just below the skull. She has had no fever, sweats, chills. She has had no injury. She says she did not engage in any unusual activities yesterday. There was no straining activities or other exertional activities that might have caused any kind of neck injury. Pain is worse with certain movements of the head. No sore throat. No ear pain. No chest pain. No cough or sputum. The patient has a known history of a pituitary tumor that she has been aware of for many years. She says that she has received MRIs in the past to monitor this pituitary tumor. Her last MRI was done on 09/01/2021. At that point her MRI was considered stable from the previous MRI. She has not had an MRI and she has not followed up with regard to her pituitary tumor since then. Related Data Home Medications ?Medication ?Instructions ?Recorded ?Confirmed cyanocobalamin (vitamin B-12) 500 500 mcg PO DAILY 09/06/24 mcg tablet (Vitamin B-12) ergocalciferol (vitamin D2) 1,250 1,250 mcg PO QWEEK 0 06/04/22 09/06/24 mcg (50,000 unit) capsule ferrous sulfate 325 mg (65 mg 325 mg PO BID 06/04/22 0 09/06/24 iron) tablet losartan 100 mg tablet 100 mg PO DAILY 07/29/23 Previous Rx's ?Medication ?Instructions ?Recorded riboflavin (vitamin B2) 400 mg 400 mg PO DAILY 30 days #30 tabs 06/04/22 tablet ondansetron 4 mg disintegrating 4 mg PO Q8-12H PRN shaneka sea and 01/21/23 tablet vomiting #20 tabs isosorbide mononitrate 30 mg 30 mg PO DAILY #90 tabs 1 03/31/22 tablet,extended release 24 hr nitroglycerin 0.4 mg sublingual 0.4 mg sublingual Q5M PRN chest 01/29/23 tablet pain #30 tabs cholecalciferol (vitamin D3) 125 125 mcg PO DAILY #90 caps 07/15/23 mcg (5,000 unit) capsule vitamin A palmitate 3,000 mcg 10,000 unit PO DAILY #90 caps 07/15/23 (10,000 unit) capsule amlodipine 10 mg tablet 10 mg PO DAILY #90 tabs 07/20 09/12 rosuvastatin 40 mg tablet (Crestor) 40 mg PO DAILY 90 days #90 tabs 09/30/23 cyclobenzaprine 10 mg tablet 10 mg PO BEDTIME PRN musc le spasm 11/18/23 30 days #30 tabs diclofenac sodium 1 % topical gel 4 g topical QID pain #100 grams 11/18/23 (Arthritis Pain (diclofenac)) lidocaine 5 % topical patch See Rx Instructions topica l 11/18/23 .COMPLEX pain #30 ea carvedilol 3.125 mg tablet (Coreg) 3.125 mg PO BID 90 days #180 tabs 12/06/23 ezetimibe 10 mg tablet (Zetia) 10 mg PO DAILY #90 tabs 02/23/24 aspirin 81 mg tablet,delayed 81 mg PO DAILY #90 tabs 0 06/12/24 release prednisone 20 mg tablet 20 mg PO DAILY 7 days #7 tab s 07/18/24 acetaminophen 500 mg capsule 1,000 mg (2 x 500 mg) PO Q8H PRN 09/15/24 fever or pain #14 caps ibuprofen 400 mg tablet 400 mg PO Q6H PRN pain #14 t abs 09/15/24 Allergies Allergy/AdvReac Type Severity Reaction Status Date / Time Sulfa (Sulfonamide Allergy Severe SWELLING Verified 09/15/24 09:14 Antibiotics) acetaminophen (Percocet) Allergy Unknown vomiting Verified 09/15/24 09:14 morphine Allergy Unknown Unknown Verified 09/15/24 09:14 oxycodone (Percocet) Allergy Unknown vomiting Verified 09/15/24 09:14 lisinopril AdvReac Unknown Unknown Verified 09/15/24 09:14 Pt states she is allergic to Allergy Unknown Nausea Uncoded 07/18/24 08:26 P From PERCOCET AdvReac Intermediate VOMITING Uncoded 07/18/24 08:26 baldo inhibitors AdvReac Unknown unknown Uncoded 07/18/24 08:26 Review of Systems 2 Review of Systems: Yes all other systems are reviewed and are negative PMFSH Past Medical History Medical History Osteoporosis Hypertension Anemia Brain tumor Asthma Surgical History History of sleeve gastrectomy Hx of hysterectomy Hx of tonsillectomy Family History Family History Mother Hypertension Asthma CAD (coronary artery disease) Osteoporosis Father Hypertension CAD (coronary artery disease) Sister Hypertension Lupus Brother Hypertension Maternal Grandmother Breast cancer Paternal Grandmother Breast cancer Social History Social History (Reviewed 09/06/24 @ 11:23 by Adriana Molina [facility]) Alcohol intake: never Patient Tobacco Use Status: Never used Tobacco Smoked in Last 30 Days: No Use of substances other than those prescribed or required for medical reasons: No Advance Directives: No Advance Directives Information Provided: Yes Do you have a plan to hurt others: No Plan Patient : No Physical Exam ED Vital Signs: Vital Signs - 24 hr 09/15/24 09:13 09/15/24 10:25 09/15/24 11:40 Temperature 97.3 F 97.4 F 97.6 F Pulse Rate 55 50 52 Respiratory Rate 16 16 16 Blood Pressure 177/68 H 160/66 H 165/71 H Pulse Oximetry 99 99 100 Oxygen Delivery Method Room Air Room Air Room Air BMI result Body Mass Index 32.1 Const Other: The patient is awake and alert. She is pleasant and cooperative. She does not appear acutely ill or toxic in any way. HENMT Other: Face is symmetrical, the posterior pharynx is normal, tympanic membranes are normal bilaterally. There was no swelling to the ears. Mastoids are nontender. Eyes General: appearance normal, both eyes and all related structures Eyelids: Yes eyelids normal Conjunctivae: conjunctivae normal Pupils: Equal, round and reactive pupils present EOM: EOMs intact bilaterally Neck Other: The patient has tenderness in the paraspinous muscles of the right posterior neck at the base of the skull. The mastoid is nontender. She seems to have some pain with moving her head from [id number]. There was no nuchal rigidity. No adenopathy appreciated. No soft tissue swelling appreciated. No redness. Resp Effort & Inspection: normal respiratory effort Auscultation: clear to auscultation bilaterally Cardio Rate: regular rate Rhythm: regular rhythm Heart sounds: S1 normal heart sound present and S2 normal heart sound present Skin Other: The skin of the neck appears normal. The skin elsewhere is also normal. Neuro Other: The patient is awake and alert with a normal mental status. Pupils are round equal, extraocular movements are intact. The face is symmetrical. Tongue is midline. Speech is normal. She has normal strength and sensation in her extremities. No pronator drift. She seems neurologically intact and nontoxic. Cranial nerves: Yes Equal, round and reactive pupils present Extrem Other: There is no calf swelling or tenderness. No asymmetry. No peripheral edema. Medications Administered Discontinued Medications Generic Name Dose Route Start Last Admin Trade Name Austinq PRN Reason Stop Dose Admin Acetaminophen 975 mg 09/15/24 10:41 09/15/24 11:05 Acetaminophen 325 Mg Tablet PO 09/15/24 10:42 975 mg ONCE ONE Administration Ketorolac Tromethamine 30 mg 09/15/24 10:41 09/15/24 11:06 Ketorolac Tromethamine 30 Mg/Ml Vial IM 09/15/24 10:42 30 mg ONCE ONE Administration Medical Decision Making Medical Decision Making MDM Narrative: The patient is a 54-year-old woman who presents for evaluation of right upper posterior neck pain. Symptoms seemed to have started this morning. She does not look acutely ill. This seems to be musculoskeletal in nature. The patient has a history of a pituitary tumor but I do not think the patient has neck pain today is in any way related to any intracranial process. This seems entirely extracranial. The patient was reassured that this seems to be muscular pain. She will be given an injection of ketorolac and a dose of oral acetaminophen. Acetaminophen is listed as an allergy but this is because she had problems with Percocet in the past. She is not allergic to acetaminophen. She will be discharged with a prescriptions for ibuprofen and acetaminophen. She has not had any recent follow up for her pituitary tumor. She is advised to follow up with the regular doctor to try to resume follow up. Lab Data 09/15/24 09:46 09/15/24 09:46 Labs: Lab Results 09/15/24 Range/Units 09:46 WBC 3.3 L (4.8-10.8) X10*3/uL RBC 4.13 L (4.20-5.50) X10*6/uL Hgb 11.4 L (12.0-16.0) g/dl Hct 36.3 L (37.0-47.0) % MCV 87.9 (80.0-98.0) fL MCH 27.6 (27.0-33.0) pg MCHC 31.4 (31.0-35.0) g/dl RDW 12.3 (11.0-16.0) % Plt Count 308 (160-400) X10*3/uL MPV 10.6 (9.4-12.3) fL Immature Gran % (Auto) 0.3 (0.0-0.4) % Neut % (Auto) 46.1 (45-73) % Lymph % (Auto) 26.6 (20-40) % [place] % (Auto) 8.1 (2-11) % Eos % (Auto) 16.8 H (0-4) % Baso % (Auto) 2.1 H (0-2) % Lymph # (Auto) 0.9 L (1.2-4.9) X10*3/uL [place] # (Auto) 0.3 (0.1-1.2) X10*3/uL Eos # (Auto) 0.6 H (0.0-0.4) X10*3/uL Baso # (Auto) 0.1 (0.0-0.2) X10*3/uL Abs Immat Gran (auto) 0.01 (0.00-0.03) X10*3/uL Absolute Neuts (auto) 1.5 L (2.0-8.3) x10*3/uL Absolute Nucleated RBC 0.000 (0.0-0.012) X10*3/uL Nucleated RBC % (auto) 0.0 (0.0-0.2) /100WBC Sodium 139 (135-145) mmol/L Potassium 4.5 (3.3-5.1) mmol/L Chloride 105 (96-108) mmol/L Carbon Dioxide 27 (22-29) mmol/L Anion Gap 12 (12-20) BUN 15 (9-16) mg/dL Creatinine 0.79 (0.5-1.4) mg/dL Estim Creat Clear Calc 82.5 Estimated GFR > 60 Random Glucose 103 (60-115) mg/dL Calcium 9.7 (8.4-10.2) mg/dL Total Bilirubin 0.5 (0.0-1.0) mg/dL AST 27 (5-31) U/L ALT 21 (0-31) U/L Alkaline Phosphatase 113 (39-117) U/L Total Protein 7.4 (6.5-8.0) g/dL Albumin 4.6 (3.5-5.0) g/dL Influenza Type A (PCR) NEGATIVE (Negative) Influenza Type B (PCR) NEGATIVE (Negative) RSV RNA Qual (PCR) NEGATIVE (Negative) SARS-CoV-2 RNA (RT-PCR) NEGATIVE (Negative) Discharge Plan Discharge Clinical Impression: Neck pain on right side Patient Disposition: Home, Self-Care Additional Instructions: Your blood testing today is unremarkable. I think your pain is a muscular pain. Please use ibuprofen and acetaminophen as prescribed as needed for pain. Please follow up with your regular doctor. Return to the emergency room if worse. Prescriptions: New ibuprofen 400 mg tablet 400 mg PO Q6H PRN (Reason: pain) Qty: 14 0RF acetaminophen 500 mg capsule 1,000 mg PO Q8H PRN (Reason: fever or pain) Qty: 14 0RF No Action vitamin A palmitate 3,000 mcg (10,000 unit) capsule 10,000 unit PO DAILY Qty: 90 3RF cholecalciferol (vitamin D3) 125 mcg (5,000 unit) capsule 125 mcg PO DAILY Qty: 90 3RF amlodipine 10 mg tablet 10 mg PO DAILY Qty: 90 1RF carvedilol [Coreg] 3.125 mg tablet 3.125 mg PO BID 90 Days Qty: 180 3RF Rx Instructions: must administer with a meal/food aspirin 81 mg tablet,delayed release (DR/EC) 81 mg PO DAILY Qty: 90 3RF prednisone 20 mg tablet 20 mg PO DAILY 7 Days Qty: 7 0RF ergocalciferol (vitamin D2) 1,250 mcg (50,000 unit) capsule 1,250 mcg PO QWEEK cyanocobalamin (vitamin B-12) [Vitamin B-12] 500 mcg tablet 500 mcg PO DAILY ferrous sulfate 325 mg (65 mg iron) tablet 325 mg PO BID riboflavin (vitamin B2) 400 mg tablet 400 mg PO DAILY 30 Days Qty: 30 6RF rosuvastatin [Crestor] 40 mg tablet 40 mg PO DAILY 90 Days Qty: 90 3RF lidocaine 5 % adhesive patch,medicated See Rx Instructions topical .COMPLEX Qty: 30 3RF Rx Instructions: leave on most painful area for up to 12 hrs topical cyclobenzaprine 10 mg tablet 10 mg PO BEDTIME PRN (Reason: muscle spasm) 30 Days Qty: 30 0RF diclofenac sodium [Arthritis Pain (diclofenac)] 1 % gel 4 g topical QID Qty: 100 4RF Rx Instructions: apply to single knee, ankle, foot; for foot includes sole/toes/top of foot ondansetron 4 mg tablet,disintegrating 4 mg PO Q8-12H PRN (Reason: nausea and vomiting) Qty: 20 1RF nitroglycerin 0.4 mg tablet, sublingual 0.4 mg sublingual Q5M PRN (Reason: chest pain) Qty: 30 5RF Rx Instructions: do not exceed 3 doses per episode isosorbide mononitrate 30 mg tablet extended release 24 hr 30 mg PO DAILY Qty: 90 3RF losartan 100 mg tablet 100 mg PO DAILY ezetimibe [Zetia] 10 mg tablet 10 mg PO DAILY Qty: 90 3RF Referrals: Gilberto Gaines III, MD [Physician, Medical] Referral Note: right sided neck pain Interventions: ED Discharge Assessment Last Done: 09/15/24 11:40 Discharge Date/Time: 09/15/24 11:43 Print Language: English
[2024-09-15 10:20] LABS: Alanine Aminotransferase 21 U/L (0-31); Albumin Level 4.6 g/dL (3.5-5.0); Alkaline Phosphatase 113 U/L (39-117); Anion Gap 12 (12-20); Aspartate Amino Transferase 27 U/L (5-31); Bilirubin Total 0.5 mg/dL (0.0-1.0); Blood Urea Nitrogen 15 mg/dL (9-16); Calcium 9.7 mg/dL (8.4-10.2); Carbon Dioxide 27 mmol/L (22-29); Chloride 105 mmol/L (96-108); Creatinine Clr Calc Pharmacy 82.5; Estimated Glomerular Filt Rate > 60; Glucose Random 103 mg/dL (60-115); Potassium 4.5 mmol/L (3.3-5.1); Sodium 139 mmol/L (135-145); Total Protein 7.4 g/dL (6.5-8.0)
[2024-09-15 10:25] VITALS: BP 160/66; PULSE 50; RESP 16; TEMP 36.3; O2SAT 99
--- NOTE | 2024-09-15 10:30 | PC.NURSE ---
Patient A&O x 3. Patient presents to ED c/o neck pain rated 10/10 non radiating. Pain started last night without any precipitating factors. Denies injury, vision changes, SOB, fever/chills. Pain is located on right side of neck, limited ROM. Patient hypertensive 160/66 but all VSS and up to date. Blood collected/sent. Call bose in reach. Plan of care on going.
[2024-09-15 10:46] LABS: Influenza A PCR NEGATIVE (Negative); Influenza B PCR NEGATIVE (Negative); Resp Syncy Virus RNA Qual PCR NEGATIVE (Negative); SARS COV2 PCR INHOUSE NEGATIVE (Negative)
[2024-09-15] MEDS: Acetaminophen 325 MG TABLET 975 MG PO (11:05)
[2024-09-15] MEDS: Ketorolac Tromethamine 30 MG/ML VIAL IM (11:06)
[2024-09-15 11:40] VITALS: BP 165/71; PULSE 52; RESP 16; TEMP 36.4; O2SAT 100
--- OUTSIDE RECORDS SUMMARY | 2024-09-15 12:05 | XMS_ITS | Clinical Summary ---
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 Name Role Phone AdamsLaceyjuan carlosshyla Primary [...] 50+ Ye ars (2 of 2 - PPSV23, PCV20, or PCV21) 06/28/2020 05/03/2020 DTaP,Tdap,and Td Vaccines (2 - Td or Tdap) 06/21/2022 06/21/2012 COVID-19 Vaccine (1 - 2023-2 5 season) 2023 Alcohol/Substance Use Screening 03/22/2024 Depression Screening and Follow-Up 03/22/2024 Social Drivers of Health Deloris ual Screening 03/22/2024 Influenza Vaccine (Season Ended) 2024 02/18/2022, 01/18/2020, 01/08/2017, Additional history exists RSV Vaccine (60+ years old a nd patients) (1 - 1-dose 75+ series) 2045 Insurance [facility] MEDICARE Care Teams Glass Blowing Lathe Operator Relationship Specialty Start Date End Date Deirdre Lamas LAMBERT PCP - General 06/12/22
== END 2024-09-15 11:43 | disposition home or self-care (01) ==
PROVIDERS: Emergency Provider Emergency Medicine
DX: M54.2 Cervicalgia (principal); Z03.818 Encounter for observation for suspected exposure to other biological agents ruled out; I10 Essential (primary) hypertension; D35.2 Benign neoplasm of pituitary gland; Z90.3 Acquired absence of stomach [part of]; J45.909 Unspecified asthma, uncomplicated; Z79.899 Other long term (current) drug therapy
CPT/HCPCS: 0241U; 36415; 80053; 85025; 96372; 99284; J1885

== ENCOUNTER 2024-10-30 09:39 | Outpatient (AMB) | payer MEDICARE, MEDICAID, SELFPAY ==
[2024-10-30 10:00] VITALS: BMI 32.1
--- NOTE | 2024-10-30 10:00 | A.OFFVIS_ITS ---
Vital Signs 10/30/24 10:00 Height 5 ft 3 in Weight 181 lb BMI 32.1 Intake Visit Reasons: New Prob - Left shoulder Pain Intake Note: Courtney is a 54 year old right hand dominant female who presents today as an established patient, new problem visit with complaints of left shoulder pain. Patient was [place] [facility] for acute shoulder pain, x-rays were taken and she was referred to orthopedics. Patient reports she is doing a little better, she is still limited on her ROM. Her pain is located in her bicep area that presents when she is trying to sleep. Denies injury. No previous treatment. Dosimetrist Required: Yes Dosimetrist Services: Dosimetrist Present Dosimetrist Name: Elena ID#[id number] Allergies Sulfa (Sulfonamide Antibiotics) Allergy (Severe, Verified 10/30/24 10:07) SWELLING acetaminophen (Percocet) Allergy (Unknown, Verified 10/30/24 10:07) vomiting morphine Allergy (Unknown, Verified 10/30/24 10:07) Unknown oxycodone (Percocet) Allergy (Unknown, Verified 10/30/24 10:07) vomiting lisinopril Adverse Reaction (Unknown, Verified 10/30/24 10:07) Unknown Pt states she is allergic to P Allergy (Unknown, Uncoded 10/30/24 10:07) Nausea From PERCOCET Adverse Reaction (Intermediate, Uncoded 10/30/24 10:07) VOMITING baldo inhibitors Adverse Reaction (Unknown, Uncoded 10/30/24 10:07) unknown Medication List - Last Reconciled 10/30/24 by Ana Magaña PA-C acetaminophen 1,000 mg (2 x 500 mg) PO Q8H PRN amlodipine 10 mg PO DAILY aspirin 81 mg PO DAILY carvedilol (Coreg) 3.125 mg PO BID 90 days cholecalciferol (vitamin D3) 125 mcg PO DAILY cyanocobalamin (vitamin B-12) (Vitamin B-12) 500 mcg PO DAILY cyclobenzaprine 10 mg PO BEDTIME PRN 30 days diclofenac sodium 1% (Arthritis Pain (diclofenac)) 4 grams topical QID ergocalciferol (vitamin D2) 1,250 mcg PO QWEEK ezetimibe (Zetia) 10 mg PO DAILY ferrous sulfate 325 mg PO BID ibuprofen 400 mg PO Q6H PRN isosorbide mononitrate ER 30 mg PO DAILY lidocaine 5% leave on most painful area for up to 12 hrs topical losartan 100 mg PO DAILY nitroglycerin 0.4 mg sublingual Q5M PRN ondansetron 4 mg PO Q8-12H PRN prednisone 20 mg PO DAILY 7 days riboflavin (vitamin B2) 400 mg PO DAILY 30 days rosuvastatin (Crestor) 40 mg PO DAILY 90 days vitamin A palmitate 10,000 units PO DAILY HPI HPI New Prob - Left shoulder Pain: Details: 54 yo female presents to the office today for left shoulder pain. She c/o limited ROM. Her pain is located in her bicep area that presents when she is trying to sleep. Denies injury. No previous treatment. She was seen in the ED, xrays obtained and referred to our office for ortho eval. [facility] Medical History Osteoporosis Hypertension Anemia Brain tumor Asthma Surgical History History of sleeve gastrectomy Hx of hysterectomy Hx of tonsillectomy Family History Mother Hypertension Asthma CAD (coronary artery disease) Osteoporosis Father Hypertension CAD (coronary artery disease) Sister Hypertension Lupus Brother Hypertension Maternal Grandmother Breast cancer Paternal Grandmother Breast cancer Social History (Updated 10/30/24 @ 10:04 by NAT Mendoza) Alcohol intake: never Patient Tobacco Use Status: Never used Tobacco Current occupational status: unemployed Current occupation: right hand dominant Review of Systems Const All systems reviewed & are unremarkable except as noted in HPI and below Physical Exam Vital Signs: BMI result Body Mass Index 32.1 Const General: cooperative and no acute distress Orientation/consciousness: patient oriented x3 Resp Effort & Inspection: normal respiratory effort and able to speak in complete sentences Cardio Peripheral pulses: Peripheral pulses 2+ throughout Neuro General: patient oriented x3 Extrem Other: Left shoulder normal to inspection TTP over the ac joint + Alfreda Ochoa Results Reviewed Results Reviewed: XR shoulder LT min 2V IMPRESSION: 1. No acute bony abnormalities. 2. Normal-appearing glenohumeral joint. 3. Mild to moderate spurring of the AC joint. Assessment & Plan Assessment & Plan (1) Osteoarthritis of left acromioclavicular joint: Code(s): M19.012 - Primary osteoarthritis, left shoulder Category: Medical (2) Arthritis of left acromioclavicular joint: Code(s): M19.012 - Primary osteoarthritis, left shoulder Category: Medical Plan We discussed options today which includes physical therapy and a steroid injection. I placed an order for physical therapy and the patient will contact their office to make an appointment. She was given the information to do so. I also placed an order for a left AC joint injection to be performed under fluoroscopy. The patient was informed the hospital we will call her to schedule this appointment. If symptoms persist over the next 8-12 weeks she can contact our office to discuss other options otherwise she can repeat injections every 3- 6 months as needed. Orders: Orders FL Guided Asp or Inj Med Jt LT Today M19.012 - Primary osteoarthritis, left shoulder PT Evaluation and Treatment Today M19.012 - Primary osteoarthritis, left shoulder Coding Level of Care Code New Pt Level 3 (11498) Complex EM visit Add On G2211 Diagnoses Osteoarthritis of left acromioclavicular joint M19.012 Arthritis of left acromioclavicular joint M19.012
--- OUTSIDE RECORDS SUMMARY | 2024-10-30 10:08 | XMS_ITS ---
Author Name [facility] Organization Unknown Care Team Organization Name Specialty Phone Email Start Date End Da te [facility] Anaya Anderson Primary Care 11/26/2022 11/08/2023 [facility] Winsome Parnell Primary Care 08/28/2022 024 [facility] KEIRA SHAW Primary Care 05/27/2022 [facility] DEEPAK Watters Primary Care 01/27/202210/20
--- OUTSIDE RECORDS SUMMARY | 2024-10-30 10:08 | XMS_ITS | Clinical Summary ---
Author Organization [facility] [address] [place] [address] [place] [phone] Phone Care Team Providers Care Moving Picture Producer Name Role Phone Gilberto Gaines MD Primary Care Provider [phone] Allergies Active Allergy Reactions Criticality Noted Date [...] a week at night. 11/10/19 24 Active cyanocobalamin (VITAMIN B-12) 500 mcg [...] NOT EXCEED 3 DOSES PER EPISODE 04/28/19 Active docusate sodium (COLACE) 100 mg capsule Take 1 capsule (100 mg total) by mouth 2 (two) times a day. 04/13/19 24 Active cholecalciferol (VITAMIN D-3) 50 mcg (2,000 unit) capsule Take 1 capsule (2,000 Units total) by mouth 1 (one) time each day. 05/31/19 Active aspirin 81 mg EC tablet Take [...] cream Apply to affected area bid 02/13/20 Active albuterol sulfate (ProAir RespiClick) 90 mcg/actuation aerosol powdr breath activated Inhale 1 Puff into the lungs every 6 hours as needed (wheezing). 06/10/19 Active ferrous sulfate 325 mg (65 mg elemental iron) tablet Take 1 tablet (325 mg total) by mouth 2 (two) times a day. 05/28/19 23 Active losartan (COZAAR) 100 mg tablet Take 1 tablet (100 mg total) by mouth 1 (one) time each day. 90 tablet 1 09/09/19 25 Active amitriptyline (ELAVIL) 10 mg tablet Take 1 tablet (10 mg total) by mouth at bedtime. 90 each 1 09/09/19 25 Active amLODIPine (NORVASC) 10 mg tablet Take 1 tablet (10 mg total) by mouth 1 (one) time each day. 90 tablet 1 09/09/19 25 Active Active Problems Problem Noted Date Diagnosed Date Obesity (BMI 30.0-34.9) 01/05/2024 CAD (coronary artery disease) 05/31/2023 Overview (01/05/2024): [id number] on cardiac cath - per Dr. Pruett [...] Encounters Date Type Department Care Team Description 09/08/2024 9:30 AM EDT Office Visit Adult Medicine [address] [phone] Anaya Anderson PA Essential hypertension, benign (Primary Dx); Coronary artery disease, unspecified vessel or lesion type, unspecified whether angina present, unspecified whether [place] or transplanted heart; Vitamin D deficiency; Iron deficiency anemia, unspecified iron deficiency anemia type; Fatigue, unspecified type; Hyperlipidemia, unspecified hyperlipidemia type; Migraine without status migrainosus, not intractable, unspecified migraine type from Last 3 Months Immunizations Name Administration [...] Date Site/Laterality Comments GASTRIC BYPASS 06/03/2016 PROCEDURE: AL GASTRIC RSTCV W/BYP W/SM INT RCNSTJ LIMIT [...] 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 Christensen Allergic rhinitis 06/30/2018 DX:Allergic [...] Sign Reading Time Taken Comments Blood Pressure 122/72 09/08/2024 9:49 AM EDT Pulse 56 09/08/2024 9:15 AM EDT Temperature 35.9 C (96.6 F) 09/08/2024 9:15 AM EDT Respiratory Rate 14 02/21/2024 2:12 PM EST Oxygen Saturation 99% 09/08/2024 9:15 AM EDT Inhaled Oxygen Concentration - - Weight 82.2 kg (181 lb 4.8 oz) 09/08/2024 9:15 A M EDT Height 160 cm (5' 2.99 ) 09/08/2024 9:15 AM EDT Body Mass Index 32.12 09/08/2024 9:15 AM EDT Plan of Treatment Upcoming Encounters Date Type Department Care Team (Late st Contact Info) Description 11/23/2024 1:30 PM EDT Appointment Radiology Department - [address] [phone] 03/12/2025 9:30 AM EST Office Visit Adult Medicine [place] [address] [phone] Amberly Centeno, BREAKFAST MANAGER [address] [place], [place] Health Maintenance Due Date Last Done Comments Hepatitis B Vaccines (1 of 3 - 19+ 3-dose series) 1989 Zoster Vaccines (1 of 2) 02/02/2020 Pneumococcal Vaccine: 50+ Years (2 of 2 - PPSV23) 06/28/2020 05/03/2020 HIV Screening 02/28/2022 Medicare Annual Wellness Visit 02/28/2022 Social Influencers of Health Screening 02/28/2022 COVID-19 Vaccine ( - season) 2023 Depression Screening 03/22/2024 05/31/2023 Influenza Vaccine (#1) 2024 , 02/18/2022, 01/18/2020, Additional history exists Hypertension/CHF/CAD Annual [...] LAB CHEMISTRY METHOD 02/21/2024 4:53 PM EST [facility] Triglycerides 279(H) 0 - 150 mg/dL LAB CHEMISTRY METHOD 02/21/2024 4:53 PM EST [facility] HDL 44 >=40 mg/dL LAB CHEMISTRY METHOD 02/21/2024 4:53 PM [facility] LDL Calculated 108(H) 0 - 100 mg/dL LAB CHEMISTRY METHOD 02/21/2024 4:53 PM [facility] VLDL Cholesterol Ancelmo 55.8 mg/dL LAB CHEMISTRY METHOD 02/21/2024 4:53 PM [facility] Non HDL Chol. (LDL+VLDL) 164(H) <145 mg/dL LAB CHEMISTRY METHOD 02/21/2024 4:53 PM [facility] Chol/HDL Ratio 4.7(H) 0.0 - 4.4 LAB CHEMISTRY METHOD 02/21/2024 4:53 PM [facility] Blood Venous blood specimen / Unknown Venipuncture / Unknown 02/21/2024 2:34 PM EST 02/21/2024 2:34 PM EST us Gilberto Gaines MD LAB BLOOD ORDERABLES Final Resu lt [facility] [address] [place] [address], * (ABNORMAL) Comprehensive metabolic panel (02/21/2024 2:34 PM EST) Sodium 143 133 - 145 mmol/L LAB CHEMISTRY METHOD 02/21/2024 4:53 PM [facility] Potassium 4.0 3.5 - 5.5 mmol/L LAB CHEMISTRY METHOD 02/21/2024 4:53 PM [facility] Chloride 109 96 - 110 mmol/L LAB CHEMISTRY METHOD 02/21/2024 4:53 PM [facility] CO2 27 21 - 32 mmol/L LAB CHEMISTRY METHOD 02/21/2024 4:53 PM [facility] Anion Gap 7 3 - 11 LAB CHEMISTRY METHOD 02/21/2024 4:53 PM [facility] Glucose 103(H) 70 - 100 mg/dL LAB CHEMISTRY METHOD 02/21/2024 4:53 PM [facility] BUN 18 5 - 25 mg/dL LAB CHEMISTRY METHOD 02/21/2024 4:53 PM [facility] Creatinine 0.99 0.50 - 1.10 mg/dL LAB CHEMISTRY METHOD 02/21/2024 4:53 PM [facility] eGFR 68 >=60 mL/min/1. 73m2 LAB CHEMISTRY METHOD 02/21/2024 4:53 PM [facility] Comment:Calculation based on the Chronic Kidney Disease Epidemiology Collaboration (CKD-EPI) equation refit without adjustment for race. BUN/Creatinine Ratio 18.2 LAB CHEMISTRY METHOD 02/21/2024 4:53 PM [facility] Calcium 9.6 8.5 - 10.5 mg/dL LAB CHEMISTRY METHOD 02/21/2024 4:53 PM [facility] AST (SGOT) 20 10 - 42 unit/L LAB CHEMISTRY METHOD 02/21/2024 4:53 PM [facility] ALT (SGPT) 18 10 - 60 unit/L LAB CHEMISTRY METHOD 02/21/2024 4:53 PM [facility] Alkaline Phosphatase 110 42 - 121 unit/L LAB CHEMISTRY METHOD 02/21/2024 4:53 PM [facility] Total Protein 6.8 6.0 - 8.0 g/dL LAB CHEMISTRY METHOD 02/21/2024 4:53 PM [facility] Albumin 3.9 3.2 - 5.0 g/dL LAB CHEMISTRY METHOD 02/21/2024 4:53 PM [facility] Total Bilirubin 0.3 0.0 - 1.4 mg/dL LAB CHEMISTRY METHOD 02/21/2024 4:53 PM [facility] Blood Venous blood specimen / Unknown Venipuncture / Unknown 02/21/2024 2:34 PM EST 02/21/2024 2:34 PM EST us Gilberto Gaines MD LAB BLOOD ORDERABLES Final Resu lt [place]AN PABLO [place] ([facility]) [facility] [address] [place] [address], * SCREENING MAMMOGRAPHY BI 2-VIEW BREAST INC [...] interpreted with the aid of computer-aided detection. Comparison is made with 07/15/2021 and as far back as 01/12/2019. Breast parenchyma is composed of scattered fibroglandular densities. No new suspicious mass, architectural distortion, or suspicious [...] evidence of malignancy. BI-RADS 1 - negative us Kenya Aguero CNM IMG XR PROCEDURES Final Result * Hm Depression Screening (05/31/2023) Pathologist [facility] Depression Screening abstracted Historical Provider HEALTH MAINTENANCE Final Result * Colonoscopy (11/18/2022) Pathologist [facility] Colonoscopy no interpretation , abstracted Anatomical Region Laterality Modality Other [facility] Provider HEALTH MAINTENANCE Final Result * Cervical Cancer Screening: HPV (07/14/2021) [facility] Cervical Cancer Screening: HPV negative, abstracted Historical Provider HEALTH MAINTENANCE Final Result * Hepatitis C Screening (11/22/2020) [facility] Hepatitis C Screening abstracted [facility] Provider HEALTH MAINTENANCE Final Result from Last 3 Months or Most Recently Relevant to Health Maintenance Insurance MEDICARE [place] Care Teams Moving Picture Producer Relationship Specialty Start Date End Date Gilberto Gaines MD [address] [place] [address] [phone] PCP - General Internal Medicine 10/06/19
--- OUTSIDE RECORDS SUMMARY | 2024-10-30 10:08 | XMS_ITS | Clinical Summary ---
Author Organization [facility], Address [address] [place] [address] [place] [address] Phone Care Team Providers Care Parks And Recreation Manager Name Role Phone Lilliana Thrasher APRN [...] 2 (mild) 3 Hypokalemia 03/06/2023 Hypertension 03/05/2023 Family History Medical History Relation Comments Hypertension [...] - PPSV23, PCV20, or PCV21) 06/28/2020 05/03/2020 Influenza Vaccine (#1) 2024 4, 02/18/2022, 01/18/2020, Additional history exists Pneumococcal Vaccine: Peds ( 0 to 5 Years) and At-Risk Patients (6 to 49 Years) Discontinued 05/03/2020 Insurance Medicaid [place] Medicare Care Teams Parks And Recreation Manager Relationship Specialty Start Date End Date Lilliana Thrasher APRN [address] [place] [address] PCP - General Internal Medicine 01/28/23
--- OUTSIDE RECORDS SUMMARY | 2024-10-30 10:08 | XMS_ITS | Clinical Summary ---
Author Organization [facility] Address [address] [place] [address] Care Team Providers Care Toll Line Mechanic Name Role Phone AdamsLaceyjuan carlosshyla Primary Care [...] Health Deloris ual Screening 03/22/2024 Influenza Vaccine (#1) 2024 2, 01/18/2020, 01/08/2017, Additional history exists RSV Vaccine (60+ years old a nd patients) (1 - 1-dose 75+ series) 2045 Insurance [facility] MEDICARE Care Teams Toll Line Mechanic Relationship Specialty Start Date End Date Deirdre Lamas LAMBERT PCP - General 06/12/22
== END 2024-10-30 11:01 | disposition home or self-care (01) ==
LOC: HO.HOS 09:39
PROVIDERS: Visit Provider Physician Assistant
DX: M19.012 Primary osteoarthritis, left shoulder (principal)
CPT/HCPCS: 99213; G2211

== ENCOUNTER → 2024-10-30 09:39 | Outpatient (BNVA) | payer MEDICARE, MEDICAID, SELFPAY | PROVIDERS: Visit Provider Physician Assistant | DX: M19.012 Primary osteoarthritis, left shoulder (principal) | CPT/HCPCS: 99212 ==

== ENCOUNTER 2024-12-01 08:57 | Outpatient (REF) | payer MEDICARE, MEDICAID, SELFPAY ==
--- OUTSIDE RECORDS SUMMARY | 2024-12-01 09:50 | XMS_ITS | Clinical Summary ---
Author Organization [facility], Address [address] [place] [address] [place] [address] Phone Care Team Providers Care Systems Analyst Name Role Phone Lilliana Thrasher APRN Primary [...] 05/03/2020 Insurance Medicaid [place] Medicare Care Teams Systems Analyst Relationship Specialty Start Date End Date Lilliana Thrasher APRN [address] [place] [address] PCP - General Internal Medicine 01/28/23
--- OUTSIDE RECORDS SUMMARY | 2024-12-01 09:50 | XMS_ITS | Clinical Summary ---
Author Organization [facility] Address [address] [place] [address] Care Team Providers Care Custodial Laborer Name Role Phone AdamsLaceyjuan carlosshyla Primary Care [...] (2 - Td or Tdap) 06/21/2022 06/21/2012 Alcohol/Substance Use Screening 03/22/2024 Depression Screening and Follow-Up 03/22/2024 Social Drivers of Health Deloris ual Screening 03/22/2024 COVID-19 Vaccine (1 - 2023-2 5 season) 2024 Influenza Vaccine (#1) 2024 2, 01/18/2020, 01/08/2017, Additional history exists RSV Vaccine (60+ years old a nd patients) (1 - 1-dose 75+ series) 2045 Insurance [facility] MEDICARE Care Teams Custodial Laborer Relationship Specialty Start Date End Date Deirdre Lamas LAMBERT PCP - General 06/12/22
--- OUTSIDE RECORDS SUMMARY | 2024-12-01 09:50 | XMS_ITS | Encounter Summary ---
Author Organization [facility], Address [address] [place] [address] Phone Care Team Providers Care Ada Accommodation Consultant Name Role Phone Lilliana Thrasher APRN Primary Care Provider + [phone] Encounter Details Date Type Department Care Team (Late st Contact Info) Description 04/24/2024 Orders Only [facility], [address] [place] [phone] Rahat Anderson PA [address] [place] [phone] Hypertension; Hypokalemia; Chronic kidney disease, stage 2 [...] (mild) documented in this encounter Care Teams Ada Accommodation Consultant Relationship Specialty Start Date End Date Lilliana Thrasher APRN [address] [place], [place] PCP - General Internal Medicine 01/28/23 documented as of this encounter
--- OUTSIDE RECORDS SUMMARY | 2024-12-01 09:51 | XMS_ITS | Encounter Summary ---
Author Organization [facility], Address [address] [place] [address] Phone Care Team Providers Care Investigation Division Lieutenant Name Role Phone Lilliana Thrasher APRN Primary Care Provider [phone] Encounter Details Date Type Department Care Team (Late st Contact Info) Description 01/29/2023 Documentation Only [facility], [address] [place] [phone] Lilliana Thrasher APRN [address] [place] [phone] Social History Tobacco Use Types Packs/Day Years [...] on filedocumented in this encounter Care Teams Investigation Division Lieutenant Relationship Specialty Start Date End Date Lilliana Thrasher APRN [address] [place], [place] PCP - General Internal Medicine 01/28/23 documented as of this encounter
--- OUTSIDE RECORDS SUMMARY | 2024-12-01 09:51 | XMS_ITS | Encounter Summary ---
Author Organization [facility], Address [address] [place] [address] Phone Care Team Providers Care Almond Sorter Name Role Phone Lilliana Thrasher APRN Primary Care Provider [phone] Encounter Details Date Type Department Care Team (Late st Contact Info) Description 01/29/2023 Documentation Only [facility], [address] [place] [phone] Lilliana Thrasher APRN [address] [place] [phone] Social History Tobacco Use Types Packs/Day Years [...] on filedocumented in this encounter Care Teams Almond Sorter Relationship Specialty Start Date End Date Lilliana Thrasher APRN [address] [place], [place] PCP - General Internal Medicine 01/28/23 documented as of this encounter
--- OUTSIDE RECORDS SUMMARY | 2024-12-01 09:51 | XMS_ITS | Clinical Summary ---
Author Organization [facility] [address] [place] [address] [place] [phone] Phone Care Team Providers [employer] Principal Name Role Phone Gilberto Gaines MD Primary Care Provider [phone] Allergies Active Allergy Reactions Criticality Noted Date [...] CAD (coronary artery disease) 05/31/2023 Overview (01/05/2024): [id number] on cardiac cath - per Dr. 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 Christensen Allergic rhinitis 06/30/2018 DX:Allergic [...] Care Team (Late st Contact Info) Description 03/12/2025 9:30 AM EST Office Visit Adult Medicine [address] [phone] Amberly Centeno NP [address] [place], [place] 05/17/2025 9:00 AM EST Office Visit Adult Medicine [address] [phone] Gilberto Gaines MD [address] [place] [phone] Health Maintenance Due Date Last Done Comments Hepatitis B Vaccines (1 of 3 - 19+ 3-dose series) 1989 Zoster Vaccines (1 of 2) 02/02/2020 Pneumococcal Vaccine: 50+ Years (2 of 2 - PPSV23) 06/28/2020 05/03/2020 HIV Screening 02/28/2022 Medicare Annual Wellness Visit 02/28/2022 Social Influencers of Health Screening 02/28/2022 Depression Screening 03/22/2024 05/31/2023 COVID-19 Vaccine ( season) 2024 Influenza Vaccine (#1) 2024 , 02/18/2022, 01/18/2020, Additional history exists Hypertension/CHF/CAD Annual BMP Blood Test 10/30/2025 10/30/2024, 02/21/2024, 09/07/2023, Additional history exists Breast Cancer Screening 11/16/2025 11/17/19 24, 11/17/2023, 07/15/2021, Additional history exists Cervical Cancer Screening: HPV 07/14/2026 07/14/2021 Cholesterol Screening (Lipid Panel) 10/30/2029 10/30/2024, 02/21/2024, 09/07/2023, Additional history exists Colorectal Cancer Screening: Colonoscopy 11/18/2032 11/18/2022 DTaP,Tdap,and [...] Procedure Name Priority Date/Time Associated Diagnosis Comments VITAMIN B12 Routine 10/30/2024 9:09 AM EDT Fatigue, unspecified type LIPID PANEL WITH REFLEX TO DIRECT LDL Routine 10/30/2024 9:09 AM EDT Coronary artery disease, unspecified vessel or lesion type, unspecified whether angina present, unspecified whether [place] or transplanted heart BASIC METABOLIC PANEL Routine 10/30/2024 9:09 AM EDT Essential hypertension, benign VITAMIN D 25 HYDROXY Routine 10/30/2024 9:09 AM EDT Vitamin D deficiency THYROID STIMULATING HORMONE WITH REFLEX TO FREE T4 AND FREE T3 Routine 10/30/2024 9:09 AM EDT Fatigue, unspecified type COMPLETE BLOOD COUNT Routine 10/30/2024 9:09 AM EDT Iron deficiency anemia, unspecified iron deficiency anemia type IRON AND TIBC Routine 10/30/2024 9:09 AM EDT Iron deficiency anemia, unspecified iron deficiency anemia type FERRITIN Routine 10/30/2024 9:09 AM EDT Iron deficiency anemia, unspecified iron deficiency anemia type SCREENING MAMMOGRAPHY BI 2-VIEW BREAST INC CAD Routine 11/17/2023 1:44 PM EDT Encounter for screening mammogram for malignant neoplasm of breast DEPRESSION SCREENING Routine 05/31/2023 COLONOSCOPY Routine 11/18/2022 HPV Routine 07/14/2021 HEPATITIS C SCREENING Routine 11/22/2020 from Last 3 Months or Most Recently Relevant to Health Maintenance Results * Thyroid stimulating hormone with reflex to free t4 and free t3 (10/30/2024 9:09 AM EDT) TSH 1.80 0.40 - 4.00 mcIU/mL LAB CHEMISTRY METHOD 10/30/2024 2:58 PM EDT [facility] Blood Venous blood specimen / Unknown Venipuncture / Unknown 10/30/2024 9:09 AM EDT 10/30/2024 9:09 AM EDT Anaya GOMEZ LAB BLOOD ORDERABLES Fi nal Result [facility] [address] [place] [address], * (ABNORMAL) Lipid panel with reflex to direct LDL (10/30/2024 9:09 AM EDT) Cholesterol 233(H) 0 - 200 mg/dL LAB CHEMISTRY METHOD 10/30/2024 2:16 PM EDT [facility] Triglycerides 118 0 - 150 mg/dL LAB CHEMISTRY METHOD 10/30/2024 2:16 PM EDT [facility] HDL 54 >=40 mg/dL LAB CHEMISTRY METHOD 10/30/2024 2:16 PM EDT [facility] LDL Calculated 155(H) 0 - 100 mg/dL LAB CHEMISTRY METHOD 10/30/2024 2:16 PM EDT [facility] Comment:Estimated LDL Calcul ated using equation: Total cholesterol - HDL cholesterol - (Triglycerides/5) VLDL Cholesterol Ancelmo 23.6 mg/dL LAB CHEMISTRY METHOD 10/30/2024 2:16 PM EDT [facility] Non HDL Chol. (LDL+VLDL) 179(H) <145 mg/dL LAB CHEMISTRY METHOD 10/30/2024 2:16 PM EDT [facility] Chol/HDL Ratio 4.3 0.0 - 4.4 LAB CHEMISTRY METHOD 10/30/2024 2:16 PM EDT [facility] Blood Venous blood specimen / Unknown Venipuncture / Unknown 10/30/2024 9:09 AM EDT 10/30/2024 9:09 AM EDT Anaya GOMEZ LAB BLOOD ORDERABLES Fi nal Result [facility] [address] [place] [address], * Iron and TIBC (10/30/2024 9:09 AM EDT) Iron 70 40 - 150 mcg/dL LAB CHEMISTRY METHOD 10/30/2024 1:52 PM EDT [facility] TIBC 340 250 - 450 mcg/dL LAB CHEMISTRY METHOD 10/30/2024 1:52 PM EDT [facility] Iron Saturation 21 15 - 50 % LAB CHEMISTRY METHOD 10/30/2024 1:52 PM EDT [facility] Blood Venous blood specimen / Unknown Venipuncture / Unknown 10/30/2024 9:09 AM EDT 10/30/2024 9:09 AM EDT us Anaya Anderson PA LAB BLOOD ORDERABLES Fi nal Result Performing Organization Address City/[facility]/ZIP Co de Phone Number [facility] [address] [place] [address], [place] [phone] * (ABNORMAL) Vitamin D 25 hydroxy (10/30/2024 9:09 AM EDT) [facility] Vit D, 25-Hydroxy 25.0(L) 30.0 - 80.0 ng/mL LAB CHEMISTRY METHOD 10/30/2024 2:58 PM EDT [facility] Blood Venous blood specimen / Unknown Venipuncture / Unknown 10/30/2024 9:09 AM EDT 10/30/2024 9:09 AM EDT [facility] LAB BLOOD ORDERABLES Fi nal Result Performing Organization Address [facility]/ZIP Co de Phone Number [facility] [address] [place] [address], [place] [phone] * (ABNORMAL) Complete blood count (10/30/2024 9:09 AM EDT) [facility] WBC 3.2(L) 4.8 - 10.8 K/[facility] LAB HEMETOLOGY METHOD 10/30/2024 10:[facility] RBC 4.10 3.80 - 4.80 M/[facility] LAB HEMETOLOGY METHOD 10/30/2024 10:13 AM EDT [facility] Hemoglobin 11.1(L) 11.5 - 16.0 g/dL LAB HEMETOLOGY METHOD 10/30/2024 10:13 AM [facility] Hematocrit 36.3 35.0 - 47.0 % LAB HEMETOLOGY METHOD 10/30/2024 10:13 AM [facility] MCV 89.0 79.0 - 98.0 FL LAB HEMETOLOGY METHOD 10/30/2024 10:13 AM [facility] MCH 27.2 27.0 - 32.0 pcg LAB HEMETOLOGY METHOD 10/30/2024 10:13 AM EDT [facility] MCHC 30.6(L) 32.0 - 37.0 g/dL LAB HEMETOLOGY METHOD 10/30/2024 10:13 AM EDT [facility] RDW 12.3 11.0 - 15.0 % LAB HEMETOLOGY METHOD 10/30/2024 10:13 AM EDT [facility] Platelets 303 130 - 400 K/mcL LAB HEMETOLOGY METHOD 10/30/2024 10:13 AM EDT [facility] MPV 10.5 7.0 - 11.0 FL LAB HEMETOLOGY METHOD 10/30/2024 10:13 AM EDT [facility] NRBC 0.0 <1.0 % LAB HEMETOLOGY METHOD 10/30/2024 10:13 AM EDT [facility] NRBC Absolute 0.00 <0.10 K/mcL LAB HEMETOLOGY METHOD 10/30/2024 10:13 AM EDT [facility] Blood Venous blood specimen / Unknown Venipuncture / Unknown 10/30/2024 9:09 AM EDT 10/30/2024 9:09 AM EDT Anaya GOMEZ LAB BLOOD ORDERABLES Fi nal Result [facility] [address] [place] [address], * Ferritin (10/30/2024 9:09 AM EDT) Ferritin 36 8 - 252 ng/mL LAB CHEMISTRY METHOD 10/30/2024 2:16 PM EDT [facility] Blood Venous blood specimen / Unknown Venipuncture / Unknown 10/30/2024 9:09 AM EDT 10/30/2024 9:09 AM EDT Anaya GOMEZ LAB BLOOD ORDERABLES Fi nal Result Performing Organization Address City/[facility]/ZIP Co de Phone Number [facility] [address] [place] [address], [place] [phone] * Vitamin B12 (10/30/2024 9:09 AM EDT) [facility] Vitamin B-12 524 250 - 900 pcg/mL LAB CHEMISTRY METHOD 10/30/2024 2:16 PM EDT [facility] Blood Venous blood specimen / Unknown Venipuncture / Unknown 10/30/2024 9:09 AM EDT 10/30/2024 9:09 AM EDT Anaya GOMEZ LAB BLOOD ORDERABLES Fi nal Result Performing Organization Address City/[facility]/ZIP Co de Phone Number [facility] [address] [place] [address], [place] [phone] * (ABNORMAL) Basic metabolic panel (10/30/2024 9:09 AM EDT) [facility] Sodium 141 133 - 145 mmol/L LAB CHEMISTRY METHOD 10/30/2024 2:12 PM EDT [facility] Potassium 4.2 3.5 - 5.5 mmol/L LAB CHEMISTRY METHOD 10/30/2024 2:12 PM EDT [facility] Chloride 109 96 - 110 mmol/L LAB CHEMISTRY METHOD 10/30/2024 2:12 PM EDT [facility] CO2 30 21 - 32 mmol/L LAB CHEMISTRY METHOD 10/30/2024 2:12 PM EDT [facility] Anion Gap 2(L) 3 - 11 LAB CHEMISTRY METHOD 10/30/2024 2:12 PM EDT [facility] Glucose 90 70 - 100 mg/dL LAB CHEMISTRY METHOD 10/30/2024 2:12 PM EDT [facility] BUN 12 5 - 25 mg/dL LAB CHEMISTRY METHOD 10/30/2024 2:12 PM EDT [facility] Creatinine 0.88 0.50 - 1.10 mg/dL LAB CHEMISTRY METHOD 10/30/2024 2:12 PM EDT [facility] eGFR 78 >=60 mL/min/1. 73m2 LAB CHEMISTRY METHOD 10/30/2024 2:12 PM EDT [facility] Comment:Calculation based on the Chronic Kidney Disease Epidemiology Collaboration (CKD-EPI) equation refit without adjustment for race. BUN/Creatinine Ratio 13.6 LAB CHEMISTRY METHOD 10/30/2024 2:12 PM EDT [facility] Calcium 9.5 8.5 - 10.5 mg/dL LAB CHEMISTRY METHOD 10/30/2024 2:12 PM EDT [facility] Blood Venous blood specimen / Unknown Venipuncture / Unknown 10/30/2024 9:09 AM EDT 10/30/2024 9:09 AM EDT Anaya GOMEZ LAB BLOOD ORDERABLES Fi nal Result [facility] [address] [place] [address], * SCREENING MAMMOGRAPHY BI 2-VIEW BREAST INC [...] of malignancy. BI-RADS 1 - negative Result [facility] Kenya Aguero CNM IMG XR PROCEDURES Final Result * Depression Screening (05/31/2023) Pathologist [facility] Depression Screening abstracted Result [facility] Provider HEALTH MAINTENANCE Final Result * Colonoscopy (11/18/2022) [facility] Colonoscopy no interpretation , abstracted Anatomical Region Laterality Modality Other Result [facility] Provider HEALTH MAINTENANCE Final Result * Cervical Cancer Screening: HPV (07/14/2021) [facility] Cervical Cancer Screening: HPV negative, abstracted Result [facility] Provider HEALTH MAINTENANCE Final Result * Hepatitis C Screening (11/22/2020) [facility] Hepatitis C Screening abstracted Result [facility] Provider HEALTH MAINTENANCE Final Result from Last 3 Months or Most Recently Relevant to Health Maintenance Insurance MEDICARE [place]ICAID [place] [employer] Care Teams [employer] Principal Relationship Specialty Start Date End Date Gilberto Gaines MD [address] [place] [phone] PCP - General Internal Medicine 11/08/24
[2024-12-01 10:17] LABS: Alanine Aminotransferase 15 U/L (0-31); Albumin Level 4.8 g/dL (3.5-5.0); Alkaline Phosphatase 96 U/L (39-117); Aspartate Amino Transferase 21 U/L (5-31); Cholesterol 213 mg/dL (<200); HDL Cholesterol 51 mg/dL (>40); Total Protein 7.2 g/dL (6.5-8.0); Triglycerides 103 mg/dL (<150)
== END 2024-12-01 08:58 | disposition home or self-care (01) ==
LOC: HO.LAB 08:57
PROVIDERS: PCP Internal Medicine; Visit Provider Internal Medicine
DX: I25.10 Atherosclerotic heart disease of native coronary artery without angina pectoris (principal); E78.5 Hyperlipidemia, unspecified
CPT/HCPCS: 36415; 80061; 80076

== ENCOUNTER 2025-02-24 11:26 | Emergency (ER) | payer MEDICARE, MEDICAID, SELFPAY ==
--- NOTE | ~2025-02-24 | XR_ITS ---
CLINICAL HISTORY: foosh 3 view right hand Comparison: None provided Findings: No acute fracture or dislocation. No significant loss of joint space or osteophytes. No erosions. No radiopaque foreign body. IMPRESSION: No acute findings. This document has been electronically signed by: Lukas Torres MD on 02/24/2025 14:12:59
--- NOTE | ~2025-02-24 | CT_ITS ---
CLINICAL HISTORY: slip and fall head strike CT cervical spine without contrast Comparison: None provided Findings: Straightening of the cervical spine is likely positional. Mild multilevel degenerative changes. No acute fractures or dislocations. No acute findings on limited view of the intracranial contents. Aberrant right subclavian artery. No consolidation or effusion at the lung apices. IMPRESSION: No acute findings. This document has been electronically signed by: Lukas Torres MD on 02/24/2025 14:22:24
--- NOTE | ~2025-02-24 | XR_ITS ---
CLINICAL HISTORY: foosh 4 view right wrist Comparison: None provided Findings: Bones intact. No dislocations. No radiopaque foreign body. IMPRESSION: 1. No acute findings This document has been electronically signed by: Lukas Torres MD on 02/24/2025 14:14:54
--- NOTE | ~2025-02-24 | CT_ITS ---
CLINICAL HISTORY: slip and fall head strike CT head without contrast Comparison: None provided Findings: No acute intracranial hemorrhage, transcortical infarct, hydrocephalus, or mass effect. Fluid density in the sella which appears to be below the pituitary gland possibly anarachnoid cyst. Minimal periventricular and subcortical white matter hypoattenuation likely chronic small-vessel ischemic changes. Chronic lacunar infarcts bilateral basal ganglia. There is no sinus or mastoid fluid. The orbits are unremarkable. Soft tissue swelling in the right frontal scalp. There is no acute fracture. IMPRESSION: 1. No acute intracranial findings. 2. Fluid density in the sella which appears to be below the pituitary gland possibly anarachnoid cyst. Recommend nonemergent MRI of the sella for further evaluation This document has been electronically signed by: Lukas Torres MD on 02/24/2025 14:28:20
--- NOTE | ~2025-02-24 | CT_ITS ---
CLINICAL HISTORY: slip and fall face strike CT maxillofacial without contrast Comparison: None provided Findings: Age indeterminate nondisplaced fractures of the bilateral nasal bones. No other fractures. Temporomandibular joints are intact. Soft tissue swelling right frontal scalp. Mild mucosal thickening in the maxillary sinuses. Orbital contents within normal limits. Visualized intracranial contents are within normal limits. No foreign bodies. IMPRESSION: 1. Age indeterminate nondisplaced fractures of the bilateral nasal bones. 2. Soft tissue swelling right frontal scalp. This document has been electronically signed by: Lukas Torres MD on 02/24/2025 14:20:22
[2025-02-24 11:41] VITALS: BP 125/79; PULSE 80; RESP 18; TEMP 36.6; O2SAT 98; BMI 32.2
--- NOTE | 2025-02-24 11:43 | ED.FALL ---
HPI - Fall General Chief Complaint: Fall Stated Complaint: fall facial inj Time Seen by Provider: 02/24/25 12:55 Source: patient, family, RN notes reviewed and old records reviewed Mode of arrival: ambulatory Limitations: language barrier History of Present Illness ED Provider: Didi PERRY Narrative: Patient is a 55-year-old female presenting to the emergency department with her daughter who she requests interpret for her complaining of facial injuries, headache, right wrist and hand pain after a slip and fall prior to arrival this morning. States that she slipped on ice and fell forward, hitting her face on the ground. She denies loss of consciousness, she is not anticoagulated. She denies any loose teeth or difficulty opening and closing her jaw. She denies any blurred vision, double vision or other visual changes. MD complaint: fall Related Data Home Medications ?Medication ?Instructions ?Recorded ?Confirmed cyanocobalamin (vitamin B-12) 500 500 mcg PO DAILY 06/04/22 10/30/24 mcg tablet (Vitamin B-12) ergocalciferol (vitamin D2) 1,250 1,250 mcg PO QWEEK 06/04/22 10/30/24 mcg (50,000 unit) capsule ferrous sulfate 325 mg (65 mg 325 mg PO BID 06/04/22 10/30/24 iron) tablet losartan 100 mg tablet 100 mg PO DAILY 07/29/23 10/30/24 Previous Rx's ?Medication ?Instructions ?Recorded riboflavin (vitamin B2) 400 mg 400 mg PO DAILY 30 days #30 tabs 06/04/22 tablet ondansetron 4 mg disintegrating 4 mg PO Q8-12H PRN nausea and 01/21/23 tablet vomiting #20 tabs isosorbide mononitrate 30 mg 30 mg PO DAILY #90 tabs 01/29/23 tablet,extended release 24 hr nitroglycerin 0.4 mg sublingual 0.4 mg sublingual Q5M PRN chest 01/29/23 tablet pain #30 tabs cholecalciferol (vitamin D3) 125 125 mcg PO DAILY #90 caps 07/15/23 mcg (5,000 unit) capsule vitamin A palmitate 3,000 mcg 10,000 unit PO DAILY #90 caps 07/15/23 (10,000 unit) capsule amlodipine 10 mg tablet 10 mg PO DAILY #90 tabs 08/05/23 rosuvastatin 40 mg tablet (Crestor) 40 mg PO DAILY 90 days #90 tabs 09/30/23 cyclobenzaprine 10 mg tablet 10 mg PO BEDTIME PRN muscle spasm 11/18/23 30 days #30 tabs diclofenac sodium 1 % topical gel 4 g topical QID pain #100 grams 11/18/23 (Arthritis Pain (diclofenac)) lidocaine 5 % topical patch See Rx Instructions topical 11/18/23 .COMPLEX pain #30 ea carvedilol 3.125 mg tablet (Coreg) 3.125 mg PO BID 90 days #180 tabs 12/06/23 ezetimibe 10 mg tablet (Zetia) 10 mg PO DAILY #90 tabs 02/23/24 aspirin 81 mg tablet,delayed 81 mg PO DAILY #90 tabs 06/12/24 release prednisone 20 mg tablet 20 mg PO DAILY 7 days #7 tabs 07/18/24 acetaminophen 500 mg capsule 1,000 mg (2 x 500 mg) PO Q8H PRN 09/15/24 fever or pain #14 caps ibuprofen 400 mg tablet 400 mg PO Q6H PRN pain #14 tabs 09/15/24 amoxicillin 875 mg-potassium 1 tab PO BID #14 tabs 02/24/25 clavulanate 125 mg tablet Allergies Allergy/AdvReac Type Severity Reaction Status Date / Time Sulfa (Sulfonamide Allergy Severe SWELLING Verified 02/24/25 11:43 Antibiotics) acetaminophen (Percocet) Allergy Unknown vomiting Verified 02/24/25 11:43 morphine Allergy Unknown Unknown Verified 02/24/25 11:43 oxycodone (Percocet) Allergy Unknown vomiting Verified 02/24/25 11:43 lisinopril AdvReac Unknown Unknown Verified 02/24/25 11:43 Pt states she is allergic to Allergy Unknown Nausea Uncoded 02/24/25 11:43 P From PERCOCET AdvReac Intermediate VOMITING Uncoded 02/24/25 11:43 baldo inhibitors AdvReac Unknown unknown Uncoded 02/24/25 11:43 Review of Systems Review of Systems: As per HPI Yes all other systems are reviewed and are negative Constitutional: Constitutional: Reports as per HPI PMFSH Past Medical History Medical History Osteoporosis Hypertension Anemia Brain tumor Asthma Surgical History History of sleeve gastrectomy Hx of hysterectomy Hx of tonsillectomy Family History Family History Mother Hypertension Asthma CAD (coronary artery disease) Osteoporosis Father Hypertension CAD (coronary artery disease) Sister Hypertension Lupus Brother Hypertension Maternal Grandmother Breast cancer Paternal Grandmother Breast cancer Social History Social History (Updated 10/30/24 @ 10:04 by Denise Quinn Torrey) Alcohol intake: never Patient Tobacco Use Status: Never used Tobacco Advance Directives: No Advance Directives Information Provided: Yes Do you have a plan to hurt others: No Plan Current occupational status: unemployed Current occupation: right hand dominant Physical Exam Vital Signs: Vital Signs: Last Vital Signs Temp 98 F 02/24/25 11:41 Pulse 61 02/24/25 13:35 Resp 16 02/24/25 13:35 BP 156/77 H 02/24/25 13:35 Pulse Ox 96 02/24/25 13:35 O2 Del Method Room Air 02/24/25 13:35 BMI result Body Mass Index 32.2 Vital signs have been reviewed and appear to be correct. Blood pressure normal. Heart rate normal. Respiratory rate normal. Temperature normal. Oxygen saturation normal. Const: General: cooperative, healthy appearing and no acute distress Orientation/consciousness: oriented to person, oriented to place, oriented to time and patient oriented x3 Limitations: no limitations HEENT: Head: Yes normocephalic Head images:  1. superficial abrasion 2. superficial abrasion 3. swelling Ears: external ears normal, TM's normal bilaterally and EAC's normal General nose exam: Normal external nose present, Normal nasal mucous membranes and turbinates present and Normal septum present Face and sinus: Yes face symmetric Mouth: oropharynx normal, moist mucous membranes and lip abnormal upper swelling (ecchymosis) Teeth and gingiva: dentition normal Throat: Yes uvula midline Eyes: Pupils: Equal, round and reactive pupils present Neck: Neck: Yes normal visual inspection and Yes supple Resp: Effort & Inspection: normal respiratory effort and able to speak in complete sentences Auscultation: clear to auscultation bilaterally Cardio: Rate: regular rate Rhythm: regular rhythm Heart sounds: S1 normal heart sound present and S2 normal heart sound present GI: Palpation (GI): Soft to palpation and nontender Auscultation: normoactive bowel sounds : General: Yes no CVA tenderness Back/Spine/Pelvis: Back: no CVA tenderness Cervical Spine: normal cervical lordosis, cervical ROM normal, No Cervical spine tenderness and No step off deformity Thoracic/Lumbar Spine: thoracic and lumbar spine normal to inspection, thoraco-lumbar ROM normal, No pain with thoraco-lumbar ROM, No thoracic spinal tenderness and No lumbar spinal tenderness Skin: General skin exam: elasticity normal and turgor normal Neuro: General: oriented to person, oriented to place, oriented to time, patient oriented x3, moves all extremities, no focal motor deficits and CN's II-XI intact bilaterally Cranial nerves: Yes Equal, round and reactive pupils present Cognition (Neuro): normal cognition Extrem: General: Yes full ROM, Yes no pedal edema and Yes no calf tenderness Right upper extremity: wrist Details: normal to inspection, tenderness Location: of the distal ulna and normal ROM; no swelling and no ecchymosis and Extremity exam: right hand Details: normal to inspection, normal capillary refill, neuromotor exam normal, neurosensory exam normal, tenderness Location: of the dorsal hand Location: over the 3rd metacarpal, over the 4th metacarpal and over the 5th metacarpal, vascular exam Details: radial pulse present, ulnar pulse present and normal capillary refill and normal ROM of fingers Psych: Mental Status: mental status grossly normal Affect: normal affect Thought process: Normal thought process present Course Course Course Narrative: This is a Rapid Medical Examination (RME) performed by Camden Fuentes PA-C in triage. Full HPI, ROS, assessment and treatment plan per primary provider in the Main ED. Hx: 55 yo F here w/ daughter s/p slip and fall on ice [employer]. reports right head/facial strike. no LOC. no thinners, takes a baby aspirin. reports CASSIDY, facial pain, and right hand/wrist pain. right hand dominant. PE/vitals: small hematoma to R forehead. EOMs intact w/o entrapment/pain. no midline c spine tenderness. no septal hemtoma. no epistaxis. right wrist/hand w/o deformity. Plan: imaging Medications Administered Discontinued Medications Generic Name Dose Route Start Last Admin Trade Name Freq PRN Reason Stop Dose Admin Acetaminophen 975 mg 02/24/25 13:09 02/24/25 13:31 Acetaminophen 325 Mg Tablet PO 02/24/25 13:10 975 mg ONCE ONE Administration Medical Decision Making Medical Decision Making [facility] Narrative: Patient is a 55-year-old female presenting to the emergency department with her daughter who she requests interpret for her complaining of facial injuries, headache, right wrist and hand pain after a slip and fall prior to arrival this morning. On exam patient is awake, A+Ox3, VS WNL, afebrile, normal neurological exam without focal deficits, physical exam findings as above. Given reported symptoms and physical exam findings, initial differential includes but is not limited to right hand or wrist contusion versus fracture, ICH, skull or cervical vertebral fracture or subluxation, facial bones fracture versus contusion, facial abrasions. X-ray right hand/wrist notable for no acute fractures. CT head, c-spine, facial bones notable for bilateral nasal fractures, no evidence of ICH, skull or cervical vertebral fracture subluxation. CT head also notable for fluid density in the sella, likely sales donor recruitment representative of an arachnoid cyst. Advised patient to follow up with her PCP for further evaluation of this. My interpretation is in agreement with the radiologist's interpretation. Discussed with patient and family that she needs to avoid blowing her nose, can not submerge her head under water. Will discharge home on course of Augmentin and referred to ENT. Return precautions discussed with patient and family. Patient family verbalized understanding of and agreement with plan. Differential Diagnosis Differential Diagnoses: The differential diagnosis associated with the presentation includes as per [facility] Admission/Observation Consideration of admission/observation: Escalation of care including admission/observation considered Patient would have been admitted to the hospital and transferred to appropriate facility had their clinical presentation warranted hospital admission. Independent Interpretation I performed an independent interpretation of an: Plain X-Ray and CT Scan Interpretation: X-ray right hand/wrist notable for no acute fractures. CT head, c-spine, facial bones notable for bilateral nasal fractures, no evidence of ICH, skull or cervical vertebral fracture subluxation. CT head also notable for fluid density in the sella, likely sales donor recruitment representative of an arachnoid cyst. Advised patient to follow up with her PCP for further evaluation of this. Radiology Impression Discussion of test interpretation with radiology: I have reviewed the radiologist's reading. Radiologist Impression: CT head without contrast Comparison: None provided Findings: No acute intracranial hemorrhage, transcortical infarct, hydrocephalus, or mass effect. Fluid density in the sella which appears to be below the pituitary gland possibly anarachnoid cyst. Minimal periventricular and subcortical white matter hypoattenuation likely chronic small-vessel ischemic changes. Chronic lacunar infarcts bilateral basal ganglia. There is no sinus or mastoid fluid. The orbits are unremarkable. Soft tissue swelling in the right frontal scalp. There is no acute fracture. IMPRESSION: 1. No acute intracranial findings. 2. Fluid density in the sella which appears to be below the pituitary gland possibly anarachnoid cyst. Recommend nonemergent MRI of the sella for further evaluation CT cervical spine without contrast Comparison: None provided Findings: Straightening of the cervical spine is likely positional. Mild multilevel degenerative changes. No acute fractures or dislocations. No acute findings on limited view of the intracranial contents. Aberrant right subclavian artery. No consolidation or effusion at the lung apices. IMPRESSION: No acute findings. CT maxillofacial without contrast Comparison: None provided Findings: Age indeterminate nondisplaced fractures of the bilateral nasal bones. No other fractures. Temporomandibular joints are intact. Soft tissue swelling right frontal scalp. Mild mucosal thickening in the maxillary sinuses. Orbital contents within normal limits. Visualized intracranial contents are within normal limits. No foreign bodies. IMPRESSION: 1. Age indeterminate nondisplaced fractures of the bilateral nasal bones. 2. Soft tissue swelling right frontal scalp. 4 view right wrist Comparison: None provided Findings: Bones intact. No dislocations. No radiopaque foreign body. IMPRESSION: 1. No acute findings 3 view right hand Comparison: None provided Findings: No acute fracture or dislocation. No significant loss of joint space or osteophytes. No erosions. No radiopaque foreign body. IMPRESSION: No acute findings. External Record Review External record reviewed: Inpatient record, Office record and Outpatient record Prescription Management I considered prescription management with: Antibiotic Discharge Plan Discharge Clinical Impression: Fall due to ice or snow Closed fracture nasal bone Qualifiers: Encounter type: initial encounter Qualified Code(s): S02.2XXA - Fracture of nasal bones, initial encounter for closed fracture Patient Disposition: Home, Self-Care Instructions: Nasal Fracture (ED) Additional Instructions: You were evaluated in the emergency department today after a slip and fall. Your CT scan showed evidence of a bilateral nasal bone fracture. It is important that you avoid blowing your nose, do not submerge your head under water, and you will need to follow up with the Ear, Nose, and Throat specialist. You are being prescribed a course of antibiotics to prevent infection, complete the full course as prescribed. The CT scan of your brain and cervical spine did not show evidence of any acute injury. The CT scan of your brain showed an area which may represent a cyst. We recommend that you follow up with your primary care provider for further evaluation of this, likely with an MRI. You can use 650 mg of Tylenol every 6 hours as needed for pain. We recommend that you apply ice today affected areas of your face for 10-15 minutes at a time several times daily, using caution not to apply ice directly to skin. Return to the emergency department if you develop uncontrolled bleeding from your nose, fever 100.4? F or greater, or any other new or concerning symptoms. CT head without contrast Comparison: None provided Findings: No acute intracranial hemorrhage, transcortical infarct, hydrocephalus, or mass effect. Fluid density in the sella which appears to be below the pituitary gland possibly anarachnoid cyst. Minimal periventricular and subcortical white matter hypoattenuation likely chronic small-vessel ischemic changes. Chronic lacunar infarcts bilateral basal ganglia. There is no sinus or mastoid fluid. The orbits are unremarkable. Soft tissue swelling in the right frontal scalp. There is no acute fracture. IMPRESSION: 1. No acute intracranial findings. 2. Fluid density in the sella which appears to be below the pituitary gland possibly anarachnoid cyst. Recommend nonemergent MRI of the sella for further evaluation Prescriptions: New amoxicillin-pot clavulanate 875-125 mg tablet 1 tab PO BID Qty: 14 0RF No Action vitamin A palmitate 3,000 mcg (10,000 unit) capsule 10,000 unit PO DAILY Qty: 90 3RF cholecalciferol (vitamin D3) 125 mcg (5,000 unit) capsule 125 mcg PO DAILY Qty: 90 3RF amlodipine 10 mg tablet 10 mg PO DAILY Qty: 90 1RF carvedilol [Coreg] 3.125 mg tablet 3.125 mg PO BID 90 Days Qty: 180 3RF Rx Instructions: must administer with a meal/food aspirin 81 mg tablet,delayed release (DR/EC) 81 mg PO DAILY Qty: 90 3RF prednisone 20 mg tablet 20 mg PO DAILY 7 Days Qty: 7 0RF ibuprofen 400 mg tablet 400 mg PO Q6H PRN (Reason: pain) Qty: 14 0RF acetaminophen 500 mg capsule 1,000 mg PO Q8H PRN (Reason: fever or pain) Qty: 14 0RF ergocalciferol (vitamin D2) 1,250 mcg (50,000 unit) capsule 1,250 mcg PO QWEEK cyanocobalamin (vitamin B-12) [Vitamin B-12] 500 mcg tablet 500 mcg PO DAILY ferrous sulfate 325 mg (65 mg iron) tablet 325 mg PO BID riboflavin (vitamin B2) 400 mg tablet 400 mg PO DAILY 30 Days Qty: 30 6RF rosuvastatin [Crestor] 40 mg tablet 40 mg PO DAILY 90 Days Qty: 90 3RF lidocaine 5 % adhesive patch,medicated See Rx Instructions topical .COMPLEX Qty: 30 3RF Rx Instructions: leave on most painful area for up to 12 hrs topical cyclobenzaprine 10 mg tablet 10 mg PO BEDTIME PRN (Reason: muscle spasm) 30 Days Qty: 30 0RF diclofenac sodium [Arthritis Pain (diclofenac)] 1 % gel 4 g topical QID Qty: 100 4RF Rx Instructions: apply to single knee, ankle, foot; for foot includes sole/toes/top of foot ondansetron 4 mg tablet,disintegrating 4 mg PO Q8-12H PRN (Reason: nausea and vomiting) Qty: 20 1RF nitroglycerin 0.4 mg tablet, sublingual 0.4 mg sublingual Q5M PRN (Reason: chest pain) Qty: 30 5RF Rx Instructions: do not exceed 3 doses per episode isosorbide mononitrate 30 mg tablet extended release 24 hr 30 mg PO DAILY Qty: 90 3RF losartan 100 mg tablet 100 mg PO DAILY ezetimibe [Zetia] 10 mg tablet 10 mg PO DAILY Qty: 90 3RF Referrals: [facility] [Provider Group, Ear, Nose, Throat] - 1 week Clinical Impression: Closed fracture nasal bone Print Language: Turkmen
--- OUTSIDE RECORDS SUMMARY | 2025-02-24 13:07 | XMS_ITS | Clinical Summary ---
Author Organization [facility] Address [address] [place] [address] Care Team Providers Care Corn Sheller Name Role Phone AdamsLaceyjuan [email or web address] Primary Care [...] 2024 2, 01/18/2020, 01/08/2017, Additional history exists Insurance [facility] MEDICARE Care Teams Corn Sheller Relationship Specialty Start Date End Date Deirdre Lamas LAMBERT PCP - General 06/12/22
--- OUTSIDE RECORDS SUMMARY | 2025-02-24 13:08 | XMS_ITS | Encounter Summary ---
Author Organization [facility] Prior to 01/21/2024 Address [address] [place] [address] Care Team Providers Care Certified Nuclear Medicine Technologist Name Role Phone Gilberto Gaines MD Primary Care Provider [phone] Tod Rodriguez MD Unavailable [phone] Marcelle Almendarez Unavailable Unavailable Encounter Details Date Type Department Care Team Description 11/13/2020 Orders Only Adult Medicine [address] [id number] Gilberto Gaines MD [address] [place] [address] [phone] Social History Tobacco Use Types Packs/Day Years [...] on filedocumented in this encounter Care Teams Certified Nuclear Medicine Technologist Relationship Specialty Start Date End Date Gilberto Gaines MD [address] [place] [address] [id number] PCP - General Internal Medicine 10/06/19 Tod Rodriguez MD [address] [place] [address] [place] [address] Display Associate Cardiovascular Disease 05/31/20 Marcelle Almendarez PA [address] [place] [address] Specialist Cardiology 11/13/20 documented as of this encounter
--- OUTSIDE RECORDS SUMMARY | 2025-02-24 13:09 | XMS_ITS | Encounter Summary ---
Author Organization [facility] Prior to 01/21/2024 Address [address] [place] [address] Care Team Providers Care Second Helper Name Role Phone Gilberto Gaines MD Primary Care Provider [phone] Tod Rodriguez MD Unavailable [phone] Marcelle Almendarez Unavailable Unavailable Encounter Details Date Type Department Care Team Description 06/11/2022 Telephone Adult Medicine [address] [id number] Gilberto Gaines MD [address] [place] [address] [phone] Social History Tobacco Use Types Packs/Day Years [...] on filedocumented in this encounter Care Teams Second Helper Relationship Specialty Start Date End Date Gilberto Gaines MD [address] [place] [phone] PCP - General Internal Medicine 10/06/19 Tod Rodriguez MD [address] [place] [address] [place] [address] Manager Audit Cardiovascular Disease 05/31/20 Marcelle Almendarez PA [address] [place] [address] [place] [address] Specialist Cardiology 11/13/20 documented as of this encounter
--- OUTSIDE RECORDS SUMMARY | 2025-02-24 13:10 | XMS_ITS | Encounter Summary ---
Author Organization [facility] Prior to 01/21/2024 Address [address] [place] [address] Care Team Providers Care Principal Librarian Name Role Phone Gilberto Gaines MD Primary Care Provider [phone] Tdo Rodriguez MD Unavailable [phone] Marcelle Almendarez Unavailable Unavailable Encounter Details Date Type Department Care Team Description 07/17/2021 Business Doc Medical Records [address] [place] [phone] Abstract, Provider Social History Tobacco Use Types [...] on filedocumented in this encounter Care Teams Principal Librarian Relationship Specialty Start Date End Date Gilberto Gaines MD [address] [place] [phone] PCP - General Internal Medicine 10/06/19 Tod Rodriguez MD [address] [place] [address] [place] [address] Expansion Joint Builder Cardiovascular Disease 05/31/20 Marcelle Almendarez PA [address] [place] [address] Dr [address] [place] [address], [place] [address] Specialist Cardiology 11/13/20 documented as of this encounter
--- OUTSIDE RECORDS SUMMARY | 2025-02-24 13:10 | XMS_ITS | Encounter Summary ---
Author Organization [facility] Prior to 01/21/2024 Address [address] [place] [address] Care Team Providers Care Hanging Flags Decorator Name Role Phone Gilberto Gaines MD Primary Care Provider Tod Rodriguez MD Unavailable [phone] Marcelle Almendarez Unavailable Unavailable Reason for Visit * Reason Onset Date Comments Blood Pressure Elevated 11/19/2022 Encounter Details Date Type Department Care Team Description 11/19/2022 Telephone Adult Medicine [facility] [address] [place] [id number] Lulu Cabrales PA-C [address] [place] [address] [phone] Blood Pressure Elevated Social History Tobacco Use Types Packs/Day Years [...] encounter Miscellaneous Notes * Telephone Encounter - Sabina Jorge - 11/19/2022 10:49 AM EDT Pt sts that she did not know she had an appt today. Pt was rescheduled for 11/20/2022 at 3:00 pm withLulu Cabrales. * Telephone Encounter - Lulu Cabrales PA-C - 11/19/2022 10:08 AM EDT No-showed appt this morning for BP recheck. Please call patient (FRISIAN SPEAKING) and reschedule. Lulu Cabrales PA-C documented in this encounter Plan of Treatment Not on file documented as of this encounter Visit Diagnoses Not on filedocumented in this encounter Care Teams Hanging Flags Decorator Relationship Specialty Start Date End Date Gilberto Gaines MD [address] [place] [phone] PCP - General Internal Medicine 10/06/19 Tod Rodriguez MD [address] [place] [address] [place] [address] Deposition Operator Cardiovascular Disease 05/31/20 Marcelle Almendarez PA [address] [place] [address] [place] [address] Specialist Cardiology 11/13/20 documented as of this encounter
--- OUTSIDE RECORDS SUMMARY | 2025-02-24 13:10 | XMS_ITS | Encounter Summary ---
Author Organization [employer] [facility] Prior to 01/21/2024 Address [address] [place] [address] Care Team Providers Care Tape Maker Name Role Phone Community, Pcp Primary Care Provider Unavailluh e David Marcial MD Primary Care Provider Un available Gilberto Gaines MD Primary Care Provider [phone] Tod Rodriguez MD Unavailable [phone] Marcelle Almendarez Unavailable Unavailable Encounter Details Date Type Department Care Team Description 04/21/2013 SCAN Medical Records [address] [place] [address] Adolfo Peterson MD Social History Tobacco Use [...] on filedocumented in this encounter Care Teams Tape Maker Relationship Specialty Start Date End Date Community, Pcp PCP - General 07/13/07 03/07/18 David Marcial MD PCP - General Internal Medicine 03/08/18 Gilberto Gaines MD [address] [place] [address] [id number] PCP - General Internal Medicine 10/06/19 Tod Rodriguez MD 2 [facility] [place] [address] Library Director Cardiovascular Disease 05/31/20 Marcelle Almendarez PA [address] [place] [address] Specialist Cardiology 11/13/20 documented as of this encounter
--- OUTSIDE RECORDS SUMMARY | 2025-02-24 13:10 | XMS_ITS | Encounter Summary ---
Author Organization [facility] Prior to 01/21/2024 Address [address] [place] [address] Care Team Providers Care Buyer Liaison Name Role Phone Gilberto Gaines MD Primary Care Provider [phone] Tod Rodriguez MD Unavailable [phone] Marcelle Almendarez Unavailable Unavailable Encounter Details Date Type Department Care Team Description 11/29/2023 Field Return Repairer Report Medical Records [address] [place] [address] Feng Clark MD Social History Tobacco Use [...] on filedocumented in this encounter Care Teams Buyer Liaison Relationship Specialty Start Date End Date Gilberto Gaines MD [address] [place] [address] [phone] PCP - General Internal Medicine 10/06/19 Tod Rodriguez MD [address] [place] [address] [place] [address] Punch Finisher Cardiovascular Disease 05/31/20 Marcelle Almendarez PA [place] [address] Specialist Cardiology 11/13/20 documented as of this encounter
--- OUTSIDE RECORDS SUMMARY | 2025-02-24 13:10 | XMS_ITS | Encounter Summary ---
Author Organization [facility] Prior to 01/21/2024 Address [address] [place] [address] Care Team Providers Care Machine Cell Tuber Name Role Phone Gilberto Gaines MD Primary Care Provider [phone] Tod Rodriguez MD Unavailable [phone] Marcelle Almendarez Unavailable Unavailable Encounter Details Date Type Department Care Team Description 12/28/2023 Orders Only Medical Records [address] [place] [address] Ricarda Medley NP Social History Tobacco Use [...] on filedocumented in this encounter Care Teams Machine Cell Tuber Relationship Specialty Start Date End Date Gilberto Gaines MD [address] [place] [address] [id number] PCP - General Internal Medicine 10/06/19 Tod Rodriguez MD [address] [place] [address] Health Nurse Cardiovascular Disease 05/31/20 Marcelle Almendarez PA 2 [facility] [place] [address] Specialist Cardiology 11/13/20 documented as of this encounter
--- OUTSIDE RECORDS SUMMARY | 2025-02-24 13:10 | XMS_ITS | Encounter Summary ---
Author Organization [facility] Prior to 01/21/2024 Address [address] [place] [address] Care Team Providers Care Book Repairer Name Role Phone Gilberto Gaines MD Primary Care Provider [phone] Tod Rodriguez MD Unavailable [phone] Marcelle Almendarez Unavailable Unavailable Reason for Visit * Reason Onset Date Comments Medical Records 05/26/2021 Encounter Details Date Type Department Care Team Description 05/26/2021 Telephone OBGYN - [place] [address] [place] [address] Yasmin Brunner MD [address] [place] [address] [id number] Medical Records Social History Tobacco Use Types [...] 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- documented in this encounter Plan of Treatment Not on file documented as of this encounter Visit Diagnoses Not on filedocumented in this encounter Care Teams Book Repairer Relationship Specialty Start Date End Date Gilberto Gaines MD [address] [place] [address] PCP - General Internal Medicine 10/06/19 Tod Rodriguez MD [address] [place] [address] [place] [address] Bundle Shaker Cardiovascular Disease 05/31/20 Marcelle Almendarez PA [address] [place] [address] [place] [address] Specialist Cardiology 11/13/20 documented as of this encounter
--- OUTSIDE RECORDS SUMMARY | 2025-02-24 13:10 | XMS_ITS | Encounter Summary ---
Author Organization [facility] Prior to 01/21/2024 Address [address] [place] [address] Care Team Providers Care Body Sander Name Role Phone Gilberto Gaines MD Primary Care Provider [phone] Tod Rodriguez MD Unavailable [phone] Marcelle Almendarez Unavailable Unavailable Reason for Visit * Reason Onset Date Comments Testing 11/19/2022 Encounter Details Date Type Department Care Team Description 11/19/2022 Telephone Cardio PVCA Diag Testing [address] [address] Lulu Cabrales PA-C [address] [place] [address] Testing Social History Tobacco Use Types Packs/Day [...] Cabrales PA-C * Telephone Encounter - Naomi Startton - 11/19/2022 2:42 PM EDT [facility] has received the order for your patient to have a Dobutamine Stress Echo, however one of our APPs has reviewed the order and recommends a Stress Echo. If you agree, please place a new order for a Regular Stress Echo [CPT 16254]. Thank you! documented in this encounter Plan of Treatment Not on file documented as of this encounter Visit Diagnoses Not on filedocumented in this encounter Care Teams Body Sander Relationship Specialty Start Date End Date Gilberto Gaines MD [address] [place] [address] PCP - General Internal Medicine 10/06/19 Tod Rodriguez MD [address] [place] [address] [place] [address] Posting Clerk Cardiovascular Disease 05/31/20 Marcelle Almendarez PA [address] [place] [address] [place] [address] Specialist Cardiology 11/13/20 documented as of this encounter
--- OUTSIDE RECORDS SUMMARY | 2025-02-24 13:10 | XMS_ITS | Encounter Summary ---
Author Organization [facility] Prior to 01/21/2024 Address [address] [place] [address] Care Team Providers Care Credit Card Associate Name Role Phone David Marcial MD Primary Care Provider Un available Gilberto Gaines MD Primary Care Provider Tod Rodriguez MD Unavailable [phone] Marcelle Almendarez Unavailable Unavailable Encounter Details Date Type Department Care Team Description 08/23/2018 Release of Information Medical Records [address] [place] [address] Abstract, Provider Social History Tobacco Use Types [...] on filedocumented in this encounter Care Teams Credit Card Associate Relationship Specialty Start Date End Date David Marcial MD PCP - General Internal Medicine 03/08/18 Gilberto Gaines MD [address] [place] [address] [phone] PCP - General Internal Medicine 10/06/19 Tod Rodriguez MD [address] [place] [address] [place] [address] Journeyman Welder Cardiovascular Disease 3/12/21 Marcelle Almendarez PA [address] [place] [address] [place] [address] Specialist Cardiology 11/13/20 documented as of this encounter
--- OUTSIDE RECORDS SUMMARY | 2025-02-24 13:10 | XMS_ITS | Encounter Summary ---
Author Organization [facility] Prior to 01/21/2024 Address [address] [place] [address] Care Team Providers Care Cotton Cleaner Name Role Phone Gilberto Gaines MD Primary Care Provider [phone] Tod Rodriguez MD Unavailable [phone] Marcelle Almendarez Unavailable Unavailable Reason for Visit * Reason Onset Date Comments Medication 03/05/2022 Encounter Details Date Type Department Care Team Description 03/05/2022 Refill Gastroenterology [address] [id number] Nallely Altamirano MD Medication Social History [...] on filedocumented in this encounter Care Teams Cotton Cleaner Relationship Specialty Start Date End Date Gilberto Gaines MD [address] [place] [address] [phone] PCP - General Internal Medicine 10/06/19 Tod Rodriguez MD [address] [place] [address] [place] [address] Director Of Early Childhood Cardiovascular Disease 05/31/20 Marcelle Almendarez PA [address] [place] [address] [place] [address] Specialist Cardiology 11/13/20 documented as of this encounter
--- OUTSIDE RECORDS SUMMARY | 2025-02-24 13:10 | XMS_ITS | Encounter Summary ---
Author Organization [facility] Prior to 01/21/2024 Address [address] [place] [address] Care Team Providers Care White Shoe Ragger Name Role Phone Gilberto Gaines MD Primary Care Provider [phone] Tod Rodriguez MD Unavailable [phone] Marcelle Almendarez Unavailable Unavailable Encounter Details Date Type Department Care Team Description 01/21/2023 Steel Box Toe Inserter Report Medical Records [address] [place] [address] Isis Abdi, PACareyC Social History Tobacco Use [...] on filedocumented in this encounter Care Teams White Shoe Ragger Relationship Specialty Start Date End Date Gilberto Gaines MD [address] [place] [address] [phone] PCP - General Internal Medicine 10/06/19 Tod Rodriguez MD [address] [place] [address] [address] Animal Husbandry Teacher Cardiovascular Disease 05/31/20 Marcelle Almendarez PA [address] [place] [address] [place] [address] Specialist Cardiology 11/13/20 documented as of this encounter
--- OUTSIDE RECORDS SUMMARY | 2025-02-24 13:10 | XMS_ITS | Encounter Summary ---
Author Organization [facility] Prior to 01/21/2024 Address [address] [place] [address] Care Team Providers Care Tray Service Worker Name Role Phone David Marcial MD Primary Care Provider Un available Gilberto Gaines MD Primary Care Provider [phone] Tod Rodriguez MD Unavailable [phone] Marcelle Almendarez Unavailable Unavailable Reason for Referral * Non SHANE (Routine) - Closed Specialty Diagnoses / Procedures Referred By Contac t Referred To Contact Oncology/Hematology Procedures REFERRAL TO ONCOLOGY/HEMATOLOGY (IN NETWORK) David Marcial MD [address] [place] [address] Onc/[facility] [address] [place] [address] Referral ID Status Reason Start Date Expiration Date Visits Re quested Visits Authorized [id number] Closed 08/25/2018 08/25/2019 1 1 Encounter Details Date Type Department Care Team Description 08/25/2018 Orders Only Adult Medicine [address] [address] David Marcial MD Social History Tobacco Use [...] on filedocumented in this encounter Care Teams Tray Service Worker Relationship Specialty Start Date End Date David Marcial MD PCP - General Internal Medicine 03/08/18 Gilberto Gaines MD [address] [place] [address] PCP - General Internal Medicine 10/06/19 Tod Rodriguez MD [address] [place] [address] [place] [address] Garnett Room Worker Cardiovascular Disease 05/31/20 Marcelle Almendarez PA [address] [place] [address] [place] [address] Specialist Cardiology 11/13/20 documented as of this encounter
--- OUTSIDE RECORDS SUMMARY | 2025-02-24 13:10 | XMS_ITS | Encounter Summary ---
Author Organization [facility] Prior to 01/21/2024 Address [address] [place] [address] Care Team Providers Care Director Strategic Account Management Name Role Phone David Marcial MD Primary Care Provider Un available Gilberto Gaines MD Primary Care Provider [phone] Tod Rodriguez MD Unavailable [phone] Marcelle Almendarez Unavailable Unavailable Encounter Details Date Type Department Care Team Description 01/13/2019 Business Doc Medical Records [address] [place] [address] Abstract, Provider Social History Tobacco Use Types [...] on filedocumented in this encounter Care Teams Director Strategic Account Management Relationship Specialty Start Date End Date David Marcial MD PCP - General Internal Medicine 03/08/18 Gilberto Gaines MD [address] [place] [address] [phone] PCP - General Internal Medicine 10/06/19 Tod Rodriguez MD [address] [place] [address] Environmental Projects Advisor Cardiovascular Disease 05/31/20 Marcelle Almendarez PA [address] [place] [address] [place] [address] Specialist Cardiology 11/13/20 documented as of this encounter
--- OUTSIDE RECORDS SUMMARY | 2025-02-24 13:10 | XMS_ITS | Encounter Summary ---
Author Organization [facility] Prior to 01/21/2024 Address [address] [place] [address] Care Team Providers Care Feedmobile Driver Name Role Phone David Marcial MD Primary Care Provider Un available Gilberto Gaines MD Primary Care Provider [phone] Tod Rodriguez MD Unavailable [phone] Marcelle Almendarez Unavailable Unavailable Encounter Details Date Type Department Care Team Description 01/27/2019 Release of Information Medical Records [address] [place] [address] Abstract, Provider Social History Tobacco Use Types [...] on filedocumented in this encounter Care Teams Feedmobile Driver Relationship Specialty Start Date End Date David Marcial MD PCP - General Internal Medicine 03/08/18 Gilberto Gaines MD [address] [place] [address] [phone] PCP - General Internal Medicine 10/06/19 oTd Rodriguez MD [address] [place] [address] [facility] [place] [address] Industrial Safety And Health Technician Cardiovascular Disease 3/12/21 Marcelle Almendarez PA [address] [place] [address] [place] [address] Specialist Cardiology 11/13/20 documented as of this encounter
--- OUTSIDE RECORDS SUMMARY | 2025-02-24 13:10 | XMS_ITS | Encounter Summary ---
Author Organization [facility] Prior to 01/21/2024 Address [address] [place] [address] Care Team Providers Care Outsole Splicer Name Role Phone Gilberto Gaines MD Primary Care Provider [phone] Tod Rodriguez MD Unavailable [phone] Marcelle Almendarez Unavailable Unavailable Encounter Details Date Type Department Care Team Description 10/20/2023 Orders Only Medical Records [address] [place] [address] Ricarda Medley NP Social History Tobacco Use [...] on filedocumented in this encounter Care Teams Outsole Splicer Relationship Specialty Start Date End Date Gilberto Gaines MD [address] [place] [address] [phone] PCP - General Internal Medicine 10/06/19 Tod Rodriguez MD [address] [place] [address] Vamp Strap Ironer Cardiovascular Disease 05/31/20 Marcelle Almendarez PA 2 [facility] [place] [address] Specialist Cardiology 11/13/20 documented as of this encounter
--- OUTSIDE RECORDS SUMMARY | 2025-02-24 13:10 | XMS_ITS | Encounter Summary ---
Author Organization [facility] Prior to 01/21/2024 Address [address] [place] [address] Care Team Providers Care Photographer Aerial Name Role Phone Gilberto Gaines MD Primary Care Provider [phone] Tod Rodriguez MD Unavailable [phone] Marcelle Almendarez Unavailable Unavailable Reason for Referral * Radiology Services (Routine) - Closed Specialty Diagnoses / Procedures Referred By Contac t Referred To Contact Radiology Diagnoses Pituitary tumor Procedures MRI OF BRAIN WITH AND WITHOUT CONTRAST Devin Poon MD [address] [place] [address] Mri/[address] [address] Referral ID Status Reason Start Date Expiration Date Visits Re quested Visits Authorized [id number] Closed 05/26/2022 05/26/2023 1 1 Encounter Details Date Type Department Care Team Description 05/26/2022 Orders Only Endocrinology - [address] [address] Devin Poon MD [address] [place] [phone] Pituitary tumor (Primary Dx) Social History [...] and with intravenous contrast. History pituitary mass. Headaches. Examination was performed on 1.5 Rosenda magnet without administration of intravenous contrast followed by postcontrast study after administration of 20 mL of the Dotarem. Comparison with prior studies, latest from 09/05/2021. Again noted is some mixed signal intensity mass in the left paramedian aspect of the pituitary gland which on today's study measures 1.2 x 1.1 x 1.3 cm. Mass has some cystic increased T2 and low T1 component and heterogeneous enhancement. There is deviation of the pituitary stalk to the right. Mass abuts the superior and medial lancaster of the cavernous portion of the left internal carotid artery optic chiasm is not compressed. There is no evidence of midline shift, extra or intra-axial blood fluid collections. There is no visible masses, mass effect, focal areas of restricted diffusion and abnormal enhancement in the brain and cerebellum. Again noted are a few foci of increased FLAIR and T2 signal in the periventricular and deep white matter of both cerebral hemispheres. More prominent areas are adjacent to the frontal horns of the lateral ventricles. It did not change significantly since previous examination. Ventricular system is symmetric and normal in size. 4th ventricle and basal cisterns are midline and patent. There is mild mucosal thickening in the maxillary sinuses it was air cells and thumb frontal sinuses inferiorly. Mastoid processes are aerated. CONCLUSIONS: Slight interval decrease in size of the complex mass with cystic component and heterogeneous enhancement in the left aspect of the pituitary gland. Deviation of the pituitary stalk to the right. Effacement of the cavernous portions of the left internal carotid artery. Stable nonspecific white matter signal abnormalities as detailed. Mild mucosal abnormalities in the paranasal sinuses. Procedure [...] system documented in this encounter Care Teams Photographer Aerial Relationship Specialty Start Date End Date Gilberto Gaines MD [address] [place] [address] PCP - General Internal Medicine 10/06/19 Tod Rodriguez MD [address] [place] [address] [place] [address] Ice Cream Freezer Cardiovascular Disease 05/31/20 Marcelle Almendarez PA [address] [place] [address] [place] [address] Specialist Cardiology 11/13/20 documented as of this encounter
--- OUTSIDE RECORDS SUMMARY | 2025-02-24 13:10 | XMS_ITS | Clinical Summary ---
Author Organization [facility] [address] [place] [address] [place] [phone] Phone Care Team Providers Care Rn Training Name Role Phone Gilberto Gaines MD Primary Care Provider [phone] Allergies Active Allergy Reactions Criticality Noted Date [...] (one) time each day. 90 tablet 1 06/20/20 25 Active witch titi-glycerin (TUCKS) pads Apply 1 each topically if needed for hemorrhoids. 40 each 1 01/17/20 25 Active hydrocortisone (ANUSOL-HC) 2.5 % rectal cream Insert into the rectum 4 (four) times a day if needed for hemorrhoids (rectal discomfort). 30 g 5 01/17/20 25 Active psyllium (Metamucil, with sugar,) 3.4 gram packet Take 1 packet by mouth 1 (one) time each day. Mix and drink with at least 8 ounces of water or juice. 30 packet 11 01/17/20 25 Active Active Problems Problem Noted Date Diagnosed Date Other hemorrhoids 01/16/2025 Obesity (BMI 30.0-34.9) 01/05/2024 CAD (coronary artery disease) 05/31/2023 Overview (01/05/2024): Bhpp-ju-fyrgsomy on cardiac cath - per Dr. Pruett [...] Encounters Date Type Department Care Team Description 01/16/2025 4:00 PM EDT Office Visit Adult Medicine [address] [phone] Amberly Centeno NP BRBPR (bright red blood per rectum) (Primary Dx); Constipation, unspecified constipation type; Hemorrhoids, unspecified hemorrhoid type 01/16/2025 Telephone Adult Medicine [address] [phone] Norah Charles MA from Last 3 Months Immunizations Immunization Administration Dates Next Due Influenza Quadravalent, MDCK [...] Date Site/Laterality Comments GASTRIC BYPASS 06/03/2016 PROCEDURE: LA GASTRIC RSTCV W/BYP W/SM INT RCNSTJ LIMIT ABSRPJ; COMMENT: brian Chamberlain HYSTERECTOMY 05/2013 PROCEDURE: HISTORICAL HYSTERECTOMY; COMMENT: [...] Sign Reading Time Taken Comments Blood Pressure 129/76 01/16/2025 3:51 PM EDT Pulse 61 01/16/2025 3:51 PM EDT Temperature 37 C (98.6 F) 01/16/2025 3:51 PM EDT Respiratory Rate 15 01/16/2025 3:51 PM EDT Oxygen Saturation 99% 01/16/2025 3:51 PM EDT Inhaled Oxygen Concentration - - Weight 83 kg (182 lb 14.4 oz) 01/16/2025 3:51 PM EDT Height 160 cm (5' 3 ) 01/16/2025 3:51 PM EDT Body Mass Index 32.4 01/16/2025 3:51 PM EDT Plan of Treatment Upcoming Encounters Date Type Department Care Team (Late st Contact Info) Description 03/12/2025 9:30 AM EST Office Visit Adult Medicine [address] [phone] Amberly Centeno NP [address] [place] [address] 05/17/2025 9:00 AM EST Office Visit Adult [address] [phone] Gilberto Gaines MD [address] [place] [address] Health Maintenance Due Date Last Done Comments Hepatitis B Vaccines (1 of 3 - 19+ 3-dose series) 1989 RSV Immunization Adult Patients (1 - Risk 50-74 years 1-dose series) 02/02/2020 Zoster Vaccines (1 of 2) 02/02/2020 Pneumococcal Vaccine: 50+ Years (2 of 2 - PPSV23, PCV20, or PCV21) 06/28/2020 05/03/2020 HIV Screening 02/28/2022 Medicare Annual Wellness Visit 02/28/2022 Social Influencers of Health Screening 02/28/2022 COVID-19 Vaccine ( - season) 2024 Influenza Vaccine (#1) 2024 4, 02/18/2022, 01/18/2020, Additional history exists Hypertension/CHF/CAD Annual [...] 06/21/2012, 08/02/2001 Hepatitis C Screening Completed 11/22/2020 Depression Screening Completed 01/16/2025, 05/31/19 24 HIB Vaccines Aged Out No longer eligi [...] Procedure Name Priority Date/Time Associated Diagnosis Comments BASIC METABOLIC PANEL Routine 10/30/2024 9:09 AM EDT Essential hypertension, benign LIPID PANEL WITH REFLEX TO DIRECT LDL Routine 10/30/2024 9:09 AM EDT Coronary artery disease, unspecified vessel or lesion type, unspecified whether angina present, unspecified whether klamath or transplanted heart SCREENING MAMMOGRAPHY BI 2-VIEW BREAST INC CAD [...] LAB CHEMISTRY METHOD 10/30/2024 2:16 PM EDT [facility] Triglycerides 118 0 - 150 mg/dL LAB CHEMISTRY METHOD 10/30/2024 2:16 PM EDT [facility] HDL 54 >=40 mg/dL LAB CHEMISTRY METHOD 10/30/2024 2:16 PM EDT [facility] LDL Calculated 155(H) 0 - 100 mg/dL LAB CHEMISTRY METHOD 10/30/2024 2:16 PM T [facility] Comment:Estimated LDL Calcul ated using equation: Total cholesterol - HDL cholesterol - (Triglycerides/5) VLDL Cholesterol Ancelmo 23.6 mg/dL LAB CHEMISTRY METHOD 10/30/2024 2:16 PM EDT [facility] Non HDL Chol. (LDL+VLDL) 179(H) <145 mg/dL LAB CHEMISTRY METHOD 10/30/2024 2:16 PM EDT [facility] Chol/HDL Ratio 4.3 0.0 - 4.4 LAB CHEMISTRY METHOD 10/30/2024 2:16 PM T [facility] Blood Venous blood specimen / Unknown Venipuncture / Unknown 10/30/2024 9:09 AM EDT 10/30/2024 9:09 AM EDT Anaya GOMEZ LAB BLOOD ORDERABLES Fi nal Result [facility] [address] [place] [address], * (ABNORMAL) Basic metabolic panel (10/30/2024 9:09 AM EDT) Sodium 141 133 - 145 mmol/L LAB CHEMISTRY METHOD 10/30/2024 2:12 PM [facility] Potassium 4.2 3.5 - 5.5 mmol/L LAB CHEMISTRY METHOD 10/30/2024 2:12 PM [facility] Chloride 109 96 - 110 mmol/L LAB CHEMISTRY METHOD 10/30/2024 2:12 PM [facility] CO2 30 21 - 32 mmol/L LAB CHEMISTRY METHOD 10/30/2024 2:12 PM [facility] Anion Gap 2(L) 3 - 11 LAB CHEMISTRY METHOD 10/30/2024 2:12 PM [facility] Glucose 90 70 - 100 mg/dL LAB CHEMISTRY METHOD 10/30/2024 2:12 PM [facility] BUN 12 5 - 25 mg/dL LAB CHEMISTRY METHOD 10/30/2024 2:12 PM [facility] Creatinine 0.88 0.50 - 1.10 mg/dL LAB CHEMISTRY METHOD 10/30/2024 2:12 PM [facility] eGFR 78 >=60 mL/min/1. 73m2 LAB CHEMISTRY METHOD 10/30/2024 2:12 PM [facility] Comment:Calculation based on the Chronic Kidney Disease Epidemiology Collaboration (CKD-EPI) equation refit without adjustment for race. BUN/Creatinine Ratio 13.6 LAB CHEMISTRY METHOD 10/30/2024 2:12 PM [facility] Calcium 9.5 8.5 - 10.5 mg/dL LAB CHEMISTRY METHOD 10/30/2024 2:12 PM EDT [facility] Blood Venous blood specimen / Unknown Venipuncture / Unknown 10/30/2024 9:09 AM EDT 10/30/2024 9:09 AM EDT Anaya GOMEZ LAB BLOOD ORDERABLES Fi nal Result [facility] [address] [place] [address], [place] [phone] * SCREENING MAMMOGRAPHY BI 2-VIEW BREAST INC [...] Final Result * Depression Screening (05/31/2023) Pathologist [facility] Depression Screening abstracted Historical Provider HEALTH MAINTENANCE Final Result * Colonoscopy (11/18/2022) [facility] Colonoscopy no interpretation , abstracted Anatomical Region Laterality Modality Other Historical Provider HEALTH MAINTENANCE Final Result * Cervical Cancer Screening: HPV (07/14/2021) [facility] Cervical Cancer Screening: HPV negative, abstracted Historical Provider HEALTH MAINTENANCE Final Result * Hepatitis C Screening (11/22/2020) Pathologist [facility] Hepatitis C Screening abstracted Historical Provider HEALTH MAINTENANCE Final Result from Last 3 Months or Most Recently Relevant to Health Maintenance Insurance MEDICARE [place]ICAID [place] Care Teams Rn Training Relationship Specialty Start Date End Date Gilberto Gaines MD [address] [place] [phone] PCP - General Internal Medicine 11/08/24
--- OUTSIDE RECORDS SUMMARY | 2025-02-24 13:10 | XMS_ITS | Encounter Summary ---
Author Organization [facility] Prior to 01/21/2024 Address [address] [place] [address] Care Team Providers Care Robotics Engineer Name Role Phone Gilberto Gaines MD Primary Care Provider [phone] Tod Rodriguez MD Unavailable [phone] Marcelle Almendarez Unavailable Unavailable Encounter Details Date Type Department Care Team Description 09/30/2023 Ballistics Laboratory Gunsmith Report Medical Records [address] [place] [id number] Santos Pruett MD Social History Tobacco Use [...] on filedocumented in this encounter Care Teams Robotics Engineer Relationship Specialty Start Date End Date Gilberto Gaines MD [address] [place] [id number] PCP - General Internal Medicine 10/06/19 Tod Rodriguez MD [address] [place] [address] [facility] [place] [address] Security Infrastructure Engineer Cardiovascular Disease 3/12/21 Marcelle Almendarez PA [address] [place] [address] [place] [address] Specialist Cardiology 11/13/20 documented as of this encounter
--- OUTSIDE RECORDS SUMMARY | 2025-02-24 13:10 | XMS_ITS | Encounter Summary ---
Author Organization [facility] Prior to 01[facility]21[facility]24 Address [address] [place] [address] Care Team Providers Care Sole Leather Cutting Machine Operator Name Role Phone Gilberto Gaines MD Primary Care Provider [phone] Tod Rodriguez MD Unavailable [phone] Marcelle Almendarez Unavailable Unavailable Encounter Details Date Type Department Care Team Description 09/07/2022 Income Tax Expert Report Medical Records [address] [place] [address] Td Reed Np Social History Tobacco Use [...] on filedocumented in this encounter Care Teams Sole Leather Cutting Machine Operator Relationship Specialty Start Date End Date Gilberto Gaines MD [address] [place] [address] PCP - General Internal Medicine 10/06/19 Tod Rodriguez MD [address] [place] [address] Kennel Manager Dog Track Cardiovascular Disease 05/31/20 Marcelle Almendarez PA [place] [address] Specialist Cardiology 11/13/20 documented as of this encounter
--- OUTSIDE RECORDS SUMMARY | 2025-02-24 13:10 | XMS_ITS | Encounter Summary ---
Author Organization [facility] Prior to 01/21/2024 Address [address] [place] [address] Care Team Providers Care Veterinarian Name Role Phone Gilberto Gaines MD Primary Care Provider Tod Rodriguez MD Unavailable [phone] Marcelle Almendarez Unavailable Unavailable Encounter Details Date Type Department Care Team Description 09/30/2022 Telephone Gastroenterology [address] [place] [phone] Elliott Campos PA-C Social History Tobacco Use Types Packs/Day Years [...] 10/01/2022 2:20 PM EDT Received, placed in [employer] bin * Telephone Encounter - Iesha Davenport - 09/30/2022 11:13 AM EDT Faxed request to [facility] records. Waiting for records. * Telephone Encounter - Elliott Campos PA-C - 09/30/2022 7:55 AM EDT Patient had been recently seen at [facility] and had an ultrasound done which demonstrated a dilated common bile duct. Please obtain those results so they can be incorporated into patient's chart. Thank you documented in this encounter Plan of Treatment Not on file documented as of this encounter Visit Diagnoses Not on filedocumented in this encounter Care Teams Veterinarian Relationship Specialty Start Date End Date Gilberto Gaines MD [address] [place] [id number] PCP - General Internal Medicine 10/06/19 Tod Rodriguez MD [address] [place] [address] [place] [address] Claims Processor Cardiovascular Disease 05/31/20 Marcelle Almendarez PA [address] [place] [address] [place] [address] Specialist Cardiology 11/13/20 documented as of this encounter
--- OUTSIDE RECORDS SUMMARY | 2025-02-24 13:10 | XMS_ITS | Encounter Summary ---
Author Organization [facility] Prior to 01/21/2024 Address [address] [place] [address] Care Team Providers Care Product Test Specialist Name Role Phone Gilberto Gaines MD Primary Care Provider [phone] Tod Rodriguez MD Unavailable [phone] Marcelle Almendarez Unavailable Unavailable Encounter Details Date Type Department Care Team Description 10/14/2021 Orders Only Medical Records [address] [place] [address] Isis Thomas PA Social History Tobacco Use [...] on filedocumented in this encounter Care Teams Product Test Specialist Relationship Specialty Start Date End Date Gilberto Gaines MD [address] [place], [place] [phone] PCP - General Internal Medicine 10/06/19 Tod Rodriguez MD [address] [place] [address] [address] [place] [place], [place] [phone] Elevator Tender Cardiovascular Disease 05/31/20 Marcelle Almendarez PA [address] [place] [address] [place] [id number] Specialist Cardiology 11/13/20 documented as of this encounter
[2025-02-24 13:35] VITALS: BP 156/77; PULSE 61; RESP 16; O2SAT 96
[2025-02-24 15:01] VITALS: BP 156/77; PULSE 61; RESP 16; TEMP 36.5; O2SAT 96
== END 2025-02-24 15:04 | disposition home or self-care (01) ==
PROVIDERS: Emergency Provider Emergency Medicine; PCP Internal Medicine
DX: S02.2XXA Fracture of nasal bones, initial encounter for closed fracture (principal); W19.XXXA Unspecified fall, initial encounter; Y93.29 Activity, other involving ice and snow; Y92.9 Unspecified place or not applicable; R51.9 Headache, unspecified; M25.531 Pain in right wrist; I10 Essential (primary) hypertension; J45.909 Unspecified asthma, uncomplicated; Z79.899 Other long term (current) drug therapy
CPT/HCPCS: 70450; 70486; 72125; 73110; 73130; 99283; 99284

== ENCOUNTER → 2025-02-24 11:42 | Outpatient (BNV) | payer MEDICARE, MEDICAID, SELFPAY | PROVIDERS: Emergency Provider Emergency Medicine; PCP Internal Medicine; Visit Provider Radiology Diagnostic Radiology | DX: S09.90XA Unspecified injury of head, initial encounter (principal); R22.0 Localized swelling, mass and lump, head; W01.0XXA Fall on same level from slipping, tripping and stumbling without subsequent striking against object, initial encounter; Z04.3 Encounter for examination and observation following other accident | CPT/HCPCS: 70450; 70486; 72125; 73110; 73130 ==

== ENCOUNTER 2025-03-07 09:19 | Outpatient (REF) | payer MEDICARE, MEDICAID, SELFPAY ==
[2025-03-07 10:38] LABS: MANUAL DIFF FLAG NO
[2025-03-07 11:02] LABS: Hematocrit 36.1 % (37.0-47.0); Hemoglobin 11.2 g/dl (12.0-16.0); Imm Gran Abs Auto 0.01 X10*3/uL (0.00-0.03); Imm Gran Pct Auto 0.3 % (0.0-0.4); Lymphocytes Absolute Auto 1.0 X10*3/uL (1.2-4.9); Mean Corpuscular HGB Conc 31.0 g/dl (31.0-35.0); Mean Corpuscular Hemoglobin 27.6 pg (27.0-33.0); Mean Corpuscular Volume 88.9 fL (80.0-98.0); NRBC Abs Auto 0.000 X10*3/uL (0.0-0.012); NRBC Pct Auto 0.0 /100WBC (0.0-0.2); Platelet Count 335 X10*3/uL (160-400); Red Blood Count 4.06 X10*6/uL (4.20-5.50); White Blood Count 3.3 X10*3/uL (4.8-10.8)
[2025-03-07 11:48] LABS: Alanine Aminotransferase 15 U/L (0-31); Albumin Level 4.8 g/dL (3.5-5.0); Alkaline Phosphatase 109 U/L (39-117); Anion Gap 12 (12-20); Aspartate Amino Transferase 21 U/L (5-31); Blood Urea Nitrogen 14 mg/dL (9-16); Calcium 9.6 mg/dL (8.4-10.2); Carbon Dioxide 28 mmol/L (22-29); Chloride 106 mmol/L (96-108); Cholesterol 224 mg/dL (<200); Estimated Glomerular Filt Rate > 60; HDL Cholesterol 47 mg/dL (>40); Iron 53 mcg/dL (30-160); Percent Iron Saturation 19 % (15-50); Potassium 4.0 mmol/L (3.3-5.1); Sodium 142 mmol/L (135-145); Total Iron Binding Capacity 280 mcg/dL (228-428); Total Protein 7.3 g/dL (6.5-8.0); Triglycerides 134 mg/dL (<150); Unsaturated Iron Binding 227 ug/dL
[2025-03-07 12:09] LABS: Ferritin 51 ng/mL (10-250)
[2025-03-07 12:25] LABS: Folate 12.1 ng/mL (> or = 4.0); Vitamin B12 475 pg/mL (200-900)
== END 2025-03-07 09:20 | disposition home or self-care (01) ==
LOC: HO.LAB 09:19
PROVIDERS: PCP Internal Medicine; Visit Provider Physician Assistant Surgical
DX: Z90.3 Acquired absence of stomach [part of] (principal); E66.9 Obesity, unspecified; Z68.31 Body mass index [BMI] 31.0-31.9, adult; Z13.0 Encounter for screening for diseases of the blood and blood-forming organs and certain disorders involving the immune mechanism; Z13.1 Encounter for screening for diabetes mellitus; Z13.29 Encounter for screening for other suspected endocrine disorder
CPT/HCPCS: 36415; 80053; 80061; 82306; 82607; 82728; 82746; 83036; 83525; 83540; 84425; 84443; 84590; 84630; 85025; 86140; 99212

== ENCOUNTER 2025-03-07 09:19 | Outpatient (AMB) | payer MEDICARE, MEDICAID, SELFPAY ==
--- NOTE | 2025-03-07 09:31 | MHC.OFFVISWM ---
VS Expanded 03/07/25 09:43 BP 169/76 H Blood Pressure Location Lt brachial Pulse 52 Pulse Source Pulse Oximeter Temp 97.4 F Temperature Source Temporal Artery Scan Pulse Oximetry 99 Oxygen Delivery Method Room Air Height 5 ft 3 in Weight 177 lb BMI 31.4 Intake Visit Reasons: (OV) PO LSG 06/03/16 Allergies Sulfa (Sulfonamide Antibiotics) Allergy (Severe, Verified 03/07/25 09:39) SWELLING acetaminophen (Percocet) Allergy (Unknown, Verified 03/07/25 09:39) vomiting morphine Allergy (Unknown, Verified 03/07/25 09:39) Unknown oxycodone (Percocet) Allergy (Unknown, Verified 03/07/25 09:39) vomiting lisinopril Adverse Reaction (Unknown, Verified 03/07/25 09:39) Unknown Pt states she is allergic to P Allergy (Unknown, Uncoded 02/24/25 11:43) Nausea From PERCOCET Adverse Reaction (Intermediate, Uncoded 02/24/25 11:43) VOMITING baldo inhibitors Adverse Reaction (Unknown, Uncoded 02/24/25 11:43) unknown Medication List - Last Reconciled 03/07/25 by PATRICIA Posada acetaminophen 1,000 mg (2 x 500 mg) PO Q8H PRN amlodipine 10 mg PO DAILY amoxicillin-pot clavulanate 875-125 mg 1 tab PO BID aspirin 81 mg PO DAILY carvedilol (Coreg) 3.125 mg PO BID 90 days cholecalciferol (vitamin D3) 125 mcg PO DAILY cyanocobalamin (vitamin B-12) (Vitamin B-12) 500 mcg PO DAILY cyclobenzaprine 10 mg PO BEDTIME PRN 30 days diclofenac sodium 1% (Arthritis Pain (diclofenac)) 4 grams topical QID ergocalciferol (vitamin D2) 1,250 mcg PO QWEEK ezetimibe (Zetia) 10 mg PO DAILY ferrous sulfate 325 mg PO BID ibuprofen 400 mg PO Q6H PRN isosorbide mononitrate ER 30 mg PO DAILY lidocaine 5% leave on most painful area for up to 12 hrs topical losartan 100 mg PO DAILY nitroglycerin 0.4 mg sublingual Q5M PRN ondansetron 4 mg PO Q8-12H PRN prednisone 20 mg PO DAILY 7 days riboflavin (vitamin B2) 400 mg PO DAILY 30 days rosuvastatin (Crestor) 40 mg PO DAILY 90 days vitamin A palmitate 10,000 units PO DAILY HPI Comments Details: This is a 53 yo female who is s/p LSG 06/03/2016. At last visit pt did not know her weight. However she thinks she lost about 8lbs over the past few months. Current meal plan: nothing formal likes to snack - crackers, cheese, yogurt Exercise: active but nothing formal PFSH Medical History Osteoporosis Hypertension Anemia Brain tumor Asthma Surgical History History of sleeve gastrectomy Hx of hysterectomy Hx of tonsillectomy Family History Mother Hypertension Asthma CAD (coronary artery disease) Osteoporosis Father Hypertension CAD (coronary artery disease) Sister Hypertension Lupus Brother Hypertension Maternal Grandmother Breast cancer Paternal Grandmother Breast cancer Social History Alcohol intake: never Patient Tobacco Use Status: Never used Tobacco Current occupational status: unemployed Current occupation: right hand dominant Physical Exam Vital Signs: Last Vital Signs Temp 97.4 F 03/07/25 09:43 Pulse 52 03/07/25 09:43 BP 169/76 H 03/07/25 09:43 Pulse Ox 99 03/07/25 09:43 Oxygen Delivery Method Room Air 03/07/25 09:43 BMI result Body Mass Index 31.4 Assessment & Plan Assessment & Plan (1) Status post sleeve gastrectomy: Code(s): Z90.3 - Acquired absence of stomach [part of] Category: Surgical (2) Obesity: Code(s): E66.9 - Obesity, unspecified Category: Medical Plan Pt would like to restart a high protein meal plan. Instructed her to incorporate one protein shake and one protein bar into her day. Plus two small meals 4f/4f. Gave protein supplement handout, healthy foods handout and list of lithuanian yogurts. She has a walking pad at home; we discussed 2000 nuris/week goal and also 150min cardio exercise per week as a start. We discussed that she is still obese and would benefit from having BMI be under 30 so she will work towards this goal for now. RTC 6mo. Orders: Orders Insulin Today Z90.3 - Acquired absence of stomach [part of] Lipid Panel Today Z90.3 - Acquired absence of stomach [part of] IRON PROFILE Today Z90.3 - Acquired absence of stomach [part of] Zinc Today Z90.3 - Acquired absence of stomach [part of] Vitamin B12 and Folate Today Z90.3 - Acquired absence of stomach [part of] C Reactive Protein Today Z90.3 - Acquired absence of stomach [part of] Vitamin D 25-OH Total Today Z90.3 - Acquired absence of stomach [part of] Ferritin Today Z90.3 - Acquired absence of stomach [part of] Hemoglobin A1c Today Z90.3 - Acquired absence of stomach [part of] Complete Blood Count Auto Diff Today Z90.3 - Acquired absence of stomach [part of] Comprehensive Met. Panel Today Z90.3 - Acquired absence of stomach [part of] Vitamin B1 Today Z90.3 - Acquired absence of stomach [part of] Vitamin A Today Z90.3 - Acquired absence of stomach [part of] TSH reflex Free T4 Today Z90.3 - Acquired absence of stomach [part of]
[2025-03-07 09:43] VITALS: BP 169/76; PULSE 52; TEMP 36.3; O2SAT 99; BMI 31.4
--- OUTSIDE RECORDS SUMMARY | 2025-03-07 10:34 | XMS_ITS | Clinical Summary ---
Author Organization [facility] Address [address] [place] [address] Care Team Providers Care Terra Cotta Roofer Helper Name Role Phone AdamsLaceyjuan carlosshyla Primary Care [...] 2, 01/18/2020, 01/08/2017, Additional history exists Insurance [facility] MEDICARE Care Teams Terra Cotta Roofer Helper Relationship Specialty Start Date End Date Deirdre Lamas LAMBERT PCP - General 06/12/22
--- OUTSIDE RECORDS SUMMARY | 2025-03-07 10:34 | XMS_ITS | Clinical Summary ---
Author Organization [facility] [address] [place] [address] [place] [phone] Phone Care Team Providers Care Cut Off Saw Set Up Operator Name Role Phone Gilberto Gaines MD Primary Care Provider [phone] Allergies Active Allergy Reactions Criticality Noted Date [...] (one) time each day. 05/31/19 24 Active carvediloL (COREG) 3.125 mg tablet TAKE [...] (two) times a day. 05/28/19 23 Active witch titi-glycerin (TUCKS) pads Apply 1 each topically if needed for hemorrhoids. 40 each 1 01/17/20 25 Active hydrocortisone (ANUSOL-HC) 2.5 % rectal cream Insert into the rectum 4 (four) times a day if needed for hemorrhoids (rectal discomfort). 30 g 5 01/17/20 25 026 Active psyllium (Metamucil, with sugar,) 3.4 gram packet Take 1 packet by mouth 1 (one) time each day. Mix and drink with at least 8 ounces of water or juice. 30 packet 11 01/17/20 25 026 Active losartan (COZAAR) 100 mg tablet Take 1 tablet (100 mg total) by mouth 1 (one) time each day. 90 tablet 1 03/01/20 25 Active amLODIPine (NORVASC) 10 mg tablet Take 1 tablet (10 mg total) by mouth 1 (one) time each day. 90 tablet 1 03/01/20 25 Active amitriptyline (ELAVIL) 10 mg tablet Take 1 tablet (10 mg total) by mouth at bedtime. 90 each 1 03/01/20 25 Active aspirin 81 mg EC tablet Take 1 tablet (81 mg total) by mouth 1 (one) time each day. 90 tablet 1 03/01/20 25 Active ibuprofen (ADVIL,MOTRIN) 600 mg tablet Take 1 tablet (600 mg total) by mouth 4 (four) times a day if needed for mild pain (pain). 60 tablet 03/01/20 25 Active aspirin 81 mg EC tablet Take 1 tablet (81 mg total) by mouth 1 (one) time each day. 01/30/20 23 025 Discontin ued(Reord er) losartan (COZAAR) 100 mg tablet Take 1 tablet (100 mg total) by mouth 1 (one) time each day. 90 tablet 1 09/09/19 25 025 Discontin ued(Reord er) amitriptyline (ELAVIL) 10 mg tablet Take 1 tablet (10 mg total) by mouth at bedtime. 90 each 1 09/09/19 25 025 Discontin ued(Reord er) amLODIPine (NORVASC) 10 mg tablet Take 1 tablet (10 mg total) by mouth 1 (one) time each day. 90 tablet 1 09/09/19 25 025 Discontin ued(Reord er) Active Problems Problem Noted Date Diagnosed Date Other hemorrhoids 01/16/2025 Obesity (BMI 30.0-34.9) 01/05/2024 CAD (coronary artery disease) 05/31/2023 Overview (01/05/2024): Eavx-lw-fasknddj on cardiac cath - per Dr. Pruett [...] Encounters Date Type Department Care Team Description 03/05/2025 Results Follow-Up Adult [address] [phone] Amberly Centeno NP 03/01/2025 8:50 AM EST Lab Draw [address] BRBPR (bright red blood per rectum) 03/01/2025 8:00 AM EST Office Visit Adult [address] [phone] Anaya Anderson PA 02/27/2025 Telephone Adult [address] [phone] Gilberto Gaines MD 01/16/2025 4:00 PM EDT Office Visit Adult Medicine [address] [phone] Amberly Centeno NP BRBPR (bright red blood per rectum) (Primary Dx); Constipation, unspecified constipation type; Hemorrhoids, unspecified hemorrhoid type 01/16/2025 Telephone Adult Medicine [address] [phone] Norah Charles MA from Last 3 Months Immunizations Immunization Administration Dates Next Due Influenza Quadravalent, MDCK , 0.5ml, preservative free (Flucelvax) 6mo and older 05/31/2023,02/18/2022,01/18/2020 Influenza trivalent, 0.5mL, preservative free (Fluarix; FluLaval; Fluzone) ages 6mo and older (Afluria) 3 years and older 01/08/2017,03/04/2016,02/08/2012,2010,12/28/2008 Influenza trivalent, MDCK, 0 .5mL, preservative free (Flucelvax) 6mo and older 03/01/2025 Pneumococcal conjugate 13 va lent (Prevnar 13, PCV13) 2mo and older 05/03/2020 Td Tetanus diptheria (Tdvax) 7yo and older 05/31/2023,08/02/2001 Tdap Tetanus diptheria acell ular pertussis (Boostrix; Adacel) 7yo and older 06/21/2012 Surgical History Surgery Date Site/Laterality Comments GASTRIC BYPASS 06/03/2016 PROCEDURE: [place] GASTRIC RSTCV W/BYP W/SM INT RCNSTJ LIMIT [...] Sign Reading Time Taken Comments Blood Pressure 138/78 03/01/2025 8:12 AM EST Pulse 54 03/01/2025 8:12 AM EST Temperature 36.1 C (96.9 F) 03/01/2025 8:12 AM EST Respiratory Rate 15 01/16/2025 3:51 PM EDT Oxygen Saturation 98% 03/01/2025 8:12 AM EST Inhaled Oxygen Concentration - - Weight 83.2 kg (183 lb 8 oz) 03/01/2025 8:12 AM EST Height 160 cm (5' 2.99 ) 03/01/2025 8:12 AM EST Body Mass Index 32.51 03/01/2025 8:12 AM EST Plan of Treatment Upcoming Encounters Date Type Department Care Team (Late st Contact Info) Description 03/12/2025 9:30 AM EST Office Visit Adult Medicine [address] [phone] Amberly Centeno NP [address] [place] [address] 05/17/2025 9:00 AM EST Office Visit Adult [address] [phone] Gilberto Gaines MD [address] [place] [address] Health Maintenance Due Date Last Done Comments Hepatitis B Vaccines (1 of 3 - 19+ 3-dose series) 1989 RSV Immunization Adult Patients (1 - Risk 50-74 years 1-dose series) 02/02/2020 Zoster Vaccines (1 of 2) 02/02/2020 Pneumococcal Vaccine: 50+ Years (2 of 2 - PPSV23, PCV20, or PCV21) 06/28/2020 05/03/2020 HIV Screening 02/28/2022 Medicare Annual Wellness Visit 02/28/2022 Osteoporosis Screening (Bone Density Screening) 02/28/2022 Social Influencers of Health Screening 02/28/2022 COVID-19 Vaccine ( season) 2024 Hypertension/CHF/CAD Annual BMP Blood Test 10/30/2025 10/30/2024, [...] 11/22/2020 Depression Screening Completed 01/16/2025, 05/31/19 24 Influenza Vaccine Completed 03/01/2025, , 02/18/2022, Additional history exists HIB Vaccines Aged Out No longer eligi [...] Procedure Name Priority Date/Time Associated Diagnosis Comments CBC WITH AUTO DIFFERENTIAL Routine 03/01/2025 8:55 AM EST BRBPR (bright red blood per rectum) CBC AND DIFFERENTIAL Routine 03/01/2025 8:55 AM EST BRBPR (bright red blood per rectum) BASIC METABOLIC PANEL Routine 10/30/2024 9:09 AM EDT Essential hypertension, benign LIPID PANEL WITH REFLEX TO DIRECT LDL Routine 10/30/2024 9:09 AM EDT Coronary artery disease, unspecified vessel or lesion type, unspecified whether angina present, unspecified whether [place] or transplanted heart SCREENING MAMMOGRAPHY BI 2-VIEW BREAST INC CAD Routine 11/17/2023 1:44 PM EDT Encounter for screening mammogram for malignant neoplasm of breast DEPRESSION SCREENING Routine 05/31/2023 COLONOSCOPY Routine 11/18/2022 HPV Routine 07/14/2021 HEPATITIS C SCREENING Routine 11/22/2020 from Last 3 Months or Most Recently Relevant to Health Maintenance Results * (ABNORMAL) CBC auto differential (03/01/2025 8:55 AM EST) WBC 3.8(L) 4.8 - 10.8 K/mcL LAB HEMETOLOGY METHOD 03/01/2025 10:52 AM [facility] RBC 4.10 3.80 - 4.80 M/mcL LAB HEMETOLOGY METHOD 03/01/2025 10:52 AM [facility] Hemoglobin 11.5 11.5 - 16.0 g/dL LAB HEMETOLOGY METHOD 03/01/2025 10:52 AM [facility] Hematocrit 36.0 35.0 - 47.0 % LAB HEMETOLOGY METHOD 03/01/2025 10:52 AM [facility] MCV 87.8 79.0 - 98.0 FL LAB HEMETOLOGY METHOD 03/01/2025 10:52 AM [facility] MCH 28.0 27.0 - 32.0 pcg LAB HEMETOLOGY METHOD 03/01/2025 10:52 AM [facility] MCHC 31.9(L) 32.0 - 37.0 g/dL LAB HEMETOLOGY METHOD 03/01/2025 10:52 AM [facility] RDW 12.4 11.0 - 15.0 % LAB HEMETOLOGY METHOD 03/01/2025 10:52 AM [facility] Platelets 331 130 - 400 K/mcL LAB HEMETOLOGY METHOD 03/01/2025 10:52 AM [facility] MPV 11.2(H) 7.0 - 11.0 FL LAB HEMETOLOGY METHOD 03/01/2025 10:52 AM [facility] NRBC 0.0 <1.0 % LAB HEMETOLOGY METHOD 03/01/2025 10:52 AM [facility] NRBC Absolute 0.00 <0.10 K/mcL LAB HEMETOLOGY METHOD 03/01/2025 10:52 AM [facility] Neutrophils Relative 52.1 % LAB HEMETOLOGY METHOD 03/01/2025 10:52 AM [facility] Lymphocytes Relative 26.3 % LAB HEMETOLOGY METHOD 03/01/2025 10:52 AM [facility] Monocytes Relative 9.6 % LAB HEMETOLOGY METHOD 03/01/2025 10:52 AM [facility] Eosinophils Relative 10.4 % LAB HEMETOLOGY METHOD 03/01/2025 10:52 AM [facility] Basophils Relative 1.3 % LAB HEMETOLOGY METHOD 03/01/2025 10:52 AM [facility] Immature Granulocytes Relative 0.3 % LAB HEMETOLOGY METHOD 03/01/2025 10:52 AM [facility] Neutrophils Absolute 1.96 1.50 - 7.00 K/mcL LAB HEMETOLOGY METHOD 03/01/2025 10:52 AM [facility] Lymphocytes Absolute 0.99(L) 1.00 - 5.00 K/mcL LAB HEMETOLOGY METHOD 03/01/2025 10:52 AM [facility] Monocytes Absolute 0.36 0.20 - 1.00 K/mcL LAB HEMETOLOGY METHOD 03/01/2025 10:[address] [facility] Eosinophils Absolute 0.39 0.00 - 0.50 K/mcL LAB HEMETOLOGY METHOD 03/01/2025 10:[address] [facility] Basophils Absolute 0.05 0.00 - 0.20 K/mcL LAB HEMETOLOGY METHOD 03/01/2025 10:[address] [facility] Immature Granulocytes Absolute 0.01 0.00 - 0.03 K/mcL LAB HEMETOLOGY METHOD 03/01/2025 10:52 AM [facility] Blood Venous blood specimen / Unknown Venipuncture / Unknown 03/01/2025 8:55 AM EST 03/01/2025 8:55 AM EST us Amberly Centeno JANITORIAL TECH LAB BLOOD ORDERABLES Final Re sult [facility] [address] [place] [address], [place] [phone] * (ABNORMAL) Lipid panel with reflex to direct LDL (10/30/2024 9:09 AM EDT) Cholesterol 233(H) 0 - 200 mg/dL LAB CHEMISTRY METHOD 10/30/2024 2:[address] [facility] Triglycerides 118 0 - 150 mg/dL LAB CHEMISTRY METHOD 10/30/2024 2:[address] [facility] HDL 54 >=40 mg/dL LAB CHEMISTRY METHOD 10/30/2024 2:[address] [facility] LDL Calculated 155(H) 0 - 100 mg/dL LAB CHEMISTRY METHOD 10/30/2024 2:[address] [facility] Comment:Estimated LDL Calcul ated using equation: Total cholesterol - HDL cholesterol - (Triglycerides/5) VLDL Cholesterol Ancelmo 23.6 mg/dL LAB CHEMISTRY METHOD 10/30/2024 2:[address] [facility] Non HDL Chol. (LDL+VLDL) 179(H) <145 mg/dL LAB CHEMISTRY METHOD 10/30/2024 2:[address] [facility] Chol/HDL Ratio 4.3 0.0 - 4.4 LAB CHEMISTRY METHOD 10/30/2024 2:16 PM [facility] Blood Venous blood specimen / Unknown Venipuncture / Unknown 10/30/2024 9:09 AM EDT 10/30/2024 9:09 AM EDT us Anaya GOMEZ LAB BLOOD ORDERABLES Fi nal Result [facility] [address] [place] [address], [place] [phone] * (ABNORMAL) Basic metabolic panel (10/30/2024 9:09 AM EDT) Sodium 141 133 - 145 mmol/L LAB CHEMISTRY METHOD 10/30/2024 2:12 PM [facility] Potassium 4.2 3.5 - 5.5 mmol/L LAB CHEMISTRY METHOD 10/30/2024 2:12 PM [facility] Chloride 109 96 - 110 mmol/L LAB CHEMISTRY METHOD 10/30/2024 2:12 PM [facility] CO2 30 21 - 32 mmol/L LAB CHEMISTRY METHOD 10/30/2024 2:12 PM [facility] Anion Gap 2(L) 3 - 11 LAB CHEMISTRY METHOD 10/30/2024 2:12 PM [facility] Glucose 90 70 - 100 mg/dL LAB CHEMISTRY METHOD 10/30/2024 2:12 PM [facility] BUN 12 5 - 25 mg/dL LAB CHEMISTRY METHOD 10/30/2024 2:12 PM [facility] Creatinine 0.88 0.50 - 1.10 mg/dL LAB CHEMISTRY METHOD 10/30/2024 2:[address] [facility] eGFR 78 >=60 mL/min/1. 73m2 LAB CHEMISTRY METHOD 10/30/2024 2:[address] [facility] Comment:Calculation based on the Chronic Kidney Disease Epidemiology Collaboration (CKD-EPI) equation refit without adjustment for race. BUN/Creatinine Ratio 13.6 LAB CHEMISTRY METHOD 10/30/2024 2:[address] [facility] Calcium 9.5 8.5 - 10.5 mg/dL LAB CHEMISTRY METHOD 10/30/2024 2:[address] [facility] Blood Venous blood specimen / Unknown Venipuncture / Unknown 10/30/2024 9:09 AM EDT 10/30/2024 9:09 AM EDT Anaya GOMEZ LAB BLOOD ORDERABLES Fi nal Result [facility] [address] [place] [address], * SCREENING MAMMOGRAPHY BI 2-VIEW BREAST INC [...] PROCEDURES Final Result * Depression Screening (05/31/2023) [facility] Depression Screening abstracted Result [facility] Provider HEALTH MAINTENANCE Final Result * Colonoscopy (11/18/2022) [facility] Colonoscopy no interpretation , abstracted Anatomical Region Laterality Modality Other Result [facility] Provider HEALTH MAINTENANCE Final Result * Cervical Cancer Screening: HPV (07/14/2021) [facility] Cervical Cancer Screening: HPV negative, abstracted Result [facility] Historical Provider HEALTH MAINTENANCE Final Result * Hepatitis C Screening (11/22/2020) [facility] Hepatitis C Screening abstracted [facility] Provider HEALTH MAINTENANCE Final Result from Last 3 Months or Most Recently Relevant to Health Maintenance Insurance MEDICARE [place]ICAID [place] Care Teams Cut Off Saw Set Up Operator Relationship Specialty Start Date End Date Gilberto Gaines MD [address] [place] [address] [phone] PCP - General Internal Medicine 11/08/24
--- OUTSIDE RECORDS SUMMARY | 2025-03-07 10:34 | XMS_ITS | Encounter Summary ---
Author Organization [facility] Address [address] [place] [address] Care Team Providers Care [employer] Weaver Name Role Phone Gilberto Gaines MD Primary Care Provider [phone] Encounter Details Date Type Department Care Team (Late Contact Info) Description 03/05/2025 Results Follow-Up Adult Medicine [address] [phone] Amberly Centeno NP [address] [place], [place] Social History Tobacco Use Types Packs/Day Years Used Date Smoking Tobacco: Never Smokeless Tobacco: Never Alcohol Use Standard Drinks/Week Comments No 0 (1 standard drink = 0.6 oz pur e alcohol) Comments No Sex and Gender Information Value Date Recorded Sex Assigned at Not on file Legal Sex Female 3:34 PM EST Gender Identity Not on file Sexual Orientation Not on file documented as of this encounter Plan of Treatment Upcoming Encounters Date Type Department Care Team (Late Contact Info) Description 03/12/2025 9:30 AM EST Office Visit Adult Medicine [address] [phone] Amberly Centeno NP [address] [place], [place] 05/17/2025 9:00 AM EST Office Visit Adult Medicine [address] [phone] Gilberto Gaines MD [address] [place] [address] documented as of this encounter Visit Diagnoses Not on filedocumented in this encounter Additional Health Concerns Assessment Noted Time PHQ-9 Depression Total Score: 0 01/17/20 1:58 PM EDT documented as of this encounter Care Teams [employer] Weaver Relationship Specialty Start Date End Date Gilberto Gaines MD [address] [place] [address] PCP - General Internal Medicine 11/08/24 documented as of this encounter
== END 2025-03-07 10:18 | disposition home or self-care (01) ==
LOC: HO.HBS 09:19
PROVIDERS: PCP Internal Medicine; Visit Provider Physician Assistant Surgical
DX: E66.811 Obesity, class 1 (principal); Z68.31 Body mass index [BMI] 31.0-31.9, adult; Z90.3 Acquired absence of stomach [part of]; Z98.84 Bariatric surgery status
CPT/HCPCS: 99214; G2211